=== PATIENT | female | born 1965 | race Caucasian/White ===

== ENCOUNTER 2017-08-18 05:16 | Inpatient (IN) | payer MEDICAID ==
[~2017-08-18] VITALS: Ht 147.3 cm; Wt 38.3 kg
[2017-08-18] VITALS (15 sets, daily range): BP systolic 119–149; BP diastolic 65–78
[~2017-08-18 05:16] MED LIST: BUDE10.2 INH; BUSP30TA2 PO; FLUT16SP2 BOTHNARES; FURO-150 PO; HYDR-3686 PO; HYDR-569 PO; HYDR50TA65 PO; LISI-604 PO; MONT10TA21 PO; NICO-631 TD; NITR0.4T48 SL; POTA8TAB8 PO; THEO400T PO; TIOT4MIS5 PO
[2017-08-18] MEDS ORDERED: ipratropium/albuterol 3ml nebule ONE (05:24)
[2017-08-18] MEDS ORDERED: normal saline 1000ml 1,000 ML IV ONE (05:27)
[2017-08-18] MEDS ORDERED: CefTRIAXone 2gm/D5W 50ml 50 ML IV ONE (05:30)
[2017-08-18] MEDS ORDERED: methylPREDNISolone sod succ 125mg/2ml vial IV ONE (05:30)
[2017-08-18] MEDS ORDERED: azithromycin/NS 500mg/250ml 250 ML IV ONE (05:30)
[2017-08-18] MEDS ORDERED: ipratropium/albuterol 3ml nebule NEB ONE (05:30)
[2017-08-18] MEDS ORDERED: normal saline 1000ML IV soln IVB ONE ×3 (05:35→06:15)
[2017-08-18] MEDS ORDERED: propofol 1000mg/100ml bottle 100 ML IV PRN (05:36)
[2017-08-18] MEDS ORDERED: etomidate 2mg/ml inj. IV ONE (05:40)
[2017-08-18] MEDS ORDERED: succinylcholine 20mg/ml inj IV ONE (05:40)
[2017-08-18] MEDS ORDERED: MIDAZolam 5mg/ml 2ml vial IV ONE (05:40)
[2017-08-18 05:46] LABS: BASOPHILS # (AUTO) 0.1 X10'3 (0-0.2); BASOPHILS % (AUTO) 0.7 % (0-1); EOSINOPHILS # (AUTO) 0.3 X10'3 (0-0.9); EOSINOPHILS % (AUTO) 3.2 % (0-6); HEMATOCRIT 39.2 % (35.0-45.0); HEMOGLOBIN 13.4 g/dl (12.0-16.0); LYMPHOCYTES # (AUTO) 3.4 X10'3 (1.1-4.8); LYMPHOCYTES % (AUTO) 40.5 % (21-51); MEAN CORPUSCULAR HEMOGLOBIN 34.1 PG (27.0-31.0); MEAN CORPUSCULAR HGB CONC 34.1 % (33.0-36.5); MEAN PLATELET VOLUME 8.1 FL (7.4-10.4); MONOCYTES # (AUTO) 0.5 X10'3 (0-0.9); MONOCYTES % (AUTO) 5.4 % (2-12); NEUTROPHILS # (AUTO) 4.2 X10'3 (1.8-7.7); NEUTROPHILS % (AUTO) 50.2 % (42-75); PLATELET COUNT 241 X10'3 (140-440); RED BLOOD COUNT 3.92 X10'6 (4.20-5.60); RED CELL DISTRIBUTION WIDTH 14.9 % (11.5-14.5); WHITE BLOOD COUNT 8.3 X10'3 (4.5-11.0)
[2017-08-18 05:50] LABS: PARTIAL THROMBOPLASTIN TIME 23 SECONDS (22-32)
[2017-08-18 05:54] LABS: ALANINE AMINOTRANSFERASE 93 U/L (12-78); ALBUMIN 3.5 G/DL (3.4-5.0); ALBUMIN/GLOBULIN RATIO 1.2 (1.1-1.5); ALKALINE PHOSPHATASE 160 IU/L (46-116); ANION GAP 11 (8-16); ASPARTATE AMINO TRANSFERASE 125 U/L (10-37); BILIRUBIN,TOTAL 0.4 MG/DL (0.1-1.0); BLOOD UREA NITROGEN 19 MG/DL (7-18); BUN/CREATININE RATIO 17.1 (6.6-38.0); CALCIUM 7.9 MG/DL (8.5-10.1); CHLORIDE 108 MMOL/L (99-107); CREATININE 1.11 MG/DL (0.40-0.90); GLUCOSE 258 MG/DL (70-104); SODIUM 143 MMOL/L (135-145); TOTAL CARBON DIOXIDE 23.7 MMOL/L (24-32); TOTAL PROTEIN 6.4 G/DL (6.4-8.2); eGFR 51 ML/MIN
[2017-08-18 06:01] LABS: ETHANOL < 0.010 GM/DL (0.0-0.010); MAGNESIUM 1.8 MG/DL (1.5-2.4)
[2017-08-18] MEDS ORDERED: albuterol 2.5 MG/3 ML nebule NEB ONE ×2 (06:05→06:10)
[2017-08-18] MEDS ORDERED: normal saline 1000ml 1,000 ML IV SCH (06:09)
[2017-08-18] MEDS ORDERED: potassium Cl 40MEQ/250ML bag 250 ML IV PRN (06:10)
[2017-08-18] MEDS ORDERED: morphine 4 MG/ML inj SYRINge IV PRN (06:10)
[2017-08-18] MEDS ORDERED: magnesium 4gm in 100ml NS 100 ML IV PRN (06:10)
[2017-08-18] MEDS ORDERED: acetaminophen 650mg rectal suppository RC PRN (06:10)
[2017-08-18] MEDS ORDERED: magnesium 2GM in 50ml NS 50 ML IV PRN (06:10)
[2017-08-18 06:40] LABS: CLARITY,URINE CLOUDY (Clear); COLOR,URINE YELLOW (Yellow); GLUCOSE, URINE 250 mg/dl (Neg); KETONES,URINE NEGATIVE (Neg); LEUKOCYTE ESTERASE ,URINE NEGATIVE (Neg); NITRITES, URINE NEGATIVE (Neg); OCCULT BLOOD,URINE SMALL (Neg); PROTEIN,URINE >=300 mg/dl (Neg)
[2017-08-18 06:43] LABS: CHOL/HDL RATIO 2.5 (0.00-4.99); CHOLESTEROL 226 MG/DL (0-200); HDL CHOLESTEROL 90 MG/DL (35-60); LDL CHOLESTEROL 107 MG/DL (50-100); TRIGLYCERIDES 73 MG/DL (20-135)
[2017-08-18 06:44] LABS: UA COLLECTION TYPE FOLEY CATH
[2017-08-18] MEDS ORDERED: dextrose ORAL solution 15 GM/59 ML bottle PO PRN ×2 (06:45)
[2017-08-18] MEDS ORDERED: glucagon, human recombinant 1mg kit SUBCUT PRN (06:45)
[2017-08-18] MEDS ORDERED: insulin Lispro (HumaLOG) vial - multi-dose SQ SCH (06:45)
[2017-08-18] MEDS ORDERED: dextrose 50%-water 50ml dispensing syringe IV PRN ×2 (06:45)
[2017-08-18 06:46] LABS: BACTERIA,URINE FEW /HPF (Neg); MUCUS STRANDS FEW /LPF (Neg); RBC,URINE 20-50 /HPF (0-2)
[2017-08-18 06:47] LABS: AMORPHOUS URATES 2+
[2017-08-18 06:48] LABS: SQUAMOUS EPITHELIAL CELL,UR FEW /LPF (FEW)
[2017-08-18 06:49] LABS: RENAL CELLS, URINE MODERATE /HPF
[2017-08-18 06:50] LABS: URINE AMPHETAMINE SCREEN NEGATIVE (Neg); URINE BARBITUATE SCREEN NEGATIVE (Neg); URINE BENZODIAZEPINES SCREEN POSITIVE (Neg); URINE CANNABINOID SCREEN POSITIVE (Neg); URINE COCAINE SCREEN NEGATIVE (Neg); URINE METHADONE SCREEN NEGATIVE (Neg); URINE OPIATE SCREEN NEGATIVE (Neg); URINE PHENCYCLIDINE SCREEN NEGATIVE (Neg)
[2017-08-18 07:00] LABS: HEMOGLOBIN A1C 5.2 % (4.5-6.2)
[2017-08-18] MEDS: azithromycin/NS 500mg/250ml 250 ML IV SCH (07:10)
[2017-08-18] MEDS ORDERED: FENTANYL-0.9 % NACL/PF 100 ML IV PRN (08:25)
[2017-08-18] MEDS ORDERED: midazolam 100mg in NS 100ml 100 ML IV PRN (08:25)
[2017-08-18] MEDS: famotidine/PF 10 mg/ml inj IV SCH ×2 (09:36→21:02)
[2017-08-18] MEDS: methylPREDNISolone sod succ 125mg/2ml vial IV SCH ×2 (14:17→21:01)
[2017-08-18] MEDS: insulin regular, human vial - multi-dose SQ SCH ×2 (14:19→20:56)
[2017-08-18] MEDS ORDERED: OMEP-50 PO (15:51)
[2017-08-18] MEDS: ipratropium/albuterol 3ml nebule NEB PRN ×2 (18:50→22:40)
[2017-08-18] MEDS: heparin, porcine 5000 units/ml vial SQ SCH (21:06)
[2017-08-18] MEDS: lactobacillus rhamnosus 10,000 MMU CELLS/CAPSULE PO SCH (21:12)
[2017-08-18] MEDS: insulin glargine (Lantus) pen - multi-dose SQ SCH (21:26)
[2017-08-19] VITALS (23 sets, daily range): BP systolic 101–140; BP diastolic 52–82
[2017-08-19] MEDS: methylPREDNISolone sod succ 125mg/2ml vial IV SCH ×4 (02:11→19:50)
[2017-08-19] MEDS: insulin regular, human vial - multi-dose SQ SCH ×2 (02:15→07:35)
[2017-08-19 02:48] LABS: BASOPHILS % (AUTO) 0.1 % (0-1); EOSINOPHILS % (AUTO) 0 % (0-6); HEMOGLOBIN 11.6 g/dl (12.0-16.0); LYMPHOCYTES # (AUTO) 0.2 X10'3 (1.1-4.8); LYMPHOCYTES % (AUTO) 2.4 % (21-51); MEAN CORPUSCULAR HEMOGLOBIN 33.3 PG (27.0-31.0); MEAN CORPUSCULAR HGB CONC 33.3 % (33.0-36.5); MEAN CORPUSCULAR VOLUME 100.1 FL (78-98); MEAN PLATELET VOLUME 8.5 FL (7.4-10.4); MONOCYTES # (AUTO) 0.2 X10'3 (0-0.9); MONOCYTES % (AUTO) 1.9 % (2-12); NEUTROPHILS # (AUTO) 8.4 X10'3 (1.8-7.7); NEUTROPHILS % (AUTO) 95.6 % (42-75); PLATELET COUNT 183 X10'3 (140-440); RED CELL DISTRIBUTION WIDTH 14.5 % (11.5-14.5); WHITE BLOOD COUNT 8.8 X10'3 (4.5-11.0)
[2017-08-19] MEDS: ipratropium/albuterol 3ml nebule NEB PRN ×2 (02:50→10:34)
[2017-08-19 03:03] LABS: ALBUMIN 2.7 G/DL (3.4-5.0); ANION GAP 8 (8-16); BILIRUBIN,TOTAL 0.2 MG/DL (0.1-1.0); BLOOD UREA NITROGEN 17 MG/DL (7-18); BUN/CREATININE RATIO 28.3 (6.6-38.0); CALCIUM 7.7 MG/DL (8.5-10.1); CHLORIDE 111 MMOL/L (99-107); GLUCOSE 174 MG/DL (70-104); MAGNESIUM 1.7 MG/DL (1.5-2.4); PHOSPHORUS 1.3 MG/DL (2.3-4.5); POTASSIUM 3.8 MMOL/L (3.5-5.1); SODIUM 143 MMOL/L (135-145); TOTAL CARBON DIOXIDE 24.1 MMOL/L (24-32); eGFR > 90 ML/MIN
[2017-08-19 03:04] LABS: ALANINE AMINOTRANSFERASE 99 U/L (12-78); ALBUMIN/GLOBULIN RATIO 1.2 (1.1-1.5); ALKALINE PHOSPHATASE 75 IU/L (46-116); ASPARTATE AMINO TRANSFERASE 43 U/L (10-37)
[2017-08-19 03:11] LABS: ABG BASE EXCESS -2.6 mmol/L (-2.0-3.0); ABG HCO3 21.6 mmol/L (22.0-26.0); ABG PCO2 (T) 36.7 mmHg (32.0-45.0); ABG PH (T) 7.391 (7.350-7.450); FCOHb 0.2 % (0.5-1.5); FMetHb 0.1 % (0.3-1.12); FO2Hb 96.7 % (94-100); MINUTE VOLUME 7 L/min; PATIENT TEMPERATURE 37.7; PEEP 5 cm H2O; RESPIRATORY RATE 16 b/min; RESPIRATORY RATE (OBSERVED) 16 b/min; TIDAL VOLUME 400 mL; TOTAL HEMOGLOBIN 12.4 G/dl (12.0-16.0)
[2017-08-19] MEDS: lactobacillus rhamnosus 10,000 MMU CELLS/CAPSULE PO SCH ×2 (07:14→19:49)
[2017-08-19] MEDS: heparin, porcine 5000 units/ml vial SQ SCH ×2 (07:18→19:53)
[2017-08-19] MEDS: famotidine/PF 10 mg/ml inj IV SCH ×2 (07:18→20:00)
[2017-08-19] MEDS: nicotine 21mg patch - 24 hr TD SCH (07:19)
[2017-08-19] MEDS: CefTRIAXone (Rocephin) 2gm/D5W 50ml IVPB IV SCH (07:20)
[2017-08-19] MEDS: azithromycin/NS 500mg/250ml 250 ML IV SCH (07:20)
[2017-08-19] MEDS: mineral oil/petrolatum ophthal oint EACHEYE SCH ×3 (07:21→20:00)
[2017-08-19] MEDS ORDERED: furosemide 40mg/4ml inj IV ONE (08:55)
[2017-08-19 09:16] LABS: HEP A AB, IGM Negative (Negative); HEP B CORE AB, IGM Negative (Negative); HEPATITIS C ANTIBODY >11.0 s/co ratio (0.0-0.9)
[2017-08-19] MEDS: ondansetron/PF 4mg/2ml inj IV PRN ×2 (15:34→19:54)
[2017-08-19] MEDS ORDERED: LORazepam 2 mg/ml vial IV ONE (16:40)
[2017-08-19] MEDS ORDERED: fluticasone nasal spray 16GM bottle NS PRN (19:05)
[2017-08-19] MEDS: busPIRone 15mg tablet PO SCH (19:49)
[2017-08-19] MEDS: morphine 4 MG/ML inj SYRINge IV PRN (19:52)
[2017-08-19] MEDS: lisinopril 5mg tablet PO SCH (19:59)
[2017-08-19] MEDS: insulin glargine (Lantus) pen - multi-dose SQ SCH (21:00)
[2017-08-19] MEDS: ipratropium 0.5 MG/2.5ML nebule IH SCH (21:07)
[2017-08-19] MEDS: budesonide 0.5mg/2ml UD nebule IH SCH (21:07)
[2017-08-20] VITALS (18 sets, daily range): BP systolic 97–123; BP diastolic 54–94
[2017-08-20] MEDS: mineral oil/petrolatum ophthal oint EACHEYE SCH ×2 (01:50→08:00)
[2017-08-20] MEDS: methylPREDNISolone sod succ 125mg/2ml vial IV SCH ×4 (02:22→19:34)
[2017-08-20] MEDS: ondansetron/PF 4mg/2ml inj IV PRN ×2 (02:32→08:30)
[2017-08-20] MEDS: ipratropium 0.5 MG/2.5ML nebule IH SCH ×4 (03:05→19:55)
[2017-08-20] MEDS: morphine 4 MG/ML inj SYRINge IV PRN ×4 (03:24→19:47)
[2017-08-20 05:23] LABS: BASOPHILS % (AUTO) 0 % (0-1); EOSINOPHILS % (AUTO) 0 % (0-6); LYMPHOCYTES # (AUTO) 0.3 X10'3 (1.1-4.8); LYMPHOCYTES % (AUTO) 2.6 % (21-51); MEAN CORPUSCULAR HEMOGLOBIN 33.4 PG (27.0-31.0); MEAN CORPUSCULAR HGB CONC 33.4 % (33.0-36.5); MEAN PLATELET VOLUME 8.4 FL (7.4-10.4); MONOCYTES # (AUTO) 0.3 X10'3 (0-0.9); NEUTROPHILS # (AUTO) 9.6 X10'3 (1.8-7.7); NEUTROPHILS % (AUTO) 94.4 % (42-75); PLATELET COUNT 188 X10'3 (140-440); WHITE BLOOD COUNT 10.1 X10'3 (4.5-11.0)
[2017-08-20 05:56] LABS: ALANINE AMINOTRANSFERASE 74 U/L (12-78); ALBUMIN 3.1 G/DL (3.4-5.0); ALBUMIN/GLOBULIN RATIO 1.1 (1.1-1.5); ALKALINE PHOSPHATASE 73 IU/L (46-116); ANION GAP 8 (8-16); ASPARTATE AMINO TRANSFERASE 18 U/L (10-37); BILIRUBIN,TOTAL 0.3 MG/DL (0.1-1.0); BLOOD UREA NITROGEN 26 MG/DL (7-18); BUN/CREATININE RATIO 38.8 (6.6-38.0); CALCIUM 8.3 MG/DL (8.5-10.1); CHLORIDE 107 MMOL/L (99-107); CREATININE 0.67 MG/DL (0.40-0.90); GLUCOSE 141 MG/DL (70-104); MAGNESIUM 1.9 MG/DL (1.5-2.4); PHOSPHORUS 3.5 MG/DL (2.3-4.5); POTASSIUM 4.2 MMOL/L (3.5-5.1); SODIUM 143 MMOL/L (135-145); TOTAL CARBON DIOXIDE 28.3 MMOL/L (24-32); TOTAL PROTEIN 5.9 G/DL (6.4-8.2); eGFR > 90 ML/MIN
[2017-08-20] MEDS: budesonide 0.5mg/2ml UD nebule IH SCH ×2 (07:47→19:55)
[2017-08-20] MEDS: albuterol 2.5 MG/3 ML nebule NEB SCH ×4 (07:52→19:55)
[2017-08-20] MEDS: azithromycin/NS 500mg/250ml 250 ML IV SCH (08:29)
[2017-08-20] MEDS: CefTRIAXone (Rocephin) 2gm/D5W 50ml IVPB IV SCH (08:29)
[2017-08-20] MEDS: famotidine/PF 10 mg/ml inj IV SCH (08:30)
[2017-08-20] MEDS: lisinopril 5mg tablet PO SCH (08:31)
[2017-08-20] MEDS: heparin, porcine 5000 units/ml vial SQ SCH ×2 (08:31→19:35)
[2017-08-20] MEDS: busPIRone 15mg tablet PO SCH ×2 (08:31→19:35)
[2017-08-20] MEDS: lactobacillus rhamnosus 10,000 MMU CELLS/CAPSULE PO SCH ×2 (08:31→19:35)
[2017-08-20] MEDS: montelukast 10mg tablet PO SCH (08:32)
[2017-08-20] MEDS: theophylline anhydrous 100mg ER capsule 24-hour PO SCH (08:32)
[2017-08-20] MEDS: nicotine 21mg patch - 24 hr TD SCH (08:33)
[2017-08-20] MEDS ORDERED: nitroGLYCERIN 0.4mg SUBLingual tab SL PRN (08:45)
[2017-08-20] MEDS: famotidine 20mg tablet PO SCH (19:35)
[2017-08-20] MEDS: HYDROcodone/acetaminophen 5mg/325mg tablet PO PRN (22:23)
[2017-08-20] MEDS: hydrOXYzine 25 MG tablet PO PRN (22:23)
[2017-08-21] MEDS: morphine 4 MG/ML inj SYRINge IV PRN ×4 (00:35→20:34)
[2017-08-21] MEDS: methylPREDNISolone sod succ 125mg/2ml vial IV SCH ×4 (02:30→20:33)
[2017-08-21 03:00] VITALS: BP 105/59
[2017-08-21] MEDS: ipratropium 0.5 MG/2.5ML nebule IH SCH ×4 (03:11→20:52)
[2017-08-21 06:10] LABS: ABG BASE EXCESS -4.4 mmol/L (-2.0-3.0); ABG HCO3 21.2 mmol/L (22.0-26.0); ABG OXYGEN SATURATION 98.8 % (95-98); ABG PCO2 (T) 41.3 mmHg (32.0-45.0); ABG PH (T) 7.329 (7.350-7.450); ABG PO2 (T) 151.5 mmHg (83-108); ALLEN'S TEST Positive; FCOHb 0.2 % (0.5-1.5); FMetHb 0.1 % (0.3-1.12); FO2Hb 98.5 % (94-100); MINUTE VOLUME 7 L/min; PEEP 5 cm H2O; RESPIRATORY RATE 16 b/min; RESPIRATORY RATE (OBSERVED) 16 b/min; TOTAL HEMOGLOBIN 13.5 G/dl (12.0-16.0)
[2017-08-21 06:10] LABS: ABG BASE EXCESS -11.5 mmol/L (-2.0-3.0); ABG HCO3 17.4 mmol/L (22.0-26.0); ABG OXYGEN SATURATION 91.5 % (95-98); ABG PCO2 (T) 51.6 mmHg (32.0-45.0); ABG PH (T) 7.145 (7.350-7.450); ABG PO2 (T) 74.2 mmHg (83-108); FCOHb 1.3 % (0.5-1.5); FO2Hb 90.3 % (94-100); MINUTE VOLUME 7 L/min; PEEP 5 cm H2O; RESPIRATORY RATE 16 b/min; RESPIRATORY RATE (OBSERVED) 16 b/min; TOTAL HEMOGLOBIN 12.6 G/dl (12.0-16.0)
[2017-08-21 06:45] VITALS: BP 115/76
[2017-08-21] MEDS: nicotine 21mg patch - 24 hr TD SCH (07:01)
[2017-08-21] MEDS: busPIRone 15mg tablet PO SCH ×2 (07:02→20:35)
[2017-08-21] MEDS: lactobacillus rhamnosus 10,000 MMU CELLS/CAPSULE PO SCH ×2 (07:02→20:33)
[2017-08-21] MEDS: famotidine 20mg tablet PO SCH ×2 (07:02→20:33)
[2017-08-21] MEDS: lisinopril 5mg tablet PO SCH (07:02)
[2017-08-21] MEDS: montelukast 10mg tablet PO SCH (07:02)
[2017-08-21] MEDS: heparin, porcine 5000 units/ml vial SQ SCH ×2 (07:02→20:34)
[2017-08-21] MEDS: CefTRIAXone (Rocephin) 2gm/D5W 50ml IVPB IV SCH (07:03)
[2017-08-21] MEDS: azithromycin/NS 500mg/250ml 250 ML IV SCH (07:03)
[2017-08-21] MEDS: furosemide 20MG tablet PO SCH (07:08)
[2017-08-21] MEDS: theophylline anhydrous 100mg ER capsule 24-hour PO SCH (07:08)
[2017-08-21] MEDS: potassium chloride 8mEq ER tablet PO SCH (07:08)
[2017-08-21] MEDS: budesonide 0.5mg/2ml UD nebule IH SCH ×2 (07:17→20:51)
[2017-08-21] MEDS: albuterol 2.5 MG/3 ML nebule NEB SCH ×4 (07:17→20:52)
[2017-08-21] MEDS: HYDROcodone/acetaminophen 5mg/325mg tablet PO PRN ×2 (08:21→14:40)
[2017-08-21 10:25] LABS: BASOPHILS % (AUTO) 0 % (0-1); EOSINOPHILS % (AUTO) 0 % (0-6); HEMATOCRIT 31.9 % (35.0-45.0); HEMOGLOBIN 10.8 g/dl (12.0-16.0); LYMPHOCYTES # (AUTO) 0.2 X10'3 (1.1-4.8); MEAN CORPUSCULAR HEMOGLOBIN 33.9 PG (27.0-31.0); MEAN CORPUSCULAR HGB CONC 33.9 % (33.0-36.5); MEAN CORPUSCULAR VOLUME 99.9 FL (78-98); MONOCYTES # (AUTO) 0.2 X10'3 (0-0.9); MONOCYTES % (AUTO) 4.8 % (2-12); NEUTROPHILS # (AUTO) 4.2 X10'3 (1.8-7.7); NEUTROPHILS % (AUTO) 91.2 % (42-75); PLATELET COUNT 171 X10'3 (140-440); RED BLOOD COUNT 3.19 X10'6 (4.20-5.60); RED CELL DISTRIBUTION WIDTH 15.1 % (11.5-14.5); WHITE BLOOD COUNT 4.6 X10'3 (4.5-11.0)
[2017-08-21 10:40] LABS: ALANINE AMINOTRANSFERASE 49 U/L (12-78); ALBUMIN 3.1 G/DL (3.4-5.0); ALBUMIN/GLOBULIN RATIO 1.2 (1.1-1.5); ALKALINE PHOSPHATASE 61 IU/L (46-116); ANION GAP 5 (8-16); ASPARTATE AMINO TRANSFERASE 10 U/L (10-37); BILIRUBIN,TOTAL 0.2 MG/DL (0.1-1.0); BLOOD UREA NITROGEN 19 MG/DL (7-18); BUN/CREATININE RATIO 29.7 (6.6-38.0); CALCIUM 8.4 MG/DL (8.5-10.1); CHLORIDE 104 MMOL/L (99-107); CREATININE 0.64 MG/DL (0.40-0.90); GLUCOSE 160 MG/DL (70-104); MAGNESIUM 1.9 MG/DL (1.5-2.4); PHOSPHORUS 2.9 MG/DL (2.3-4.5); POTASSIUM 4.3 MMOL/L (3.5-5.1); PREALBUMIN 19.2 MG/DL (19-36); SODIUM 140 MMOL/L (135-145); TOTAL CARBON DIOXIDE 31.3 MMOL/L (24-32); TOTAL PROTEIN 5.6 G/DL (6.4-8.2); eGFR > 90 ML/MIN
[2017-08-21] MEDS ORDERED: ONDA4TAB11 (11:29)
[2017-08-21] MEDS: ondansetron/PF 4mg/2ml inj IV PRN ×2 (12:19→23:18)
[2017-08-21] MEDS: LACTOSE-FREE FOOD 237ML (BOOST) PO SCH ×2 (13:00→16:24)
[2017-08-21 15:00] VITALS: BP 114/73
[2017-08-21 19:00] VITALS: BP 116/72
[2017-08-21] MEDS ORDERED: morphine 2 MG/ML inj. syringe IV PRN (19:06)
[2017-08-21] MEDS ORDERED: MORPHINE 2MG in 2ml NS syringe IV PRN (19:09)
[2017-08-21 23:00] VITALS: BP 110/67
[2017-08-22] MEDS: ipratropium/albuterol 3ml nebule NEB PRN ×3 (00:38→20:20)
[2017-08-22] MEDS: morphine 4 MG/ML inj SYRINge IV PRN ×5 (00:48→20:35)
[2017-08-22] MEDS: methylPREDNISolone sod succ 125mg/2ml vial IV SCH ×4 (02:47→20:34)
[2017-08-22 03:00] VITALS: BP 101/60
[2017-08-22] MEDS: ipratropium 0.5 MG/2.5ML nebule IH SCH ×4 (03:00→20:34)
[2017-08-22] MEDS: hydrOXYzine 25 MG tablet PO PRN ×2 (04:41→12:19)
[2017-08-22 06:00] VITALS: BP 111/65
[2017-08-22] MEDS: CefTRIAXone (Rocephin) 2gm/D5W 50ml IVPB IV SCH (07:30)
[2017-08-22] MEDS: azithromycin/NS 500mg/250ml 250 ML IV SCH (07:30)
[2017-08-22] MEDS: montelukast 10mg tablet PO SCH (07:31)
[2017-08-22] MEDS: lisinopril 5mg tablet PO SCH (07:31)
[2017-08-22] MEDS: busPIRone 15mg tablet PO SCH ×2 (07:31→20:35)
[2017-08-22] MEDS: lactobacillus rhamnosus 10,000 MMU CELLS/CAPSULE PO SCH ×2 (07:31→20:35)
[2017-08-22] MEDS: potassium chloride 8mEq ER tablet PO SCH (07:31)
[2017-08-22] MEDS: famotidine 20mg tablet PO SCH ×2 (07:31→20:34)
[2017-08-22] MEDS: furosemide 20MG tablet PO SCH (07:31)
[2017-08-22] MEDS: theophylline anhydrous 100mg ER capsule 24-hour PO SCH (07:31)
[2017-08-22] MEDS: ondansetron/PF 4mg/2ml inj IV PRN (07:32)
[2017-08-22] MEDS: nicotine 21mg patch - 24 hr TD SCH (07:32)
[2017-08-22] MEDS: heparin, porcine 5000 units/ml vial SQ SCH ×2 (07:32→20:35)
[2017-08-22] MEDS: LACTOSE-FREE FOOD 237ML (BOOST) PO SCH ×3 (07:33→18:01)
[2017-08-22] MEDS: albuterol 2.5 MG/3 ML nebule NEB SCH ×4 (07:40→20:34)
[2017-08-22] MEDS: budesonide 0.5mg/2ml UD nebule IH SCH ×2 (07:43→20:20)
[2017-08-22 11:00] VITALS: BP 132/91
[2017-08-22 12:40] LABS: BASOPHILS % (AUTO) 0.1 % (0-1); EOSINOPHILS % (AUTO) 0 % (0-6); HEMATOCRIT 32.4 % (35.0-45.0); HEMOGLOBIN 10.8 g/dl (12.0-16.0); LYMPHOCYTES # (AUTO) 0.1 X10'3 (1.1-4.8); LYMPHOCYTES % (AUTO) 3.1 % (21-51); MEAN CORPUSCULAR HEMOGLOBIN 33.3 PG (27.0-31.0); MEAN CORPUSCULAR HGB CONC 33.2 % (33.0-36.5); MEAN CORPUSCULAR VOLUME 100.4 FL (78-98); MEAN PLATELET VOLUME 8.2 FL (7.4-10.4); MONOCYTES # (AUTO) 0.2 X10'3 (0-0.9); MONOCYTES % (AUTO) 3.9 % (2-12); NEUTROPHILS # (AUTO) 4.2 X10'3 (1.8-7.7); NEUTROPHILS % (AUTO) 92.9 % (42-75); PLATELET COUNT 186 X10'3 (140-440); RED BLOOD COUNT 3.23 X10'6 (4.20-5.60); RED CELL DISTRIBUTION WIDTH 15.1 % (11.5-14.5); WHITE BLOOD COUNT 4.5 X10'3 (4.5-11.0)
[2017-08-22 12:53] LABS: ANION GAP 8 (8-16); BLOOD UREA NITROGEN 22 MG/DL (7-18); BUN/CREATININE RATIO 24.4 (6.6-38.0); CHLORIDE 101 MMOL/L (99-107); GLUCOSE 136 MG/DL (70-104); POTASSIUM 4.2 MMOL/L (3.5-5.1); SODIUM 141 MMOL/L (135-145); TOTAL CARBON DIOXIDE 32.2 MMOL/L (24-32)
[2017-08-22 12:54] LABS: ALANINE AMINOTRANSFERASE 60 U/L (12-78); ALBUMIN 3.3 G/DL (3.4-5.0); ALBUMIN/GLOBULIN RATIO 1.2 (1.1-1.5); ALKALINE PHOSPHATASE 63 IU/L (46-116); ASPARTATE AMINO TRANSFERASE 17 U/L (10-37); BILIRUBIN,TOTAL 0.2 MG/DL (0.1-1.0); CALCIUM 8.6 MG/DL (8.5-10.1); MAGNESIUM 2.1 MG/DL (1.5-2.4); PHOSPHORUS 3.6 MG/DL (2.3-4.5); TOTAL PROTEIN 6.1 G/DL (6.4-8.2); eGFR 65 ML/MIN
[2017-08-22 15:00] VITALS: BP 106/58
[2017-08-22] MEDS: ALPRAZolam 0.25mg tablet PO PRN (16:36)
[2017-08-22 19:00] VITALS: BP 117/62
[2017-08-22 23:00] VITALS: BP 111/72
[2017-08-23] MEDS: methylPREDNISolone sod succ 125mg/2ml vial IV SCH ×4 (01:31→21:21)
[2017-08-23] MEDS: morphine 4 MG/ML inj SYRINge IV PRN ×5 (01:31→21:25)
[2017-08-23] MEDS: ipratropium 0.5 MG/2.5ML nebule IH SCH ×4 (02:14→20:17)
[2017-08-23 03:00] VITALS: BP 109/64
[2017-08-23 04:36] LABS: BASOPHILS % (AUTO) 0 % (0-1); EOSINOPHILS % (AUTO) 0 % (0-6); HEMATOCRIT 32.4 % (35.0-45.0); HEMOGLOBIN 10.9 g/dl (12.0-16.0); LYMPHOCYTES # (AUTO) 0.1 X10'3 (1.1-4.8); MEAN CORPUSCULAR HEMOGLOBIN 33.8 PG (27.0-31.0); MEAN CORPUSCULAR HGB CONC 33.6 % (33.0-36.5); MEAN CORPUSCULAR VOLUME 100.5 FL (78-98); MEAN PLATELET VOLUME 8.6 FL (7.4-10.4); MONOCYTES # (AUTO) 0.2 X10'3 (0-0.9); MONOCYTES % (AUTO) 4.4 % (2-12); NEUTROPHILS # (AUTO) 4.8 X10'3 (1.8-7.7); NEUTROPHILS % (AUTO) 93.6 % (42-75); PLATELET COUNT 191 X10'3 (140-440); RED BLOOD COUNT 3.22 X10'6 (4.20-5.60); RED CELL DISTRIBUTION WIDTH 14.8 % (11.5-14.5); WHITE BLOOD COUNT 5.1 X10'3 (4.5-11.0)
[2017-08-23 04:50] LABS: ALANINE AMINOTRANSFERASE 56 U/L (12-78); ALBUMIN 3.5 G/DL (3.4-5.0); ALBUMIN/GLOBULIN RATIO 1.5 (1.1-1.5); ALKALINE PHOSPHATASE 64 IU/L (46-116); ANION GAP 4 (8-16); ASPARTATE AMINO TRANSFERASE 9 U/L (10-37); BILIRUBIN,TOTAL 0.2 MG/DL (0.1-1.0); BLOOD UREA NITROGEN 25 MG/DL (7-18); BUN/CREATININE RATIO 24.5 (6.6-38.0); CALCIUM 8.9 MG/DL (8.5-10.1); CHLORIDE 103 MMOL/L (99-107); CREATININE 1.02 MG/DL (0.40-0.90); GLUCOSE 137 MG/DL (70-104); PHOSPHORUS 3.5 MG/DL (2.3-4.5); POTASSIUM 4.3 MMOL/L (3.5-5.1); SODIUM 142 MMOL/L (135-145); TOTAL CARBON DIOXIDE 34.9 MMOL/L (24-32); TOTAL PROTEIN 5.8 G/DL (6.4-8.2); eGFR 57 ML/MIN
[2017-08-23 06:00] VITALS: BP 130/79
[2017-08-23] MEDS: potassium chloride 8mEq ER tablet PO SCH (07:50)
[2017-08-23] MEDS: busPIRone 15mg tablet PO SCH ×2 (07:50→21:19)
[2017-08-23] MEDS: heparin, porcine 5000 units/ml vial SQ SCH ×2 (07:50→21:33)
[2017-08-23] MEDS: famotidine 20mg tablet PO SCH ×2 (07:51→21:18)
[2017-08-23] MEDS: lactobacillus rhamnosus 10,000 MMU CELLS/CAPSULE PO SCH ×2 (07:51→21:18)
[2017-08-23] MEDS: azithromycin 250mg tablet PO SCH (07:51)
[2017-08-23] MEDS: montelukast 10mg tablet PO SCH (07:52)
[2017-08-23] MEDS: furosemide 20MG tablet PO SCH (07:52)
[2017-08-23] MEDS: CefTRIAXone (Rocephin) 2gm/D5W 50ml IVPB IV SCH (07:52)
[2017-08-23] MEDS: nicotine 21mg patch - 24 hr TD SCH (07:52)
[2017-08-23] MEDS: theophylline anhydrous 100mg ER capsule 24-hour PO SCH (07:52)
[2017-08-23] MEDS: lisinopril 5mg tablet PO SCH (07:53)
[2017-08-23] MEDS: LACTOSE-FREE FOOD 237ML (BOOST) PO SCH ×3 (08:07→18:22)
[2017-08-23] MEDS: ipratropium/albuterol 3ml nebule NEB PRN ×3 (08:15→20:16)
[2017-08-23] MEDS: budesonide 0.5mg/2ml UD nebule IH SCH ×2 (08:15→20:16)
[2017-08-23] MEDS: albuterol 2.5 MG/3 ML nebule NEB SCH ×4 (08:15→19:00)
[2017-08-23 11:00] VITALS: BP 127/66
[2017-08-23] MEDS ORDERED: Protein Smoothie (high protein) 240ml (8oz) cup PO SCH (13:00)
[2017-08-23 15:00] VITALS: BP 110/63
[2017-08-23] MEDS ORDERED: morphine 2 MG/ML inj. syringe IV PRN (16:47)
[2017-08-23 19:00] VITALS: BP 136/62
[2017-08-23] MEDS: ALPRAZolam 0.25mg tablet PO PRN (22:00)
[2017-08-23 23:00] VITALS: BP 129/74
[2017-08-24] MEDS: methylPREDNISolone sod succ 125mg/2ml vial IV SCH ×4 (02:36→19:04)
[2017-08-24] MEDS: morphine 4 MG/ML inj SYRINge IV PRN (02:42)
[2017-08-24 03:00] VITALS: BP 110/62
[2017-08-24] MEDS: ipratropium 0.5 MG/2.5ML nebule IH SCH ×4 (03:16→20:21)
[2017-08-24 05:23] LABS: BASOPHILS % (AUTO) 0 % (0-1); EOSINOPHILS % (AUTO) 0.9 % (0-6); HEMATOCRIT 30.2 % (35.0-45.0); HEMOGLOBIN 10.2 g/dl (12.0-16.0); LYMPHOCYTES # (AUTO) 0.1 X10'3 (1.1-4.8); LYMPHOCYTES % (AUTO) 2.1 % (21-51); MEAN CORPUSCULAR HEMOGLOBIN 33.3 PG (27.0-31.0); MEAN CORPUSCULAR HGB CONC 33.8 % (33.0-36.5); MEAN CORPUSCULAR VOLUME 98.8 FL (78-98); MEAN PLATELET VOLUME 8.7 FL (7.4-10.4); MONOCYTES # (AUTO) 0.2 X10'3 (0-0.9); MONOCYTES % (AUTO) 3.9 % (2-12); NEUTROPHILS # (AUTO) 4.7 X10'3 (1.8-7.7); NEUTROPHILS % (AUTO) 93.1 % (42-75); PLATELET COUNT 134 X10'3 (140-440); RED BLOOD COUNT 3.06 X10'6 (4.20-5.60); WHITE BLOOD COUNT 5.1 X10'3 (4.5-11.0)
[2017-08-24 06:14] LABS: ALANINE AMINOTRANSFERASE 42 U/L (12-78); ALBUMIN 2.5 G/DL (3.4-5.0); ALBUMIN/GLOBULIN RATIO 1.4 (1.1-1.5); ALKALINE PHOSPHATASE 55 IU/L (46-116); ANION GAP 8 (8-16); ASPARTATE AMINO TRANSFERASE 8 U/L (10-37); BILIRUBIN,TOTAL 0.2 MG/DL (0.1-1.0); BLOOD UREA NITROGEN 16 MG/DL (7-18); BUN/CREATININE RATIO 29.6 (6.6-38.0); CHLORIDE 109 MMOL/L (99-107); CREATININE 0.54 MG/DL (0.40-0.90); GLUCOSE 129 MG/DL (70-104); MAGNESIUM 1.4 MG/DL (1.5-2.4); PHOSPHORUS 2.9 MG/DL (2.3-4.5); POTASSIUM 3.5 MMOL/L (3.5-5.1); PREALBUMIN 19.3 MG/DL (19-36); SODIUM 144 MMOL/L (135-145); TOTAL CARBON DIOXIDE 27.4 MMOL/L (24-32); TOTAL PROTEIN 4.3 G/DL (6.4-8.2); eGFR > 90 ML/MIN
[2017-08-24 07:00] VITALS: BP 107/67
[2017-08-24] MEDS: albuterol 2.5 MG/3 ML nebule NEB SCH ×4 (07:00→19:00)
[2017-08-24] MEDS: CefTRIAXone (Rocephin) 2gm/D5W 50ml IVPB IV SCH (07:40)
[2017-08-24] MEDS: heparin, porcine 5000 units/ml vial SQ SCH ×2 (07:41→19:04)
[2017-08-24] MEDS: azithromycin 250mg tablet PO SCH (07:42)
[2017-08-24] MEDS: famotidine 20mg tablet PO SCH ×2 (07:42→19:04)
[2017-08-24] MEDS: lactobacillus rhamnosus 10,000 MMU CELLS/CAPSULE PO SCH ×2 (07:42→19:04)
[2017-08-24] MEDS: lisinopril 5mg tablet PO SCH (07:43)
[2017-08-24] MEDS: busPIRone 15mg tablet PO SCH ×2 (07:43→19:04)
[2017-08-24] MEDS: potassium chloride 8mEq ER tablet PO SCH (07:43)
[2017-08-24] MEDS: ALPRAZolam 0.25mg tablet PO PRN ×2 (07:43→17:26)
[2017-08-24] MEDS: montelukast 10mg tablet PO SCH (07:43)
[2017-08-24] MEDS: furosemide 20MG tablet PO SCH (07:43)
[2017-08-24] MEDS: theophylline anhydrous 100mg ER capsule 24-hour PO SCH (07:44)
[2017-08-24] MEDS: MORPHINE 2MG in 2ml NS syringe IV PRN ×4 (07:44→21:34)
[2017-08-24] MEDS: nicotine 21mg patch - 24 hr TD SCH (07:45)
[2017-08-24] MEDS: ipratropium/albuterol 3ml nebule NEB PRN ×3 (08:07→20:20)
[2017-08-24] MEDS: budesonide 0.5mg/2ml UD nebule IH SCH ×2 (08:07→20:20)
[2017-08-24 11:40] VITALS: BP 103/59
[2017-08-24] MEDS ORDERED: potassium Cl 20 mEq SR tablet PO PRN ×2 (12:35)
[2017-08-24] MEDS ORDERED: potassium Cl 40MEQ/NS 500ml 500 ML IV PRN ×2 (12:35)
[2017-08-24 15:00] VITALS: BP 136/70
[2017-08-24] MEDS: magnesium hydroxide 30ml (MOM) UD suspension PO PRN (17:26)
[2017-08-24 18:00] VITALS: BP 122/70
[2017-08-24] MEDS ORDERED: magnesium 4gm in 100ml NS 100 ML IV PRN (18:35)
[2017-08-24] MEDS ORDERED: magnesium/D5W IVPB 100 ML IV PRN (18:35)
[2017-08-24] MEDS ORDERED: magnesium Cl slow-release 64mg tablet PO PRN (18:35)
[2017-08-24 22:00] VITALS: BP 107/57
[2017-08-25] MEDS: hydrOXYzine 25 MG tablet PO PRN (00:04)
[2017-08-25] MEDS: methylPREDNISolone sod succ 125mg/2ml vial IV SCH ×4 (01:31→19:52)
[2017-08-25] MEDS: MORPHINE 2MG in 2ml NS syringe IV PRN ×5 (01:32→19:53)
[2017-08-25 02:00] VITALS: BP 115/67
[2017-08-25] MEDS: ipratropium 0.5 MG/2.5ML nebule IH SCH ×4 (02:35→20:13)
[2017-08-25 03:38] LABS: BASOPHILS % (AUTO) 0.3 % (0-1); EOSINOPHILS % (AUTO) 0.1 % (0-6); HEMATOCRIT 37.8 % (35.0-45.0); HEMOGLOBIN 12.6 g/dl (12.0-16.0); LYMPHOCYTES # (AUTO) 0.2 X10'3 (1.1-4.8); LYMPHOCYTES % (AUTO) 2.1 % (21-51); MEAN CORPUSCULAR HEMOGLOBIN 33.8 PG (27.0-31.0); MEAN CORPUSCULAR HGB CONC 33.5 % (33.0-36.5); MEAN CORPUSCULAR VOLUME 100.9 FL (78-98); MEAN PLATELET VOLUME 8.2 FL (7.4-10.4); MONOCYTES # (AUTO) 0.5 X10'3 (0-0.9); MONOCYTES % (AUTO) 6.2 % (2-12); NEUTROPHILS # (AUTO) 7.1 X10'3 (1.8-7.7); NEUTROPHILS % (AUTO) 91.3 % (42-75); PLATELET COUNT 241 X10'3 (140-440); RED BLOOD COUNT 3.74 X10'6 (4.20-5.60); RED CELL DISTRIBUTION WIDTH 14.2 % (11.5-14.5); WHITE BLOOD COUNT 7.8 X10'3 (4.5-11.0)
[2017-08-25 03:43] LABS: ALANINE AMINOTRANSFERASE 44 U/L (12-78); ALBUMIN 3.5 G/DL (3.4-5.0); ALBUMIN/GLOBULIN RATIO 1.3 (1.1-1.5); ALKALINE PHOSPHATASE 73 IU/L (46-116); ANION GAP 8 (8-16); ASPARTATE AMINO TRANSFERASE 10 U/L (10-37); BILIRUBIN,TOTAL 0.2 MG/DL (0.1-1.0); BLOOD UREA NITROGEN 16 MG/DL (7-18); BUN/CREATININE RATIO 20.5 (6.6-38.0); CALCIUM 8.7 MG/DL (8.5-10.1); CHLORIDE 101 MMOL/L (99-107); CREATININE 0.78 MG/DL (0.40-0.90); GLUCOSE 100 MG/DL (70-104); MAGNESIUM 2.2 MG/DL (1.5-2.4); PHOSPHORUS 2.9 MG/DL (2.3-4.5); SODIUM 140 MMOL/L (135-145); TOTAL CARBON DIOXIDE 31.3 MMOL/L (24-32); TOTAL PROTEIN 6.2 G/DL (6.4-8.2); eGFR 77 ML/MIN
[2017-08-25 03:47] LABS: POTASSIUM 4.1 MMOL/L (3.5-5.1)
[2017-08-25 06:53] VITALS: BP 104/55
[2017-08-25] MEDS: albuterol 2.5 MG/3 ML nebule NEB SCH ×4 (07:36→20:13)
[2017-08-25] MEDS: budesonide 0.5mg/2ml UD nebule IH SCH ×2 (07:36→20:12)
[2017-08-25] MEDS: furosemide 20MG tablet PO SCH (08:00)
[2017-08-25] MEDS: busPIRone 15mg tablet PO SCH ×2 (08:03→19:54)
[2017-08-25] MEDS: CefTRIAXone (Rocephin) 2gm/D5W 50ml IVPB IV SCH (08:03)
[2017-08-25] MEDS: nicotine 21mg patch - 24 hr TD SCH (08:04)
[2017-08-25] MEDS: heparin, porcine 5000 units/ml vial SQ SCH ×2 (08:04→19:55)
[2017-08-25] MEDS: lactobacillus rhamnosus 10,000 MMU CELLS/CAPSULE PO SCH ×2 (08:04→19:53)
[2017-08-25] MEDS: montelukast 10mg tablet PO SCH (08:05)
[2017-08-25] MEDS: azithromycin 250mg tablet PO SCH (08:05)
[2017-08-25] MEDS: potassium chloride 8mEq ER tablet PO SCH (08:05)
[2017-08-25] MEDS: famotidine 20mg tablet PO SCH ×2 (08:05→19:53)
[2017-08-25] MEDS: theophylline anhydrous 100mg ER capsule 24-hour PO SCH (08:06)
[2017-08-25] MEDS: lisinopril 5mg tablet PO SCH (08:06)
[2017-08-25] MEDS: magnesium hydroxide 30ml (MOM) UD suspension PO PRN (10:02)
[2017-08-25] MEDS ORDERED: DOXY100C2 PO (11:37)
[2017-08-25] MEDS ORDERED: NICO-687 TD (11:37)
[2017-08-25] MEDS ORDERED: PRED10TA23 PO (11:37)
[2017-08-25] MEDS ORDERED: CLON-528 PO (11:45)
[2017-08-25 12:39] VITALS: BP 105/54
[2017-08-25 15:42] VITALS: BP 130/68
[2017-08-25] MEDS: Protein Smoothie (high protein) 240ml (8oz) cup PO SCH (18:00)
[2017-08-25 21:00] VITALS: BP 117/72
[2017-08-25 22:00] VITALS: BP 112/70
[2017-08-26] MEDS: MORPHINE 2MG in 2ml NS syringe IV PRN (00:06)
[2017-08-26 02:00] VITALS: BP 119/53
[2017-08-26] MEDS: methylPREDNISolone sod succ 125mg/2ml vial IV SCH (02:17)
[2017-08-26] MEDS: ALPRAZolam 0.25mg tablet PO PRN (02:18)
[2017-08-26] MEDS: ipratropium 0.5 MG/2.5ML nebule IH SCH ×2 (02:53→08:44)
[2017-08-26 06:00] VITALS: BP 98/49
[2017-08-26 06:25] LABS: BASOPHILS % (AUTO) 0 % (0-1); EOSINOPHILS % (AUTO) 0.1 % (0-6); HEMATOCRIT 32.8 % (35.0-45.0); HEMOGLOBIN 10.9 g/dl (12.0-16.0); LYMPHOCYTES # (AUTO) 0.1 X10'3 (1.1-4.8); LYMPHOCYTES % (AUTO) 2.5 % (21-51); MEAN CORPUSCULAR HEMOGLOBIN 33.6 PG (27.0-31.0); MEAN CORPUSCULAR HGB CONC 33.2 % (33.0-36.5); MONOCYTES # (AUTO) 0.2 X10'3 (0-0.9); MONOCYTES % (AUTO) 2.9 % (2-12); NEUTROPHILS # (AUTO) 5.7 X10'3 (1.8-7.7); NEUTROPHILS % (AUTO) 94.5 % (42-75); PLATELET COUNT 191 X10'3 (140-440); RED BLOOD COUNT 3.25 X10'6 (4.20-5.60); RED CELL DISTRIBUTION WIDTH 15.3 % (11.5-14.5)
[2017-08-26] MEDS: albuterol 2.5 MG/3 ML nebule NEB SCH ×2 (07:00→12:15)
[2017-08-26 07:10] LABS: ALANINE AMINOTRANSFERASE 27 U/L (12-78); ALBUMIN 2.9 G/DL (3.4-5.0); ALBUMIN/GLOBULIN RATIO 1.3 (1.1-1.5); ALKALINE PHOSPHATASE 67 IU/L (46-116); ANION GAP 8 (8-16); ASPARTATE AMINO TRANSFERASE 6 U/L (10-37); BILIRUBIN,TOTAL 0.2 MG/DL (0.1-1.0); BLOOD UREA NITROGEN 20 MG/DL (7-18); CALCIUM 8.5 MG/DL (8.5-10.1); CHLORIDE 105 MMOL/L (99-107); CREATININE 0.69 MG/DL (0.40-0.90); GLUCOSE 213 MG/DL (70-104); MAGNESIUM 2.2 MG/DL (1.5-2.4); PHOSPHORUS 3.2 MG/DL (2.3-4.5); POTASSIUM 4.6 MMOL/L (3.5-5.1); SODIUM 139 MMOL/L (135-145); TOTAL CARBON DIOXIDE 26.3 MMOL/L (24-32); TOTAL PROTEIN 5.1 G/DL (6.4-8.2); TROPONIN I < 0.04 NG/ML (0.0-0.05); eGFR 89 ML/MIN
[2017-08-26] MEDS: theophylline anhydrous 100mg ER capsule 24-hour PO SCH (08:00)
[2017-08-26] MEDS: lisinopril 5mg tablet PO SCH (08:00)
[2017-08-26] MEDS: Protein Smoothie (high protein) 240ml (8oz) cup PO SCH (08:00)
[2017-08-26] MEDS: heparin, porcine 5000 units/ml vial SQ SCH (08:00)
[2017-08-26] MEDS: budesonide 0.5mg/2ml UD nebule IH SCH (08:41)
[2017-08-26] MEDS: ipratropium/albuterol 3ml nebule NEB PRN (08:41)
[2017-08-26] MEDS ORDERED: morphine 4 MG/ML inj SYRINge IV ONE (09:15)
[2017-08-26] MEDS ORDERED: predniSONE 20 mg tablet PO SCH (09:21)
[2017-08-26] MEDS: famotidine 20mg tablet PO SCH (09:28)
[2017-08-26] MEDS: CefTRIAXone (Rocephin) 2gm/D5W 50ml IVPB IV SCH (09:29)
[2017-08-26] MEDS: furosemide 20MG tablet PO SCH (09:29)
[2017-08-26] MEDS: lactobacillus rhamnosus 10,000 MMU CELLS/CAPSULE PO SCH (09:29)
[2017-08-26] MEDS: montelukast 10mg tablet PO SCH (09:29)
[2017-08-26] MEDS: azithromycin 250mg tablet PO SCH (09:29)
[2017-08-26] MEDS: busPIRone 15mg tablet PO SCH (09:29)
[2017-08-26] MEDS: potassium chloride 8mEq ER tablet PO SCH (09:29)
[2017-08-26] MEDS: nicotine 21mg patch - 24 hr TD SCH (09:30)
[2017-08-26 11:00] VITALS: BP 124/74
[2017-08-26] MEDS ORDERED: HYDR-565 PO (12:10)
== END 2017-08-26 14:53 | disposition home health service (06) | DRG 720 ==
LOC: ER 05:16 → ED HOLD 06:09 → CICU 2S 07:25 → PCU 3S 08-20 13:59
PROVIDERS: ADMIT Internal Medicine Critical Care Medicine; ATTEND Family Medicine
PROC: 5A1945Z Respiratory Ventilation, 24-96 Consecutive Hours (ICD-10-PCS; 2017-08-18)
PROC: 0BH17EZ Insertion of Endotracheal Airway into Trachea, Via Natural or Artificial Opening (ICD-10-PCS; 2017-08-18)
PROC: 0D9670Z Drainage of Stomach with Drainage Device, Via Natural or Artificial Opening (ICD-10-PCS; 2017-08-18)
PROC: 5A09357 Assistance with Respiratory Ventilation, Less than 24 Consecutive Hours, Continuous Positive Airway Pressure (ICD-10-PCS; 2017-08-19)
PROC: 5A09357 Assistance with Respiratory Ventilation, Less than 24 Consecutive Hours, Continuous Positive Airway Pressure (ICD-10-PCS; 2017-08-20)
PROC: 5A09357 Assistance with Respiratory Ventilation, Less than 24 Consecutive Hours, Continuous Positive Airway Pressure (ICD-10-PCS; 2017-08-23)
PROC: 5A09357 Assistance with Respiratory Ventilation, Less than 24 Consecutive Hours, Continuous Positive Airway Pressure (ICD-10-PCS; 2017-08-24)
PROC: 5A09357 Assistance with Respiratory Ventilation, Less than 24 Consecutive Hours, Continuous Positive Airway Pressure (ICD-10-PCS; 2017-08-25)
PROC: 5A09357 Assistance with Respiratory Ventilation, Less than 24 Consecutive Hours, Continuous Positive Airway Pressure (ICD-10-PCS; principal; 2017-08-26)
DX: A41.9 Sepsis, unspecified organism (principal); J96.21 Acute and chronic respiratory failure with hypoxia; J18.1 Lobar pneumonia, unspecified organism; I11.0 Hypertensive heart disease with heart failure; R64 Cachexia; J44.0 Chronic obstructive pulmonary disease with (acute) lower respiratory infection; I50.9 Heart failure, unspecified; F17.210 Nicotine dependence, cigarettes, uncomplicated; G89.4 Chronic pain syndrome; J20.9 Acute bronchitis, unspecified; J44.1 Chronic obstructive pulmonary disease with (acute) exacerbation; R65.20 Severe sepsis without septic shock; Z90.49 Acquired absence of other specified parts of digestive tract; Z99.81 Dependence on supplemental oxygen; Z68.1 Body mass index [BMI] 19.9 or less, adult; Z88.6 Allergy status to analgesic agent; Z88.0 Allergy status to penicillin; Z88.1 Allergy status to other antibiotic agents; Z88.8 Allergy status to other drugs, medicaments and biological substances; Z79.899 Other long term (current) drug therapy
CPT/HCPCS: 36415; 36600; 71045; 80053; 80061; 80305; 80320; 81001; 82330; 82803; 82948; 83036; 83605; 83735; 83880; 84100; 84134; 84145; 84484; 85018; 85025; 85610; 85730; 86705; 86709; 86803; 87040; 87070; 87088; 93005; 93306; 94002; 94003; 94640; 94660; 94760; 96365; 96366; 96375; 97110; 97116; 97161; 97530; 99291; A6212; A6213; A6257; A7015; J0456; J0696; J1644; J1815; J1940; J2250; J2270; J2274; J2405; J2704; J2930; J3490; J7030; J7512; J7626; Q0177

== ENCOUNTER 2017-09-15 15:06 | Inpatient (IN) | payer MEDICAID ==
[~2017-09-15] VITALS: Ht 147.3 cm; Wt 40.0 kg
[~2017-09-15 15:06] MED LIST changes: +CLON-528 PO; +DOXY100C2 PO; -FLUT16SP2 BOTHNARES; +HYDR-565 PO; -HYDR-569 PO; -HYDR50TA65 PO; -NICO-631 TD; +NICO-687 TD; +OMEP-50 PO; +ONDA4TAB11; -POTA8TAB8 PO; +PRED10TA23 PO
[2017-09-15] MEDS ORDERED: nitroGLYCERIN 0.4mg SUBLingual tab SL PRN (15:25)
[2017-09-15 15:52] LABS: BASOPHILS % (AUTO) 0.8 % (0-1); EOSINOPHILS # (AUTO) 0.2 X10'3 (0-0.9); EOSINOPHILS % (AUTO) 6.9 % (0-6); HEMATOCRIT 34.3 % (35.0-45.0); HEMOGLOBIN 11.7 g/dl (12.0-16.0); LYMPHOCYTES # (AUTO) 0.9 X10'3 (1.1-4.8); LYMPHOCYTES % (AUTO) 26.9 % (21-51); MEAN CORPUSCULAR HEMOGLOBIN 33.9 PG (27.0-31.0); MEAN CORPUSCULAR HGB CONC 34.1 % (33.0-36.5); MEAN CORPUSCULAR VOLUME 99.4 FL (78-98); MEAN PLATELET VOLUME 7.3 FL (7.4-10.4); MONOCYTES # (AUTO) 0.5 X10'3 (0-0.9); MONOCYTES % (AUTO) 15.6 % (2-12); NEUTROPHILS # (AUTO) 1.7 X10'3 (1.8-7.7); NEUTROPHILS % (AUTO) 49.8 % (42-75); PLATELET COUNT 304 X10'3 (140-440); RED BLOOD COUNT 3.45 X10'6 (4.20-5.60); RED CELL DISTRIBUTION WIDTH 14.9 % (11.5-14.5); WHITE BLOOD COUNT 3.4 X10'3 (4.5-11.0)
[2017-09-15 16:02] LABS: INR 0.9 INR; PARTIAL THROMBOPLASTIN TIME 25 SECONDS (22-32); PROTHROMBIN TIME 9.5 SECONDS (9.0-12.0)
[2017-09-15 16:07] LABS: ALANINE AMINOTRANSFERASE 14 U/L (12-78); ALBUMIN/GLOBULIN RATIO 1.1 (1.1-1.5); ALKALINE PHOSPHATASE 126 IU/L (46-116); ANION GAP 5 (8-16); ASPARTATE AMINO TRANSFERASE 4 U/L (10-37); BILIRUBIN,TOTAL 0.1 MG/DL (0.1-1.0); BLOOD UREA NITROGEN 15 MG/DL (7-18); BUN/CREATININE RATIO 23.1 (6.6-38.0); CALCIUM 9.2 MG/DL (8.5-10.1); CHLORIDE 107 MMOL/L (99-107); CREATININE 0.65 MG/DL (0.40-0.90); GLUCOSE 97 MG/DL (70-104); SODIUM 140 MMOL/L (135-145); TOTAL CARBON DIOXIDE 27.7 MMOL/L (24-32); TOTAL PROTEIN 5.7 G/DL (6.4-8.2); eGFR > 90 ML/MIN
[2017-09-15] MEDS ORDERED: normal saline 1000ml 1,000 ML IV SCH (17:21)
[2017-09-15] MEDS ORDERED: mag hydrox/Alum hydrox/simeth 30ml oral suspension PO PRN (17:25)
[2017-09-15] MEDS ORDERED: potassium Cl 20 mEq SR tablet PO PRN ×2 (17:25)
[2017-09-15] MEDS ORDERED: magnesium/D5W IVPB 50 ML IV PRN (17:25)
[2017-09-15] MEDS ORDERED: magnesium 4gm in 100ml NS 100 ML IV PRN (17:25)
[2017-09-15] MEDS ORDERED: potassium Cl 40MEQ/NS 500ml 500 ML IV PRN ×2 (17:25)
[2017-09-15] MEDS ORDERED: HYDROcodone/acetaminophen 10/325mg tab PO PRN (17:25)
[2017-09-15] MEDS ORDERED: acetaminophen 325mg tablet PO PRN ×2 (17:25)
[2017-09-15] MEDS ORDERED: HYDROcodone/acetaminophen 5mg/325mg tablet PO PRN (17:25)
[2017-09-15] MEDS ORDERED: magnesium hydroxide 30ml (MOM) UD suspension PO PRN (17:25)
[2017-09-15] MEDS ORDERED: magnesium Cl slow-release 64mg tablet PO PRN (17:25)
[2017-09-15] MEDS ORDERED: albuterol 2.5 MG/3 ML nebule NEB PRN (17:30)
[2017-09-15] MEDS ORDERED: hydrOXYzine 25 MG tablet PO PRN (17:30)
[2017-09-15 18:15] LABS: URINE AMPHETAMINE SCREEN POSITIVE (Neg); URINE BARBITUATE SCREEN NEGATIVE (Neg); URINE BENZODIAZEPINES SCREEN NEGATIVE (Neg); URINE CANNABINOID SCREEN POSITIVE (Neg); URINE COCAINE SCREEN NEGATIVE (Neg); URINE METHADONE SCREEN NEGATIVE (Neg); URINE OPIATE SCREEN NEGATIVE (Neg); URINE PHENCYCLIDINE SCREEN NEGATIVE (Neg)
[2017-09-15] MEDS: albuterol 2.5 MG/3 ML nebule NEB SCH (18:36)
[2017-09-15] MEDS: ipratropium 0.5 MG/2.5ML nebule NEB SCH (18:36)
[2017-09-15] MEDS: budesonide 0.5mg/2ml UD nebule IH SCH (18:36)
[2017-09-15] MEDS: morphine 4 MG/ML inj SYRINge IV PRN (19:31)
[2017-09-15] MEDS: ondansetron/PF 4mg/2ml inj IV PRN (19:31)
[2017-09-15] MEDS: busPIRone 15mg tablet PO SCH (19:37)
[2017-09-15] MEDS: docusate sod 100mg capsule PO SCH (19:37)
[2017-09-15 20:30] VITALS: BP 121/55
[2017-09-15] MEDS ORDERED: temazepam 15mg capsule PO PRN (21:00)
[2017-09-15 23:00] VITALS: BP 98/46
[2017-09-16] MEDS: morphine 4 MG/ML inj SYRINge IV PRN ×4 (00:32→15:35)
[2017-09-16] MEDS: clonazePAM 0.5mg tablet PO SCH ×3 (00:33→16:00)
[2017-09-16 03:00] VITALS: BP 89/54
[2017-09-16 06:26] LABS: BASOPHILS % (AUTO) 0.9 % (0-1); EOSINOPHILS # (AUTO) 0.2 X10'3 (0-0.9); EOSINOPHILS % (AUTO) 6.1 % (0-6); HEMATOCRIT 34.7 % (35.0-45.0); HEMOGLOBIN 11.9 g/dl (12.0-16.0); LYMPHOCYTES # (AUTO) 1.2 X10'3 (1.1-4.8); LYMPHOCYTES % (AUTO) 34.7 % (21-51); MEAN CORPUSCULAR HGB CONC 34.4 % (33.0-36.5); MEAN CORPUSCULAR VOLUME 98.8 FL (78-98); MEAN PLATELET VOLUME 7.2 FL (7.4-10.4); MONOCYTES # (AUTO) 0.6 X10'3 (0-0.9); MONOCYTES % (AUTO) 16.4 % (2-12); NEUTROPHILS # (AUTO) 1.5 X10'3 (1.8-7.7); NEUTROPHILS % (AUTO) 41.9 % (42-75); PLATELET COUNT 302 X10'3 (140-440); RED BLOOD COUNT 3.51 X10'6 (4.20-5.60); RED CELL DISTRIBUTION WIDTH 14.5 % (11.5-14.5); WHITE BLOOD COUNT 3.6 X10'3 (4.5-11.0)
[2017-09-16 06:59] LABS: ALBUMIN 2.9 G/DL (3.4-5.0); ANION GAP 6 (8-16); BLOOD UREA NITROGEN 16 MG/DL (7-18); BUN/CREATININE RATIO 26.2 (6.6-38.0); CALCIUM 8.7 MG/DL (8.5-10.1); CHLORIDE 106 MMOL/L (99-107); CHOLESTEROL 195 MG/DL (0-200); CREATININE 0.61 MG/DL (0.40-0.90); GLUCOSE 100 MG/DL (70-104); HDL CHOLESTEROL 98 MG/DL (35-60); LDL CHOLESTEROL 90 MG/DL (50-100); MAGNESIUM 1.7 MG/DL (1.5-2.4); POTASSIUM 4.4 MMOL/L (3.5-5.1); SODIUM 141 MMOL/L (135-145); TOTAL CARBON DIOXIDE 29.5 MMOL/L (24-32); TRIGLYCERIDES 60 MG/DL (20-135); eGFR > 90 ML/MIN
[2017-09-16 07:00] VITALS: BP 99/49
[2017-09-16] MEDS: ipratropium 0.5 MG/2.5ML nebule NEB SCH ×4 (07:07→14:22)
[2017-09-16] MEDS: budesonide 0.5mg/2ml UD nebule IH SCH ×2 (07:07→20:40)
[2017-09-16] MEDS: albuterol 2.5 MG/3 ML nebule NEB SCH ×4 (07:07→20:40)
[2017-09-16] MEDS ORDERED: montelukast 10mg tablet PO SCH (08:00)
[2017-09-16] MEDS ORDERED: nicotine 21mg patch - 24 hr TD SCH (08:00)
[2017-09-16] MEDS ORDERED: K and/or MAG REPLACEMENT MC SCH (08:00)
[2017-09-16] MEDS ORDERED: lisinopril 5mg tablet PO SCH (08:00)
[2017-09-16] MEDS ORDERED: furosemide 20MG tablet PO SCH (08:00)
[2017-09-16] MEDS ORDERED: pantoprazole 40mg Tablet.DR PO SCH (08:00)
[2017-09-16] MEDS ORDERED: enoxaparin 40mg/0.4ml syringe SUBCUT SCH (08:00)
[2017-09-16] MEDS: docusate sod 100mg capsule PO SCH ×2 (09:42→19:25)
[2017-09-16] MEDS: busPIRone 15mg tablet PO SCH ×2 (09:43→19:25)
[2017-09-16] MEDS: ondansetron/PF 4mg/2ml inj IV PRN ×3 (09:46→21:10)
[2017-09-16 11:00] VITALS: BP 88/40
[2017-09-16 15:00] VITALS: BP 120/65
[2017-09-16] MEDS ORDERED: CARV3.12 PO (15:09)
[2017-09-16 19:00] VITALS: BP 121/69
[2017-09-16 21:15] VITALS: BP 118/67
[2017-09-18] MEDS ORDERED: furosemide 20MG tablet PO SCH (08:00)
== END 2017-09-16 21:26 | disposition home or self-care (01) | DRG 203 ==
LOC: ER 15:07 → ED HOLD 17:21 → EDBEDREQ 20:37 → PCU 3S 21:28
PROVIDERS: ADMIT Internal Medicine; ATTEND Internal Medicine
DX: R07.9 Chest pain, unspecified (principal); I11.0 Hypertensive heart disease with heart failure; I50.9 Heart failure, unspecified; F12.10 Cannabis abuse, uncomplicated; F32.9 Major depressive disorder, single episode, unspecified; F15.10 Other stimulant abuse, uncomplicated; F17.200 Nicotine dependence, unspecified, uncomplicated; F41.9 Anxiety disorder, unspecified; G89.4 Chronic pain syndrome; J44.9 Chronic obstructive pulmonary disease, unspecified; Z90.49 Acquired absence of other specified parts of digestive tract; Z91.19 Patient's noncompliance with other medical treatment and regimen; Z88.6 Allergy status to analgesic agent; Z91.018 Allergy to other foods; Z88.8 Allergy status to other drugs, medicaments and biological substances; Z88.0 Allergy status to penicillin; Z88.1 Allergy status to other antibiotic agents
CPT/HCPCS: 36415; 71045; 80048; 80053; 80061; 80305; 83735; 83880; 84484; 85025; 85610; 85730; 93308; 94640; 94760; A4353; A6449; J1650; J2270; J2405; J7030; J7626

== ENCOUNTER 2017-10-18 11:10 | Inpatient (IN) | payer MEDICAID ==
[~2017-10-18] VITALS: Ht 147.3 cm; Wt 46.0 kg
[2017-10-18] VITALS (15 sets, daily range): BP systolic 66–139; BP diastolic 38–71
[~2017-10-18 11:10] MED LIST changes: +CARV3.12 PO; -DOXY100C2 PO; -FURO-150 PO; -HYDR-565 PO; -ONDA4TAB11; +ONDA4TAB11 PO; -PRED10TA23 PO; +etomidate 2mg/ml inj. ONE; +rocuronium 10mg/ml inj IV ONE
[2017-10-18] MEDS ORDERED: azithromycin/NS 500mg/250ml 250 ML IV ONE (11:25)
[2017-10-18] MEDS ORDERED: methylPREDNISolone sod succ 125mg/2ml vial IV ONE (11:25)
[2017-10-18] MEDS ORDERED: CefTRIAXone/D5W-Rocephin 1gm 50 ML IV ONE (11:25)
[2017-10-18] MEDS ORDERED: albuterol 2.5 MG/3 ML nebule CONTNEB PRN (11:25)
[2017-10-18 11:36] LABS: BASOPHILS # (AUTO) 0.1 X10'3 (0-0.2); BASOPHILS % (AUTO) 0.6 % (0-1); EOSINOPHILS # (AUTO) 0.2 X10'3 (0-0.9); EOSINOPHILS % (AUTO) 1.7 % (0-6); HEMATOCRIT 41.7 % (35.0-45.0); LYMPHOCYTES # (AUTO) 3.2 X10'3 (1.1-4.8); LYMPHOCYTES % (AUTO) 27.8 % (21-51); MEAN CORPUSCULAR HGB CONC 33.5 % (33.0-36.5); MEAN CORPUSCULAR VOLUME 101.3 FL (78-98); MEAN PLATELET VOLUME 8.1 FL (7.4-10.4); MONOCYTES # (AUTO) 0.5 X10'3 (0-0.9); MONOCYTES % (AUTO) 4.7 % (2-12); NEUTROPHILS # (AUTO) 7.6 X10'3 (1.8-7.7); NEUTROPHILS % (AUTO) 65.2 % (42-75); PLATELET COUNT 258 X10'3 (140-440); RED BLOOD COUNT 4.11 X10'6 (4.20-5.60); RED CELL DISTRIBUTION WIDTH 14.8 % (11.5-14.5); WHITE BLOOD COUNT 11.6 X10'3 (4.5-11.0)
[2017-10-18 11:40] LABS: INR 0.9 INR; PARTIAL THROMBOPLASTIN TIME 25 SECONDS (22-32); PROTHROMBIN TIME 9.4 SECONDS (9.0-12.0)
[2017-10-18] MEDS ORDERED: normal saline 1000ML IV soln IVB ONE (11:40)
[2017-10-18 11:45] LABS: ALANINE AMINOTRANSFERASE 37 U/L (12-78); ALBUMIN 3.9 G/DL (3.4-5.0); ALBUMIN/GLOBULIN RATIO 1.3 (1.1-1.5); ALKALINE PHOSPHATASE 113 IU/L (46-116); ANION GAP 13 (8-16); ASPARTATE AMINO TRANSFERASE 37 U/L (10-37); BILIRUBIN,TOTAL 0.2 MG/DL (0.1-1.0); BLOOD UREA NITROGEN 9 MG/DL (7-18); BUN/CREATININE RATIO 9.8 (6.6-38.0); CALCIUM 8.5 MG/DL (8.5-10.1); CHLORIDE 105 MMOL/L (99-107); CREATININE 0.92 MG/DL (0.40-0.90); GLUCOSE 242 MG/DL (70-104); SODIUM 138 MMOL/L (135-145); TOTAL CARBON DIOXIDE 19.6 MMOL/L (24-32); eGFR 64 ML/MIN
[2017-10-18] MEDS: midazolam 100mg in NS 100ml 100 ML IV PRN ×2 (11:50→14:54)
[2017-10-18] MEDS ORDERED: etomidate 2mg/ml inj. IV ONE (12:05)
[2017-10-18] MEDS ORDERED: rocuronium 10mg/ml inj IV ONE (12:05)
[2017-10-18] MEDS ORDERED: furosemide 10 MG/1 ML 10ml inj IV ONE (12:15)
[2017-10-18 12:21] LABS: ABG BASE EXCESS -13.9 mmol/L (-2.0-3.0); ABG HCO3 17.3 mmol/L (22.0-26.0); ABG OXYGEN SATURATION 98.8 % (95-98); ABG PCO2 (T) 62.7 mmHg (32.0-45.0); ABG PH (T) 7.054 (7.350-7.450); ABG PO2 (T) 193.1 mmHg (83-108); FCOHb 2.7 % (0.5-1.5); FMetHb 0.2 % (0.3-1.12); FO2Hb 95.9 % (94-100); PATIENT TEMPERATURE 36.3
[2017-10-18] MEDS ORDERED: polyvinyl alcohol ophthalmic drops 15ml bottle EACHEYE PRN (12:25)
[2017-10-18] MEDS ORDERED: ipratropium/albuterol 3ml nebule NEB PRN ×2 (12:30→12:55)
[2017-10-18] MEDS ORDERED: midazolam 100mg in NS 100ml 100 ML IV PRN (12:53)
[2017-10-18] MEDS ORDERED: fentaNYL/PF 50MCG/1 ML 2ML syringe IV PRN (12:55)
[2017-10-18] MEDS ORDERED: acetaminophen 325mg tablet PO PRN ×2 (12:55)
[2017-10-18] MEDS ORDERED: midazolam 2 mg/2 ml injection IV ONE (12:55)
[2017-10-18] MEDS ORDERED: potassium Cl 40MEQ/NS 500ml 500 ML IV PRN ×2 (12:55)
[2017-10-18] MEDS ORDERED: potassium Cl 20 mEq SR tablet PO PRN ×2 (12:55)
[2017-10-18] MEDS ORDERED: potassium Cl 40MEQ/250ML bag 250 ML IV PRN (12:55)
[2017-10-18] MEDS ORDERED: FURO-150 PO (13:41)
[2017-10-18] MEDS ORDERED: CLON-528 PO (13:41)
[2017-10-18] MEDS ORDERED: HYDR-565 PO (13:44)
[2017-10-18] MEDS ORDERED: SERT100T10 PO (13:44)
[2017-10-18] MEDS ORDERED: PRED10TA23 PO (13:45)
[2017-10-18] MEDS: normal saline 1000ml 1,000 ML IV SCH (13:50)
[2017-10-18] MEDS: methylPREDNISolone sod succ/PF 40mg inj. IV SCH ×2 (13:56→20:07)
[2017-10-18] MEDS: FENTANYL-0.9 % NACL/PF 100 ML IV PRN (14:17)
[2017-10-18 16:01] LABS: ABG BASE EXCESS -5.7 mmol/L (-2.0-3.0); ABG HCO3 21.2 mmol/L (22.0-26.0); ABG OXYGEN SATURATION 95.2 % (95-98); ABG PCO2 (T) 45.7 mmHg (32.0-45.0); ABG PH (T) 7.282 (7.350-7.450); ABG PO2 (T) 73.6 mmHg (83-108); FCOHb 1.4 % (0.5-1.5); FMetHb 0.1 % (0.3-1.12); FO2Hb 93.8 % (94-100); MINUTE VOLUME 5 L/min; PATIENT TEMPERATURE 36.3; PEEP 5 cm H2O; RESPIRATORY RATE 20 b/min; RESPIRATORY RATE (OBSERVED) 20 b/min; TIDAL VOLUME 250 mL; TOTAL HEMOGLOBIN 13.8 G/dl (12.0-16.0)
[2017-10-18] MEDS: ipratropium/albuterol 3ml nebule NEB SCH ×3 (16:25→23:00)
[2017-10-18] MEDS ORDERED: normal saline 1000ml 1,000 ML IV ONE (17:00)
[2017-10-18] MEDS ORDERED: NORepinephrine 8mg/ 250ml NS 250 ML IV PRN ×2 (17:30→17:37)
[2017-10-18] MEDS ORDERED: NORepinephrine 8mg/ 250ml NS 250 ML IV ONE (17:31)
[2017-10-18] MEDS: docusate sod 100mg capsule PO SCH (20:00)
[2017-10-18] MEDS: famotidine/PF 10 mg/ml inj IV SCH (20:09)
[2017-10-19] VITALS (24 sets, daily range): BP systolic 99–140; BP diastolic 50–74
[2017-10-19] MEDS ORDERED: normal saline 250ml IV soln 250 ML IV ONE (01:50)
[2017-10-19] MEDS: normal saline 1000ml 1,000 ML IV SCH ×3 (02:05→20:36)
[2017-10-19] MEDS: methylPREDNISolone sod succ/PF 40mg inj. IV SCH ×4 (02:07→21:04)
[2017-10-19] MEDS: ipratropium/albuterol 3ml nebule NEB SCH ×4 (03:00→14:33)
[2017-10-19 03:12] LABS: BASOPHILS % (AUTO) 0 % (0-1); EOSINOPHILS % (AUTO) 0 % (0-6); HEMOGLOBIN 11.4 g/dl (12.0-16.0); LYMPHOCYTES # (AUTO) 0.2 X10'3 (1.1-4.8); MEAN CORPUSCULAR HEMOGLOBIN 33.2 PG (27.0-31.0); MEAN CORPUSCULAR HGB CONC 33.5 % (33.0-36.5); MONOCYTES # (AUTO) 0.2 X10'3 (0-0.9); MONOCYTES % (AUTO) 2.4 % (2-12); NEUTROPHILS # (AUTO) 6.7 X10'3 (1.8-7.7); NEUTROPHILS % (AUTO) 94.6 % (42-75); PLATELET COUNT 233 X10'3 (140-440); RED BLOOD COUNT 3.43 X10'6 (4.20-5.60); RED CELL DISTRIBUTION WIDTH 14.8 % (11.5-14.5); WHITE BLOOD COUNT 7.1 X10'3 (4.5-11.0)
[2017-10-19 03:36] LABS: ABG BASE EXCESS -4.1 mmol/L (-2.0-3.0); ABG HCO3 20.3 mmol/L (22.0-26.0); ABG PCO2 (T) 34.9 mmHg (32.0-45.0); ABG PH (T) 7.381 (7.350-7.450); ABG PO2 (T) 145.4 mmHg (83-108); ALLEN'S TEST Positive; FMetHb 0.1 % (0.3-1.12); FO2Hb 98.9 % (94-100); MINUTE VOLUME 7 L/min; PATIENT TEMPERATURE 36.9; PEEP 10 cm H2O; RESPIRATORY RATE 24 b/min; RESPIRATORY RATE (OBSERVED) 24 b/min; TIDAL VOLUME 300 mL; TOTAL HEMOGLOBIN 12.7 G/dl (12.0-16.0)
[2017-10-19 03:41] LABS: ALANINE AMINOTRANSFERASE 44 U/L (12-78); ALBUMIN 2.7 G/DL (3.4-5.0); ALBUMIN/GLOBULIN RATIO 1.2 (1.1-1.5); ALKALINE PHOSPHATASE 77 IU/L (46-116); ANION GAP 10 (8-16); ASPARTATE AMINO TRANSFERASE 19 U/L (10-37); BILIRUBIN,TOTAL 0.2 MG/DL (0.1-1.0); BLOOD UREA NITROGEN 10 MG/DL (7-18); BUN/CREATININE RATIO 15.6 (6.6-38.0); CALCIUM 6.7 MG/DL (8.5-10.1); CHLORIDE 109 MMOL/L (99-107); CREATININE 0.64 MG/DL (0.40-0.90); GLUCOSE 179 MG/DL (70-104); MAGNESIUM 1.3 MG/DL (1.5-2.4); POTASSIUM 3.3 MMOL/L (3.5-5.1); SODIUM 142 MMOL/L (135-145); TOTAL CARBON DIOXIDE 23.1 MMOL/L (24-32); eGFR > 90 ML/MIN
[2017-10-19] MEDS: potassium Cl 40MEQ/250ML bag 250 ML IV SCH (04:19)
[2017-10-19] MEDS: docusate sod 100mg capsule PO SCH ×2 (06:41→21:04)
[2017-10-19] MEDS: CefTRIAXone/D5W-Rocephin 1gm 50 ML IV SCH (07:34)
[2017-10-19] MEDS: famotidine/PF 10 mg/ml inj IV SCH ×2 (07:37→18:52)
[2017-10-19] MEDS: azithromycin/NS 500mg/250ml 250 ML IV SCH (07:40)
[2017-10-19] MEDS: enoxaparin 40mg/0.4ml syringe SUBCUT SCH (07:40)
[2017-10-19] MEDS: FENTANYL-0.9 % NACL/PF 100 ML IV PRN (07:51)
[2017-10-19] MEDS ORDERED: normal saline 1000ml 1,000 ML IV ONE (10:25)
[2017-10-19 10:59] LABS: COLOR,URINE YELLOW (Yellow); GLUCOSE, URINE NEGATIVE (Neg); KETONES,URINE NEGATIVE (Neg); LEUKOCYTE ESTERASE ,URINE NEGATIVE (Neg); NITRITES, URINE NEGATIVE (Neg); OCCULT BLOOD,URINE SMALL (Neg); PROTEIN,URINE 30 mg/dl (Neg); UROBILINOGEN,URINE 0.2 E.U/dL (0.2-1.0)
[2017-10-19 11:01] LABS: UA COLLECTION TYPE NON-SPECIFIED
[2017-10-19 11:02] LABS: CLARITY,URINE Slightly Cloudy (Clear)
[2017-10-19] MEDS: midazolam 100mg in NS 100ml 100 ML IV PRN (11:12)
[2017-10-19 12:03] LABS: MUCUS STRANDS MODERATE /LPF (Neg); SQUAMOUS EPITHELIAL CELL,UR FEW /LPF (FEW)
[2017-10-19 12:08] LABS: BACTERIA,URINE NONE SEEN /HPF (Neg); WBC,URINE 0-4 /HPF (0-4)
[2017-10-19 12:13] LABS: TRANSITIONAL EPI CELLS,URINE MODERATE /HPF
[2017-10-19] MEDS: mineral oil/petrolatum ophthal oint EACHEYE SCH ×2 (13:16→20:00)
[2017-10-19] MEDS ORDERED: racepinephrine 11.25mg/0.5ml nebule NEB PRN (16:20)
[2017-10-19] MEDS: lisinopril 5mg tablet PO SCH (16:40)
[2017-10-19] MEDS ORDERED: hydrOXYzine 25 MG tablet PO PRN (16:40)
[2017-10-19] MEDS ORDERED: non-formulary drug (Ondansetron HCl 1 TAB) PO PRN (16:40)
[2017-10-19] MEDS ORDERED: nitroGLYCERIN 0.4mg SUBLingual tab SL PRN (16:40)
[2017-10-19] MEDS ORDERED: ipratropium 0.5 MG/2.5ML nebule IH PRN (17:00)
[2017-10-19] MEDS: furosemide 20MG tablet PO SCH (17:09)
[2017-10-19] MEDS: HYDROcodone/acetaminophen 10/325mg tab PO PRN (17:09)
[2017-10-19] MEDS: montelukast 10mg tablet PO SCH (17:09)
[2017-10-19] MEDS: ondansetron/PF 4mg/2ml inj IV PRN (18:52)
[2017-10-19] MEDS: albuterol 2.5 MG/3 ML nebule NEB SCH (19:40)
[2017-10-19] MEDS: budesonide 0.5mg/2ml UD nebule IH SCH (19:41)
[2017-10-19] MEDS ORDERED: non-formulary drug (Budesonide/Formoterol Fumarate (Symbicort 160-4.5 Mcg Inhaler) 2 PUFFS INH SCH (20:00)
[2017-10-19] MEDS ORDERED: ipratropium/albuterol 3ml nebule NEB SCH (21:00)
[2017-10-19] MEDS: busPIRone 15mg tablet PO SCH (21:05)
[2017-10-19] MEDS: ipratropium/albuterol 3ml nebule NEB PRN (21:31)
[2017-10-20] VITALS (24 sets, daily range): BP systolic 96–161; BP diastolic 47–83
[2017-10-20] MEDS: mineral oil/petrolatum ophthal oint EACHEYE SCH ×2 (02:00→06:54)
[2017-10-20] MEDS: methylPREDNISolone sod succ/PF 40mg inj. IV SCH ×4 (02:13→19:13)
[2017-10-20] MEDS: normal saline 1000ml 1,000 ML IV SCH ×2 (02:13→09:00)
[2017-10-20 02:54] LABS: BASOPHILS % (AUTO) 0 % (0-1); EOSINOPHILS # (AUTO) 0.1 X10'3 (0-0.9); EOSINOPHILS % (AUTO) 0.9 % (0-6); HEMATOCRIT 31.9 % (35.0-45.0); HEMOGLOBIN 10.7 g/dl (12.0-16.0); LYMPHOCYTES # (AUTO) 0.2 X10'3 (1.1-4.8); LYMPHOCYTES % (AUTO) 2.7 % (21-51); MEAN CORPUSCULAR HEMOGLOBIN 33.3 PG (27.0-31.0); MEAN CORPUSCULAR HGB CONC 33.4 % (33.0-36.5); MEAN CORPUSCULAR VOLUME 99.9 FL (78-98); MONOCYTES # (AUTO) 0.3 X10'3 (0-0.9); MONOCYTES % (AUTO) 3.9 % (2-12); NEUTROPHILS # (AUTO) 6.4 X10'3 (1.8-7.7); NEUTROPHILS % (AUTO) 92.5 % (42-75); PLATELET COUNT 189 X10'3 (140-440); RED CELL DISTRIBUTION WIDTH 15.2 % (11.5-14.5); WHITE BLOOD COUNT 6.9 X10'3 (4.5-11.0)
[2017-10-20 03:09] LABS: ALANINE AMINOTRANSFERASE 31 U/L (12-78); ALBUMIN 2.8 G/DL (3.4-5.0); ALBUMIN/GLOBULIN RATIO 1.2 (1.1-1.5); ALKALINE PHOSPHATASE 61 IU/L (46-116); ANION GAP 8 (8-16); ASPARTATE AMINO TRANSFERASE 8 U/L (10-37); BILIRUBIN,TOTAL 0.2 MG/DL (0.1-1.0); BLOOD UREA NITROGEN 12 MG/DL (7-18); BUN/CREATININE RATIO 22.2 (6.6-38.0); CALCIUM 7.2 MG/DL (8.5-10.1); CHLORIDE 113 MMOL/L (99-107); CREATININE 0.54 MG/DL (0.40-0.90); GLUCOSE 154 MG/DL (70-104); MAGNESIUM 1.5 MG/DL (1.5-2.4); POTASSIUM 3.6 MMOL/L (3.5-5.1); SODIUM 143 MMOL/L (135-145); TOTAL CARBON DIOXIDE 22.3 MMOL/L (24-32); TOTAL PROTEIN 5.1 G/DL (6.4-8.2); eGFR > 90 ML/MIN
[2017-10-20] MEDS: HYDROcodone/acetaminophen 10/325mg tab PO PRN ×4 (04:04→23:14)
[2017-10-20] MEDS: clonazePAM 0.5mg tablet PO PRN ×2 (04:04→19:15)
[2017-10-20 04:15] LABS: ABG BASE EXCESS -7.6 mmol/L (-2.0-3.0); ABG HCO3 19.3 mmol/L (22.0-26.0); ABG OXYGEN SATURATION 90.9 % (95-98); ABG PCO2 (T) 44.9 mmHg (32.0-45.0); ABG PH (T) 7.252 (7.350-7.450); ABG PO2 (T) 63.3 mmHg (83-108); ALLEN'S TEST Positive; FCOHb 0.2 % (0.5-1.5); FMetHb 0.3 % (0.3-1.12); FO2Hb 90.4 % (94-100); MINUTE VOLUME 11 L/min; RESPIRATORY RATE 10 b/min; RESPIRATORY RATE (OBSERVED) 22 b/min; TOTAL HEMOGLOBIN 12.7 G/dl (12.0-16.0)
[2017-10-20] MEDS ORDERED: morphine 4 MG/ML inj SYRINge IV ONE (04:30)
[2017-10-20] MEDS ORDERED: furosemide 40mg/4ml inj IV ONE (04:30)
[2017-10-20] MEDS ORDERED: furosemide 40mg/4ml inj ONE (04:30)
[2017-10-20] MEDS ORDERED: morphine 4 MG/ML inj SYRINge ONE (04:30)
[2017-10-20] MEDS: ondansetron/PF 4mg/2ml inj IV PRN ×2 (04:33→19:15)
[2017-10-20] MEDS ORDERED: LORazepam 2 mg/ml vial IV ONE (05:35)
[2017-10-20] MEDS: famotidine/PF 10 mg/ml inj IV SCH ×2 (06:53→19:14)
[2017-10-20] MEDS: lisinopril 5mg tablet PO SCH (06:53)
[2017-10-20] MEDS: budesonide 0.5mg/2ml UD nebule IH SCH ×2 (07:14→19:36)
[2017-10-20] MEDS: albuterol 2.5 MG/3 ML nebule NEB SCH ×4 (07:15→19:36)
[2017-10-20] MEDS: CefTRIAXone/D5W-Rocephin 1gm 50 ML IV SCH (07:53)
[2017-10-20] MEDS: pantoprazole 40mg Tablet.DR PO SCH (07:54)
[2017-10-20] MEDS: sertraline 50mg tablet PO SCH (07:54)
[2017-10-20] MEDS: furosemide 20MG tablet PO SCH (07:54)
[2017-10-20] MEDS: docusate sod 100mg capsule PO SCH ×2 (07:54→19:14)
[2017-10-20] MEDS: busPIRone 15mg tablet PO SCH ×2 (07:54→19:13)
[2017-10-20] MEDS: enoxaparin 40mg/0.4ml syringe SUBCUT SCH (07:55)
[2017-10-20] MEDS: azithromycin/NS 500mg/250ml 250 ML IV SCH (07:55)
[2017-10-20] MEDS: theophylline anhydrous 100mg SR-12hr tablet PO SCH (07:55)
[2017-10-20] MEDS: montelukast 10mg tablet PO SCH (07:55)
[2017-10-21] VITALS (14 sets, daily range): BP systolic 92–118; BP diastolic 46–68
[2017-10-21] MEDS: methylPREDNISolone sod succ/PF 40mg inj. IV SCH ×4 (02:11→19:56)
[2017-10-21 02:24] LABS: BASOPHILS % (AUTO) 0.1 % (0-1); EOSINOPHILS % (AUTO) 0 % (0-6); HEMATOCRIT 27.8 % (35.0-45.0); HEMOGLOBIN 9.5 g/dl (12.0-16.0); LYMPHOCYTES # (AUTO) 0.2 X10'3 (1.1-4.8); LYMPHOCYTES % (AUTO) 4.1 % (21-51); MEAN CORPUSCULAR HEMOGLOBIN 33.9 PG (27.0-31.0); MEAN CORPUSCULAR VOLUME 99.8 FL (78-98); MEAN PLATELET VOLUME 7.8 FL (7.4-10.4); MONOCYTES # (AUTO) 0.3 X10'3 (0-0.9); MONOCYTES % (AUTO) 5.8 % (2-12); NEUTROPHILS # (AUTO) 3.9 X10'3 (1.8-7.7); PLATELET COUNT 170 X10'3 (140-440); RED BLOOD COUNT 2.79 X10'6 (4.20-5.60); RED CELL DISTRIBUTION WIDTH 14.9 % (11.5-14.5); WHITE BLOOD COUNT 4.3 X10'3 (4.5-11.0)
[2017-10-21 02:46] LABS: ALANINE AMINOTRANSFERASE 22 U/L (12-78); ALBUMIN 2.6 G/DL (3.4-5.0); ALBUMIN/GLOBULIN RATIO 1.2 (1.1-1.5); ALKALINE PHOSPHATASE 50 IU/L (46-116); ANION GAP 4 (8-16); ASPARTATE AMINO TRANSFERASE 6 U/L (10-37); BILIRUBIN,TOTAL 0.2 MG/DL (0.1-1.0); BLOOD UREA NITROGEN 15 MG/DL (7-18); BUN/CREATININE RATIO 25.9 (6.6-38.0); CALCIUM 7.7 MG/DL (8.5-10.1); CHLORIDE 107 MMOL/L (99-107); CREATININE 0.58 MG/DL (0.40-0.90); GLUCOSE 140 MG/DL (70-104); MAGNESIUM 1.7 MG/DL (1.5-2.4); POTASSIUM 3.3 MMOL/L (3.5-5.1); SODIUM 140 MMOL/L (135-145); TOTAL CARBON DIOXIDE 29.3 MMOL/L (24-32); TOTAL PROTEIN 4.8 G/DL (6.4-8.2); eGFR > 90 ML/MIN
[2017-10-21] MEDS: potassium Cl 40MEQ/250ML bag 250 ML IV SCH (03:32)
[2017-10-21] MEDS: HYDROcodone/acetaminophen 10/325mg tab PO PRN ×5 (03:32→23:52)
[2017-10-21] MEDS: clonazePAM 0.5mg tablet PO PRN ×3 (05:57→21:38)
[2017-10-21] MEDS: budesonide 0.5mg/2ml UD nebule IH SCH ×2 (06:08→19:27)
[2017-10-21] MEDS: ipratropium/albuterol 3ml nebule NEB PRN (06:09)
[2017-10-21] MEDS: albuterol 2.5 MG/3 ML nebule NEB SCH ×4 (07:00→19:27)
[2017-10-21] MEDS: azithromycin/NS 500mg/250ml 250 ML IV SCH (07:14)
[2017-10-21] MEDS ORDERED: cefTRIAXone 1g/NS 100ml IVPB 100 ML IV ONE (07:21)
[2017-10-21] MEDS: CefTRIAXone/D5W-Rocephin 1gm 50 ML IV SCH (08:00)
[2017-10-21] MEDS: famotidine/PF 10 mg/ml inj IV SCH (08:30)
[2017-10-21] MEDS: lisinopril 5mg tablet PO SCH (08:30)
[2017-10-21] MEDS: pantoprazole 40mg Tablet.DR PO SCH (08:31)
[2017-10-21] MEDS: montelukast 10mg tablet PO SCH (08:31)
[2017-10-21] MEDS: theophylline anhydrous 100mg SR-12hr tablet PO SCH (08:31)
[2017-10-21] MEDS: sertraline 50mg tablet PO SCH (08:31)
[2017-10-21] MEDS: busPIRone 15mg tablet PO SCH ×2 (08:31→19:55)
[2017-10-21] MEDS: furosemide 20MG tablet PO SCH (08:31)
[2017-10-21] MEDS: docusate sod 100mg capsule PO SCH ×2 (08:31→19:55)
[2017-10-21] MEDS: enoxaparin 40mg/0.4ml syringe SUBCUT SCH (08:32)
[2017-10-21] MEDS: temazepam 15mg capsule PO PRN (23:52)
[2017-10-22] MEDS: methylPREDNISolone sod succ/PF 40mg inj. IV SCH ×4 (01:41→19:00)
[2017-10-22] MEDS: ipratropium/albuterol 3ml nebule NEB PRN ×2 (02:42→07:29)
[2017-10-22 03:25] VITALS: BP 101/62
[2017-10-22] MEDS: HYDROcodone/acetaminophen 10/325mg tab PO PRN ×2 (03:53→09:02)
[2017-10-22 05:19] LABS: BASOPHILS % (AUTO) 0 % (0-1); EOSINOPHILS % (AUTO) 0 % (0-6); HEMATOCRIT 29.4 % (35.0-45.0); HEMOGLOBIN 9.7 g/dl (12.0-16.0); LYMPHOCYTES # (AUTO) 0.5 X10'3 (1.1-4.8); LYMPHOCYTES % (AUTO) 11.3 % (21-51); MEAN CORPUSCULAR VOLUME 99.9 FL (78-98); MEAN PLATELET VOLUME 8.1 FL (7.4-10.4); MONOCYTES # (AUTO) 0.4 X10'3 (0-0.9); MONOCYTES % (AUTO) 9.4 % (2-12); NEUTROPHILS # (AUTO) 3.3 X10'3 (1.8-7.7); NEUTROPHILS % (AUTO) 79.3 % (42-75); PLATELET COUNT 175 X10'3 (140-440); RED BLOOD COUNT 2.94 X10'6 (4.20-5.60); RED CELL DISTRIBUTION WIDTH 15.1 % (11.5-14.5); WHITE BLOOD COUNT 4.2 X10'3 (4.5-11.0)
[2017-10-22 05:41] LABS: ALANINE AMINOTRANSFERASE 27 U/L (12-78); ALBUMIN 2.9 G/DL (3.4-5.0); ALBUMIN/GLOBULIN RATIO 1.3 (1.1-1.5); ALKALINE PHOSPHATASE 45 IU/L (46-116); ANION GAP 4 (8-16); ASPARTATE AMINO TRANSFERASE 8 U/L (10-37); BILIRUBIN,TOTAL 0.2 MG/DL (0.1-1.0); BLOOD UREA NITROGEN 17 MG/DL (7-18); BUN/CREATININE RATIO 24.6 (6.6-38.0); CALCIUM 8.2 MG/DL (8.5-10.1); CHLORIDE 104 MMOL/L (99-107); CREATININE 0.69 MG/DL (0.40-0.90); GLUCOSE 116 MG/DL (70-104); MAGNESIUM 1.8 MG/DL (1.5-2.4); POTASSIUM 3.9 MMOL/L (3.5-5.1); SODIUM 140 MMOL/L (135-145); TOTAL CARBON DIOXIDE 32.4 MMOL/L (24-32); TOTAL PROTEIN 5.2 G/DL (6.4-8.2); eGFR 89 ML/MIN
[2017-10-22 07:00] VITALS: BP 96/55
[2017-10-22] MEDS: albuterol 2.5 MG/3 ML nebule NEB SCH ×4 (07:29→18:56)
[2017-10-22] MEDS: budesonide 0.5mg/2ml UD nebule IH SCH ×2 (07:29→18:55)
[2017-10-22] MEDS: lisinopril 5mg tablet PO SCH (08:51)
[2017-10-22] MEDS: pantoprazole 40mg Tablet.DR PO SCH (08:51)
[2017-10-22] MEDS: sertraline 50mg tablet PO SCH (08:52)
[2017-10-22] MEDS: montelukast 10mg tablet PO SCH (08:52)
[2017-10-22] MEDS: docusate sod 100mg capsule PO SCH ×2 (08:52→18:59)
[2017-10-22] MEDS: busPIRone 15mg tablet PO SCH ×2 (08:52→18:59)
[2017-10-22] MEDS: furosemide 20MG tablet PO SCH (08:52)
[2017-10-22] MEDS: enoxaparin 40mg/0.4ml syringe SUBCUT SCH (08:53)
[2017-10-22] MEDS: theophylline anhydrous 100mg SR-12hr tablet PO SCH (08:54)
[2017-10-22] MEDS: azithromycin 250mg tablet PO SCH (09:03)
[2017-10-22] MEDS: cefTRIAXone 1g/NS 100ml IVPB 100 ML IV SCH (09:22)
[2017-10-22] MEDS ORDERED: morphine 4 MG/ML inj SYRINge IV PRN (12:15)
[2017-10-22 12:40] VITALS: BP 104/67
[2017-10-22] MEDS: morphine 2 MG/ML inj. syringe IV PRN ×3 (14:30→23:02)
[2017-10-22 15:00] VITALS: BP 101/52
[2017-10-22 19:00] VITALS: BP 106/61
[2017-10-22 23:00] VITALS: BP 112/61
[2017-10-22] MEDS: temazepam 15mg capsule PO PRN (23:02)
[2017-10-23] MEDS: methylPREDNISolone sod succ/PF 40mg inj. IV SCH ×2 (01:13→07:37)
[2017-10-23] MEDS: ipratropium/albuterol 3ml nebule NEB PRN (02:48)
[2017-10-23] MEDS: morphine 2 MG/ML inj. syringe IV PRN ×3 (02:51→13:00)
[2017-10-23 03:00] VITALS: BP 98/58
[2017-10-23 04:30] LABS: BASOPHILS % (AUTO) 0 % (0-1); EOSINOPHILS % (AUTO) 0 % (0-6); HEMATOCRIT 29.1 % (35.0-45.0); HEMOGLOBIN 9.7 g/dl (12.0-16.0); LYMPHOCYTES # (AUTO) 0.2 X10'3 (1.1-4.8); LYMPHOCYTES % (AUTO) 5.4 % (21-51); MEAN CORPUSCULAR HEMOGLOBIN 33.4 PG (27.0-31.0); MEAN CORPUSCULAR HGB CONC 33.3 % (33.0-36.5); MEAN CORPUSCULAR VOLUME 100.1 FL (78-98); MEAN PLATELET VOLUME 7.6 FL (7.4-10.4); MONOCYTES # (AUTO) 0.3 X10'3 (0-0.9); MONOCYTES % (AUTO) 7.1 % (2-12); NEUTROPHILS # (AUTO) 3.9 X10'3 (1.8-7.7); NEUTROPHILS % (AUTO) 87.5 % (42-75); PLATELET COUNT 179 X10'3 (140-440); RED BLOOD COUNT 2.91 X10'6 (4.20-5.60); RED CELL DISTRIBUTION WIDTH 15.1 % (11.5-14.5); WHITE BLOOD COUNT 4.5 X10'3 (4.5-11.0)
[2017-10-23 04:45] LABS: ALANINE AMINOTRANSFERASE 27 U/L (12-78); ALBUMIN 2.8 G/DL (3.4-5.0); ALBUMIN/GLOBULIN RATIO 1.3 (1.1-1.5); ALKALINE PHOSPHATASE 50 IU/L (46-116); ANION GAP 0 (8-16); ASPARTATE AMINO TRANSFERASE 5 U/L (10-37); BILIRUBIN,TOTAL 0.2 MG/DL (0.1-1.0); BLOOD UREA NITROGEN 17 MG/DL (7-18); BUN/CREATININE RATIO 28.8 (6.6-38.0); CALCIUM 8.3 MG/DL (8.5-10.1); CHLORIDE 104 MMOL/L (99-107); CREATININE 0.59 MG/DL (0.40-0.90); GLUCOSE 125 MG/DL (70-104); MAGNESIUM 1.8 MG/DL (1.5-2.4); SODIUM 140 MMOL/L (135-145); eGFR > 90 ML/MIN
[2017-10-23 07:00] VITALS: BP 105/66
[2017-10-23] MEDS: budesonide 0.5mg/2ml UD nebule IH SCH (07:02)
[2017-10-23] MEDS: albuterol 2.5 MG/3 ML nebule NEB SCH ×3 (07:02→14:55)
[2017-10-23] MEDS: cefTRIAXone 1g/NS 100ml IVPB 100 ML IV SCH (07:37)
[2017-10-23] MEDS: pantoprazole 40mg Tablet.DR PO SCH (07:37)
[2017-10-23] MEDS: theophylline anhydrous 100mg SR-12hr tablet PO SCH (07:37)
[2017-10-23] MEDS: docusate sod 100mg capsule PO SCH (07:37)
[2017-10-23] MEDS: furosemide 20MG tablet PO SCH (07:37)
[2017-10-23] MEDS: busPIRone 15mg tablet PO SCH (07:37)
[2017-10-23] MEDS: montelukast 10mg tablet PO SCH (07:37)
[2017-10-23] MEDS: sertraline 50mg tablet PO SCH (07:37)
[2017-10-23] MEDS: azithromycin 250mg tablet PO SCH (07:37)
[2017-10-23] MEDS: enoxaparin 40mg/0.4ml syringe SUBCUT SCH (07:38)
[2017-10-23] MEDS: lisinopril 5mg tablet PO SCH (07:50)
[2017-10-23 11:00] VITALS: BP 110/57
[2017-10-23] MEDS ORDERED: LEVO500T2 PO (12:37)
[2017-10-23] MEDS ORDERED: HYDR2TAB28 PO ×2 (12:37→12:56)
[2017-10-23 15:00] VITALS: BP 101/51
[2017-10-23] MEDS: HYDROcodone/acetaminophen 10/325mg tab PO PRN (17:03)
[2017-10-24] MEDS ORDERED: predniSONE 20 mg tablet PO SCH (08:30)
== END 2017-10-23 18:00 | disposition home or self-care (01) | DRG 133 ==
LOC: ER 11:10 → ED HOLD 13:12 → ICU 2S 15:38 → PCU 3S 10-21 11:35
PROVIDERS: ADMIT Internal Medicine Critical Care Medicine; ATTEND Internal Medicine Critical Care Medicine
PROC: 5A1945Z Respiratory Ventilation, 24-96 Consecutive Hours (ICD-10-PCS; principal; 2017-10-18)
PROC: 0BH17EZ Insertion of Endotracheal Airway into Trachea, Via Natural or Artificial Opening (ICD-10-PCS; 2017-10-18)
PROC: 5A09357 Assistance with Respiratory Ventilation, Less than 24 Consecutive Hours, Continuous Positive Airway Pressure (ICD-10-PCS; 2017-10-19)
PROC: 02HV33Z Insertion of Infusion Device into Superior Vena Cava, Percutaneous Approach (ICD-10-PCS; 2017-10-19)
PROC: 5A09357 Assistance with Respiratory Ventilation, Less than 24 Consecutive Hours, Continuous Positive Airway Pressure (ICD-10-PCS; 2017-10-20)
PROC: 5A09357 Assistance with Respiratory Ventilation, Less than 24 Consecutive Hours, Continuous Positive Airway Pressure (ICD-10-PCS; 2017-10-21)
PROC: 5A09357 Assistance with Respiratory Ventilation, Less than 24 Consecutive Hours, Continuous Positive Airway Pressure (ICD-10-PCS; 2017-10-22)
PROC: 5A09357 Assistance with Respiratory Ventilation, Less than 24 Consecutive Hours, Continuous Positive Airway Pressure (ICD-10-PCS; 2017-10-23)
DX: J96.20 Acute and chronic respiratory failure, unspecified whether with hypoxia or hypercapnia (principal); J18.9 Pneumonia, unspecified organism; I11.0 Hypertensive heart disease with heart failure; J44.0 Chronic obstructive pulmonary disease with (acute) lower respiratory infection; I50.30 Unspecified diastolic (congestive) heart failure; E87.2 Acidosis; I08.3 Combined rheumatic disorders of mitral, aortic and tricuspid valves; F41.9 Anxiety disorder, unspecified; G89.4 Chronic pain syndrome; J44.1 Chronic obstructive pulmonary disease with (acute) exacerbation; J98.4 Other disorders of lung; Z79.51 Long term (current) use of inhaled steroids; Z79.899 Other long term (current) drug therapy; Z87.891 Personal history of nicotine dependence; Z88.6 Allergy status to analgesic agent; Z90.49 Acquired absence of other specified parts of digestive tract; Z91.018 Allergy to other foods; Z88.0 Allergy status to penicillin; Z88.8 Allergy status to other drugs, medicaments and biological substances
CPT/HCPCS: 36415; 36556; 36600; 71045; 74018; 80053; 81001; 82803; 82948; 83605; 83735; 83880; 84145; 84484; 85018; 85025; 85610; 85730; 87040; 87070; 87077; 87186; 93005; 94002; 94003; 94060; 94640; 94660; 94760; 96365; 96375; 97110; 97116; 97162; 97530; 99291; 99292; A6213; A7015; A7526; C1751; C1758; J0456; J0696; J1650; J1940; J2060; J2250; J2270; J2405; J2920; J2930; J3480; J3490; J7030; J7626; Q0177

== ENCOUNTER 2018-02-06 19:13 | Inpatient (IN) | payer MEDICAID ==
[~2018-02-06] VITALS: Ht 147.3 cm; Wt 45.5 kg
[~2018-02-06 19:13] MED LIST changes: -CARV3.12 PO; +FURO40TA4 PO; +HYDR-4353 PO; +IPRA3AMP9 NEB; -NICO-687 TD; +PRED10TA PO; +SERT100T10 PO; -etomidate 2mg/ml inj. ONE; -rocuronium 10mg/ml inj IV ONE
[2018-02-06] MEDS ORDERED: methylPREDNISolone sod succ 125mg/2ml vial IV ONE (19:20)
[2018-02-06] MEDS ORDERED: magnesium 1gm/100ml D5W IVPB 100 ML IV ONE ×2 (19:20→19:30)
[2018-02-06] MEDS ORDERED: ipratropium/albuterol 3ml nebule NEB ONE (19:20)
[2018-02-06] MEDS ORDERED: albuterol 2.5 MG/3 ML nebule CONTNEB PRN (19:20)
[2018-02-06] MEDS ORDERED: normal saline 1000ML IV soln IVB ONE (19:20)
[2018-02-06] MEDS ORDERED: methylPREDNISolone sod succ 125mg/2ml vial ONE (19:21)
[2018-02-06] MEDS ORDERED: magnesium 2GM in 50ml NS 50 ML IV ONE (19:30)
[2018-02-06] MEDS ORDERED: CefTRIAXone 2gm/D5W 50ml 50 ML IV ONE (19:40)
[2018-02-06 19:46] LABS: BASOPHILS % (AUTO) 0.5 % (0-1); EOSINOPHILS # (AUTO) 0.2 X10'3 (0-0.9); HEMATOCRIT 34.7 % (35.0-45.0); HEMOGLOBIN 11.4 g/dl (12.0-16.0); LYMPHOCYTES # (AUTO) 1.5 X10'3 (1.1-4.8); LYMPHOCYTES % (AUTO) 26.7 % (21-51); MEAN CORPUSCULAR HEMOGLOBIN 31.2 PG (27.0-31.0); MEAN CORPUSCULAR VOLUME 94.8 FL (78-98); MONOCYTES # (AUTO) 0.6 X10'3 (0-0.9); MONOCYTES % (AUTO) 11.1 % (2-12); NEUTROPHILS # (AUTO) 3.2 X10'3 (1.8-7.7); NEUTROPHILS % (AUTO) 57.7 % (42-75); PLATELET COUNT 205 X10'3 (140-440); RED BLOOD COUNT 3.66 X10'6 (4.20-5.60); RED CELL DISTRIBUTION WIDTH 16.1 % (11.5-14.5); WHITE BLOOD COUNT 5.5 X10'3 (4.5-11.0)
[2018-02-06] MEDS ORDERED: FURO-150 PO (19:52)
[2018-02-06] MEDS ORDERED: POTASSIUM CL PO (19:52)
[2018-02-06] MEDS ORDERED: ALBU18HF2 INH (19:52)
[2018-02-06] MEDS ORDERED: ALB0.5UD IH (19:52)
[2018-02-06 20:05] LABS: ALANINE AMINOTRANSFERASE 16 U/L (12-78); ALBUMIN 3.3 G/DL (3.4-5.0); ALBUMIN/GLOBULIN RATIO 1.3 (1.1-1.5); ALKALINE PHOSPHATASE 80 IU/L (46-116); ANION GAP 4 (8-16); ASPARTATE AMINO TRANSFERASE 6 U/L (10-37); BILIRUBIN,TOTAL 0.2 MG/DL (0.1-1.0); BLOOD UREA NITROGEN 12 MG/DL (7-18); BUN/CREATININE RATIO 18.8 (6.6-38.0); CALCIUM 9.1 MG/DL (8.5-10.1); CHLORIDE 107 MMOL/L (99-107); CREATININE 0.64 MG/DL (0.40-0.90); GLUCOSE 101 MG/DL (70-104); POTASSIUM 4.2 MMOL/L (3.5-5.1); SODIUM 143 MMOL/L (135-145); TOTAL CARBON DIOXIDE 32.3 MMOL/L (24-32); TOTAL PROTEIN 5.9 G/DL (6.4-8.2); eGFR > 90 ML/MIN
[2018-02-06 20:56] LABS: CLARITY,URINE CLEAR (Clear); COLOR,URINE STRAW (Yellow); GLUCOSE, URINE NEGATIVE (Neg); KETONES,URINE NEGATIVE (Neg); LEUKOCYTE ESTERASE ,URINE NEGATIVE (Neg); NITRITES, URINE NEGATIVE (Neg); OCCULT BLOOD,URINE NEGATIVE (Neg); PROTEIN,URINE NEGATIVE (Neg); UROBILINOGEN,URINE 0.2 E.U/dL (0.2-1.0)
[2018-02-06 20:57] LABS: UA COLLECTION TYPE CLN CATCH MIDSTREAM
[2018-02-06] MEDS ORDERED: temazepam 15mg capsule PO PRN (21:00)
[2018-02-06] MEDS: levoFLOXACIN-Levaquin 750MG/D5 150 ML IV STA ×2 (21:32→22:03)
[2018-02-06] MEDS ORDERED: hydrOXYzine 25 MG tablet PO PRN (21:35)
[2018-02-06] MEDS ORDERED: acetaminophen 650mg rectal suppository RC PRN (21:40)
[2018-02-06] MEDS ORDERED: metoclopramide 5 mg/ml inj IV PRN (21:40)
[2018-02-06] MEDS ORDERED: magnesium hydroxide 30ml (MOM) UD suspension PO PRN (21:40)
[2018-02-06] MEDS ORDERED: HYDROcodone/acetaminophen 5mg/325mg tablet PO PRN (21:40)
[2018-02-06] MEDS ORDERED: acetaminophen 325mg tablet PO PRN ×2 (21:40)
[2018-02-06] MEDS ORDERED: bisacodyl 10mg suppository rectal RC PRN (21:40)
[2018-02-06] MEDS ORDERED: mag hydrox/Alum hydrox/simeth 30ml oral suspension PO PRN (21:40)
[2018-02-06 21:50] LABS: ABG BASE EXCESS -0.4 mmol/L (-2.0-3.0); ABG HCO3 24.9 mmol/L (22.0-26.0); ABG OXYGEN SATURATION 96.3 % (95-98); ABG PCO2 (T) 42.8 mmHg (32.0-45.0); ABG PH (T) 7.381 (7.350-7.450); ABG PO2 (T) 82.8 mmHg (83-108); ALLEN'S TEST Positive; FLOW 4 L/min; FMetHb 0.3 % (0.3-1.12); PATIENT TEMPERATURE 36.7; TOTAL HEMOGLOBIN 11.7 G/dl (12.0-16.0)
[2018-02-06] MEDS: normal saline 1000ml 1,000 ML IV SCH (22:05)
[2018-02-06 22:08] LABS: MAGNESIUM 1.9 MG/DL (1.5-2.4); PHOSPHORUS 3.7 MG/DL (2.3-4.5)
[2018-02-06 23:59] VITALS: BP 120/47
[2018-02-07] MEDS: morphine 2 MG/ML inj. syringe IV PRN ×6 (00:20→22:11)
[2018-02-07] MEDS: normal saline 1000ml 1,000 ML IV SCH (03:22)
[2018-02-07 05:54] LABS: BASOPHILS % (AUTO) 0 % (0-1); EOSINOPHILS % (AUTO) 0.2 % (0-6); HEMATOCRIT 29.6 % (35.0-45.0); HEMOGLOBIN 9.8 g/dl (12.0-16.0); LYMPHOCYTES # (AUTO) 0.2 X10'3 (1.1-4.8); MEAN CORPUSCULAR HEMOGLOBIN 31.2 PG (27.0-31.0); MEAN CORPUSCULAR HGB CONC 33.1 % (33.0-36.5); MEAN CORPUSCULAR VOLUME 94.3 FL (78-98); MEAN PLATELET VOLUME 8.2 FL (7.4-10.4); MONOCYTES # (AUTO) 0.1 X10'3 (0-0.9); MONOCYTES % (AUTO) 1.6 % (2-12); NEUTROPHILS # (AUTO) 5.6 X10'3 (1.8-7.7); NEUTROPHILS % (AUTO) 95.2 % (42-75); PLATELET COUNT 179 X10'3 (140-440); RED BLOOD COUNT 3.14 X10'6 (4.20-5.60); RED CELL DISTRIBUTION WIDTH 16.5 % (11.5-14.5); WHITE BLOOD COUNT 5.9 X10'3 (4.5-11.0)
[2018-02-07 07:08] LABS: ALANINE AMINOTRANSFERASE 12 U/L (12-78); ALBUMIN/GLOBULIN RATIO 1.2 (1.1-1.5); ALKALINE PHOSPHATASE 65 IU/L (46-116); ANION GAP 8 (8-16); ASPARTATE AMINO TRANSFERASE 10 U/L (10-37); BILIRUBIN,TOTAL 0.1 MG/DL (0.1-1.0); BLOOD UREA NITROGEN 17 MG/DL (7-18); BUN/CREATININE RATIO 24.6 (6.6-38.0); CALCIUM 8.6 MG/DL (8.5-10.1); CHLORIDE 108 MMOL/L (99-107); CREATININE 0.69 MG/DL (0.40-0.90); GLUCOSE 124 MG/DL (70-104); POTASSIUM 4.6 MMOL/L (3.5-5.1); SODIUM 142 MMOL/L (135-145); TOTAL CARBON DIOXIDE 26.4 MMOL/L (24-32); TOTAL PROTEIN 5.5 G/DL (6.4-8.2); eGFR 89 ML/MIN
[2018-02-07 07:30] VITALS: BP 100/52
[2018-02-07] MEDS: ipratropium/albuterol 3ml nebule NEB PRN ×3 (07:53→17:42)
[2018-02-07] MEDS ORDERED: azithromycin/NS 500mg/250ml 250 ML IV SCH (08:00)
[2018-02-07] MEDS: lisinopril 5mg tablet PO SCH (08:00)
[2018-02-07] MEDS ORDERED: methylPREDNISolone sod succ 125mg/2ml vial IV SCH (08:00)
[2018-02-07] MEDS: docusate sod 100mg capsule PO SCH ×2 (08:47→19:46)
[2018-02-07] MEDS: montelukast 10mg tablet PO SCH (08:47)
[2018-02-07] MEDS: sertraline 50mg tablet PO SCH ×2 (08:47→19:46)
[2018-02-07] MEDS: heparin, porcine 5000 units/ml vial SQ SCH ×2 (08:53→19:46)
[2018-02-07] MEDS: pantoprazole 40mg Tablet.DR PO SCH (09:01)
[2018-02-07] MEDS: CefTRIAXone/D5W-Rocephin 1gm 50 ML IV SCH (09:04)
[2018-02-07] MEDS ORDERED: nitroGLYCERIN 0.4mg SUBLingual tab SL ONE (11:27)
[2018-02-07] MEDS ORDERED: furosemide 40mg/4ml inj ONE (11:27)
[2018-02-07] MEDS ORDERED: nitroGLYCERIN 0.4mg SUBLingual tab SL PRN (11:55)
[2018-02-07 12:34] LABS: ALBUMIN 3.7 G/DL (3.4-5.0); ANION GAP 10 (8-16); BLOOD UREA NITROGEN 16 MG/DL (7-18); BUN/CREATININE RATIO 21.6 (6.6-38.0); CALCIUM 9.4 MG/DL (8.5-10.1); CHLORIDE 105 MMOL/L (99-107); CREATININE 0.74 MG/DL (0.40-0.90); GLUCOSE 139 MG/DL (70-104); POTASSIUM 4.7 MMOL/L (3.5-5.1); SODIUM 140 MMOL/L (135-145); TOTAL CARBON DIOXIDE 24.8 MMOL/L (24-32); TROPONIN I < 0.04 NG/ML (0.0-0.05); eGFR 82 ML/MIN
[2018-02-07] MEDS: ondansetron/PF 4mg/2ml inj IV PRN (13:20)
[2018-02-07 15:00] VITALS: BP 99/45
[2018-02-07 19:00] VITALS: BP 98/46
[2018-02-07] MEDS: lactobacillus rhamnosus 10,000 MMU CELLS/CAPSULE PO SCH (19:46)
[2018-02-07] MEDS: furosemide 20 MG/2 ML vial IV SCH (20:00)
[2018-02-07] MEDS: budesonide 0.5mg/2ml UD nebule IH SCH (21:09)
[2018-02-07 23:00] VITALS: BP 100/54
[2018-02-08] VITALS (9 sets, daily range): BP systolic 92–117; BP diastolic 40–59
[2018-02-08 01:14] LABS: BASOPHILS % (AUTO) 0.6 % (0-1); EOSINOPHILS % (AUTO) 0.4 % (0-6); HEMATOCRIT 33.2 % (35.0-45.0); HEMOGLOBIN 11.1 g/dl (12.0-16.0); LYMPHOCYTES # (AUTO) 0.8 X10'3 (1.1-4.8); LYMPHOCYTES % (AUTO) 12.4 % (21-51); MEAN CORPUSCULAR HEMOGLOBIN 31.6 PG (27.0-31.0); MEAN CORPUSCULAR HGB CONC 33.6 % (33.0-36.5); MEAN CORPUSCULAR VOLUME 93.9 FL (78-98); MONOCYTES # (AUTO) 0.4 X10'3 (0-0.9); MONOCYTES % (AUTO) 6.2 % (2-12); NEUTROPHILS # (AUTO) 4.9 X10'3 (1.8-7.7); NEUTROPHILS % (AUTO) 80.4 % (42-75); PLATELET COUNT 196 X10'3 (140-440); RED BLOOD COUNT 3.53 X10'6 (4.20-5.60); RED CELL DISTRIBUTION WIDTH 15.6 % (11.5-14.5); WHITE BLOOD COUNT 6.1 X10'3 (4.5-11.0)
[2018-02-08 01:28] LABS: ALBUMIN 3.4 G/DL (3.4-5.0); ANION GAP 3 (8-16); BLOOD UREA NITROGEN 25 MG/DL (7-18); BUN/CREATININE RATIO 33.3 (6.6-38.0); CHLORIDE 103 MMOL/L (99-107); CREATININE 0.75 MG/DL (0.40-0.90); GLUCOSE 113 MG/DL (70-104); POTASSIUM 4.8 MMOL/L (3.5-5.1); SODIUM 141 MMOL/L (135-145); TOTAL CARBON DIOXIDE 34.8 MMOL/L (24-32); TROPONIN I < 0.04 NG/ML (0.0-0.05); eGFR 81 ML/MIN
[2018-02-08] MEDS: ipratropium/albuterol 3ml nebule NEB SCH ×6 (02:10→23:38)
[2018-02-08] MEDS: budesonide 0.5mg/2ml UD nebule IH SCH ×2 (07:29→19:45)
[2018-02-08] MEDS: CefTRIAXone/D5W-Rocephin 1gm 50 ML IV SCH (07:44)
[2018-02-08] MEDS: lactobacillus rhamnosus 10,000 MMU CELLS/CAPSULE PO SCH ×2 (07:44→20:41)
[2018-02-08] MEDS: methylPREDNISolone sod succ/PF 40mg inj. IV SCH (07:45)
[2018-02-08] MEDS: sertraline 50mg tablet PO SCH ×2 (07:45→20:41)
[2018-02-08] MEDS: pantoprazole 40mg Tablet.DR PO SCH (07:45)
[2018-02-08] MEDS: docusate sod 100mg capsule PO SCH ×2 (07:45→20:41)
[2018-02-08] MEDS: montelukast 10mg tablet PO SCH (07:46)
[2018-02-08] MEDS: heparin, porcine 5000 units/ml vial SQ SCH ×2 (07:47→20:41)
[2018-02-08] MEDS: lisinopril 5mg tablet PO SCH (08:39)
[2018-02-08] MEDS: HYDROmorphone 1 mg/ml syringe IV PRN ×3 (08:41→22:06)
[2018-02-08] MEDS: furosemide 20 MG/2 ML vial IV SCH ×3 (14:06→21:35)
[2018-02-08] MEDS: morphine 2 MG/ML inj. syringe IV PRN (14:10)
[2018-02-08] MEDS: normal saline 1000ml 1,000 ML IV SCH (21:36)
[2018-02-09] VITALS (7 sets, daily range): BP systolic 92–119; BP diastolic 41–72
[2018-02-09] MEDS: HYDROmorphone 1 mg/ml syringe IV PRN ×5 (02:12→20:03)
[2018-02-09] MEDS: ipratropium/albuterol 3ml nebule NEB SCH ×6 (03:06→23:38)
[2018-02-09 06:57] LABS: BASOPHILS % (AUTO) 0.6 % (0-1); EOSINOPHILS # (AUTO) 0.1 X10'3 (0-0.9); EOSINOPHILS % (AUTO) 3.8 % (0-6); HEMATOCRIT 31.1 % (35.0-45.0); HEMOGLOBIN 10.3 g/dl (12.0-16.0); LYMPHOCYTES # (AUTO) 0.8 X10'3 (1.1-4.8); LYMPHOCYTES % (AUTO) 19.9 % (21-51); MEAN CORPUSCULAR HEMOGLOBIN 31.1 PG (27.0-31.0); MEAN CORPUSCULAR HGB CONC 33.1 % (33.0-36.5); MEAN CORPUSCULAR VOLUME 93.9 FL (78-98); MEAN PLATELET VOLUME 7.7 FL (7.4-10.4); MONOCYTES # (AUTO) 0.5 X10'3 (0-0.9); MONOCYTES % (AUTO) 13.1 % (2-12); NEUTROPHILS # (AUTO) 2.4 X10'3 (1.8-7.7); NEUTROPHILS % (AUTO) 62.6 % (42-75); PLATELET COUNT 196 X10'3 (140-440); RED BLOOD COUNT 3.31 X10'6 (4.20-5.60); RED CELL DISTRIBUTION WIDTH 16.4 % (11.5-14.5); WHITE BLOOD COUNT 3.8 X10'3 (4.5-11.0)
[2018-02-09] MEDS: CefTRIAXone/D5W-Rocephin 1gm 50 ML IV SCH (07:31)
[2018-02-09] MEDS: furosemide 20 MG/2 ML vial IV SCH ×2 (07:31→20:02)
[2018-02-09] MEDS: methylPREDNISolone sod succ/PF 40mg inj. IV SCH (07:33)
[2018-02-09] MEDS: docusate sod 100mg capsule PO SCH ×2 (07:37→20:03)
[2018-02-09] MEDS: lactobacillus rhamnosus 10,000 MMU CELLS/CAPSULE PO SCH ×2 (07:37→20:03)
[2018-02-09] MEDS: sertraline 50mg tablet PO SCH ×2 (07:37→20:03)
[2018-02-09] MEDS: lisinopril 5mg tablet PO SCH (07:37)
[2018-02-09] MEDS: montelukast 10mg tablet PO SCH (07:37)
[2018-02-09] MEDS: pantoprazole 40mg Tablet.DR PO SCH (07:37)
[2018-02-09] MEDS: heparin, porcine 5000 units/ml vial SQ SCH ×2 (07:38→20:02)
[2018-02-09 07:42] LABS: ALBUMIN 3.1 G/DL (3.4-5.0); ANION GAP 6 (8-16); BLOOD UREA NITROGEN 19 MG/DL (7-18); BUN/CREATININE RATIO 27.1 (6.6-38.0); CALCIUM 8.5 MG/DL (8.5-10.1); CHLORIDE 101 MMOL/L (99-107); GLUCOSE 105 MG/DL (70-104); POTASSIUM 3.7 MMOL/L (3.5-5.1); SODIUM 140 MMOL/L (135-145); TOTAL CARBON DIOXIDE 33.4 MMOL/L (24-32); eGFR 87 ML/MIN
[2018-02-09] MEDS: budesonide 0.5mg/2ml UD nebule IH SCH ×2 (07:48→19:29)
[2018-02-09] MEDS: ondansetron/PF 4mg/2ml inj IV PRN ×3 (09:14→23:32)
[2018-02-09] MEDS ORDERED: predniSONE 20 mg tablet PO ONE (14:40)
[2018-02-09] MEDS: normal saline 1000ml 1,000 ML IV SCH (19:00)
[2018-02-10] MEDS: HYDROmorphone 1 mg/ml syringe IV PRN ×3 (01:39→12:11)
[2018-02-10 03:00] VITALS: BP 93/44
[2018-02-10] MEDS: ipratropium/albuterol 3ml nebule NEB SCH ×4 (03:31→16:36)
[2018-02-10 06:00] VITALS: BP 85/44
[2018-02-10 06:39] LABS: BASOPHILS % (AUTO) 0.4 % (0-1); HEMATOCRIT 35.7 % (35.0-45.0); HEMOGLOBIN 11.7 g/dl (12.0-16.0); LYMPHOCYTES # (AUTO) 0.6 X10'3 (1.1-4.8); LYMPHOCYTES % (AUTO) 13.1 % (21-51); MEAN CORPUSCULAR HEMOGLOBIN 31.1 PG (27.0-31.0); MEAN CORPUSCULAR HGB CONC 32.9 % (33.0-36.5); MEAN CORPUSCULAR VOLUME 94.6 FL (78-98); MEAN PLATELET VOLUME 7.8 FL (7.4-10.4); MONOCYTES # (AUTO) 0.5 X10'3 (0-0.9); MONOCYTES % (AUTO) 12.4 % (2-12); NEUTROPHILS # (AUTO) 3.2 X10'3 (1.8-7.7); NEUTROPHILS % (AUTO) 73.1 % (42-75); PLATELET COUNT 207 X10'3 (140-440); RED BLOOD COUNT 3.77 X10'6 (4.20-5.60); RED CELL DISTRIBUTION WIDTH 16.4 % (11.5-14.5); WHITE BLOOD COUNT 4.3 X10'3 (4.5-11.0)
[2018-02-10] MEDS: budesonide 0.5mg/2ml UD nebule IH SCH (07:23)
[2018-02-10 07:24] LABS: ALBUMIN 3.3 G/DL (3.4-5.0); ANION GAP 7 (8-16); BLOOD UREA NITROGEN 15 MG/DL (7-18); BUN/CREATININE RATIO 24.2 (6.6-38.0); CHLORIDE 100 MMOL/L (99-107); CREATININE 0.62 MG/DL (0.40-0.90); GLUCOSE 100 MG/DL (70-104); SODIUM 138 MMOL/L (135-145); TOTAL CARBON DIOXIDE 31.2 MMOL/L (24-32); eGFR > 90 ML/MIN
[2018-02-10] MEDS: ondansetron/PF 4mg/2ml inj IV PRN ×2 (07:49→14:55)
[2018-02-10] MEDS: lactobacillus rhamnosus 10,000 MMU CELLS/CAPSULE PO SCH (07:51)
[2018-02-10] MEDS: pantoprazole 40mg Tablet.DR PO SCH (07:51)
[2018-02-10] MEDS: docusate sod 100mg capsule PO SCH (07:51)
[2018-02-10] MEDS: sertraline 50mg tablet PO SCH (07:52)
[2018-02-10] MEDS: CefTRIAXone/D5W-Rocephin 1gm 50 ML IV SCH (07:53)
[2018-02-10] MEDS: montelukast 10mg tablet PO SCH (07:59)
[2018-02-10] MEDS: lisinopril 5mg tablet PO SCH (07:59)
[2018-02-10] MEDS: furosemide 20 MG/2 ML vial IV SCH (07:59)
[2018-02-10] MEDS: heparin, porcine 5000 units/ml vial SQ SCH (08:06)
[2018-02-10] MEDS ORDERED: predniSONE 20 mg tablet PO SCH (08:30)
[2018-02-10] MEDS ORDERED: PRED20TA PO (09:53)
[2018-02-10] MEDS ORDERED: CEFD300C3 PO (09:53)
[2018-02-10 11:00] VITALS: BP 92/54
[2018-02-10 15:00] VITALS: BP 97/43
== END 2018-02-10 16:41 | disposition home health service (06) | DRG 133 ==
LOC: ER 19:13 → ED HOLD 21:36 → SUR 3N 23:40 → PCU 3S 02-07 12:47
PROVIDERS: ADMIT Family Medicine; ATTEND Family Medicine
PROC: 3E02340 Introduction of Influenza Vaccine into Muscle, Percutaneous Approach (ICD-10-PCS; principal; 2018-02-07)
PROC: 5A09357 Assistance with Respiratory Ventilation, Less than 24 Consecutive Hours, Continuous Positive Airway Pressure (ICD-10-PCS; 2018-02-07)
DX: J96.21 Acute and chronic respiratory failure with hypoxia (principal); I50.33 Acute on chronic diastolic (congestive) heart failure; J44.0 Chronic obstructive pulmonary disease with (acute) lower respiratory infection; Z99.81 Dependence on supplemental oxygen; J44.1 Chronic obstructive pulmonary disease with (acute) exacerbation; I13.0 Hypertensive heart and chronic kidney disease with heart failure and stage 1 through stage 4 chronic kidney disease, or unspecified chronic kidney disease; F17.210 Nicotine dependence, cigarettes, uncomplicated; J20.9 Acute bronchitis, unspecified; F41.9 Anxiety disorder, unspecified; G89.4 Chronic pain syndrome; N18.9 Chronic kidney disease, unspecified; Z88.0 Allergy status to penicillin; Z23 Encounter for immunization; Z88.1 Allergy status to other antibiotic agents; Z88.6 Allergy status to analgesic agent; Z88.8 Allergy status to other drugs, medicaments and biological substances; Z91.018 Allergy to other foods; Z79.891 Long term (current) use of opiate analgesic; Z90.49 Acquired absence of other specified parts of digestive tract; Z79.899 Other long term (current) drug therapy
CPT/HCPCS: 36415; 36600; 71045; 80048; 80053; 81003; 82803; 82948; 83605; 83735; 83880; 84100; 84145; 84484; 85018; 85025; 87040; 87070; 93005; 94640; 94644; 94660; 94667; 94668; 94760; 96365; 96368; 96375; 99291; G0378; J0456; J0696; J1170; J1644; J1940; J1956; J2270; J2405; J2765; J2920; J2930; J3475; J7030; J7512; J7626; Q2037

== ENCOUNTER 2018-03-14 23:02 | Inpatient (IN) | payer MEDICAID | END 2018-03-23 16:26 | LOC: PCU 3S 03-18 13:30 → ER 23:02 → ED HOLD 03-15 02:09 → PCU 3S 03-15 02:50 ==

== ENCOUNTER 2018-05-09 10:38 | Inpatient (IN) | payer MEDICAID ==
[~2018-05-09] VITALS: Ht 142.2 cm; Wt 44.4 kg
[2018-05-09] VITALS (13 sets, daily range): BP systolic 107–158; BP diastolic 55–84
[~2018-05-09 10:38] MED LIST changes: +ALB0.5UD IH; +ALBU18HF2 INH; +BUPR-84 PO; -BUSP30TA2 PO; +CLON-527 PO; -CLON-528 PO; +FURO-150 PO; -FURO40TA4 PO; -HYDR-4353 PO; -IPRA3AMP9 NEB; -ONDA4TAB11 PO; +POTASSIUM CL PO; -PRED10TA PO
[2018-05-09] MEDS ORDERED: levalbuterol 1.25mg/0.5ml nebule IH ONE (10:50)
[2018-05-09] MEDS ORDERED: normal saline 1000ML IV soln IVB ONE (10:50)
[2018-05-09 11:02] LABS: BASOPHILS # (AUTO) 0.1 X10'3 (0-0.2); BASOPHILS % (AUTO) 0.5 % (0-1); EOSINOPHILS # (AUTO) 0.1 X10'3 (0-0.9); EOSINOPHILS % (AUTO) 0.9 % (0-6); HEMATOCRIT 38.3 % (35.0-45.0); HEMOGLOBIN 12.4 g/dl (12.0-16.0); LYMPHOCYTES # (AUTO) 2.1 X10'3 (1.1-4.8); LYMPHOCYTES % (AUTO) 18.2 % (21-51); MEAN CORPUSCULAR HEMOGLOBIN 31.6 PG (27.0-31.0); MEAN CORPUSCULAR HGB CONC 32.3 g/dL (33.0-36.5); MEAN CORPUSCULAR VOLUME 97.9 FL (78-98); MEAN PLATELET VOLUME 8.4 FL (7.4-10.4); MONOCYTES # (AUTO) 0.5 X10'3 (0-0.9); MONOCYTES % (AUTO) 4.4 % (2-12); NEUTROPHILS # (AUTO) 8.9 X10'3 (1.8-7.7); PLATELET COUNT 230 X10'3 (140-440); RED BLOOD COUNT 3.91 X10'6 (4.20-5.60); RED CELL DISTRIBUTION WIDTH 15.4 % (11.5-14.5); WHITE BLOOD COUNT 11.8 X10'3 (4.5-11.0)
[2018-05-09 11:11] LABS: ABG BASE EXCESS -12.7 mmol/L (-2.0-3.0); ABG HCO3 20.4 mmol/L (22.0-26.0); ABG OXYGEN SATURATION 95.8 % (95-98); ABG PCO2 (T) 89.1 mmHg (32.0-45.0); ABG PH (T) 6.977 (7.350-7.450); ABG PO2 (T) 114.2 mmHg (83-108); ALLEN'S TEST Positive; FCOHb 0.6 % (0.5-1.5); FMetHb 0.3 % (0.3-1.12); FO2Hb 94.9 % (94-100); PEEP 10 cm H2O; RESPIRATORY RATE 16 b/min; TIDAL VOLUME 135 mL; TOTAL HEMOGLOBIN 12.9 G/dl (12.0-16.0)
[2018-05-09] MEDS ORDERED: propofol 1000mg/100ml bottle 100 ML IV ONE (11:19)
[2018-05-09 11:38] LABS: ALANINE AMINOTRANSFERASE 26 U/L (12-78); ALBUMIN 3.4 G/DL (3.4-5.0); ALBUMIN/GLOBULIN RATIO 1.2 (1.1-1.5); ALKALINE PHOSPHATASE 98 IU/L (46-116); ANION GAP 14 (8-16); ASPARTATE AMINO TRANSFERASE 30 U/L (10-37); BILIRUBIN,TOTAL 0.2 MG/DL (0.1-1.0); BLOOD UREA NITROGEN 15 MG/DL (7-18); BUN/CREATININE RATIO 15.8 (6.6-38.0); CALCIUM 8.7 MG/DL (8.5-10.1); CHLORIDE 108 MMOL/L (99-107); CREATININE 0.95 MG/DL (0.40-0.90); GLUCOSE 264 MG/DL (70-104); POTASSIUM 4.2 MMOL/L (3.5-5.1); SODIUM 143 MMOL/L (135-145); TOTAL CARBON DIOXIDE 20.8 MMOL/L (24-32); TOTAL PROTEIN 6.2 G/DL (6.4-8.2); eGFR 61 ML/MIN
[2018-05-09 11:39] LABS: PARTIAL THROMBOPLASTIN TIME 22 SECONDS (22-32); PROTHROMBIN TIME 9.7 SECONDS (9.0-12.0)
[2018-05-09] MEDS ORDERED: CefTRIAXone 2gm/D5W 50ml 50 ML IV ONE (11:45)
[2018-05-09] MEDS ORDERED: etomidate 2mg/ml inj. ONE (12:00)
[2018-05-09] MEDS ORDERED: sod chloride 0.9% 10ml flush syringe IV ONE (12:00)
[2018-05-09] MEDS ORDERED: rocuronium 10mg/ml inj IV ONE (12:00)
[2018-05-09] MEDS ORDERED: midazolam 100mg in NS 100ml 100 ML IV PRN (12:04)
[2018-05-09] MEDS: normal saline 1000ml 1,000 ML IV SCH (12:04)
[2018-05-09] MEDS ORDERED: FENTANYL-0.9 % NACL/PF 100 ML IV PRN (12:04)
[2018-05-09] MEDS ORDERED: vancomycin/NS 1 GM ADD-VANTAGE 250 ML IV SCH (12:05)
[2018-05-09] MEDS ORDERED: fentaNYL/PF 50MCG/1 ML 2ML syringe IV PRN (12:05)
[2018-05-09] MEDS ORDERED: potassium Cl 40MEQ/NS 500ml 500 ML IV PRN ×2 (12:05)
[2018-05-09] MEDS ORDERED: midazolam 2 mg/2 ml injection IV ONE (12:05)
[2018-05-09] MEDS ORDERED: acetaminophen 325mg tablet PO PRN ×2 (12:05)
[2018-05-09] MEDS ORDERED: potassium Cl 20 mEq SR tablet PO PRN (12:05)
[2018-05-09] MEDS ORDERED: ipratropium/albuterol 3ml nebule NEB PRN (12:05)
[2018-05-09 12:11] LABS: CLARITY,URINE SLIGHTLY CLOUDY (Clear); COLOR,URINE STRAW (Yellow); GLUCOSE, URINE 100 mg/dl (Neg); KETONES,URINE NEGATIVE (Neg); LEUKOCYTE ESTERASE ,URINE NEGATIVE (Neg); NITRITES, URINE NEGATIVE (Neg); OCCULT BLOOD,URINE NEGATIVE (Neg); PROTEIN,URINE 100 mg/dl (Neg); UROBILINOGEN,URINE 0.2 E.U/dL (0.2-1.0)
--- NOTE | 2018-05-09 12:14 | NUR ---
called spoke to Don, he has no ride to the hospital. I explained Dr. Cardozo would like to speak with him and will be calling him back.
[2018-05-09 12:21] LABS: UA COLLECTION TYPE STRAIGHT CATH
[2018-05-09 12:22] LABS: BACTERIA,URINE 1+ /HPF (Neg); SQUAMOUS EPITHELIAL CELL,UR FEW /LPF (FEW); WBC,URINE 0-4 /HPF (0-4)
[2018-05-09] MEDS ORDERED: BUDE10.22 INH (12:39)
[2018-05-09] MEDS ORDERED: vancomycin/NS 1 GM ADD-VANTAGE 250 ML IV ONE (12:50)
[2018-05-09] MEDS ORDERED: BUSP30TA3 PO (12:54)
[2018-05-09 12:55] LABS: ABG BASE EXCESS -13.9 mmol/L (-2.0-3.0); ABG HCO3 20.4 mmol/L (22.0-26.0); ABG PCO2 (T) 99.8 mmHg (32.0-45.0); ABG PH (T) 6.929 (7.350-7.450); ABG PO2 (T) 281.8 mmHg (83-108); ALLEN'S TEST Positive; FCOHb 0.5 % (0.5-1.5); FMetHb 0.3 % (0.3-1.12); FO2Hb 98.2 % (94-100); MINUTE VOLUME 4 L/min; PEEP 5 cm H2O; RESPIRATORY RATE 18 b/min; RESPIRATORY RATE (OBSERVED) 18 b/min; TIDAL VOLUME 300 mL; TOTAL HEMOGLOBIN 13.7 G/dl (12.0-16.0)
[2018-05-09] MEDS: cefepime 1GM/NS ADD-VANTAGE 100 ML IV SCH ×2 (13:03→16:23)
--- NOTE | 2018-05-09 13:12 | NUR ---
1040 abiola at bedside 1043 atomidate 1044 Andres 1045 20 da placed in right and left hand 1045 intubated 7.0 21 at the lip 1053 OG Tube placed by PADMINI Moreau 1055 Urinary Cath placed by Student Nurse Ya 1118 Dr Bishop at bedside 1135 Propofol started
--- NOTE | 2018-05-09 14:00 | NUR ---
Patient in room CICU 2013. I have received report from Joi WASHINGTON and had the opportunity to ask questions and assume patient care.
--- NOTE | 2018-05-09 15:27 | NUR ---
TF Consult: Pt intubated admit w/ respiratory failure hx smoking and chronic severe heart valve failure, CHF, HTN. GLU 299 on steroids but also last A1C 5.2 2017 and 6.4 2013 currently no hx DM. Would benefit from A1C and hyperglycemic protocol. TF to start today per MD; high protein recs below for pt needs. Current wt pt stated -5kg last admit bed scale wt; will monitor for TF/hydration adjustments needs w/ new wt pending. Rec: 1. OGTF using Vital AF at 40ml/hr goal; to provide 960ml fluid, 778ml free water, 1152 kcals, and 72g protein. Initiate at 20ml/hr and advance 20ml Q8 to goal as tolerated. 2. water flush 100ml Q4 3. prealbumin Q /, daily wts 4. monitor for TF tolerance and adjustment needs based on wt 5. new A1C per MD approval; 2017 Addendum: 05/09/18 at [address] Amended: Links added.
[2018-05-09] MEDS: ipratropium/albuterol 3ml nebule NEB SCH ×3 (15:54→23:25)
--- NOTE | 2018-05-09 16:00 | NUR ---
pt is intubated and sedated, withdraws to pain. started TF via OGT per MD order. pt tolerating well. updated family on plan of care.
--- NOTE | 2018-05-09 18:35 | NUR ---
Problems reprioritized. Patient report given, questions answered & plan of care reviewed with PADMINI Best.
[2018-05-09] MEDS: docusate sod 100mg capsule PO SCH (20:00)
[2018-05-09] MEDS: methylPREDNISolone sod succ 125mg/2ml vial IV SCH (20:37)
[2018-05-09] MEDS: famotidine/PF 10 mg/ml inj IV SCH (20:37)
[2018-05-09] MEDS: heparin, porcine 5000 units/ml vial SQ SCH (20:38)
[2018-05-10] VITALS (24 sets, daily range): BP systolic 91–136; BP diastolic 41–80
[2018-05-10] MEDS: cefepime 1GM/NS ADD-VANTAGE 100 ML IV SCH ×4 (00:06→23:48)
[2018-05-10] MEDS: VANCOMYCIN 750MG IV in NS 250 ML IV SCH ×2 (01:24→13:42)
[2018-05-10] MEDS: methylPREDNISolone sod succ 125mg/2ml vial IV SCH ×4 (02:20→19:36)
[2018-05-10] MEDS: ipratropium/albuterol 3ml nebule NEB SCH ×7 (03:20→23:08)
[2018-05-10 03:35] LABS: ABG BASE EXCESS -6.6 mmol/L (-2.0-3.0); ABG HCO3 19.2 mmol/L (22.0-26.0); ABG OXYGEN SATURATION 97.2 % (95-98); ABG PCO2 (T) 40.4 mmHg (32.0-45.0); ABG PH (T) 7.298 (7.350-7.450); ABG PO2 (T) 104.5 mmHg (83-108); ALLEN'S TEST Positive; FCOHb 0.2 % (0.5-1.5); FMetHb 0.2 % (0.3-1.12); FO2Hb 96.8 % (94-100); MINUTE VOLUME 6 L/min; PATIENT TEMPERATURE 37.8; PEEP 5 cm H2O; RESPIRATORY RATE 20 b/min; RESPIRATORY RATE (OBSERVED) 22 b/min; TIDAL VOLUME 225 mL; TOTAL HEMOGLOBIN 11.7 G/dl (12.0-16.0)
[2018-05-10 04:40] LABS: BASOPHILS % (AUTO) 0.1 % (0-1); EOSINOPHILS % (AUTO) 0 % (0-6); HEMOGLOBIN 10.9 g/dl (12.0-16.0); LYMPHOCYTES # (AUTO) 0.1 X10'3 (1.1-4.8); LYMPHOCYTES % (AUTO) 1.4 % (21-51); MEAN CORPUSCULAR HEMOGLOBIN 32.2 PG (27.0-31.0); MEAN CORPUSCULAR HGB CONC 32.9 g/dL (33.0-36.5); MEAN CORPUSCULAR VOLUME 97.8 FL (78-98); MEAN PLATELET VOLUME 8.4 FL (7.4-10.4); MONOCYTES # (AUTO) 0.2 X10'3 (0-0.9); MONOCYTES % (AUTO) 1.7 % (2-12); NEUTROPHILS % (AUTO) 96.8 % (42-75); PLATELET COUNT 163 X10'3 (140-440); RED BLOOD COUNT 3.38 X10'6 (4.20-5.60); RED CELL DISTRIBUTION WIDTH 15.2 % (11.5-14.5); WHITE BLOOD COUNT 9.3 X10'3 (4.5-11.0)
[2018-05-10 04:48] LABS: ALANINE AMINOTRANSFERASE 64 U/L (12-78); ALBUMIN 2.7 G/DL (3.4-5.0); ALKALINE PHOSPHATASE 94 IU/L (46-116); ANION GAP 10 (8-16); ASPARTATE AMINO TRANSFERASE 34 U/L (10-37); BILIRUBIN,TOTAL 0.2 MG/DL (0.1-1.0); BLOOD UREA NITROGEN 19 MG/DL (7-18); BUN/CREATININE RATIO 23.5 (6.6-38.0); CHLORIDE 109 MMOL/L (99-107); CREATININE 0.81 MG/DL (0.40-0.90); GLUCOSE 171 MG/DL (70-104); MAGNESIUM 1.7 MG/DL (1.5-2.4); PHOSPHORUS 2.5 MG/DL (2.3-4.5); POTASSIUM 4.3 MMOL/L (3.5-5.1); PREALBUMIN 16.5 MG/DL (19-36); SODIUM 141 MMOL/L (135-145); TOTAL CARBON DIOXIDE 21.7 MMOL/L (24-32); TOTAL PROTEIN 5.3 G/DL (6.4-8.2); eGFR 74 ML/MIN
--- NOTE | 2018-05-10 06:30 | NUR ---
Patient in room CICU 2013. I have received report from PADMINI Best and had the opportunity to ask questions and assume patient care.
--- NOTE | 2018-05-10 06:39 | NUR ---
Problems reprioritized. Patient report given, questions answered & plan of care reviewed with Laurita WASHINGTON.
[2018-05-10] MEDS: docusate sod 100mg capsule PO SCH ×2 (08:00→19:36)
[2018-05-10] MEDS: normal saline 1000ml 1,000 ML IV SCH ×3 (08:00→23:47)
[2018-05-10] MEDS: famotidine/PF 10 mg/ml inj IV SCH ×2 (08:01→19:36)
[2018-05-10] MEDS: heparin, porcine 5000 units/ml vial SQ SCH ×2 (08:02→19:36)
[2018-05-10] MEDS: ondansetron/PF 4mg/2ml inj IV PRN ×2 (09:49→18:02)
[2018-05-10] MEDS ORDERED: ipratropium/albuterol 3ml nebule NEB PRN (13:25)
[2018-05-10] MEDS ORDERED: racepinephrine 11.25mg/0.5ml nebule NEB PRN (13:25)
--- NOTE | 2018-05-10 13:45 | NUR ---
extubation order received. pt is awake and alert, following verbal commands, RT at bedside, pt tolerated procedure well, 3L NC applied and in use. no signs of resp distress.
[2018-05-10] MEDS: mineral oil/petrolatum ophthal oint EACHEYE SCH ×2 (14:00→20:00)
[2018-05-10] MEDS ORDERED: ipratropium/albuterol 3ml nebule IH PRN (16:55)
--- NOTE | 2018-05-10 18:30 | NUR ---
Patient in room CICU 2009. I have received report from Laurita WASHINGTON and had the opportunity to ask questions and assume patient care.
--- NOTE | 2018-05-10 18:41 | NUR ---
Problems reprioritized. Patient report given, questions answered & plan of care reviewed with PADMINI Best.
[2018-05-10] MEDS: lactobacillus rhamnosus 10,000 MMU CELLS/CAPSULE PO SCH (19:35)
[2018-05-10] MEDS: busPIRone 15mg tablet PO SCH (19:35)
[2018-05-10] MEDS: lisinopril 5mg tablet PO SCH (19:35)
[2018-05-10] MEDS: buPROPion SR 150mg tablet PO SCH (19:35)
[2018-05-10] MEDS: BUDESONIDE 0.25 MG/2 ML AMPUL.NEB IH SCH (19:51)
[2018-05-10] MEDS ORDERED: non-formulary drug (Budesonide/Formoterol Fumarate (Symbicort 80-4.5 Mcg Inhaler) 2 PUFFS) INH SCH (20:00)
[2018-05-10] MEDS: montelukast 10mg tablet PO SCH (21:39)
[2018-05-11] VITALS (23 sets, daily range): BP systolic 112–182; BP diastolic 60–85
[2018-05-11] MEDS: methylPREDNISolone sod succ 125mg/2ml vial IV SCH ×4 (01:58→19:54)
[2018-05-11] MEDS: VANCOMYCIN 750MG IV in NS 250 ML IV SCH ×2 (01:59→13:17)
[2018-05-11] MEDS: mineral oil/petrolatum ophthal oint EACHEYE SCH ×4 (02:00→20:00)
[2018-05-11] MEDS: ipratropium/albuterol 3ml nebule NEB SCH ×7 (03:00→23:34)
[2018-05-11] MEDS: hydrOXYzine 25 MG tablet PO PRN ×2 (03:38→10:06)
[2018-05-11 04:17] LABS: BASOPHILS % (AUTO) 0.1 % (0-1); EOSINOPHILS % (AUTO) 0.1 % (0-6); HEMATOCRIT 34.6 % (35.0-45.0); HEMOGLOBIN 11.4 g/dl (12.0-16.0); LYMPHOCYTES # (AUTO) 0.3 X10'3 (1.1-4.8); LYMPHOCYTES % (AUTO) 2.6 % (21-51); MEAN CORPUSCULAR HEMOGLOBIN 31.9 PG (27.0-31.0); MEAN CORPUSCULAR HGB CONC 32.9 g/dL (33.0-36.5); MEAN CORPUSCULAR VOLUME 96.8 FL (78-98); MEAN PLATELET VOLUME 8.7 FL (7.4-10.4); MONOCYTES # (AUTO) 0.6 X10'3 (0-0.9); MONOCYTES % (AUTO) 5.5 % (2-12); NEUTROPHILS # (AUTO) 9.8 X10'3 (1.8-7.7); NEUTROPHILS % (AUTO) 91.7 % (42-75); PLATELET COUNT 183 X10'3 (140-440); RED BLOOD COUNT 3.57 X10'6 (4.20-5.60); RED CELL DISTRIBUTION WIDTH 15.4 % (11.5-14.5); WHITE BLOOD COUNT 10.7 X10'3 (4.5-11.0)
[2018-05-11 04:22] LABS: ALANINE AMINOTRANSFERASE 53 U/L (12-78); ALBUMIN 3.1 G/DL (3.4-5.0); ALBUMIN/GLOBULIN RATIO 1.1 (1.1-1.5); ALKALINE PHOSPHATASE 85 IU/L (46-116); ANION GAP 12 (8-16); ASPARTATE AMINO TRANSFERASE 20 U/L (10-37); BILIRUBIN,TOTAL 0.4 MG/DL (0.1-1.0); BLOOD UREA NITROGEN 19 MG/DL (7-18); BUN/CREATININE RATIO 22.9 (6.6-38.0); CALCIUM 8.4 MG/DL (8.5-10.1); CHLORIDE 110 MMOL/L (99-107); CREATININE 0.83 MG/DL (0.40-0.90); GLUCOSE 153 MG/DL (70-104); PHOSPHORUS 3.2 MG/DL (2.3-4.5); POTASSIUM 4.2 MMOL/L (3.5-5.1); SODIUM 142 MMOL/L (135-145); TOTAL CARBON DIOXIDE 20.1 MMOL/L (24-32); TOTAL PROTEIN 5.9 G/DL (6.4-8.2); eGFR 72 ML/MIN
[2018-05-11] MEDS: ondansetron/PF 4mg/2ml inj IV PRN ×2 (06:06→11:56)
--- NOTE | 2018-05-11 06:50 | NUR ---
Problems reprioritized. Patient report given, questions answered & plan of care reviewed with Zahida WASHINGTON.
[2018-05-11] MEDS: BUDESONIDE 0.25 MG/2 ML AMPUL.NEB IH SCH ×2 (07:26→19:28)
--- NOTE | 2018-05-11 07:34 | NUR ---
ORDER FOR BIPAP RECEIVED FROM DR URIBE , SETTINGS BASED ON PATIENTS BIPAP SETTINGS AT HOME. PATIENT WORKING HARD TO BREATH REQUESTING A BI PAP
[2018-05-11] MEDS: lisinopril 5mg tablet PO SCH (07:46)
[2018-05-11] MEDS: pantoprazole 40mg Tablet.DR PO SCH (07:46)
[2018-05-11] MEDS: buPROPion SR 150mg tablet PO SCH ×5 (07:46→20:10)
[2018-05-11] MEDS: busPIRone 15mg tablet PO SCH ×2 (07:46→20:00)
[2018-05-11] MEDS: lactobacillus rhamnosus 10,000 MMU CELLS/CAPSULE PO SCH ×2 (07:46→19:54)
[2018-05-11] MEDS: cefepime 1GM/NS ADD-VANTAGE 100 ML IV SCH ×2 (07:47→16:22)
[2018-05-11] MEDS: famotidine/PF 10 mg/ml inj IV SCH ×2 (07:47→19:54)
[2018-05-11] MEDS: heparin, porcine 5000 units/ml vial SQ SCH ×2 (07:47→19:54)
[2018-05-11] MEDS: docusate sod 100mg capsule PO SCH ×2 (08:00→19:53)
[2018-05-11] MEDS ORDERED: non-formulary drug (Tiotropium Bromide (Spiriva Respimat) 2 PUFF) PO SCH (08:00)
[2018-05-11 10:20] LABS: ABG BASE EXCESS -12.7 mmol/L (-2.0-3.0); ABG OXYGEN SATURATION 91.1 % (95-98); ABG PCO2 (T) 40.7 mmHg (32.0-45.0); ABG PH (T) 7.183 (7.350-7.450); ALLEN'S TEST Positive; FCOHb 0.2 % (0.5-1.5); FLOW 3 L/min; FMetHb 0.1 % (0.3-1.12); FO2Hb 90.8 % (94-100); TOTAL HEMOGLOBIN 12.4 G/dl (12.0-16.0)
[2018-05-11] MEDS ORDERED: VANCOMYCIN LEVEL IV NR (12:30)
[2018-05-11] MEDS: morphine 2 MG/ML inj. syringe IV PRN ×5 (13:07→23:06)
[2018-05-11] MEDS: clonazePAM 0.5mg tablet PO SCH ×2 (13:20→19:53)
--- NOTE | 2018-05-11 17:23 | NUR ---
Reassessment: Patient was extubated yesterday, diet was advanced to regular. Requiring bipap today. Refusing meals today d/t poor appetite likely r/t difficulty breathing. Will add carissa davidson to myriam d/w PADMINI. Rec: 1. Continue regular diet 2. Ensure enlive TID 3. Weight per rx Addendum: 05/11/18 at [address] Amended: Links added.
[2018-05-11] MEDS: normal saline 1000ml 1,000 ML IV SCH ×2 (17:24→20:06)
[2018-05-11] MEDS: montelukast 10mg tablet PO SCH (19:59)
[2018-05-12] VITALS (23 sets, daily range): BP systolic 104–131; BP diastolic 54–80
[2018-05-12] MEDS: VANCOMYCIN 750MG IV in NS 250 ML IV SCH ×2 (00:09→13:24)
[2018-05-12] MEDS: cefepime 1GM/NS ADD-VANTAGE 100 ML IV SCH ×3 (00:09→16:28)
[2018-05-12] MEDS: morphine 2 MG/ML inj. syringe IV PRN ×7 (01:02→21:58)
[2018-05-12] MEDS: methylPREDNISolone sod succ 125mg/2ml vial IV SCH ×4 (01:02→19:22)
[2018-05-12] MEDS: ipratropium/albuterol 3ml nebule NEB SCH ×6 (03:33→23:08)
[2018-05-12] MEDS: lactobacillus rhamnosus 10,000 MMU CELLS/CAPSULE PO SCH ×2 (06:34→19:21)
[2018-05-12] MEDS: buPROPion SR 150mg tablet PO SCH (06:34)
[2018-05-12] MEDS: famotidine/PF 10 mg/ml inj IV SCH (06:34)
[2018-05-12] MEDS: ondansetron/PF 4mg/2ml inj IV PRN (06:34)
[2018-05-12] MEDS: hydrOXYzine 25 MG tablet PO PRN (06:34)
[2018-05-12] MEDS: heparin, porcine 5000 units/ml vial SQ SCH ×2 (06:34→19:22)
[2018-05-12] MEDS: montelukast 10mg tablet PO SCH (06:35)
[2018-05-12] MEDS: clonazePAM 0.5mg tablet PO SCH ×2 (06:35→19:21)
[2018-05-12] MEDS: lisinopril 5mg tablet PO SCH (06:35)
[2018-05-12] MEDS: pantoprazole 40mg Tablet.DR PO SCH (06:35)
[2018-05-12 07:09] LABS: BASOPHILS % (AUTO) 0.1 % (0-1); EOSINOPHILS % (AUTO) 0 % (0-6); HEMATOCRIT 31.5 % (35.0-45.0); HEMOGLOBIN 10.5 g/dl (12.0-16.0); LYMPHOCYTES # (AUTO) 0.2 X10'3 (1.1-4.8); LYMPHOCYTES % (AUTO) 2.8 % (21-51); MEAN CORPUSCULAR HEMOGLOBIN 32.5 PG (27.0-31.0); MEAN CORPUSCULAR HGB CONC 33.5 g/dL (33.0-36.5); MEAN PLATELET VOLUME 8.4 FL (7.4-10.4); MONOCYTES # (AUTO) 0.3 X10'3 (0-0.9); MONOCYTES % (AUTO) 5.3 % (2-12); NEUTROPHILS % (AUTO) 91.8 % (42-75); PLATELET COUNT 167 X10'3 (140-440); RED BLOOD COUNT 3.25 X10'6 (4.20-5.60); RED CELL DISTRIBUTION WIDTH 15.3 % (11.5-14.5); WHITE BLOOD COUNT 6.5 X10'3 (4.5-11.0)
[2018-05-12 07:11] LABS: ALANINE AMINOTRANSFERASE 43 U/L (12-78); ALBUMIN/GLOBULIN RATIO 1.1 (1.1-1.5); ALKALINE PHOSPHATASE 74 IU/L (46-116); ANION GAP 11 (8-16); ASPARTATE AMINO TRANSFERASE 12 U/L (10-37); BILIRUBIN,TOTAL 0.3 MG/DL (0.1-1.0); BLOOD UREA NITROGEN 25 MG/DL (7-18); BUN/CREATININE RATIO 32.5 (6.6-38.0); CALCIUM 8.4 MG/DL (8.5-10.1); CHLORIDE 108 MMOL/L (99-107); CREATININE 0.77 MG/DL (0.40-0.90); GLUCOSE 113 MG/DL (70-104); MAGNESIUM 2.1 MG/DL (1.5-2.4); PHOSPHORUS 3.3 MG/DL (2.3-4.5); POTASSIUM 4.5 MMOL/L (3.5-5.1); SODIUM 140 MMOL/L (135-145); TOTAL CARBON DIOXIDE 21.3 MMOL/L (24-32); TOTAL PROTEIN 5.7 G/DL (6.4-8.2); eGFR 78 ML/MIN
[2018-05-12] MEDS: BUDESONIDE 0.25 MG/2 ML AMPUL.NEB IH SCH ×2 (07:16→19:18)
[2018-05-12] MEDS: docusate sod 100mg capsule PO SCH ×2 (08:00→19:21)
[2018-05-12] MEDS: busPIRone 15mg tablet PO SCH (08:00)
--- NOTE | 2018-05-12 10:19 | NUR ---
Patients family member claiming to be her mother approached the room and was immediately aggressive with me, she was asking questions so fast I hardly could answer them quick enough. She was saying " You aren't really a nurse I want someone else, you are lying and wearing someone else's badge" "Im calling the governor, he will have her transferred because you dont know what you are doing" " You are judging her because she was on drugs and you are going to kill her" "I am suing you and having you arrested because you are a fake nurse". I stayed very calm and tried to calm her down but, she continued to be very aggressive and walked up to the patients bedside and tried waking her up, "she knows I'm here!!" she said, at this time the patient was getting very agitated and her HR went up to 130s and her breathing was up to 58 times a minute. I asked the family member to please not agitate her because it was unsafe for her to be breathing that fast, she told me " I can touch her and wake her up if I want to, you can't tell me what to do." she began yelling and telling me that the ventilator needs to come out now!!! I told her that it is not time and that would be very unsafe to do that, she said " she needs to go to [facility] now! " I am calling the governor to have her transferred now, you people are killing her!." she continued to argue and yell and she appeared to be under the influence of something because she was talking so fast and she was very aggressive, she was in my face and I told her I was going to call security, she said " you cant make me leave! I have POA" "Go ahead and call they cant do shit about it", "I am going to sit here all day and watch you so you don't kill her." Security contacted at this point and patient sat down and started making phone calls to what she claimed was the police, she was seated in the chair when security arrived. Addendum: 05/12/18 at 1551 by Zahida Yoder RN WRONG PATIENT!!!!!!
--- NOTE | 2018-05-12 15:51 | NUR ---
LOST IV ACCESS, TWO NURSES TRIED MULTIPLE TIMES, UNABLE. ORDER RECEIVED FROM DR LAMB TO PLACE EJ, ER NURSE AT THE BEDSIDE ATTEMPTING
--- NOTE | 2018-05-12 16:32 | NUR ---
Reassessment: Pt seen at bedside endorses a low appetite following extubation d/t difficulty swallowing and with emesis per pt. Pt requests chop all food, d/w dietary. Documented PO intake 50-75%, pt eating a snack at RD visit, pt likely meeting nutrient needs at this time. Pt with Ensure Enlive TID however pt request ONS change to high protein strawberry banana smoothie with breakfast and high protein chocolate shake with dinner, d/w dietary. Pt given alternative menu in order to provide additional food options to optimize PO intake. No doc LBM, pt states LBM was 05/07, pt denies any nutritional intervention for constipation at this time however pt with routine Colace. Pt reports unknown wt loss stating UBW 101#, current documented wt is 97# which is 121% IBW and non-significant wt loss of 4%. No visible fat/muscle wasting noted at the time of RD visit. Pt with 2+ edema to right arm however no significant decrease in muscle strength. Pt currently does not meet criteria for malnutrition. Will continue to follow. Rec: 1. Continue regular diet 2. Protein strawberry/banana smoothie at breakfast; Protein chocolate shake with dinner 3. Weight per rx Addendum: 05/12/18 at [address] Amended: Links added.
[2018-05-12] MEDS ORDERED: High Protein Shake w/Arg/Glut/Ca2+Bmb (Juven 19.3gm) pkt 240ml PO SCH (17:00)
--- NOTE | 2018-05-12 18:15 | NUR ---
Patient in room CICU 2013. I have received report and had the opportunity to ask questions and assume patient care.
[2018-05-12] MEDS: busPIRone 5mg tablet PO SCH (19:20)
[2018-05-12] MEDS: normal saline 1000ml 1,000 ML IV SCH (20:35)
[2018-05-13] VITALS (15 sets, daily range): BP systolic 96–138; BP diastolic 50–82
[2018-05-13] MEDS: cefepime 1GM/NS ADD-VANTAGE 100 ML IV SCH ×4 (00:33→23:17)
[2018-05-13] MEDS: methylPREDNISolone sod succ 125mg/2ml vial IV SCH ×4 (01:26→20:33)
[2018-05-13] MEDS: VANCOMYCIN 750MG IV in NS 250 ML IV SCH (01:26)
[2018-05-13] MEDS: morphine 2 MG/ML inj. syringe IV PRN ×7 (03:03→23:17)
[2018-05-13] MEDS: ipratropium/albuterol 3ml nebule NEB SCH ×6 (03:16→23:00)
[2018-05-13 06:17] LABS: BASOPHILS % (AUTO) 0.1 % (0-1); EOSINOPHILS % (AUTO) 0 % (0-6); HEMATOCRIT 30.2 % (35.0-45.0); LYMPHOCYTES # (AUTO) 0.1 X10'3 (1.1-4.8); LYMPHOCYTES % (AUTO) 2.8 % (21-51); MEAN CORPUSCULAR HGB CONC 33.1 g/dL (33.0-36.5); MEAN CORPUSCULAR VOLUME 96.7 FL (78-98); MEAN PLATELET VOLUME 8.3 FL (7.4-10.4); MONOCYTES # (AUTO) 0.2 X10'3 (0-0.9); MONOCYTES % (AUTO) 5.2 % (2-12); NEUTROPHILS # (AUTO) 3.9 X10'3 (1.8-7.7); NEUTROPHILS % (AUTO) 91.9 % (42-75); PLATELET COUNT 155 X10'3 (140-440); RED BLOOD COUNT 3.12 X10'6 (4.20-5.60); RED CELL DISTRIBUTION WIDTH 15.2 % (11.5-14.5); WHITE BLOOD COUNT 4.2 X10'3 (4.5-11.0)
--- NOTE | 2018-05-13 06:30 | NUR ---
Patient in room CICU 2013. I have received report from PADMINI Carroll and had the opportunity to ask questions and assume patient care.
[2018-05-13 06:33] LABS: ALANINE AMINOTRANSFERASE 44 U/L (12-78); ALBUMIN 2.9 G/DL (3.4-5.0); ALBUMIN/GLOBULIN RATIO 1.2 (1.1-1.5); ALKALINE PHOSPHATASE 69 IU/L (46-116); ANION GAP 8 (8-16); ASPARTATE AMINO TRANSFERASE 14 U/L (10-37); BILIRUBIN,TOTAL 0.3 MG/DL (0.1-1.0); BLOOD UREA NITROGEN 29 MG/DL (7-18); BUN/CREATININE RATIO 39.2 (6.6-38.0); CALCIUM 8.2 MG/DL (8.5-10.1); CHLORIDE 106 MMOL/L (99-107); CREATININE 0.74 MG/DL (0.40-0.90); GLUCOSE 145 MG/DL (70-104); PHOSPHORUS 2.9 MG/DL (2.3-4.5); POTASSIUM 4.6 MMOL/L (3.5-5.1); SODIUM 137 MMOL/L (135-145); TOTAL CARBON DIOXIDE 22.6 MMOL/L (24-32); TOTAL PROTEIN 5.4 G/DL (6.4-8.2); eGFR 82 ML/MIN
[2018-05-13] MEDS: BUDESONIDE 0.25 MG/2 ML AMPUL.NEB IH SCH ×2 (06:56→19:19)
[2018-05-13] MEDS ORDERED: High Protein Smoothie Arginine/Glut./Ca2+Bmb (Juven 19.3pkt) 240ml cup PO SCH (07:30)
[2018-05-13] MEDS: lactobacillus rhamnosus 10,000 MMU CELLS/CAPSULE PO SCH ×2 (07:43→20:36)
[2018-05-13] MEDS: buPROPion SR 150mg tablet PO SCH ×2 (07:44→20:34)
[2018-05-13] MEDS: lisinopril 5mg tablet PO SCH (07:44)
[2018-05-13] MEDS: busPIRone 5mg tablet PO SCH ×2 (07:44→20:34)
[2018-05-13] MEDS: pantoprazole 40mg Tablet.DR PO SCH (07:44)
[2018-05-13] MEDS: docusate sod 100mg capsule PO SCH ×2 (07:44→20:00)
[2018-05-13] MEDS: clonazePAM 0.5mg tablet PO SCH ×2 (07:44→20:36)
[2018-05-13] MEDS: heparin, porcine 5000 units/ml vial SQ SCH ×2 (07:44→20:33)
--- NOTE | 2018-05-13 10:00 | NUR ---
Dr. Fletcher arrived on unit and assessed pt, updated pt condition, one time dose laxis order receive, vyas will be removed after laxis dose. lactolose order received for constipation. pt ambulated to bedside chair with contact assist. SOB on exertion. pain meds given for pain relief. per MD order.
[2018-05-13] MEDS ORDERED: furosemide 40mg/4ml inj IV ONE (10:35)
[2018-05-13] MEDS: lactulose 20gm/30ml cup PO SCH ×3 (11:02→15:12)
--- NOTE | 2018-05-13 11:51 | NUR ---
Report called to receiving nurse Dinorah WASHINGTON from [facility]. Transferred via wheelchair, Belongings. Special Issues communicated to receiving nurse. Addendum: 05/13/18 at 1215 by Laurita Chowdhury RN Report given to PADMINI Weaver.
--- NOTE | 2018-05-13 15:15 | NUR ---
PER PRIMARY RN SOLUMEDROL AND LACTULOSE ADMINISTERED
--- NOTE | 2018-05-13 15:24 | NUR ---
PALMER CATH DC'D. 10ML ASPIRATED OUT OF BALLOON. NO COMPLICATIONS.
--- NOTE | 2018-05-13 17:19 | NUR ---
Nallely Medication Administration: For this medication-pass time frame, medication were reviewed, dispensed, administered and documented by PADMINI Coffman. Addendum: 05/13/18 at 1826 by Meg Hauser RN Orientee documentation: I have reviewed and agree with interventions, assessments performed and documented by .
--- NOTE | 2018-05-13 18:20 | NUR ---
Problems reprioritized. Patient report given, questions answered & plan of care reviewed with PADMINI Russell.
--- NOTE | 2018-05-13 18:21 | NUR ---
Patient has urinated post vyas dc.
[2018-05-13] MEDS: montelukast 10mg tablet PO SCH (20:34)
[2018-05-14] MEDS: methylPREDNISolone sod succ 125mg/2ml vial IV SCH ×4 (02:12→21:39)
[2018-05-14] MEDS: morphine 2 MG/ML inj. syringe IV PRN ×4 (02:13→21:53)
[2018-05-14] MEDS: ipratropium/albuterol 3ml nebule NEB SCH ×6 (03:12→23:11)
[2018-05-14 04:24] VITALS: BP 115/64
[2018-05-14 05:53] LABS: BASOPHILS % (AUTO) 0.1 % (0-1); EOSINOPHILS % (AUTO) 0 % (0-6); HEMATOCRIT 30.5 % (35.0-45.0); HEMOGLOBIN 10.1 g/dl (12.0-16.0); LYMPHOCYTES # (AUTO) 0.1 X10'3 (1.1-4.8); LYMPHOCYTES % (AUTO) 1.9 % (21-51); MEAN CORPUSCULAR HEMOGLOBIN 32.1 PG (27.0-31.0); MEAN CORPUSCULAR HGB CONC 33.3 g/dL (33.0-36.5); MEAN CORPUSCULAR VOLUME 96.5 FL (78-98); MEAN PLATELET VOLUME 8.2 FL (7.4-10.4); MONOCYTES # (AUTO) 0.3 X10'3 (0-0.9); NEUTROPHILS # (AUTO) 5.3 X10'3 (1.8-7.7); PLATELET COUNT 184 X10'3 (140-440); RED BLOOD COUNT 3.16 X10'6 (4.20-5.60); RED CELL DISTRIBUTION WIDTH 15.3 % (11.5-14.5); WHITE BLOOD COUNT 5.8 X10'3 (4.5-11.0)
[2018-05-14 06:00] VITALS: BP 122/68
--- NOTE | 2018-05-14 06:10 | NUR ---
Patient in room PCU 3023. I have received report from Drew WASHINGTON and had the opportunity to ask questions and assume patient care.
[2018-05-14 06:19] LABS: ALANINE AMINOTRANSFERASE 53 U/L (12-78); ALBUMIN 3.1 G/DL (3.4-5.0); ALBUMIN/GLOBULIN RATIO 1.2 (1.1-1.5); ALKALINE PHOSPHATASE 68 IU/L (46-116); ANION GAP 11 (8-16); ASPARTATE AMINO TRANSFERASE 10 U/L (10-37); BILIRUBIN,TOTAL 0.3 MG/DL (0.1-1.0); BLOOD UREA NITROGEN 23 MG/DL (7-18); BUN/CREATININE RATIO 29.1 (6.6-38.0); CALCIUM 8.5 MG/DL (8.5-10.1); CHLORIDE 107 MMOL/L (99-107); CREATININE 0.79 MG/DL (0.40-0.90); GLUCOSE 160 MG/DL (70-104); MAGNESIUM 1.9 MG/DL (1.5-2.4); PHOSPHORUS 2.6 MG/DL (2.3-4.5); POTASSIUM 3.8 MMOL/L (3.5-5.1); SODIUM 142 MMOL/L (135-145); TOTAL CARBON DIOXIDE 23.8 MMOL/L (24-32); TOTAL PROTEIN 5.7 G/DL (6.4-8.2); eGFR 76 ML/MIN
--- NOTE | 2018-05-14 06:44 | NUR ---
Problems reprioritized. Patient report given, questions answered & plan of care reviewed with Chuy WASHINGTON.
[2018-05-14] MEDS: BUDESONIDE 0.25 MG/2 ML AMPUL.NEB IH SCH ×2 (08:01→19:19)
[2018-05-14] MEDS: lisinopril 5mg tablet PO SCH (08:43)
[2018-05-14] MEDS: furosemide 20MG tablet PO SCH ×3 (08:43→21:41)
[2018-05-14] MEDS: buPROPion SR 150mg tablet PO SCH ×2 (08:43→21:41)
[2018-05-14] MEDS: lactobacillus rhamnosus 10,000 MMU CELLS/CAPSULE PO SCH ×2 (08:43→21:41)
[2018-05-14] MEDS: docusate sod 100mg capsule PO SCH ×2 (08:44→21:41)
[2018-05-14] MEDS: clonazePAM 0.5mg tablet PO SCH ×2 (08:44→23:47)
[2018-05-14] MEDS: pantoprazole 40mg Tablet.DR PO SCH (08:44)
[2018-05-14] MEDS: busPIRone 5mg tablet PO SCH ×2 (08:46→21:41)
[2018-05-14] MEDS: cefepime 1GM/NS ADD-VANTAGE 100 ML IV SCH ×3 (08:47→23:47)
[2018-05-14] MEDS: heparin, porcine 5000 units/ml vial SQ SCH ×2 (08:47→21:39)
[2018-05-14 11:00] VITALS: BP 120/68
--- NOTE | 2018-05-14 12:41 | NUR ---
Reassessment: Pt PO 25-50% avg meals; RD d/w RN to very Nael supplements so can be documented properly in EMR; no documentation of ONS yet. LBM 05/13 on colace. No edema noted on lasix. Will continue to monitor. Rec: 1. Continue regular diet 2. Protein strawberry/banana smoothie at breakfast; Protein chocolate shake with dinner 3. Weight per rx Addendum: 05/14/18 at [address] Amended: Links added.
--- NOTE | 2018-05-14 13:32 | NUR ---
Extended PIV inserted to the right upper arm using ultrasound x 1 attempt. Storm well Addendum: 05/14/18 at 1333 by Cherie Gonzalez RN Amended: Links added.
[2018-05-14 15:00] VITALS: BP 114/69
--- NOTE | 2018-05-14 18:15 | NUR ---
Problems reprioritized. Patient report given, questions answered & plan of care reviewed with Tory WASHINGTON.
--- NOTE | 2018-05-14 18:39 | NUR ---
Patient in room PCU 3023. I have received report from Chuy WASHINGTON and had the opportunity to ask questions and assume patient care. Pt is emotional. Remembers me from previous admit. Telling me how she finally had contact with her oldest daughter. Is satting well on RA.
[2018-05-14 19:00] VITALS: BP 122/63
[2018-05-14] MEDS: montelukast 10mg tablet PO SCH (21:40)
[2018-05-14 23:00] VITALS: BP 122/63
[2018-05-15] MEDS: morphine 2 MG/ML inj. syringe IV PRN ×7 (00:59→23:24)
[2018-05-15 01:38] LABS: BASOPHILS % (AUTO) 0.1 % (0-1); EOSINOPHILS % (AUTO) 0 % (0-6); HEMATOCRIT 31.9 % (35.0-45.0); HEMOGLOBIN 10.6 g/dl (12.0-16.0); LYMPHOCYTES # (AUTO) 0.1 X10'3 (1.1-4.8); LYMPHOCYTES % (AUTO) 2.1 % (21-51); MEAN CORPUSCULAR HEMOGLOBIN 31.6 PG (27.0-31.0); MEAN CORPUSCULAR HGB CONC 33.2 g/dL (33.0-36.5); MEAN CORPUSCULAR VOLUME 95.3 FL (78-98); MEAN PLATELET VOLUME 8.3 FL (7.4-10.4); MONOCYTES # (AUTO) 0.4 X10'3 (0-0.9); NEUTROPHILS # (AUTO) 5.8 X10'3 (1.8-7.7); NEUTROPHILS % (AUTO) 91.8 % (42-75); PLATELET COUNT 209 X10'3 (140-440); RED BLOOD COUNT 3.34 X10'6 (4.20-5.60); WHITE BLOOD COUNT 6.3 X10'3 (4.5-11.0)
[2018-05-15 01:49] LABS: ALANINE AMINOTRANSFERASE 51 U/L (12-78); ALBUMIN 3.1 G/DL (3.4-5.0); ALBUMIN/GLOBULIN RATIO 1.1 (1.1-1.5); ALKALINE PHOSPHATASE 81 IU/L (46-116); ANION GAP 6 (8-16); ASPARTATE AMINO TRANSFERASE 8 U/L (10-37); BILIRUBIN,TOTAL 0.3 MG/DL (0.1-1.0); BLOOD UREA NITROGEN 22 MG/DL (7-18); BUN/CREATININE RATIO 26.5 (6.6-38.0); CALCIUM 8.2 MG/DL (8.5-10.1); CHLORIDE 103 MMOL/L (99-107); CREATININE 0.83 MG/DL (0.40-0.90); GLUCOSE 153 MG/DL (70-104); MAGNESIUM 1.6 MG/DL (1.5-2.4); PHOSPHORUS 2.3 MG/DL (2.3-4.5); POTASSIUM 3.2 MMOL/L (3.5-5.1); SODIUM 142 MMOL/L (135-145); TOTAL CARBON DIOXIDE 33.2 MMOL/L (24-32); TOTAL PROTEIN 5.9 G/DL (6.4-8.2); eGFR 72 ML/MIN
[2018-05-15 03:00] VITALS: BP 116/65
[2018-05-15] MEDS: ipratropium/albuterol 3ml nebule NEB SCH ×6 (03:02→23:23)
[2018-05-15] MEDS: methylPREDNISolone sod succ 125mg/2ml vial IV SCH (04:05)
[2018-05-15 06:00] VITALS: BP 134/77
--- NOTE | 2018-05-15 06:29 | NUR ---
Problems reprioritized. Patient report given, questions answered & plan of care reviewed with DIVYA RN.
--- NOTE | 2018-05-15 06:56 | NUR ---
Patient in room PCU 3023. I have received report from cristobal nascimento and had the opportunity to ask questions and assume patient care.
[2018-05-15] MEDS: High Protein Smoothie Arginine/Glut./Ca2+Bmb (Juven 19.3pkt) 240ml cup PO SCH (07:30)
[2018-05-15] MEDS: BUDESONIDE 0.25 MG/2 ML AMPUL.NEB IH SCH ×2 (07:54→19:58)
[2018-05-15] MEDS: furosemide 20MG tablet PO SCH ×4 (08:00→19:57)
[2018-05-15] MEDS: cefepime 1GM/NS ADD-VANTAGE 100 ML IV SCH ×3 (08:02→23:24)
[2018-05-15] MEDS: pantoprazole 40mg Tablet.DR PO SCH (08:02)
[2018-05-15] MEDS: busPIRone 5mg tablet PO SCH ×2 (08:11→19:57)
[2018-05-15] MEDS: docusate sod 100mg capsule PO SCH ×2 (08:12→19:58)
[2018-05-15] MEDS: clonazePAM 0.5mg tablet PO SCH ×2 (08:13→21:30)
[2018-05-15] MEDS: lactobacillus rhamnosus 10,000 MMU CELLS/CAPSULE PO SCH ×2 (08:13→19:58)
[2018-05-15] MEDS: buPROPion SR 150mg tablet PO SCH ×2 (08:14→19:58)
[2018-05-15] MEDS: lisinopril 5mg tablet PO SCH (08:14)
[2018-05-15] MEDS: heparin, porcine 5000 units/ml vial SQ SCH ×2 (08:19→19:58)
[2018-05-15] MEDS: potassium Cl 20 mEq SR tablet PO PRN ×3 (08:24→16:08)
[2018-05-15 11:00] VITALS: BP 118/62
[2018-05-15] MEDS: lactose-reduced food (Ensure Enlive) - 237ml bottle PO SCH ×7 (11:21→21:47)
[2018-05-15] MEDS: High Protein Shake w/Arg/Glut/Ca2+Bmb (Juven 19.3gm) pkt 240ml PO SCH ×2 (11:22→17:35)
--- NOTE | 2018-05-15 13:43 | NUR ---
DR. URIBE IN, NOTIFIED OF LASIX ORDERED BID AND DAILY, MORPHINE FOR AIR HUNGER HAS BEEN GIVEN MANY TIMES FOR PAIN. MD DISCUSSING USING NORCO INSTEAD,.
[2018-05-15] MEDS ORDERED: methylPREDNISolone sod succ 125mg/2ml vial IV SCH (14:00)
[2018-05-15 15:00] VITALS: BP 147/81
[2018-05-15 19:00] VITALS: BP 117/62
[2018-05-15] MEDS: montelukast 10mg tablet PO SCH (21:30)
--- NOTE | 2018-05-15 22:44 | NUR ---
Darrion from transfer center at [facility] called. She was told by her road equipment operator that the pt is supposed to be transferred to their center for mitral clip workup and Tx. There are no beds available tonight. No packet is available yet with pt's info. Will need MD's signature. needs to send a copy of the pt's chart, have a disk with all of the pt's images on it, and a discharge summary all included. The center's fax # is . They will send a "takeback letter" to have filled out and faxed back. A face sheet also needs to be faxed over. Will discuss with day nurse.
[2018-05-15 23:00] VITALS: BP 110/58
[2018-05-16] MEDS: ondansetron/PF 4mg/2ml inj IV PRN (00:57)
[2018-05-16 01:08] LABS: ALANINE AMINOTRANSFERASE 42 U/L (12-78); ALBUMIN 3.1 G/DL (3.4-5.0); ALBUMIN/GLOBULIN RATIO 1.2 (1.1-1.5); ALKALINE PHOSPHATASE 81 IU/L (46-116); ANION GAP 6 (8-16); ASPARTATE AMINO TRANSFERASE 6 U/L (10-37); BASOPHILS % (AUTO) 0.1 % (0-1); BILIRUBIN,TOTAL 0.3 MG/DL (0.1-1.0); BLOOD UREA NITROGEN 25 MG/DL (7-18); BUN/CREATININE RATIO 35.2 (6.6-38.0); CALCIUM 8.8 MG/DL (8.5-10.1); CHLORIDE 105 MMOL/L (99-107); CREATININE 0.71 MG/DL (0.40-0.90); EOSINOPHILS % (AUTO) 0.1 % (0-6); GLUCOSE 120 MG/DL (70-104); HEMATOCRIT 30.8 % (35.0-45.0); HEMOGLOBIN 10.3 g/dl (12.0-16.0); LYMPHOCYTES # (AUTO) 0.4 X10'3 (1.1-4.8); LYMPHOCYTES % (AUTO) 6.3 % (21-51); MAGNESIUM 1.4 MG/DL (1.5-2.4); MEAN CORPUSCULAR HEMOGLOBIN 32.4 PG (27.0-31.0); MEAN CORPUSCULAR HGB CONC 33.6 g/dL (33.0-36.5); MEAN CORPUSCULAR VOLUME 96.5 FL (78-98); MEAN PLATELET VOLUME 8.3 FL (7.4-10.4); MONOCYTES # (AUTO) 0.8 X10'3 (0-0.9); MONOCYTES % (AUTO) 10.9 % (2-12); NEUTROPHILS # (AUTO) 5.8 X10'3 (1.8-7.7); NEUTROPHILS % (AUTO) 82.6 % (42-75); PHOSPHORUS 1.7 MG/DL (2.3-4.5); PLATELET COUNT 222 X10'3 (140-440); POTASSIUM 3.6 MMOL/L (3.5-5.1); RED BLOOD COUNT 3.19 X10'6 (4.20-5.60); RED CELL DISTRIBUTION WIDTH 15.2 % (11.5-14.5); SODIUM 145 MMOL/L (135-145); TOTAL CARBON DIOXIDE 33.6 MMOL/L (24-32); TOTAL PROTEIN 5.7 G/DL (6.4-8.2); eGFR 86 ML/MIN
[2018-05-16] MEDS: morphine 2 MG/ML inj. syringe IV PRN ×7 (02:34→17:39)
[2018-05-16 03:00] VITALS: BP 104/58
[2018-05-16] MEDS: ipratropium/albuterol 3ml nebule NEB SCH ×4 (03:28→15:35)
--- NOTE | 2018-05-16 06:29 | NUR ---
Patient in room PCU 3023. I have received report from Mila RN and had the opportunity to ask questions and assume patient care.
[2018-05-16 07:00] VITALS: BP 99/45
[2018-05-16] MEDS: BUDESONIDE 0.25 MG/2 ML AMPUL.NEB IH SCH (07:40)
[2018-05-16] MEDS: lactobacillus rhamnosus 10,000 MMU CELLS/CAPSULE PO SCH (07:46)
[2018-05-16] MEDS: clonazePAM 0.5mg tablet PO SCH (07:46)
[2018-05-16] MEDS: pantoprazole 40mg Tablet.DR PO SCH (07:46)
[2018-05-16] MEDS: furosemide 20MG tablet PO SCH (07:46)
[2018-05-16] MEDS: docusate sod 100mg capsule PO SCH (07:46)
[2018-05-16] MEDS: buPROPion SR 150mg tablet PO SCH (07:46)
[2018-05-16] MEDS: lisinopril 5mg tablet PO SCH (07:46)
[2018-05-16] MEDS: busPIRone 5mg tablet PO SCH (07:47)
[2018-05-16] MEDS: cefepime 1GM/NS ADD-VANTAGE 100 ML IV SCH (07:48)
[2018-05-16] MEDS: heparin, porcine 5000 units/ml vial SQ SCH (07:48)
[2018-05-16] MEDS: lactose-reduced food (Ensure Enlive) - 237ml bottle PO SCH ×2 (08:06→13:06)
[2018-05-16] MEDS: High Protein Smoothie Arginine/Glut./Ca2+Bmb (Juven 19.3pkt) 240ml cup PO SCH (08:06)
[2018-05-16] MEDS ORDERED: predniSONE 20 mg tablet PO SCH (08:30)
[2018-05-16 11:00] VITALS: BP 125/74
[2018-05-16 15:00] VITALS: BP 115/55
[2018-05-16] MEDS: High Protein Shake w/Arg/Glut/Ca2+Bmb (Juven 19.3gm) pkt 240ml PO SCH (17:45)
--- NOTE | 2018-05-16 18:16 | NUR ---
Pt was transferred at 1805, transfer packets and report was given to flight crew. All belongings sent with patient. Telemetry was removed before transfer. Pt stable at transfer of care.
== END 2018-05-16 19:08 | disposition short-term general hospital (02) | DRG 133 ==
LOC: ER 10:38 → ED HOLD 12:18 → CICU 2S 13:27 → PCU 3S 05-13 12:13
PROVIDERS: ADMIT Internal Medicine Critical Care Medicine; ATTEND Internal Medicine Critical Care Medicine
PROC: 5A1945Z Respiratory Ventilation, 24-96 Consecutive Hours (ICD-10-PCS; principal; 2018-05-09)
PROC: 0BH17EZ Insertion of Endotracheal Airway into Trachea, Via Natural or Artificial Opening (ICD-10-PCS; 2018-05-09)
PROC: 5A09357 Assistance with Respiratory Ventilation, Less than 24 Consecutive Hours, Continuous Positive Airway Pressure (ICD-10-PCS; 2018-05-11)
PROC: 5A09357 Assistance with Respiratory Ventilation, Less than 24 Consecutive Hours, Continuous Positive Airway Pressure (ICD-10-PCS; 2018-05-12)
PROC: 5A09357 Assistance with Respiratory Ventilation, Less than 24 Consecutive Hours, Continuous Positive Airway Pressure (ICD-10-PCS; 2018-05-13)
PROC: 5A09357 Assistance with Respiratory Ventilation, Less than 24 Consecutive Hours, Continuous Positive Airway Pressure (ICD-10-PCS; 2018-05-14)
PROC: 5A09357 Assistance with Respiratory Ventilation, Less than 24 Consecutive Hours, Continuous Positive Airway Pressure (ICD-10-PCS; 2018-05-16)
DX: J96.21 Acute and chronic respiratory failure with hypoxia (principal); I11.0 Hypertensive heart disease with heart failure; J44.1 Chronic obstructive pulmonary disease with (acute) exacerbation; I50.9 Heart failure, unspecified; I08.1 Rheumatic disorders of both mitral and tricuspid valves; F41.9 Anxiety disorder, unspecified; F45.8 Other somatoform disorders; G89.4 Chronic pain syndrome; F17.210 Nicotine dependence, cigarettes, uncomplicated; Z79.51 Long term (current) use of inhaled steroids; Z85.118 Personal history of other malignant neoplasm of bronchus and lung; Z90.49 Acquired absence of other specified parts of digestive tract; Z88.6 Allergy status to analgesic agent; Z88.1 Allergy status to other antibiotic agents; Z88.0 Allergy status to penicillin; Z88.8 Allergy status to other drugs, medicaments and biological substances; Z91.018 Allergy to other foods; Z79.899 Other long term (current) drug therapy
CPT/HCPCS: 36415; 36600; 71045; 80053; 80202; 81001; 82803; 82948; 83605; 83735; 83880; 84100; 84134; 84145; 84484; 85018; 85025; 85610; 85730; 87040; 87070; 93005; 94002; 94003; 94640; 94660; 94668; 94760; 97110; 97116; 97161; 97530; 99291; G0378; J0692; J0696; J1644; J1940; J2250; J2270; J2405; J2704; J2930; J3370; J3490; J7030; J7512; J7614; Q0177

== ENCOUNTER 2018-06-12 22:22 | Inpatient (IN) | payer MEDICAID | END 2018-06-15 14:00 | disposition home health service (06) | LOC: ER 22:22 → ED HOLD 06-13 02:51 → MED 3N 06-13 03:22 ==

== ENCOUNTER 2018-06-21 00:07 | Inpatient (IN) | payer MEDICAID | END 2018-06-25 16:30 | disposition home or self-care (01) | LOC: ER 00:07 → ED HOLD 01:48 → PCU 3S 05:00 ==

== ENCOUNTER 2018-10-26 09:10 | Inpatient (IN) | payer MEDICAID ==
[~2018-10-26] VITALS: Ht 147.3 cm; Wt 38.2 kg
[~2018-10-26 09:10] MED LIST changes: +ACET-812 PO; -ALB0.5UD IH; -ALBU18HF2 INH; +AMIO200T61 PO; +ASPI-1265 PO; -BUDE10.2 INH; -BUPR-84 PO; +BUSP10TA11 PO; -CLON-527 PO; +COU1T PO; +DILT30TA5 PO; -FURO-150 PO; -HYDR-3686 PO; +LACT1CAP26 PO; -LISI-604 PO; +LISI10TA4 PO; +METO25TA6 PO; -MONT10TA21 PO; -NITR0.4T48 SL; -OMEP-50 PO; +OMEP20CA11 PO; +POTA10TA19 PO; -POTASSIUM CL PO; +PRED10TA PO; -SERT100T10 PO; -THEO400T PO; -TIOT4MIS5 PO
[2018-10-26] MEDS ORDERED: methylPREDNISolone sod succ 125mg/2ml vial IV ONE (09:15)
[2018-10-26] MEDS: albuterol 2.5 MG/3 ML nebule CONTNEB PRN ×2 (09:37→09:41)
[2018-10-26] MEDS ORDERED: LORazepam 2 mg/ml vial IV ONE (09:50)
[2018-10-26] MEDS ORDERED: CefTRIAXone 2gm/D5W 50ml 50 ML IV ONE (10:05)
--- NOTE | 2018-10-26 10:05 | NUR ---
RT at bedside to initiate bipap as ordered by JOSE F. Addendum: 10/26/18 at [address] Marques at bedside to assess pt. Addendum: 10/26/18 at 1147 by GIANNI Preparing for central line placement by Dr. Marques.
[2018-10-26 10:06] LABS: ABG BASE EXCESS -16.5 mmol/L (-2.0-3.0); ABG HCO3 12.8 mmol/L (22.0-26.0); ABG OXYGEN SATURATION 96.3 % (95-98); ABG PCO2 (T) 43.3 mmHg (35.0-45.0); ABG PO2 (T) 104.1 mmHg (83-108); FCOHb 0.4 % (0.5-1.5); FLOW 3 L/min; FO2Hb 95.9 % (94-100); TOTAL HEMOGLOBIN 13.9 G/dl (12.0-16.0)
[2018-10-26 10:16] LABS: PARTIAL THROMBOPLASTIN TIME 24 SECONDS (22-32)
[2018-10-26 10:18] LABS: BASOPHILS % (AUTO) 0.3 % (0-1); EOSINOPHILS % (AUTO) 0.1 % (0-6); HEMATOCRIT 41.1 % (35.0-45.0); HEMOGLOBIN 13.4 g/dl (12.0-16.0); LYMPHOCYTES # (AUTO) 0.9 X10'3 (1.1-4.8); LYMPHOCYTES % (AUTO) 11.5 % (21-51); MEAN CORPUSCULAR HEMOGLOBIN 31.4 PG (27.0-31.0); MEAN CORPUSCULAR HGB CONC 32.6 g/dL (33.0-36.5); MEAN CORPUSCULAR VOLUME 96.4 FL (78-98); MEAN PLATELET VOLUME 7.9 FL (7.4-10.4); MONOCYTES # (AUTO) 0.6 X10'3 (0-0.9); MONOCYTES % (AUTO) 7.2 % (2-12); NEUTROPHILS # (AUTO) 6.3 X10'3 (1.8-7.7); NEUTROPHILS % (AUTO) 80.9 % (42-75); PLATELET COUNT 234 X10'3 (140-440); RED BLOOD COUNT 4.26 X10'6 (4.20-5.60); RED CELL DISTRIBUTION WIDTH 15.4 % (11.5-14.5); WHITE BLOOD COUNT 7.8 X10'3 (4.5-11.0)
[2018-10-26 10:19] LABS: ALANINE AMINOTRANSFERASE 67 U/L (12-78); ALBUMIN/GLOBULIN RATIO 1.3 (1.1-1.5); ALKALINE PHOSPHATASE 126 IU/L (46-116); ANION GAP 14 (8-16); ASPARTATE AMINO TRANSFERASE 50 U/L (10-37); BLOOD UREA NITROGEN 14 MG/DL (7-18); BUN/CREATININE RATIO 11.9 (6.6-38.0); CALCIUM 9.1 MG/DL (8.5-10.1); CHLORIDE 107 MMOL/L (99-107); CREATININE 1.18 MG/DL (0.40-0.90); GLUCOSE 173 MG/DL (70-104); POTASSIUM 4.6 MMOL/L (3.5-5.1); SODIUM 142 MMOL/L (135-145); TOTAL CARBON DIOXIDE 20.8 MMOL/L (24-32); TOTAL PROTEIN 7.2 G/DL (6.4-8.2); eGFR 48 ML/MIN
[2018-10-26] MEDS ORDERED: normal saline 1000ML IV soln IVB ONE (10:40)
--- NOTE | 2018-10-26 10:42 | NUR ---
Attempted several times to establish PIV access by multiple nurses. PICC nurse at bedside to establish 2nd PIV with US guide.
--- NOTE | 2018-10-26 10:45 | NUR ---
ATTEMPTED TO PLACE AN EXTENDED PIV IN THE PATIENT'S LEFT BRACHIAL VEIN IN UPPER ARM, ATTEMPT UNSUCCESSFUL. UPON REMOVAL OF THE CATHETER, IT APPEARED THAT THE END OF THE CATHETER WAS BROKEN DUE TO THE IRREGULAR EDGE AT THE DISTAL END. AT THIS TIME ER DOCTOR NOTIFIED OF POSSIBLE FOREIGN BODY AND XRAY ORDERED. FREYA WASHINGTON DIRECTOR NOTIFIED OF SITUATION. PATIENT'S STATUS UNCHANGED UPON COMPLETION OF PROCEDURE. VENOUS ULTRASOUND SHOWS A THROMBUS ABOVE FOREIGN BODY EXTENDING TO THE DISTAL AXILLARY VEIN. NO NEW ORDERS FROM MD NOTED.
[2018-10-26] MEDS ORDERED: aspirin 300mg supp.rect RC ONE (11:20)
[2018-10-26 11:26] LABS: ABG BASE EXCESS -17.1 mmol/L (-2.0-3.0); ABG HCO3 13.7 mmol/L (22.0-26.0); ABG OXYGEN SATURATION 96.4 % (95-98); ABG PCO2 (T) 52.9 mmHg (35.0-45.0); ABG PH (T) 7.031 (7.350-7.450); FCOHb 0.1 % (0.5-1.5); FMetHb 0.1 % (0.3-1.12); FO2Hb 96.2 % (94-100); MINUTE VOLUME 10 L/min; RESPIRATORY RATE 18 b/min; RESPIRATORY RATE (OBSERVED) 32 b/min; TIDAL VOLUME 315 mL; TOTAL HEMOGLOBIN 13.4 G/dl (12.0-16.0)
--- NOTE | 2018-10-26 11:28 | NUR ---
Repeat ABG drawn and results worsening. Dr. Marques and RT at bedside and preparing for intubation. VSS.
--- NOTE | 2018-10-26 11:31 | NUR ---
Full dentures removed from upper and lower prior to bipap placement. Intubation procedure explained to pt by ERMCamilo and pt nodded in agreement. Dr. Marques; Michaelle RT; kavon Bob; PADMINI Gallego; PADMINI Banks at bedside. Etomidate 10mg IVP given @ 1134 Rocuranium 30mg IVP given @ 1134 Intubated @ 1136; ETT 7.0; 21cm @ lips. Placement confirmed with bilat breath sounds and color change on capnography.
[2018-10-26] MEDS ORDERED: midazolam 100mg in NS 100ml 100 ML IV PRN (11:45)
[2018-10-26] MEDS ORDERED: FENTANYL-0.9 % NACL/PF 100 ML IV PRN (11:45)
--- NOTE | 2018-10-26 12:20 | NUR ---
photonics technician at bedside for study as ordered. Dr. Elias at bedside and discussing study results with tech.
[2018-10-26] MEDS ORDERED: normal saline 1000ml 1,000 ML IV ONE (12:30)
--- NOTE | 2018-10-26 12:49 | NUR ---
Gonsalo, , notified of patient status by this nurse via telephone. states he is unable to come to hospital as he is taking care of his father. Dr. Elias given phone number of pt to discuss poc.
[2018-10-26] MEDS ORDERED: ondansetron/PF 4mg/2ml inj IV PRN (12:50)
[2018-10-26] MEDS ORDERED: K, MAG and/or Phos replacement - Verify level? MC SCH (12:50)
[2018-10-26] MEDS ORDERED: morphine 2 MG/ML inj. syringe IV PRN (12:50)
[2018-10-26] MEDS ORDERED: potassium Cl 20 mEq SR tablet PO PRN ×2 (12:50)
[2018-10-26] MEDS ORDERED: acetaminophen 325mg tablet PO PRN ×2 (12:50)
[2018-10-26] MEDS ORDERED: pantoprazole 40 MG vial IV SCH (12:50)
[2018-10-26] MEDS ORDERED: albuterol 2.5 MG/3 ML nebule NEB PRN (12:50)
[2018-10-26] MEDS ORDERED: morphine 4 MG/ML inj SYRINge IV PRN (12:50)
[2018-10-26] MEDS ORDERED: magnesium hydroxide 30ml (MOM) UD suspension PO PRN (12:50)
[2018-10-26 13:01] LABS: CLARITY,URINE CLOUDY (Clear); COLOR,URINE YELLOW (Yellow); GLUCOSE, URINE 100 mg/dl (Neg); KETONES,URINE NEGATIVE (Neg); LEUKOCYTE ESTERASE ,URINE NEGATIVE (Neg); NITRITES, URINE NEGATIVE (Neg); OCCULT BLOOD,URINE LARGE (Neg); PROTEIN,URINE >=300 mg/dl (Neg)
[2018-10-26 13:05] LABS: UA COLLECTION TYPE FOLEY CATH
[2018-10-26 13:12] LABS: RBC,URINE 20-50 /HPF (0-2)
[2018-10-26 13:13] LABS: BACTERIA,URINE FEW /HPF (Neg); COARSE GRANULAR CAST 0-3 /LPF (NEGATIVE); MUCUS STRANDS FEW /LPF (Neg); RENAL CELLS, URINE FEW /HPF; SQUAMOUS EPITHELIAL CELL,UR MODERATE /LPF (FEW)
[2018-10-26] MEDS ORDERED: POTA8TAB8 PO (13:16)
[2018-10-26] MEDS ORDERED: MONT10TA24 PO (13:16)
[2018-10-26] MEDS ORDERED: BUPR150T14 PO (13:16)
[2018-10-26] MEDS ORDERED: TIOT4MIS5 IH (13:16)
[2018-10-26] MEDS ORDERED: BUDE10.22 INH (13:16)
[2018-10-26] MEDS ORDERED: ALBU2.5V13 NEB (13:16)
[2018-10-26] MEDS ORDERED: FURO20TA4 PO (13:16)
--- NOTE | 2018-10-26 13:18 | NUR ---
Arterial line placed by Dr. Elias.
[2018-10-26 14:00] VITALS: BP 119/62
[2018-10-26] MEDS ORDERED: rocuronium 10mg/ml inj IV ONE (14:00)
[2018-10-26] MEDS ORDERED: etomidate 2mg/ml inj. ONE (14:00)
[2018-10-26] MEDS ORDERED: sod chloride 0.9% 10ml flush syringe IV ONE (14:00)
[2018-10-26 14:15] LABS: OXYGEN SATURATION (MIXED VEN) 67.3 % (60-80); PO2 MIXED VENOUS (TEMP COR) 40.6 mmHg (35-46)
[2018-10-26 14:16] LABS: ABG BASE EXCESS -16.6 mmol/L (-2.0-3.0); ABG HCO3 13.6 mmol/L (22.0-26.0); ABG OXYGEN SATURATION 91.8 % (95-98); ABG PCO2 (T) 49.9 mmHg (35.0-45.0); ABG PH (T) 7.054 (7.350-7.450); ABG PO2 (T) 78.1 mmHg (83-108); FCOHb 0.2 % (0.5-1.5); FMetHb 0.1 % (0.3-1.12); FO2Hb 91.5 % (94-100); TOTAL HEMOGLOBIN 12.9 G/dl (12.0-16.0)
[2018-10-26] MEDS ORDERED: vancomycin/NS 1 GM ADD-VANTAGE 250 ML IV ONE (14:55)
[2018-10-26] MEDS ORDERED: DOBUTamine-DoBUTrex 500mg/D5W 250 ML IV SCH (14:55)
[2018-10-26] MEDS ORDERED: cefepime 1GM in D5W 50mL 50 ML IV ONE (14:55)
[2018-10-26 15:00] VITALS: BP 99/49
--- NOTE | 2018-10-26 15:00 | NUR ---
Received patient from ER, report received from Jocelyn WASHINGTON.
[2018-10-26] MEDS ORDERED: DOBUTamine-DoBUTrex 500mg/D5W 250 ML IV ONE (15:01)
[2018-10-26] MEDS ORDERED: sodium bicarbonate (8.4%) 1 mEq/ml syringe ONE (15:15)
[2018-10-26] MEDS ORDERED: sodium bicarbonate (8.4%) 1 mEq/ml syringe IV ONE (15:15)
[2018-10-26 15:42] LABS: TOTAL CELLS COUNTED 100
[2018-10-26 15:43] LABS: ANISOCYTOSIS 1+; BURR CELLS 1+; PLATELET ESTIMATE NORMAL
[2018-10-26] MEDS ORDERED: sodium bicarbonate (8.4%) inj. 75 MEQ in dextrose 5% water 500ml 500 ML IV SCH (15:45)
[2018-10-26 15:55] LABS: ALANINE AMINOTRANSFERASE 761 U/L (12-78); ALBUMIN 2.9 G/DL (3.4-5.0); ALBUMIN/GLOBULIN RATIO 1.2 (1.1-1.5); ALKALINE PHOSPHATASE 98 IU/L (46-116); ANION GAP 15 (8-16); BILIRUBIN,TOTAL 1.1 MG/DL (0.1-1.0); BLOOD UREA NITROGEN 13 MG/DL (7-18); BUN/CREATININE RATIO 12.5 (6.6-38.0); CALCIUM 7.3 MG/DL (8.5-10.1); CHLORIDE 112 MMOL/L (99-107); CREATININE 1.04 MG/DL (0.40-0.90); GLUCOSE 119 MG/DL (70-104); POTASSIUM 3.8 MMOL/L (3.5-5.1); SODIUM 145 MMOL/L (135-145); TOTAL CARBON DIOXIDE 17.8 MMOL/L (24-32); TOTAL PROTEIN 5.3 G/DL (6.4-8.2); eGFR 55 ML/MIN
[2018-10-26 15:58] LABS: ASPARTATE AMINO TRANSFERASE 1098 U/L (10-37)
[2018-10-26 16:00] VITALS: BP 92/31
[2018-10-26 16:35] LABS: BASOPHILS % (AUTO) 0.1 % (0-1); EOSINOPHILS % (AUTO) 0 % (0-6); HEMATOCRIT 35.2 % (35.0-45.0); HEMOGLOBIN 11.7 g/dl (12.0-16.0); LYMPHOCYTES # (AUTO) 0.2 X10'3 (1.1-4.8); LYMPHOCYTES % (AUTO) 2.3 % (21-51); MEAN CORPUSCULAR HEMOGLOBIN 31.5 PG (27.0-31.0); MEAN CORPUSCULAR HGB CONC 33.3 g/dL (33.0-36.5); MEAN CORPUSCULAR VOLUME 94.6 FL (78-98); MONOCYTES # (AUTO) 0.5 X10'3 (0-0.9); MONOCYTES % (AUTO) 4.4 % (2-12); NEUTROPHILS # (AUTO) 9.9 X10'3 (1.8-7.7); NEUTROPHILS % (AUTO) 93.2 % (42-75); PLATELET COUNT 140 X10'3 (140-440); RED BLOOD COUNT 3.72 X10'6 (4.20-5.60); RED CELL DISTRIBUTION WIDTH 15.1 % (11.5-14.5); WHITE BLOOD COUNT 10.7 X10'3 (4.5-11.0)
[2018-10-26 16:55] LABS: ALANINE AMINOTRANSFERASE 896 U/L (12-78); ALBUMIN 2.6 G/DL (3.4-5.0); ALBUMIN/GLOBULIN RATIO 1.2 (1.1-1.5); ALKALINE PHOSPHATASE 87 IU/L (46-116); ANION GAP 12 (8-16); BILIRUBIN,TOTAL 1.2 MG/DL (0.1-1.0); BLOOD UREA NITROGEN 14 MG/DL (7-18); CALCIUM 7.3 MG/DL (8.5-10.1); CHLORIDE 113 MMOL/L (99-107); CREATININE 1.08 MG/DL (0.40-0.90); GLUCOSE 195 MG/DL (70-104); POTASSIUM 3.6 MMOL/L (3.5-5.1); SODIUM 151 MMOL/L (135-145); TOTAL CARBON DIOXIDE 25.8 MMOL/L (24-32); TOTAL PROTEIN 4.7 G/DL (6.4-8.2); eGFR 53 ML/MIN
--- NOTE | 2018-10-26 17:00 | NUR ---
Zee GUY and Gloria received report and are persons transferring patient via helicopter to [facility]. All questions addressed.
[2018-10-26 17:03] LABS: ASPARTATE AMINO TRANSFERASE 1317 U/L (10-37)
--- NOTE | 2018-10-26 17:05 | NUR ---
, Don took clothing and patient's dentures. He states that all belongings are present.
--- NOTE | 2018-10-26 17:13 | NUR ---
Report called to Gonsalo Hammond RN, nurse that will be receiving the patient. SBAR format used, report placed in paper chart. All questions and concerns addressed, gave phone number for follow up questions.
[2018-10-27] MEDS ORDERED: vancomycin/NS 1 GM ADD-VANTAGE 250 ML IV SCH ×2 (08:00→16:00)
[2018-10-27] MEDS ORDERED: cefepime 1GM in D5W 50mL 50 ML IV SCH (08:00)
[2018-10-29] MEDS ORDERED: VANCOMYCIN LEVEL IV ONE (15:30)
[2018-10-31] MEDS ORDERED: methylnaltrexone br 12mg/0.6ml inj***SubQ only SQ SCH (08:00)
== END 2018-10-26 17:00 | disposition short-term general hospital (02) | DRG 133 ==
LOC: ER 09:10 → ICU 2S 14:27
PROVIDERS: ADMIT Internal Medicine Critical Care Medicine; ATTEND Internal Medicine Critical Care Medicine
PROC: 5A1935Z Respiratory Ventilation, Less than 24 Consecutive Hours (ICD-10-PCS; principal; 2018-10-26)
PROC: 0BH17EZ Insertion of Endotracheal Airway into Trachea, Via Natural or Artificial Opening (ICD-10-PCS; 2018-10-26)
PROC: 02HV33Z Insertion of Infusion Device into Superior Vena Cava, Percutaneous Approach (ICD-10-PCS; 2018-10-26)
PROC: B548ZZA Ultrasonography of Superior Vena Cava, Guidance (ICD-10-PCS; 2018-10-26)
DX: J96.20 Acute and chronic respiratory failure, unspecified whether with hypoxia or hypercapnia (principal); I21.4 Non-ST elevation (NSTEMI) myocardial infarction; R57.0 Cardiogenic shock; I08.0 Rheumatic disorders of both mitral and aortic valves; J44.1 Chronic obstructive pulmonary disease with (acute) exacerbation; G89.29 Other chronic pain; E87.2 Acidosis; I50.9 Heart failure, unspecified; I08.1 Rheumatic disorders of both mitral and tricuspid valves; I11.0 Hypertensive heart disease with heart failure; Z88.1 Allergy status to other antibiotic agents; Z88.0 Allergy status to penicillin; Z88.6 Allergy status to analgesic agent; Z88.8 Allergy status to other drugs, medicaments and biological substances; Z85.118 Personal history of other malignant neoplasm of bronchus and lung; Z90.49 Acquired absence of other specified parts of digestive tract; Z90.2 Acquired absence of lung [part of]
CPT/HCPCS: 31500; 36415; 36556; 36600; 71045; 73060; 80053; 81001; 82803; 82810; 82948; 83605; 83880; 84145; 84484; 85007; 85018; 85025; 85610; 85730; 87040; 87070; 87081; 87088; 93005; 93306; 93971; 94002; 94660; 96365; 96367; 96368; 96375; 99291; G0378; J0692; J0696; J1250; J2060; J2250; J2930; J3010; J3370

== ENCOUNTER 2018-10-31 12:31 | Inpatient (IN) | payer MEDICAID ==
[~2018-10-31] VITALS: Ht 147.3 cm; Wt 42.3 kg
[~2018-10-31 12:31] MED LIST changes: -ACET-812 PO; +ALBU2.5V13 NEB; -AMIO200T61 PO; -ASPI-1265 PO; +BUDE10.22 INH; +BUPR150T14 PO; -BUSP10TA11 PO; -COU1T PO; -DILT30TA5 PO; +FURO20TA4 PO; -LACT1CAP26 PO; -LISI10TA4 PO; -METO25TA6 PO; +MONT10TA24 PO; -POTA10TA19 PO; +POTA8TAB8 PO; -PRED10TA PO; +TIOT4MIS5 IH
--- NOTE | 2018-10-31 17:00 | NUR ---
Pt arrived on unit to room 3014A. Pt organized to room and call light. Vitals stable.
--- NOTE | 2018-10-31 17:05 | NUR ---
Dr. Elias called and notified of Pt's arrival onto unit in room 3019S.
[2018-10-31 17:06] VITALS: BP 92/55
--- NOTE | 2018-10-31 18:25 | NUR ---
Problems reprioritized. Patient report given, questions answered & plan of care reviewed with Marshall RN.
--- NOTE | 2018-10-31 18:26 | NUR ---
Patient in room . I have received report from Edinson WASHINGTON and had the opportunity to ask questions and assume patient care. The doctor has been notified but has not seen the pt yet. due to this there are no orders at this time, I have spoken with charge nurse and I have ensured that the pt is on tele and has an ID wrist band. will be awaiting orders from doctor.
[2018-10-31 19:00] VITALS: BP 106/53
[2018-10-31] MEDS ORDERED: acetaminophen 325mg tablet PO PRN (19:35)
[2018-10-31] MEDS ORDERED: acetaminophen 650mg rectal suppository RC PRN (19:35)
[2018-10-31] MEDS ORDERED: AMIO100T4 PO (19:55)
[2018-10-31] MEDS ORDERED: ACET-812 PO (19:55)
[2018-10-31] MEDS ORDERED: ondansetron 4mg rapidly disintigrating tab PO PRN (20:10)
[2018-10-31] MEDS ORDERED: hydrOXYzine 10 MG tablet PO PRN (20:10)
[2018-10-31] MEDS ORDERED: nitroGLYCERIN 0.4mg SUBLingual tab SL PRN (20:10)
[2018-10-31] MEDS: ipratropium/albuterol 3ml nebule NEB PRN (20:53)
[2018-10-31] MEDS: budesonide 0.5mg/2ml UD nebule IH SCH (20:54)
[2018-10-31] MEDS ORDERED: potassium chloride 8mEq ER tablet PO PRN (21:20)
[2018-10-31] MEDS ORDERED: furosemide 20MG tablet PO PRN (21:20)
[2018-10-31 21:29] LABS: BASOPHILS % (AUTO) 0 % (0-1); PLATELET COUNT 131 X10'3 (140-440)
[2018-10-31 21:32] LABS: EOSINOPHILS % (AUTO) 0 % (0-6); HEMATOCRIT 28.8 % (35.0-45.0); HEMOGLOBIN 9.8 g/dl (12.0-16.0); LYMPHOCYTES # (AUTO) 0.4 X10'3 (1.1-4.8); MEAN CORPUSCULAR HEMOGLOBIN 32.7 PG (27.0-31.0); MEAN PLATELET VOLUME 9.3 FL (7.4-10.4); MONOCYTES # (AUTO) 0.5 X10'3 (0-0.9); NEUTROPHILS # (AUTO) 5.2 X10'3 (1.8-7.7); WHITE BLOOD COUNT 6.1 X10'3 (4.5-11.0)
[2018-10-31 21:34] LABS: ALANINE AMINOTRANSFERASE 780 U/L (12-78); ALBUMIN 3.2 G/DL (3.4-5.0); ALBUMIN/GLOBULIN RATIO 1.2 (1.1-1.5); ALKALINE PHOSPHATASE 86 IU/L (46-116); ANION GAP 2 (8-16); ASPARTATE AMINO TRANSFERASE 68 U/L (10-37); BILIRUBIN,TOTAL 0.6 MG/DL (0.1-1.0); BLOOD UREA NITROGEN 30 MG/DL (7-18); BUN/CREATININE RATIO 28.6 (6.6-38.0); CALCIUM 8.1 MG/DL (8.5-10.1); CHLORIDE 98 MMOL/L (99-107); CREATININE 1.05 MG/DL (0.40-0.90); GLUCOSE 152 MG/DL (70-104); MAGNESIUM 1.8 MG/DL (1.5-2.4); PHOSPHORUS 2.4 MG/DL (2.3-4.5); POTASSIUM 3.7 MMOL/L (3.5-5.1); SODIUM 138 MMOL/L (135-145); TOTAL CARBON DIOXIDE 38.5 MMOL/L (24-32); TOTAL PROTEIN 5.9 G/DL (6.4-8.2); eGFR 55 ML/MIN
[2018-10-31 21:45] LABS: PARTIAL THROMBOPLASTIN TIME 42 SECONDS (22-32)
[2018-10-31 22:04] LABS: NUCLEATED RED BLOOD CELLS 8 /100WBC (0-0); TOTAL CELLS COUNTED 100
[2018-10-31 22:05] LABS: PLATELET ESTIMATE DECREASED; POLYCHROMASIA 1+
[2018-10-31] MEDS ORDERED: warfarin 5mg tablet PO ONE (22:10)
[2018-10-31] MEDS: clonazePAM 0.5mg tablet PO SCH (22:18)
[2018-10-31] MEDS: docusate sod 100mg capsule PO SCH (22:19)
[2018-10-31 23:00] VITALS: BP 113/56
[2018-10-31] MEDS ORDERED: SUMAtriptan 25 MG tablet PO ONE (23:05)
[2018-10-31] MEDS: ipratropium 0.5 MG/2.5ML nebule IH SCH (23:12)
[2018-10-31] MEDS: theophylline anhydrous 100mg SR-12hr tablet PO SCH (23:29)
[2018-10-31] MEDS ORDERED: BUDE0.5A11 NEB (23:57)
[2018-10-31] MEDS ORDERED: ASPI-611 PO (23:57)
[2018-10-31] MEDS ORDERED: POTA10TA15 PO (23:57)
[2018-10-31] MEDS ORDERED: ALBU18HF2 INH (23:57)
[2018-10-31] MEDS ORDERED: PRED20TA PO (23:57)
[2018-10-31] MEDS ORDERED: LISI-604 PO (23:57)
[2018-10-31] MEDS ORDERED: SUMA50TA PO (23:57)
[2018-10-31] MEDS ORDERED: HYDR-3717 PO (23:57)
[2018-10-31] MEDS ORDERED: CLON0.5T23 PO (23:57)
[2018-10-31] MEDS ORDERED: BISO5TAB PO (23:57)
[2018-10-31] MEDS ORDERED: IPRA3AMP31 IH (23:57)
[2018-10-31] MEDS ORDERED: THEO200T22 PO (23:57)
[2018-10-31] MEDS ORDERED: WARF-65 PO (23:57)
[2018-10-31] MEDS ORDERED: LORA10TA7 PO (23:57)
[2018-10-31] MEDS ORDERED: SERT100T10 PO (23:57)
[2018-10-31] MEDS ORDERED: BUSP30TA2 PO (23:57)
[2018-10-31] MEDS ORDERED: TORS20TA3 PO (23:57)
[2018-10-31] MEDS ORDERED: ONDA4TAB12 PO (23:57)
[2018-10-31] MEDS ORDERED: NITR0.4T48 SL (23:57)
[2018-11-01] MEDS ORDERED: non-formulary drug (Acetaminophen (Tylenol Extra Strength) 1 TABLET) PO SCH
[2018-11-01] MEDS ORDERED: hydrOXYzine 10 MG tablet PO PRN (01:50)
[2018-11-01] MEDS ORDERED: ondansetron 4mg rapidly disintigrating tab PO PRN (01:50)
[2018-11-01 03:00] VITALS: BP 99/50
[2018-11-01 05:54] LABS: BASOPHILS % (AUTO) 0.1 % (0-1); EOSINOPHILS % (AUTO) 0 % (0-6); HEMATOCRIT 29.5 % (35.0-45.0); HEMOGLOBIN 9.9 g/dl (12.0-16.0); LYMPHOCYTES # (AUTO) 0.7 X10'3 (1.1-4.8); LYMPHOCYTES % (AUTO) 9.7 % (21-51); MEAN CORPUSCULAR HEMOGLOBIN 32.4 PG (27.0-31.0); MEAN CORPUSCULAR HGB CONC 33.7 g/dL (33.0-36.5); MEAN PLATELET VOLUME 9.2 FL (7.4-10.4); MONOCYTES # (AUTO) 0.8 X10'3 (0-0.9); MONOCYTES % (AUTO) 12.6 % (2-12); NEUTROPHILS # (AUTO) 5.2 X10'3 (1.8-7.7); NEUTROPHILS % (AUTO) 77.6 % (42-75); PLATELET COUNT 133 X10'3 (140-440); RED BLOOD COUNT 3.07 X10'6 (4.20-5.60); WHITE BLOOD COUNT 6.7 X10'3 (4.5-11.0)
[2018-11-01 05:55] LABS: ALANINE AMINOTRANSFERASE 703 U/L (12-78); ALBUMIN 3.2 G/DL (3.4-5.0); ALBUMIN/GLOBULIN RATIO 1.2 (1.1-1.5); ALKALINE PHOSPHATASE 80 IU/L (46-116); ANION GAP 4 (8-16); ASPARTATE AMINO TRANSFERASE 56 U/L (10-37); BILIRUBIN,TOTAL 0.5 MG/DL (0.1-1.0); BLOOD UREA NITROGEN 28 MG/DL (7-18); BUN/CREATININE RATIO 29.5 (6.6-38.0); CALCIUM 8.4 MG/DL (8.5-10.1); CHLORIDE 98 MMOL/L (99-107); CREATININE 0.95 MG/DL (0.40-0.90); GLUCOSE 171 MG/DL (70-104); MAGNESIUM 1.8 MG/DL (1.5-2.4); PARTIAL THROMBOPLASTIN TIME 28 SECONDS (22-32); PHOSPHORUS 2.1 MG/DL (2.3-4.5); POTASSIUM 3.5 MMOL/L (3.5-5.1); SODIUM 139 MMOL/L (135-145); TOTAL CARBON DIOXIDE 36.8 MMOL/L (24-32); TOTAL PROTEIN 5.8 G/DL (6.4-8.2); eGFR 61 ML/MIN
[2018-11-01] MEDS: ipratropium/albuterol 3ml nebule NEB PRN (05:59)
[2018-11-01 06:00] VITALS: BP 98/52
--- NOTE | 2018-11-01 06:15 | NUR ---
Patient in room PCU 3014. I have received report from Marshall RN and had the opportunity to ask questions and assume patient care.
--- NOTE | 2018-11-01 06:15 | NUR ---
Problems reprioritized. Patient report given, questions answered & plan of care reviewed with Edinson WASHINGTON.
[2018-11-01] MEDS ORDERED: non-formulary drug (Omeprazole 1 CAP) PO SCH (08:00)
[2018-11-01] MEDS ORDERED: budesonide 0.5mg/2ml UD nebule IH SCH (08:00)
[2018-11-01] MEDS ORDERED: non-formulary drug (Torsemide 1 TAB) PO SCH (08:00)
[2018-11-01] MEDS ORDERED: non-formulary drug (Clonazepam 1 TAB) PO SCH (08:00)
[2018-11-01] MEDS ORDERED: amiodarone 100mg tablet PO SCH (08:00)
[2018-11-01] MEDS ORDERED: non-formulary drug (Aspirin (Aspir 81) 1 TAB) PO SCH (08:00)
[2018-11-01] MEDS ORDERED: THEOPHYLLINE ANHYDROUS PO SCH (08:00)
[2018-11-01] MEDS: budesonide 0.5mg/2ml UD nebule IH SCH ×2 (08:03→19:36)
[2018-11-01] MEDS: albuterol 2.5 MG/3 ML nebule NEB SCH ×2 (08:04→12:05)
[2018-11-01] MEDS: ipratropium 0.5 MG/2.5ML nebule IH SCH ×2 (08:04→12:05)
--- NOTE | 2018-11-01 08:45 | NUR ---
Pt's morning BP 97/50, retook BP 104/58. Talked with Dr. Elias about holding Lasix 20mg, Atenolol 50mg and Lisinopril 5mg. Dr. Elias said to give all morning BP meds.
[2018-11-01] MEDS: busPIRone 15mg tablet PO SCH ×2 (08:55→19:26)
[2018-11-01] MEDS: predniSONE 20 mg tablet PO SCH (08:55)
[2018-11-01] MEDS: clonazePAM 0.5mg tablet PO SCH ×3 (08:55→20:42)
[2018-11-01] MEDS: sertraline 50mg tablet PO SCH ×2 (08:56→19:27)
[2018-11-01] MEDS: furosemide 20MG tablet PO SCH (08:56)
[2018-11-01] MEDS: pantoprazole 40mg Tablet.DR PO SCH (08:56)
[2018-11-01] MEDS: docusate sod 100mg capsule PO SCH ×2 (08:57→19:27)
[2018-11-01] MEDS: loratadine 10mg tablet PO SCH (08:57)
[2018-11-01] MEDS: buPROPion SR 150mg tablet PO SCH ×2 (08:57→19:27)
[2018-11-01] MEDS: potassium chloride 10mEq ER tablet PO SCH (08:57)
[2018-11-01] MEDS: lisinopril 5mg tablet PO SCH (08:58)
[2018-11-01] MEDS: theophylline anhydrous 100mg SR-12hr tablet PO SCH ×2 (09:02→19:28)
[2018-11-01] MEDS: amiodarone 100mg tablet PO SCH (09:02)
[2018-11-01] MEDS: atenolol 50mg tablet PO SCH (09:02)
[2018-11-01 11:00] VITALS: BP 97/48
--- NOTE | 2018-11-01 13:03 | NUR ---
Cherie Richard informed me that on previous admission Pt had peripheral IV removed and a 1.5cm sections broke off and was left in L brachial vein. X-rays were taken and the tip had not moved. Upon readmission Cherie richard informed me of 1.5cm tip in the Pt's arm and to ask Dr. Elias, who is aware of the situation, if he wanted to take another X-ray to see if the 1.5cm tip had moved ot if a clot had formed. Dr. Elias voiced his opinion that the X-ray is not needed. I informed Cherie Richard of Dr. Elias's decision.
[2018-11-01] MEDS ORDERED: lactulose 20gm/30ml cup PO PRN (13:35)
[2018-11-01 15:00] VITALS: BP 114/46
[2018-11-01] MEDS: ipratropium/albuterol 3ml nebule NEB SCH ×3 (15:07→23:18)
--- NOTE | 2018-11-01 15:16 | NUR ---
Malnutrition consult: Pt admit back from [facility] s/p AVR and MVR w/ EF 40%. Pt has no weakness, PO 75-100% meals meeting needs s/p echocardiogram, and scaled wt no significant change from June admit. At this time pt does not meet minimum 2 malnutrition criteria. Will continue to monitor. Addendum: 11/01/18 at [address] Amended: Links added.
[2018-11-01 18:00] VITALS: BP 96/46
--- NOTE | 2018-11-01 18:20 | NUR ---
Patient in room PCU 3014A. I have received report from PADMINI Neves and had the opportunity to ask questions and assume patient care. Pt up in chair, alert and oriented X4, having her dinner. Will continue to monitor
--- NOTE | 2018-11-01 18:37 | NUR ---
Problems reprioritized. Patient report given, questions answered & plan of care reviewed with Jacqueline WASHINGTON and Zahida WASHINGTON.
[2018-11-01] MEDS: SUMAtriptan 25 MG tablet PO PRN ×2 (19:28→20:41)
--- NOTE | 2018-11-01 20:32 | NUR ---
Patient in room PCU 3014. I have received report from PADMINI Phillips and had the opportunity to ask questions and assume patient care.
[2018-11-01] MEDS: montelukast 10mg tablet PO SCH (20:42)
[2018-11-01] MEDS ORDERED: warfarin 3mg tablet PO ONE (21:00)
--- NOTE | 2018-11-01 21:00 | NUR ---
I agree with PADMINI Goel's physical assessment.
[2018-11-01 22:00] VITALS: BP 116/45
[2018-11-01] MEDS ORDERED: ketorolac tromethamine 15mg/ml inj. IV ONE (22:45)
[2018-11-02] MEDS: SUMAtriptan 25 MG tablet PO PRN ×2 (00:26→20:11)
[2018-11-02 02:00] VITALS: BP 107/55
[2018-11-02] MEDS: ipratropium/albuterol 3ml nebule NEB SCH ×6 (03:10→23:02)
[2018-11-02 05:20] LABS: BASOPHILS % (AUTO) 0 % (0-1); EOSINOPHILS % (AUTO) 0 % (0-6); HEMATOCRIT 31.6 % (35.0-45.0); HEMOGLOBIN 10.5 g/dl (12.0-16.0); LYMPHOCYTES # (AUTO) 0.7 X10'3 (1.1-4.8); LYMPHOCYTES % (AUTO) 8.5 % (21-51); MEAN CORPUSCULAR HEMOGLOBIN 32.1 PG (27.0-31.0); MEAN CORPUSCULAR HGB CONC 33.3 g/dL (33.0-36.5); MEAN CORPUSCULAR VOLUME 96.5 FL (78-98); MONOCYTES # (AUTO) 0.8 X10'3 (0-0.9); NEUTROPHILS # (AUTO) 6.5 X10'3 (1.8-7.7); NEUTROPHILS % (AUTO) 81.5 % (42-75); PLATELET COUNT 154 X10'3 (140-440); RED BLOOD COUNT 3.27 X10'6 (4.20-5.60); RED CELL DISTRIBUTION WIDTH 16.2 % (11.5-14.5)
[2018-11-02 05:38] LABS: PARTIAL THROMBOPLASTIN TIME 25 SECONDS (22-32)
[2018-11-02 05:48] LABS: ALANINE AMINOTRANSFERASE 569 U/L (12-78); ALBUMIN 3.3 G/DL (3.4-5.0); ALBUMIN/GLOBULIN RATIO 1.2 (1.1-1.5); ALKALINE PHOSPHATASE 104 IU/L (46-116); ANION GAP 9 (8-16); ASPARTATE AMINO TRANSFERASE 74 U/L (10-37); BILIRUBIN,TOTAL 0.4 MG/DL (0.1-1.0); BLOOD UREA NITROGEN 24 MG/DL (7-18); BUN/CREATININE RATIO 23.8 (6.6-38.0); CALCIUM 8.6 MG/DL (8.5-10.1); CHLORIDE 98 MMOL/L (99-107); CREATININE 1.01 MG/DL (0.40-0.90); GLUCOSE 141 MG/DL (70-104); MAGNESIUM 1.9 MG/DL (1.5-2.4); PHOSPHORUS 1.8 MG/DL (2.3-4.5); POTASSIUM 3.4 MMOL/L (3.5-5.1); SODIUM 139 MMOL/L (135-145); TOTAL CARBON DIOXIDE 32.4 MMOL/L (24-32); eGFR 57 ML/MIN
[2018-11-02 06:00] VITALS: BP 107/41
--- NOTE | 2018-11-02 06:10 | NUR ---
Patient in room PCU 3014. I have received report from Surinder WASHINGTON and had the opportunity to ask questions and assume patient care.
--- NOTE | 2018-11-02 06:13 | NUR ---
Problems reprioritized. Patient report given, questions answered & plan of care reviewed with PADMINI Neves.
[2018-11-02] MEDS: budesonide 0.5mg/2ml UD nebule IH SCH ×2 (07:28→19:39)
[2018-11-02] MEDS: busPIRone 15mg tablet PO SCH ×2 (07:55→20:12)
[2018-11-02] MEDS: theophylline anhydrous 100mg SR-12hr tablet PO SCH ×2 (07:55→20:20)
[2018-11-02] MEDS: furosemide 20MG tablet PO SCH (07:56)
[2018-11-02] MEDS: sertraline 50mg tablet PO SCH ×2 (07:56→20:20)
[2018-11-02] MEDS: lisinopril 5mg tablet PO SCH (07:56)
[2018-11-02] MEDS: predniSONE 20 mg tablet PO SCH (07:56)
[2018-11-02] MEDS: potassium chloride 10mEq ER tablet PO SCH (07:56)
[2018-11-02] MEDS: buPROPion SR 150mg tablet PO SCH ×2 (07:56→20:12)
[2018-11-02] MEDS: clonazePAM 0.5mg tablet PO SCH ×3 (07:56→20:11)
[2018-11-02] MEDS: pantoprazole 40mg Tablet.DR PO SCH (07:56)
[2018-11-02] MEDS: amiodarone 100mg tablet PO SCH (07:56)
[2018-11-02] MEDS: docusate sod 100mg capsule PO SCH ×2 (07:56→20:11)
[2018-11-02] MEDS: atenolol 50mg tablet PO SCH (07:59)
[2018-11-02] MEDS: loratadine 10mg tablet PO SCH (07:59)
[2018-11-02 08:52] LABS: ANISOCYTOSIS 1+; NUCLEATED RED BLOOD CELLS 1 /100WBC (0-0); PLATELET ESTIMATE NORMAL; TOTAL CELLS COUNTED 100
[2018-11-02 08:53] LABS: POLYCHROMASIA 2+
[2018-11-02] MEDS ORDERED: potassium CL 10mEq/100ml bag 100 ML IV PRN (09:30)
[2018-11-02] MEDS ORDERED: magnesium 4gm in 100ml NS 100 ML IV PRN (09:30)
[2018-11-02] MEDS ORDERED: magnesium Cl slow-release 64mg tablet PO PRN (09:30)
[2018-11-02] MEDS ORDERED: potassium Cl 20 mEq SR tablet PO PRN (09:30)
[2018-11-02] MEDS: potassium Cl 20 mEq SR tablet PO PRN ×3 (10:26→20:12)
[2018-11-02 11:00] VITALS: BP 105/47
[2018-11-02 15:00] VITALS: BP 89/56
[2018-11-02] MEDS: morphine 2 MG/ML inj. syringe IV PRN ×2 (15:55→22:08)
--- NOTE | 2018-11-02 16:27 | NUR ---
PAGER ID: [phone] MESSAGE: RE: Anusha Simabe, Room: [facility]. Just an FYI. Pt's last two BP's have been in high 80's systolic. Pt asymptomatic. -Edinson [facility] #[id number] Dr. Rudd paged concerning Pt's low BP's
[2018-11-02 18:00] VITALS: BP 92/40
--- NOTE | 2018-11-02 18:20 | NUR ---
Problems reprioritized. Patient report given, questions answered & plan of care reviewed with Edilson WASHINGTON and Zahida WASHINGTON.
[2018-11-02] MEDS ORDERED: lactulose 20gm/30ml cup PO PRN (19:35)
[2018-11-02] MEDS ORDERED: Neutra Phos packet PO PRN (19:50)
[2018-11-02] MEDS: montelukast 10mg tablet PO SCH (20:11)
[2018-11-02 22:00] VITALS: BP 114/43
[2018-11-03 02:00] VITALS: BP 106/47
[2018-11-03] MEDS: ipratropium/albuterol 3ml nebule NEB SCH ×6 (05:21→23:49)
[2018-11-03 05:27] LABS: BASOPHILS % (AUTO) 0.2 % (0-1); EOSINOPHILS % (AUTO) 0.3 % (0-6); HEMATOCRIT 29.5 % (35.0-45.0); HEMOGLOBIN 9.8 g/dl (12.0-16.0); LYMPHOCYTES # (AUTO) 0.8 X10'3 (1.1-4.8); LYMPHOCYTES % (AUTO) 10.5 % (21-51); MEAN CORPUSCULAR HEMOGLOBIN 32.6 PG (27.0-31.0); MEAN CORPUSCULAR HGB CONC 33.3 g/dL (33.0-36.5); MEAN CORPUSCULAR VOLUME 97.7 FL (78-98); MEAN PLATELET VOLUME 9.2 FL (7.4-10.4); MONOCYTES # (AUTO) 0.8 X10'3 (0-0.9); MONOCYTES % (AUTO) 10.6 % (2-12); NEUTROPHILS % (AUTO) 78.4 % (42-75); PLATELET COUNT 181 X10'3 (140-440); RED BLOOD COUNT 3.02 X10'6 (4.20-5.60); WHITE BLOOD COUNT 7.6 X10'3 (4.5-11.0)
[2018-11-03 05:47] LABS: ALANINE AMINOTRANSFERASE 413 U/L (12-78); ALBUMIN/GLOBULIN RATIO 1.2 (1.1-1.5); ALKALINE PHOSPHATASE 108 IU/L (46-116); ANION GAP 5 (8-16); ASPARTATE AMINO TRANSFERASE 46 U/L (10-37); BILIRUBIN,TOTAL 0.3 MG/DL (0.1-1.0); BLOOD UREA NITROGEN 18 MG/DL (7-18); BUN/CREATININE RATIO 18.2 (6.6-38.0); CALCIUM 8.3 MG/DL (8.5-10.1); CHLORIDE 105 MMOL/L (99-107); CREATININE 0.99 MG/DL (0.40-0.90); GLUCOSE 150 MG/DL (70-104); MAGNESIUM 1.8 MG/DL (1.5-2.4); PHOSPHORUS 1.8 MG/DL (2.3-4.5); POTASSIUM 4.1 MMOL/L (3.5-5.1); SODIUM 141 MMOL/L (135-145); TOTAL CARBON DIOXIDE 31.4 MMOL/L (24-32); TOTAL PROTEIN 5.6 G/DL (6.4-8.2); eGFR 58 ML/MIN
[2018-11-03 05:58] LABS: PARTIAL THROMBOPLASTIN TIME 29 SECONDS (22-32)
--- NOTE | 2018-11-03 05:59 | NUR ---
Orientee documentation: I have reviewed and agree with all interventions, assessments performed and documented by Zahida WASHINGTON. Orientee Medication Administration: For this medication-pass time frame, all medication were reviewed, dispensed, administered and documented per hospital policy by Zahida WASHINGTON.
[2018-11-03 06:06] LABS: ANISOCYTOSIS 1+; PLATELET ESTIMATE NORMAL; POLYCHROMASIA 1+; TOTAL CELLS COUNTED 100
--- NOTE | 2018-11-03 06:15 | NUR ---
Problems reprioritized. Patient report given, questions answered & plan of care reviewed with Alice WASHINGTON.
[2018-11-03 07:15] VITALS: BP 96/42
[2018-11-03] MEDS: budesonide 0.5mg/2ml UD nebule IH SCH ×2 (07:28→19:56)
[2018-11-03] MEDS: lisinopril 5mg tablet PO SCH (08:00)
[2018-11-03] MEDS: furosemide 20MG tablet PO SCH (08:00)
[2018-11-03] MEDS: atenolol 50mg tablet PO SCH (08:00)
[2018-11-03] MEDS: potassium chloride 10mEq ER tablet PO SCH (08:17)
[2018-11-03] MEDS: busPIRone 15mg tablet PO SCH ×2 (08:17→20:14)
[2018-11-03] MEDS: amiodarone 100mg tablet PO SCH (08:18)
[2018-11-03] MEDS: sertraline 50mg tablet PO SCH ×2 (08:18→20:14)
[2018-11-03] MEDS: buPROPion SR 150mg tablet PO SCH ×2 (08:18→20:14)
[2018-11-03] MEDS: clonazePAM 0.5mg tablet PO SCH ×3 (08:18→20:15)
[2018-11-03] MEDS: predniSONE 20 mg tablet PO SCH (08:18)
[2018-11-03] MEDS: loratadine 10mg tablet PO SCH (08:18)
[2018-11-03] MEDS: pantoprazole 40mg Tablet.DR PO SCH (08:18)
[2018-11-03] MEDS: docusate sod 100mg capsule PO SCH ×2 (08:18→20:15)
[2018-11-03] MEDS: morphine 2 MG/ML inj. syringe IV PRN ×2 (08:19→13:00)
[2018-11-03] MEDS: theophylline anhydrous 100mg SR-12hr tablet PO SCH (08:19)
[2018-11-03 11:00] VITALS: BP 94/39
[2018-11-03] MEDS: Neutra Phos packet PO SCH ×3 (11:13→20:14)
[2018-11-03 15:00] VITALS: BP 108/50
[2018-11-03 18:00] VITALS: BP 106/43
--- NOTE | 2018-11-03 18:44 | NUR ---
Problems reprioritized. Patient report given, questions answered & plan of care reviewed with PADMINI Cadena.
--- NOTE | 2018-11-03 18:44 | NUR ---
Patient in room PCU 3014. I have received report from PADMINI Jenkins and had the opportunity to ask questions and assume patient care.
[2018-11-03] MEDS: montelukast 10mg tablet PO SCH (20:13)
[2018-11-03] MEDS: theophylline anhydrous 100mg ER capsule 24-hour PO SCH (20:15)
[2018-11-03] MEDS: SUMAtriptan 25 MG tablet PO PRN (20:19)
[2018-11-03] MEDS ORDERED: warfarin 1mg tablet PO ONE (21:00)
[2018-11-03 22:00] VITALS: BP 117/44
--- NOTE | 2018-11-04 02:00 | NUR ---
Pt refused 0200 vitals.
[2018-11-04] MEDS: ipratropium/albuterol 3ml nebule NEB SCH ×6 (03:42→23:35)
[2018-11-04 06:00] VITALS: BP 99/40
[2018-11-04 06:28] LABS: BASOPHILS % (AUTO) 0 % (0-1); EOSINOPHILS % (AUTO) 0.5 % (0-6); HEMOGLOBIN 10.5 g/dl (12.0-16.0); LYMPHOCYTES # (AUTO) 0.8 X10'3 (1.1-4.8); LYMPHOCYTES % (AUTO) 10.1 % (21-51); MEAN CORPUSCULAR HGB CONC 32.9 g/dL (33.0-36.5); MEAN CORPUSCULAR VOLUME 97.4 FL (78-98); MEAN PLATELET VOLUME 8.6 FL (7.4-10.4); MONOCYTES # (AUTO) 0.6 X10'3 (0-0.9); MONOCYTES % (AUTO) 8.6 % (2-12); NEUTROPHILS % (AUTO) 80.8 % (42-75); PLATELET COUNT 232 X10'3 (140-440); RED BLOOD COUNT 3.29 X10'6 (4.20-5.60); RED CELL DISTRIBUTION WIDTH 16.3 % (11.5-14.5); WHITE BLOOD COUNT 7.5 X10'3 (4.5-11.0)
[2018-11-04 06:35] LABS: PARTIAL THROMBOPLASTIN TIME 26 SECONDS (22-32)
[2018-11-04 06:41] LABS: ALANINE AMINOTRANSFERASE 355 U/L (12-78); ALBUMIN 3.3 G/DL (3.4-5.0); ALBUMIN/GLOBULIN RATIO 1.2 (1.1-1.5); ALKALINE PHOSPHATASE 126 IU/L (46-116); ANION GAP 5 (8-16); ASPARTATE AMINO TRANSFERASE 34 U/L (10-37); BILIRUBIN,TOTAL 0.4 MG/DL (0.1-1.0); BLOOD UREA NITROGEN 12 MG/DL (7-18); BUN/CREATININE RATIO 15.8 (6.6-38.0); CALCIUM 8.4 MG/DL (8.5-10.1); CHLORIDE 104 MMOL/L (99-107); CREATININE 0.76 MG/DL (0.40-0.90); GLUCOSE 92 MG/DL (70-104); MAGNESIUM 1.8 MG/DL (1.5-2.4); POTASSIUM 4.4 MMOL/L (3.5-5.1); SODIUM 141 MMOL/L (135-145); TOTAL CARBON DIOXIDE 31.7 MMOL/L (24-32); TOTAL PROTEIN 6.1 G/DL (6.4-8.2); eGFR 79 ML/MIN
--- NOTE | 2018-11-04 06:48 | NUR ---
Problems reprioritized. Patient report given, questions answered & plan of care reviewed with PADMINI Gomez.
[2018-11-04 07:17] LABS: ANISOCYTOSIS 1+; NUCLEATED RED BLOOD CELLS 2 /100WBC (0-0); PLATELET ESTIMATE NORMAL; POLYCHROMASIA 1+; TOTAL CELLS COUNTED 100
[2018-11-04] MEDS: budesonide 0.5mg/2ml UD nebule IH SCH ×2 (07:38→19:57)
[2018-11-04] MEDS: lisinopril 5mg tablet PO SCH (08:00)
[2018-11-04] MEDS: furosemide 20MG tablet PO SCH (08:00)
[2018-11-04] MEDS: atenolol 50mg tablet PO SCH (08:00)
[2018-11-04] MEDS: theophylline anhydrous 100mg ER capsule 24-hour PO SCH ×2 (08:13→19:51)
[2018-11-04] MEDS: busPIRone 15mg tablet PO SCH ×2 (08:13→19:51)
[2018-11-04] MEDS: predniSONE 20 mg tablet PO SCH (08:13)
[2018-11-04] MEDS: buPROPion SR 150mg tablet PO SCH ×2 (08:14→19:53)
[2018-11-04] MEDS: sertraline 50mg tablet PO SCH ×2 (08:14→19:53)
[2018-11-04] MEDS: potassium chloride 10mEq ER tablet PO SCH (08:14)
[2018-11-04] MEDS: docusate sod 100mg capsule PO SCH ×2 (08:14→19:50)
[2018-11-04] MEDS: clonazePAM 0.5mg tablet PO SCH ×3 (08:15→21:00)
[2018-11-04] MEDS: loratadine 10mg tablet PO SCH (08:15)
[2018-11-04] MEDS: pantoprazole 40mg Tablet.DR PO SCH (08:15)
[2018-11-04] MEDS: amiodarone 100mg tablet PO SCH (08:15)
[2018-11-04] MEDS: Neutra Phos packet PO SCH ×2 (08:16→13:29)
[2018-11-04 11:00] VITALS: BP 105/50
[2018-11-04] MEDS: morphine 2 MG/ML inj. syringe IV PRN ×2 (11:28→19:55)
[2018-11-04 15:00] VITALS: BP 101/46
--- NOTE | 2018-11-04 18:33 | NUR ---
Patient in room PCU 3014a. I have received report from PADMINI Gomez and had the opportunity to ask questions and assume patient care. Patient awake for bedside report and stable at this time. Will continue to monitor closely.
[2018-11-04 19:00] VITALS: BP 95/47
[2018-11-04] MEDS: montelukast 10mg tablet PO SCH (21:00)
[2018-11-04] MEDS ORDERED: warfarin 5mg tablet PO ONE (21:00)
[2018-11-04 23:00] VITALS: BP 112/54
[2018-11-05 03:00] VITALS: BP 125/58
[2018-11-05] MEDS: ipratropium/albuterol 3ml nebule NEB SCH ×3 (03:28→11:00)
[2018-11-05 06:02] LABS: BASOPHILS % (AUTO) 0.1 % (0-1); EOSINOPHILS % (AUTO) 0.3 % (0-6); HEMATOCRIT 27.2 % (35.0-45.0); HEMOGLOBIN 8.8 g/dl (12.0-16.0); LYMPHOCYTES # (AUTO) 0.6 X10'3 (1.1-4.8); LYMPHOCYTES % (AUTO) 9.3 % (21-51); MEAN CORPUSCULAR HEMOGLOBIN 31.7 PG (27.0-31.0); MEAN CORPUSCULAR HGB CONC 32.5 g/dL (33.0-36.5); MEAN CORPUSCULAR VOLUME 97.5 FL (78-98); MEAN PLATELET VOLUME 7.9 FL (7.4-10.4); MONOCYTES # (AUTO) 0.5 X10'3 (0-0.9); MONOCYTES % (AUTO) 8.6 % (2-12); NEUTROPHILS % (AUTO) 81.7 % (42-75); PLATELET COUNT 206 X10'3 (140-440); RED BLOOD COUNT 2.79 X10'6 (4.20-5.60); RED CELL DISTRIBUTION WIDTH 17.9 % (11.5-14.5); WHITE BLOOD COUNT 6.1 X10'3 (4.5-11.0)
[2018-11-05 06:05] LABS: ALANINE AMINOTRANSFERASE 231 U/L (12-78); ALBUMIN 2.7 G/DL (3.4-5.0); ALBUMIN/GLOBULIN RATIO 1.2 (1.1-1.5); ALKALINE PHOSPHATASE 80 IU/L (46-116); ANION GAP 6 (8-16); ASPARTATE AMINO TRANSFERASE 14 U/L (10-37); BILIRUBIN,TOTAL 0.3 MG/DL (0.1-1.0); BLOOD UREA NITROGEN 9 MG/DL (7-18); BUN/CREATININE RATIO 14.1 (6.6-38.0); CALCIUM 8.1 MG/DL (8.5-10.1); CHLORIDE 106 MMOL/L (99-107); CREATININE 0.64 MG/DL (0.40-0.90); GLUCOSE 83 MG/DL (70-104); MAGNESIUM 1.7 MG/DL (1.5-2.4); PARTIAL THROMBOPLASTIN TIME 29 SECONDS (22-32); PHOSPHORUS 3.1 MG/DL (2.3-4.5); SODIUM 142 MMOL/L (135-145); TOTAL CARBON DIOXIDE 30.4 MMOL/L (24-32); eGFR > 90 ML/MIN
--- NOTE | 2018-11-05 06:56 | NUR ---
Patient in room PCU 3014. I have received report from Olegario WASHINGTON and had the opportunity to ask questions and assume patient care.
[2018-11-05 07:00] VITALS: BP 103/55
[2018-11-05] MEDS: budesonide 0.5mg/2ml UD nebule IH SCH (07:30)
[2018-11-05] MEDS: amiodarone 100mg tablet PO SCH (07:58)
[2018-11-05] MEDS: predniSONE 20 mg tablet PO SCH (07:58)
[2018-11-05] MEDS: sertraline 50mg tablet PO SCH (07:59)
[2018-11-05] MEDS: loratadine 10mg tablet PO SCH (07:59)
[2018-11-05] MEDS: lisinopril 5mg tablet PO SCH (07:59)
[2018-11-05] MEDS: clonazePAM 0.5mg tablet PO SCH ×2 (07:59→12:27)
[2018-11-05] MEDS: potassium chloride 10mEq ER tablet PO SCH (07:59)
[2018-11-05] MEDS: furosemide 20MG tablet PO SCH (07:59)
[2018-11-05] MEDS: theophylline anhydrous 100mg ER capsule 24-hour PO SCH (07:59)
[2018-11-05] MEDS: docusate sod 100mg capsule PO SCH (07:59)
[2018-11-05] MEDS: atenolol 50mg tablet PO SCH (08:00)
[2018-11-05] MEDS: busPIRone 15mg tablet PO SCH (08:01)
[2018-11-05] MEDS: buPROPion SR 150mg tablet PO SCH (08:01)
[2018-11-05] MEDS: pantoprazole 40mg Tablet.DR PO SCH (08:01)
[2018-11-05] MEDS: morphine 2 MG/ML inj. syringe IV PRN ×2 (08:11→12:27)
--- NOTE | 2018-11-05 10:12 | NUR ---
Initial: Pt admit back from [facility] s/p AVR and MVR w/ EF 40%. Pt has no weakness, PO 50-75% avg meals meeting needs given wt. LBM 11/03. Will continue to monitor. Rec: 1. continue heart healthy diet 2. routine bowel care 3. wt per rx Addendum: 11/05/18 at [address] Amended: Links added.
[2018-11-05] MEDS ORDERED: LYR25C PO (10:51)
[2018-11-05 11:00] VITALS: BP 106/50
[2018-11-05] MEDS ORDERED: GABA-530 PO (12:08)
--- NOTE | 2018-11-05 14:25 | NUR ---
Patient discharged. All discharge instructions given to patient. New prescription was delivered bedside. IV removed cannula intact. Tele removed and returned. All belongings were gathered and taken with patient. Patient was escorted in a wheelchair to private vehicle.
[2018-11-05] MEDS ORDERED: warfarin 4mg tablet PO ONE (21:00)
== END 2018-11-05 14:22 | disposition home health service (06) | DRG 194 ==
LOC: PCU 3S 19:19
PROVIDERS: ADMIT Internal Medicine Critical Care Medicine; ATTEND Internal Medicine Critical Care Medicine
PROC: 5A09357 Assistance with Respiratory Ventilation, Less than 24 Consecutive Hours, Continuous Positive Airway Pressure (ICD-10-PCS; principal; 2018-11-01)
PROC: 5A09357 Assistance with Respiratory Ventilation, Less than 24 Consecutive Hours, Continuous Positive Airway Pressure (ICD-10-PCS; 2018-11-02)
DX: I13.0 Hypertensive heart and chronic kidney disease with heart failure and stage 1 through stage 4 chronic kidney disease, or unspecified chronic kidney disease (principal); R57.0 Cardiogenic shock; J96.20 Acute and chronic respiratory failure, unspecified whether with hypoxia or hypercapnia; I50.23 Acute on chronic systolic (congestive) heart failure; J44.1 Chronic obstructive pulmonary disease with (acute) exacerbation; F12.90 Cannabis use, unspecified, uncomplicated; G43.909 Migraine, unspecified, not intractable, without status migrainosus; G89.4 Chronic pain syndrome; N18.9 Chronic kidney disease, unspecified; E87.6 Hypokalemia; D64.9 Anemia, unspecified; F15.90 Other stimulant use, unspecified, uncomplicated; G62.9 Polyneuropathy, unspecified; I25.10 Atherosclerotic heart disease of native coronary artery without angina pectoris; Z85.118 Personal history of other malignant neoplasm of bronchus and lung; Z88.1 Allergy status to other antibiotic agents; Z88.6 Allergy status to analgesic agent; Z88.0 Allergy status to penicillin; Z88.8 Allergy status to other drugs, medicaments and biological substances; Z87.891 Personal history of nicotine dependence; Z90.49 Acquired absence of other specified parts of digestive tract; Z90.2 Acquired absence of lung [part of]; Z99.81 Dependence on supplemental oxygen
CPT/HCPCS: 36415; 80053; 82948; 83735; 83880; 84100; 84439; 84443; 85025; 85610; 85730; 87081; 93306; 94640; 94660; 94760; 97110; 97116; 97161; 97530; G0378; J1885; J2270; J7512; J7626

== ENCOUNTER 2019-02-22 20:52 | Emergency (ER) | payer MEDICAID ==
[~2019-02-22] VITALS: Ht 147.3 cm; Wt 40.9 kg
[~2019-02-22 20:52] MED LIST changes: +ACET-812 PO; +ALBU18HF2 INH; +AMIO100T4 PO; +BISO5TAB PO; +BUDE0.5A11 NEB; -BUPR150T14 PO; +BUSP30TA2 PO; +CLON0.5T23 PO; -FURO20TA4 PO; +GABA-530 PO; +HYDR-3717 PO; +IPRA3AMP31 IH; +LISI-604 PO; +LORA10TA7 PO; +NITR0.4T48 SL; +OMEP-297 PO; -OMEP20CA11 PO; +ONDA4TAB12 PO; +POTA10TA15 PO; -POTA8TAB8 PO; +PRED20TA PO; +SERT100T10 PO; +SUMA50TA PO; +THEO200T22 PO; +TORS20TA3 PO; +WARF-65 PO
[2019-02-22 21:32] LABS: BASOPHILS # (AUTO) 0.1 X10'3 (0-0.2); BASOPHILS % (AUTO) 0.9 % (0-1); EOSINOPHILS # (AUTO) 0.4 X10'3 (0-0.9); EOSINOPHILS % (AUTO) 5.5 % (0-6); HEMATOCRIT 38.1 % (35.0-45.0); HEMOGLOBIN 12.9 g/dl (12.0-16.0); LYMPHOCYTES % (AUTO) 12.7 % (21-51); MEAN CORPUSCULAR HEMOGLOBIN 32.6 PG (27.0-31.0); MEAN CORPUSCULAR HGB CONC 33.8 g/dL (33.0-36.5); MEAN CORPUSCULAR VOLUME 96.5 FL (78-98); MEAN PLATELET VOLUME 7.8 FL (7.4-10.4); MONOCYTES # (AUTO) 0.8 X10'3 (0-0.9); MONOCYTES % (AUTO) 9.7 % (2-12); NEUTROPHILS # (AUTO) 5.7 X10'3 (1.8-7.7); NEUTROPHILS % (AUTO) 71.2 % (42-75); PLATELET COUNT 215 X10'3 (140-440); RED BLOOD COUNT 3.95 X10'6 (4.20-5.60)
[2019-02-22 21:52] LABS: ALANINE AMINOTRANSFERASE 15 U/L (12-78); ALBUMIN 3.9 G/DL (3.4-5.0); ALBUMIN/GLOBULIN RATIO 1.3 (1.1-1.5); ALKALINE PHOSPHATASE 133 IU/L (46-116); ANION GAP 7 (8-16); ASPARTATE AMINO TRANSFERASE 10 U/L (10-37); BILIRUBIN,TOTAL 0.2 MG/DL (0.1-1.0); BLOOD UREA NITROGEN 21 MG/DL (7-18); BUN/CREATININE RATIO 22.3 (6.6-38.0); CALCIUM 9.1 MG/DL (8.5-10.1); CHLORIDE 106 MMOL/L (99-107); CREATININE 0.94 MG/DL (0.40-0.90); GLUCOSE 85 MG/DL (70-104); POTASSIUM 4.1 MMOL/L (3.5-5.1); SODIUM 145 MMOL/L (135-145); TOTAL CARBON DIOXIDE 31.8 MMOL/L (24-32); TOTAL PROTEIN 6.8 G/DL (6.4-8.2); eGFR 62 ML/MIN
[2019-02-22] MEDS ORDERED: furosemide 10 MG/1 ML 10ml inj IV ONE (22:35)
[2019-02-22 23:34] LABS: CLARITY,URINE CLEAR (Clear); COLOR,URINE YELLOW (Yellow); GLUCOSE, URINE NEGATIVE (Neg); KETONES,URINE NEGATIVE (Neg); LEUKOCYTE ESTERASE ,URINE SMALL (Neg); NITRITES, URINE NEGATIVE (Neg); OCCULT BLOOD,URINE NEGATIVE (Neg); PH,URINE 7.5 (4.8-8.0); PROTEIN,URINE NEGATIVE (Neg); UROBILINOGEN,URINE 0.2 E.U/dL (0.2-1.0)
[2019-02-22 23:36] LABS: UA COLLECTION TYPE CLN CATCH MIDSTREAM
[2019-02-22 23:44] LABS: BACTERIA,URINE NONE SEEN /HPF (Neg); RBC,URINE NONE SEEN /HPF (0-2); SQUAMOUS EPITHELIAL CELL,UR FEW /LPF (FEW); URINE AMPHETAMINE SCREEN NEGATIVE (Neg); URINE BARBITUATE SCREEN NEGATIVE (Neg); URINE BENZODIAZEPINES SCREEN NEGATIVE (Neg); URINE CANNABINOID SCREEN NEGATIVE (Neg); URINE COCAINE SCREEN NEGATIVE (Neg); URINE METHADONE SCREEN NEGATIVE (Neg); URINE OPIATE SCREEN NEGATIVE (Neg); URINE PHENCYCLIDINE SCREEN NEGATIVE (Neg); WBC,URINE 0-4 /HPF (0-4)
[2019-02-22] MEDS ORDERED: LORazepam 2 mg/ml vial IV ONE (23:45)
[2019-02-23] MEDS ORDERED: HYDROcodone/acetaminophen 5mg/325mg tablet PO ONE (00:45)
[2019-02-23 01:00] VITALS: BP 128/73
== END 2019-02-23 01:31 | disposition home or self-care (01) ==
LOC: ER 20:52
DX: R06.02 Shortness of breath (principal); R07.89 Other chest pain; I11.0 Hypertensive heart disease with heart failure; I50.9 Heart failure, unspecified; J44.9 Chronic obstructive pulmonary disease, unspecified; G89.29 Other chronic pain; Z90.49 Acquired absence of other specified parts of digestive tract; Z85.118 Personal history of other malignant neoplasm of bronchus and lung; Z98.890 Other specified postprocedural states; Z86.69 Personal history of other diseases of the nervous system and sense organs; Z88.6 Allergy status to analgesic agent; Z91.018 Allergy to other foods; Z88.8 Allergy status to other drugs, medicaments and biological substances; Z88.0 Allergy status to penicillin; Z79.899 Other long term (current) drug therapy
CPT/HCPCS: 36415; 71045; 80053; 80305; 81001; 83605; 83880; 84484; 85025; 85610; 87040; 87088; 93005; 96374; 96375; 99284; J1940; J2060

== ENCOUNTER 2019-04-27 20:18 | Emergency (ER) | payer MEDICAID ==
[~2019-04-27] VITALS: Ht 147.3 cm; Wt 40.9 kg
[~2019-04-27 20:18] MED LIST changes: -MONT10TA24 PO; +MONT10TA26 PO; -OMEP-297 PO; +OMEP20CA15 PO
[2019-04-27] MEDS ORDERED: methylPREDNISolone sod succ 125mg/2ml vial IV ONE (20:25)
[2019-04-27] MEDS ORDERED: ipratropium/albuterol 3ml nebule NEB ONE (20:25)
[2019-04-27] MEDS ORDERED: albuterol 2.5 MG/3 ML nebule NEB ONE ×2 (20:25→21:25)
[2019-04-27 21:01] LABS: BASOPHILS # (AUTO) 0.1 X10'3 (0-0.2); EOSINOPHILS # (AUTO) 0.2 X10'3 (0-0.9); EOSINOPHILS % (AUTO) 2.8 % (0-6); HEMATOCRIT 35.5 % (35.0-45.0); HEMOGLOBIN 12.1 g/dl (12.0-16.0); LYMPHOCYTES # (AUTO) 0.7 X10'3 (1.1-4.8); MEAN CORPUSCULAR HEMOGLOBIN 33.8 PG (27.0-31.0); MEAN CORPUSCULAR HGB CONC 34.1 g/dL (33.0-36.5); MEAN CORPUSCULAR VOLUME 99.3 FL (78-98); MEAN PLATELET VOLUME 7.9 FL (7.4-10.4); MONOCYTES # (AUTO) 0.5 X10'3 (0-0.9); MONOCYTES % (AUTO) 8.6 % (2-12); NEUTROPHILS # (AUTO) 4.6 X10'3 (1.8-7.7); NEUTROPHILS % (AUTO) 75.6 % (42-75); PLATELET COUNT 246 X10'3 (140-440); RED BLOOD COUNT 3.57 X10'6 (4.20-5.60); RED CELL DISTRIBUTION WIDTH 14.1 % (11.5-14.5); WHITE BLOOD COUNT 6.1 X10'3 (4.5-11.0)
[2019-04-27 21:15] VITALS: BP 120/72
[2019-04-27 21:16] LABS: ALANINE AMINOTRANSFERASE 44 U/L (12-78); ALBUMIN 4.2 G/DL (3.4-5.0); ALBUMIN/GLOBULIN RATIO 1.6 (1.1-1.5); ALKALINE PHOSPHATASE 126 IU/L (46-116); ANION GAP 4 (8-16); ASPARTATE AMINO TRANSFERASE 27 U/L (10-37); BILIRUBIN,TOTAL 0.3 MG/DL (0.1-1.0); BLOOD UREA NITROGEN 11 MG/DL (7-18); BUN/CREATININE RATIO 12.4 (6.6-38.0); CALCIUM 9.5 MG/DL (8.5-10.1); CHLORIDE 103 MMOL/L (99-107); CREATININE 0.89 MG/DL (0.40-0.90); GLUCOSE 121 MG/DL (70-104); POTASSIUM 3.9 MMOL/L (3.5-5.1); SODIUM 142 MMOL/L (135-145); TOTAL CARBON DIOXIDE 35.2 MMOL/L (24-32); TOTAL PROTEIN 6.8 G/DL (6.4-8.2); eGFR 66 ML/MIN
[2019-04-27] MEDS ORDERED: LORazepam 1 MG tablet PO ONE (21:55)
[2019-04-27] MEDS ORDERED: ALBU2.5V11 INH (22:10)
[2019-04-27] MEDS ORDERED: PRED20TA PO (22:10)
--- NOTE | 2019-04-27 22:32 | NUR ---
YELLOW [facility] ETA 30-40 MINS. AT 2232
== END 2019-04-28 02:21 | disposition home or self-care (01) ==
LOC: ER 20:18
DX: J44.1 Chronic obstructive pulmonary disease with (acute) exacerbation (principal); I11.0 Hypertensive heart disease with heart failure; I50.9 Heart failure, unspecified; G89.29 Other chronic pain; Z90.49 Acquired absence of other specified parts of digestive tract; Z98.890 Other specified postprocedural states; Z88.6 Allergy status to analgesic agent; Z91.018 Allergy to other foods; Z88.0 Allergy status to penicillin; Z88.8 Allergy status to other drugs, medicaments and biological substances; Z79.01 Long term (current) use of anticoagulants; Z79.899 Other long term (current) drug therapy
CPT/HCPCS: 36415; 71045; 80053; 83880; 85025; 93005; 94640; 96374; 99284; J2930; 94760

== ENCOUNTER 2019-05-15 18:02 | Emergency (ER) | payer MEDICAID ==
[~2019-05-15] VITALS: Ht 147.3 cm; Wt 46.0 kg
[~2019-05-15 18:02] MED LIST changes: +ALBU2.5V11 INH
[2019-05-15] MEDS ORDERED: pantoprazole 40 MG vial IV ONE (18:15)
[2019-05-15] MEDS ORDERED: morphine 4 MG/ML inj SYRINge IV ONE (18:15)
[2019-05-15] MEDS ORDERED: normal saline 1000ML IV soln IV ONE (18:15)
[2019-05-15] MEDS ORDERED: ondansetron/PF 4mg/2ml inj IV ONE (18:15)
[2019-05-15 19:06] LABS: BASOPHILS # (AUTO) 0.1 X10'3 (0-0.2); BASOPHILS % (AUTO) 0.5 % (0-1); EOSINOPHILS % (AUTO) 0.3 % (0-6); HEMATOCRIT 44.1 % (35.0-45.0); HEMOGLOBIN 14.9 g/dl (12.0-16.0); LYMPHOCYTES # (AUTO) 0.2 X10'3 (1.1-4.8); LYMPHOCYTES % (AUTO) 2.1 % (21-51); MEAN CORPUSCULAR HGB CONC 33.8 g/dL (33.0-36.5); MEAN CORPUSCULAR VOLUME 100.8 FL (78-98); MEAN PLATELET VOLUME 7.9 FL (7.4-10.4); MONOCYTES # (AUTO) 0.7 X10'3 (0-0.9); MONOCYTES % (AUTO) 6.6 % (2-12); NEUTROPHILS # (AUTO) 9.7 X10'3 (1.8-7.7); NEUTROPHILS % (AUTO) 90.5 % (42-75); PLATELET COUNT 244 X10'3 (140-440); RED BLOOD COUNT 4.38 X10'6 (4.20-5.60); WHITE BLOOD COUNT 10.7 X10'3 (4.5-11.0)
[2019-05-15 19:19] LABS: ANION GAP 6 (8-16); BLOOD UREA NITROGEN 13 MG/DL (7-18); BUN/CREATININE RATIO 13.4 (6.6-38.0); CHLORIDE 103 MMOL/L (99-107); CREATININE 0.97 MG/DL (0.40-0.90); GLUCOSE 112 MG/DL (70-104); SODIUM 144 MMOL/L (135-145); TOTAL CARBON DIOXIDE 34.6 MMOL/L (24-32)
[2019-05-15 19:20] LABS: ALANINE AMINOTRANSFERASE 24 U/L (12-78); ALBUMIN 4.1 G/DL (3.4-5.0); ALBUMIN/GLOBULIN RATIO 1.3 (1.1-1.5); ALKALINE PHOSPHATASE 115 IU/L (46-116); ASPARTATE AMINO TRANSFERASE 10 U/L (10-37); BILIRUBIN,TOTAL 0.7 MG/DL (0.1-1.0); CALCIUM 9.3 MG/DL (8.5-10.1); TOTAL PROTEIN 7.2 G/DL (6.4-8.2); eGFR 60 ML/MIN
--- NOTE | 2019-05-15 19:26 | NUR ---
PT UP TO BSC TO VOID AND HAD SOME LIQUID RED STOOL. STATES LOWER ABD PAIN TO MID ABD PAIN IS 10 OUT OF 10. VSS, WEARING O2 2 LITERS AND USES IT AAT.
[2019-05-15] MEDS ORDERED: TRAM50TA2 PO (21:20)
[2019-05-15] MEDS ORDERED: METR250T PO (21:20)
[2019-05-15] MEDS ORDERED: VANC250C5 PO (21:20)
[2019-05-15] MEDS ORDERED: ONDA4TAB6 PO (21:20)
--- NOTE | 2019-05-15 21:53 | NUR ---
Call to [facility] at this time for portable O2 tank for patient transportation to home.
[2019-05-15 21:54] VITALS: BP 107/59
== END 2019-05-15 22:20 | disposition home or self-care (01) ==
LOC: ER 18:03
DX: K52.9 Noninfective gastroenteritis and colitis, unspecified (principal); R11.2 Nausea with vomiting, unspecified; R10.32 Left lower quadrant pain; I11.0 Hypertensive heart disease with heart failure; I50.9 Heart failure, unspecified; J44.9 Chronic obstructive pulmonary disease, unspecified; G89.29 Other chronic pain; Z90.49 Acquired absence of other specified parts of digestive tract; Z98.890 Other specified postprocedural states; Z85.118 Personal history of other malignant neoplasm of bronchus and lung; Z79.01 Long term (current) use of anticoagulants; Z88.6 Allergy status to analgesic agent; Z91.018 Allergy to other foods; Z88.0 Allergy status to penicillin; Z88.1 Allergy status to other antibiotic agents
CPT/HCPCS: 36415; 71045; 74176; 80053; 82948; 83605; 84145; 85025; 85610; 87040; 87077; 87186; 93005; 96374; 96375; 99285; C9113; J2270; J2405; J7030

== ENCOUNTER 2019-07-17 22:50 | Emergency (ER) | payer MEDICAID ==
[~2019-07-17] VITALS: Ht 147.3 cm; Wt 43.0 kg
[~2019-07-17 22:50] MED LIST changes: +ONDA4TAB6 PO
[2019-07-17 22:58] VITALS: BP 133/88
[2019-07-17] MEDS ORDERED: LORazepam 2 mg/ml vial IV ONE (23:10)
[2019-07-17] MEDS ORDERED: ipratropium/albuterol 3ml nebule NEB ONE (23:10)
[2019-07-17] MEDS ORDERED: normal saline 1000ML IV soln IVB ONE (23:10)
[2019-07-17] MEDS ORDERED: methylPREDNISolone sod succ 125mg/2ml vial IV ONE (23:10)
[2019-07-17 23:41] LABS: BASOPHILS # (AUTO) 0.1 X10'3 (0-0.2); BASOPHILS % (AUTO) 0.9 % (0-1); EOSINOPHILS # (AUTO) 0.2 X10'3 (0-0.9); EOSINOPHILS % (AUTO) 3.2 % (0-6); HEMATOCRIT 36.5 % (35.0-45.0); HEMOGLOBIN 12.1 g/dl (12.0-16.0); LYMPHOCYTES # (AUTO) 0.9 X10'3 (1.1-4.8); LYMPHOCYTES % (AUTO) 12.5 % (21-51); MEAN CORPUSCULAR HEMOGLOBIN 32.9 PG (27.0-31.0); MEAN CORPUSCULAR HGB CONC 33.2 g/dL (33.0-36.5); MEAN CORPUSCULAR VOLUME 99.1 FL (78-98); MEAN PLATELET VOLUME 7.7 FL (7.4-10.4); MONOCYTES # (AUTO) 0.6 X10'3 (0-0.9); MONOCYTES % (AUTO) 8.5 % (2-12); NEUTROPHILS # (AUTO) 5.6 X10'3 (1.8-7.7); NEUTROPHILS % (AUTO) 74.9 % (42-75); PLATELET COUNT 229 X10'3 (140-440); RED BLOOD COUNT 3.68 X10'6 (4.20-5.60); RED CELL DISTRIBUTION WIDTH 13.3 % (11.5-14.5); WHITE BLOOD COUNT 7.4 X10'3 (4.5-11.0)
[2019-07-17 23:54] LABS: ALANINE AMINOTRANSFERASE 19 U/L (12-78); ALBUMIN 3.8 G/DL (3.4-5.0); ALBUMIN/GLOBULIN RATIO 1.4 (1.1-1.5); ALKALINE PHOSPHATASE 135 IU/L (46-116); ANION GAP 4 (8-16); ASPARTATE AMINO TRANSFERASE 12 U/L (10-37); BILIRUBIN,TOTAL 0.2 MG/DL (0.1-1.0); BLOOD UREA NITROGEN 24 MG/DL (7-18); BUN/CREATININE RATIO 27.6 (6.6-38.0); CALCIUM 9.6 MG/DL (8.5-10.1); CHLORIDE 105 MMOL/L (99-107); CREATININE 0.87 MG/DL (0.40-0.90); GLUCOSE 110 MG/DL (70-104); POTASSIUM 3.9 MMOL/L (3.5-5.1); SODIUM 143 MMOL/L (135-145); TOTAL CARBON DIOXIDE 34.2 MMOL/L (24-32); TOTAL PROTEIN 6.6 G/DL (6.4-8.2); eGFR 68 ML/MIN
[2019-07-17] MEDS ORDERED: albuterol 2.5 MG/3 ML nebule NEB ONE (23:55)
[2019-07-18] MEDS ORDERED: albuterol 2.5 MG/3 ML nebule NEB ONE (02:25)
== END 2019-07-18 03:30 | disposition home or self-care (01) ==
LOC: ER 22:50
DX: J44.1 Chronic obstructive pulmonary disease with (acute) exacerbation (principal); I11.0 Hypertensive heart disease with heart failure; I50.9 Heart failure, unspecified; G89.29 Other chronic pain; Z86.69 Personal history of other diseases of the nervous system and sense organs; Z90.49 Acquired absence of other specified parts of digestive tract; Z87.891 Personal history of nicotine dependence; Z88.0 Allergy status to penicillin; Z88.1 Allergy status to other antibiotic agents; Z91.018 Allergy to other foods; Z88.8 Allergy status to other drugs, medicaments and biological substances; Z79.899 Other long term (current) drug therapy
CPT/HCPCS: 36415; 71045; 80053; 85025; 93005; 94640; 96374; 96375; 99285; J2060; J2930; J7030; 94760

== ENCOUNTER 2019-12-02 10:28 | Emergency (ER) | payer MEDICAID ==
[~2019-12-02] VITALS: Ht 162.6 cm; Wt 60.0 kg
[2019-12-02] MEDS ORDERED: normal saline 1000ML IV soln IVB ONE (10:35)
[2019-12-02] MEDS ORDERED: LORazepam 2 mg/ml vial IV ONE (10:35)
[2019-12-02] MEDS ORDERED: haloperidol lactate 5mg/ml inj IM ONE (10:35)
[2019-12-02 11:20] LABS: BASOPHILS % (AUTO) 0.4 % (0-1); EOSINOPHILS # (AUTO) 0.1 X10'3 (0-0.9); HEMATOCRIT 46.7 % (35.0-45.0); HEMOGLOBIN 15.7 g/dl (12.0-16.0); LYMPHOCYTES # (AUTO) 0.5 X10'3 (1.1-4.8); LYMPHOCYTES % (AUTO) 7.1 % (21-51); MEAN CORPUSCULAR HEMOGLOBIN 32.7 PG (27.0-31.0); MEAN CORPUSCULAR HGB CONC 33.6 g/dL (33.0-36.5); MEAN CORPUSCULAR VOLUME 97.2 FL (78-98); MEAN PLATELET VOLUME 7.8 FL (7.4-10.4); MONOCYTES # (AUTO) 0.8 X10'3 (0-0.9); MONOCYTES % (AUTO) 11.1 % (2-12); NEUTROPHILS % (AUTO) 80.4 % (42-75); PLATELET COUNT 375 X10'3 (140-440); RED CELL DISTRIBUTION WIDTH 13.9 % (11.5-14.5); WHITE BLOOD COUNT 7.5 X10'3 (4.5-11.0)
[2019-12-02 11:36] LABS: ALANINE AMINOTRANSFERASE 16 U/L (12-78); ALBUMIN 4.2 G/DL (3.4-5.0); ALBUMIN/GLOBULIN RATIO 1.1 (1.1-1.5); ALKALINE PHOSPHATASE 110 IU/L (46-116); ANION GAP 6 (8-16); ASPARTATE AMINO TRANSFERASE 8 U/L (10-37); BILIRUBIN,TOTAL 0.9 MG/DL (0.1-1.0); BLOOD UREA NITROGEN 10 MG/DL (7-18); BUN/CREATININE RATIO 6.1 (6.6-38.0); CHLORIDE 90 MMOL/L (99-107); CREATININE 1.63 MG/DL (0.40-0.90); GLUCOSE 151 MG/DL (70-104); SODIUM 134 MMOL/L (135-145); TOTAL CARBON DIOXIDE 38.2 MMOL/L (24-32); TOTAL PROTEIN 7.9 G/DL (6.4-8.2); eGFR 33 ML/MIN
[2019-12-02] MEDS ORDERED: potassium Cl 20 mEq SR tablet PO STA (11:43)
[2019-12-02] MEDS ORDERED: potassium Cl 10 mEq/100mL bag IV ONE (11:45)
--- NOTE | 2019-12-02 12:31 | NUR ---
1ST LITER NS INFUSING W/O, PT IS SLEEPING, RESP EVEN AND UNLABORED
--- NOTE | 2019-12-02 13:53 | NUR ---
pt is sleeping, resp even and unlabored, 2nd liter NS infusing w/o
[2019-12-02] MEDS ORDERED: POTA10CA44 PO (16:07)
[2019-12-02 18:22] VITALS: BP 139/78
== END 2019-12-02 17:00 | disposition home or self-care (01) ==
LOC: ER 10:29
DX: R11.15 Cyclical vomiting syndrome unrelated to migraine (principal); E87.6 Hypokalemia; F12.188 Cannabis abuse with other cannabis-induced disorder; R11.2 Nausea with vomiting, unspecified; I11.0 Hypertensive heart disease with heart failure; I50.9 Heart failure, unspecified; J44.9 Chronic obstructive pulmonary disease, unspecified; G89.29 Other chronic pain; Z90.49 Acquired absence of other specified parts of digestive tract; Z86.69 Personal history of other diseases of the nervous system and sense organs; Z85.118 Personal history of other malignant neoplasm of bronchus and lung; Z88.8 Allergy status to other drugs, medicaments and biological substances; Z91.018 Allergy to other foods; Z88.0 Allergy status to penicillin; Z88.1 Allergy status to other antibiotic agents; Z79.899 Other long term (current) drug therapy; Z79.01 Long term (current) use of anticoagulants
CPT/HCPCS: 36415; 80053; 85025; 96365; 96372; 96375; 99285; J1630; J2060; J3480; J7030; 96374

== ENCOUNTER 2019-12-09 17:12 | Emergency (ER) | payer MEDICAID ==
[~2019-12-09] VITALS: Ht 147.3 cm; Wt 40.0 kg
[~2019-12-09 17:12] MED LIST changes: +POTA10CA44 PO
[2019-12-09] MEDS ORDERED: methylPREDNISolone sod succ 125mg/2ml vial IV ONE (18:20)
[2019-12-09] MEDS ORDERED: albuterol 2.5 MG/3 ML nebule CONTNEB PRN (18:20)
[2019-12-09] MEDS ORDERED: normal saline 1000ML IV soln IVB ONE ×2 (18:20→19:55)
[2019-12-09 18:54] LABS: BASOPHILS % (AUTO) 0.6 % (0-1); EOSINOPHILS # (AUTO) 0.1 X10'3 (0-0.9); EOSINOPHILS % (AUTO) 1.6 % (0-6); HEMATOCRIT 34.7 % (35.0-45.0); HEMOGLOBIN 11.6 g/dl (12.0-16.0); LYMPHOCYTES # (AUTO) 0.9 X10'3 (1.1-4.8); LYMPHOCYTES % (AUTO) 14.1 % (21-51); MEAN CORPUSCULAR HEMOGLOBIN 32.7 PG (27.0-31.0); MEAN CORPUSCULAR HGB CONC 33.4 g/dL (33.0-36.5); MEAN CORPUSCULAR VOLUME 97.9 FL (78-98); MEAN PLATELET VOLUME 8.2 FL (7.4-10.4); MONOCYTES # (AUTO) 0.6 X10'3 (0-0.9); MONOCYTES % (AUTO) 9.3 % (2-12); NEUTROPHILS # (AUTO) 4.6 X10'3 (1.8-7.7); NEUTROPHILS % (AUTO) 74.4 % (42-75); PLATELET COUNT 217 X10'3 (140-440); RED BLOOD COUNT 3.54 X10'6 (4.20-5.60); RED CELL DISTRIBUTION WIDTH 14.5 % (11.5-14.5); WHITE BLOOD COUNT 6.2 X10'3 (4.5-11.0)
[2019-12-09] MEDS ORDERED: HYDROcodone/acetaminophen 10/325mg tab PO ONE (19:05)
[2019-12-09 19:07] LABS: PARTIAL THROMBOPLASTIN TIME 26 SECONDS (22-32)
[2019-12-09 19:08] LABS: ALANINE AMINOTRANSFERASE 16 U/L (12-78); ALBUMIN 3.5 G/DL (3.4-5.0); ALBUMIN/GLOBULIN RATIO 1.2 (1.1-1.5); ALKALINE PHOSPHATASE 94 IU/L (46-116); ANION GAP 3 (8-16); ASPARTATE AMINO TRANSFERASE 9 U/L (10-37); BILIRUBIN,TOTAL 0.2 MG/DL (0.1-1.0); BLOOD UREA NITROGEN 10 MG/DL (7-18); BUN/CREATININE RATIO 6.8 (6.6-38.0); CALCIUM 9.1 MG/DL (8.5-10.1); CHLORIDE 104 MMOL/L (99-107); CREATININE 1.46 MG/DL (0.40-0.90); GLUCOSE 120 MG/DL (70-104); SODIUM 145 MMOL/L (135-145); TOTAL CARBON DIOXIDE 38.1 MMOL/L (24-32); TOTAL PROTEIN 6.4 G/DL (6.4-8.2); eGFR 37 ML/MIN
[2019-12-09 19:16] LABS: MAGNESIUM 1.8 MG/DL (1.5-2.4)
[2019-12-09] MEDS ORDERED: magnesium 2GM in 50ml NS 50 ML IV ONE (19:40)
[2019-12-09] MEDS ORDERED: potassium Cl 10 mEq/100mL bag IV ONE (19:40)
--- NOTE | 2019-12-09 20:00 | NUR ---
SPOKE TO PROVIDER, RE: PT HUNGRY, HE STATES OK TO GIVE TRAY
--- NOTE | 2019-12-09 20:01 | NUR ---
GAVE PT TRAY FOR DINNER
[2019-12-09] MEDS ORDERED: PRED20TA PO (20:49)
[2019-12-09] MEDS ORDERED: albuterol 2.5 MG/3 ML nebule NEB ONE (21:25)
[2019-12-09 22:45] VITALS: BP 137/53
== END 2019-12-09 22:47 | disposition home or self-care (01) ==
LOC: ER 17:12
DX: J44.9 Chronic obstructive pulmonary disease, unspecified (principal); I11.0 Hypertensive heart disease with heart failure; I50.9 Heart failure, unspecified; G89.29 Other chronic pain; Z86.69 Personal history of other diseases of the nervous system and sense organs; Z90.49 Acquired absence of other specified parts of digestive tract; Z85.9 Personal history of malignant neoplasm, unspecified; Z88.8 Allergy status to other drugs, medicaments and biological substances; Z91.018 Allergy to other foods; Z88.0 Allergy status to penicillin; Z88.1 Allergy status to other antibiotic agents; Z79.899 Other long term (current) drug therapy
CPT/HCPCS: 36415; 71045; 80053; 83735; 83880; 85025; 85610; 85730; 93005; 94640; 94644; 96361; 96365; 96375; 99285; J2930; J3475; J3480; J7030; 94760

== ENCOUNTER 2019-12-11 11:51 | Inpatient (IN) | payer MEDICAID ==
[~2019-12-11] VITALS: Ht 149.9 cm; Wt 48.4 kg
[2019-12-11] MEDS ORDERED: albuterol 2.5 MG/3 ML nebule CONTNEB PRN (12:15)
[2019-12-11] MEDS ORDERED: methylPREDNISolone sod succ 125mg/2ml vial IV ONE (12:15)
[2019-12-11 12:51] LABS: BASOPHILS % (AUTO) 0.2 % (0-1); EOSINOPHILS # (AUTO) 0.1 X10'3 (0-0.9); EOSINOPHILS % (AUTO) 0.5 % (0-6); HEMATOCRIT 35.4 % (35.0-45.0); HEMOGLOBIN 11.6 g/dl (12.0-16.0); LYMPHOCYTES # (AUTO) 0.2 X10'3 (1.1-4.8); LYMPHOCYTES % (AUTO) 1.7 % (21-51); MEAN CORPUSCULAR HEMOGLOBIN 32.1 PG (27.0-31.0); MEAN CORPUSCULAR HGB CONC 32.7 g/dL (33.0-36.5); MEAN CORPUSCULAR VOLUME 98.3 FL (78-98); MEAN PLATELET VOLUME 8.1 FL (7.4-10.4); MONOCYTES # (AUTO) 0.5 X10'3 (0-0.9); MONOCYTES % (AUTO) 4.1 % (2-12); NEUTROPHILS # (AUTO) 12.3 X10'3 (1.8-7.7); NEUTROPHILS % (AUTO) 93.5 % (42-75); PLATELET COUNT 270 X10'3 (140-440); RED CELL DISTRIBUTION WIDTH 14.5 % (11.5-14.5); WHITE BLOOD COUNT 13.1 X10'3 (4.5-11.0)
[2019-12-11 13:19] LABS: ALANINE AMINOTRANSFERASE 18 U/L (12-78); ALBUMIN 3.6 G/DL (3.4-5.0); ALBUMIN/GLOBULIN RATIO 1.1 (1.1-1.5); ALKALINE PHOSPHATASE 81 IU/L (46-116); ANION GAP 7 (8-16); ASPARTATE AMINO TRANSFERASE 5 U/L (10-37); BILIRUBIN,TOTAL 0.5 MG/DL (0.1-1.0); BLOOD UREA NITROGEN 11 MG/DL (7-18); BUN/CREATININE RATIO 11.3 (6.6-38.0); CALCIUM 9.4 MG/DL (8.5-10.1); CHLORIDE 102 MMOL/L (99-107); CREATININE 0.97 MG/DL (0.40-0.90); GLUCOSE 99 MG/DL (70-104); POTASSIUM 3.2 MMOL/L (3.5-5.1); SODIUM 141 MMOL/L (135-145); TOTAL CARBON DIOXIDE 31.8 MMOL/L (24-32); TOTAL PROTEIN 6.9 G/DL (6.4-8.2); eGFR 59 ML/MIN
[2019-12-11 13:20] LABS: ABG BASE EXCESS 6.5 mmol/L (-2.0-2.0); ABG HCO3 31.3 mmol/L (22.0-26.0); ABG OXYGEN SATURATION 96.5 % (94-97); ABG PCO2 (T) 46.1 mmHg (32.0-45.0); ABG PO2 (T) 75.3 mmHg (75.0-100.0); ALLEN'S TEST POSITIVE; FLOW 2 L/min; FMetHb 0.1 % (0.0-1.5); FO2Hb 95.4 % (94-97); TOTAL HEMOGLOBIN 11.4 G/dl (12.0-16.0)
[2019-12-11] MEDS ORDERED: ondansetron/PF 4mg/2ml inj IV ONE (13:20)
[2019-12-11] MEDS ORDERED: CefTRIAXone 2gm/D5W 50ml 50 ML IV ONE (13:40)
[2019-12-11] MEDS ORDERED: azithromycin/NS 500mg/250ml 250 ML IV ONE (13:40)
[2019-12-11] MEDS ORDERED: morphine 4 MG/ML inj SYRINge IV ONE (14:20)
[2019-12-11] MEDS ORDERED: CARV3.122 PO (14:45)
[2019-12-11] MEDS ORDERED: THEO400T PO (14:45)
[2019-12-11] MEDS ORDERED: GABA300C PO (14:45)
[2019-12-11] MEDS ORDERED: MONT10TA26 PO (14:45)
[2019-12-11] MEDS ORDERED: BUDE10.26 PO (14:45)
[2019-12-11] MEDS ORDERED: BUPR-72 PO (14:45)
[2019-12-11] MEDS ORDERED: LISI2.5T2 PO (14:45)
[2019-12-11] MEDS ORDERED: OMEP-50 PO (14:45)
[2019-12-11] MEDS ORDERED: ALBU18HF2 IH (14:45)
[2019-12-11] MEDS ORDERED: acetaminophen 650mg rectal suppository RC PRN (17:15)
[2019-12-11] MEDS ORDERED: bisacodyl 10mg suppository rectal RC PRN (17:15)
[2019-12-11] MEDS ORDERED: magnesium Cl slow-release 64mg tablet PO PRN (17:15)
[2019-12-11] MEDS ORDERED: mag hydrox/Alum hydrox/simeth 30ml oral suspension PO PRN (17:15)
[2019-12-11] MEDS ORDERED: HYDROcodone/acetaminophen 5mg/325mg tablet PO PRN (17:15)
[2019-12-11] MEDS ORDERED: magnesium hydroxide 30ml (MOM) UD suspension PO PRN (17:15)
[2019-12-11] MEDS ORDERED: normal saline 1000ml 1,000 ML IV SCH (17:15)
[2019-12-11] MEDS ORDERED: potassium Cl 20 mEq SR tablet PO PRN (17:15)
[2019-12-11] MEDS ORDERED: magnesium 4gm in 100ml NS 100 ML IV PRN (17:15)
[2019-12-11] MEDS ORDERED: potassium CL 10mEq/100ml bag 100 ML IV PRN ×2 (17:15)
[2019-12-11] MEDS ORDERED: acetaminophen 325mg tablet PO PRN ×2 (17:15)
[2019-12-11] MEDS ORDERED: magnesium 2GM in 50ml NS 50 ML IV PRN (17:15)
[2019-12-11] MEDS: morphine 2 MG/ML inj. syringe IV PRN ×2 (17:46→22:58)
[2019-12-11] MEDS: ipratropium/albuterol 3ml nebule NEB SCH ×2 (18:49→22:51)
--- NOTE | 2019-12-11 19:15 | NUR ---
I have received report from PADMINI Rubio (ED) and had the opportunity to ask questions.
[2019-12-11 19:28] VITALS: BP 143/83
--- NOTE | 2019-12-11 19:28 | NUR ---
Pt arrived to floor from ED via gurney and transferred to hospital bed. Pt oriented to room, tele monitor placed on pt. MRSA swab collected.
[2019-12-11] MEDS: potassium Cl 20 mEq SR tablet PO PRN ×2 (20:00→23:42)
[2019-12-11] MEDS: methylPREDNISolone sod succ 125mg/2ml vial IV SCH (20:01)
[2019-12-11] MEDS: K and/or MAG REPLACEMENT MC SCH (20:02)
[2019-12-11] MEDS: heparin, porcine 5000 units/ml vial SQ SCH (20:02)
[2019-12-11] MEDS ORDERED: furosemide 10 MG/1 ML 10ml inj IV ONE (20:25)
[2019-12-11 22:00] VITALS: BP 139/67
[2019-12-11] MEDS: ondansetron/PF 4mg/2ml inj IV PRN (23:37)
[2019-12-12 01:13] LABS: BASOPHILS % (AUTO) 0.1 % (0-1); EOSINOPHILS % (AUTO) 0 % (0-6); HEMATOCRIT 31.5 % (35.0-45.0); HEMOGLOBIN 10.7 g/dl (12.0-16.0); LYMPHOCYTES # (AUTO) 0.1 X10'3 (1.1-4.8); LYMPHOCYTES % (AUTO) 0.7 % (21-51); MEAN CORPUSCULAR HEMOGLOBIN 33.3 PG (27.0-31.0); MEAN CORPUSCULAR VOLUME 97.9 FL (78-98); MEAN PLATELET VOLUME 8.1 FL (7.4-10.4); MONOCYTES # (AUTO) 0.1 X10'3 (0-0.9); MONOCYTES % (AUTO) 0.6 % (2-12); NEUTROPHILS # (AUTO) 8.8 X10'3 (1.8-7.7); NEUTROPHILS % (AUTO) 98.6 % (42-75); PLATELET COUNT 247 X10'3 (140-440); RED BLOOD COUNT 3.21 X10'6 (4.20-5.60); RED CELL DISTRIBUTION WIDTH 14.2 % (11.5-14.5); WHITE BLOOD COUNT 8.9 X10'3 (4.5-11.0)
[2019-12-12 01:27] LABS: ALANINE AMINOTRANSFERASE 15 U/L (12-78); ALBUMIN 3.4 G/DL (3.4-5.0); ALBUMIN/GLOBULIN RATIO 1.1 (1.1-1.5); ALKALINE PHOSPHATASE 72 IU/L (46-116); ANION GAP 5 (8-16); ASPARTATE AMINO TRANSFERASE 8 U/L (10-37); BILIRUBIN,TOTAL 0.4 MG/DL (0.1-1.0); BLOOD UREA NITROGEN 10 MG/DL (7-18); BUN/CREATININE RATIO 9.3 (6.6-38.0); CALCIUM 8.7 MG/DL (8.5-10.1); CHLORIDE 100 MMOL/L (99-107); CREATININE 1.07 MG/DL (0.40-0.90); GLUCOSE 174 MG/DL (70-104); POTASSIUM 3.1 MMOL/L (3.5-5.1); SODIUM 137 MMOL/L (135-145); TOTAL CARBON DIOXIDE 32.4 MMOL/L (24-32); TOTAL PROTEIN 6.5 G/DL (6.4-8.2); eGFR 53 ML/MIN
[2019-12-12 01:29] LABS: CHOL/HDL RATIO 2.1 (0.00-4.99); CHOLESTEROL 164 MG/DL (0-200); HDL CHOLESTEROL 78 MG/DL (35-60); LDL CHOLESTEROL 79 MG/DL (50-100); MAGNESIUM 1.6 MG/DL (1.5-2.4); PHOSPHORUS 2.3 MG/DL (2.3-4.5); TRIGLYCERIDES 47 MG/DL (20-135)
[2019-12-12] MEDS: methylPREDNISolone sod succ 125mg/2ml vial IV SCH ×4 (01:52→19:08)
[2019-12-12 02:00] VITALS: BP 112/60
[2019-12-12] MEDS: ipratropium/albuterol 3ml nebule NEB SCH ×6 (02:56→23:39)
[2019-12-12] MEDS: potassium Cl 20 mEq SR tablet PO PRN ×3 (04:28→12:33)
[2019-12-12] MEDS: HYDROcodone/acetaminophen 10/325mg tab PO PRN ×3 (04:36→14:52)
--- NOTE | 2019-12-12 06:10 | NUR ---
Problems reprioritized. Patient report given, questions answered & plan of care reviewed with Ginny Poon RN.
--- NOTE | 2019-12-12 06:35 | NUR ---
Patient in room PCU 3028. I have received report from Elizabeth WASHINGTON and had the opportunity to ask questions and assume patient care.
[2019-12-12 07:00] VITALS: BP 105/59
[2019-12-12] MEDS: heparin, porcine 5000 units/ml vial SQ SCH ×2 (08:01→19:07)
[2019-12-12] MEDS: furosemide 40mg/4ml inj IV SCH ×2 (08:01→19:07)
[2019-12-12] MEDS: morphine 2 MG/ML inj. syringe IV PRN ×3 (08:01→19:07)
[2019-12-12] MEDS: CefTRIAXone/D5W-Rocephin 1gm 50 ML IV SCH (08:03)
[2019-12-12] MEDS: K and/or MAG REPLACEMENT MC SCH ×2 (08:14→20:00)
[2019-12-12] MEDS: azithromycin 250mg tablet PO SCH (08:14)
[2019-12-12] MEDS ORDERED: pneumococcal 23-VAL P-sac vacc 25 mcg/0.5ml vial IMVAC ONE (10:00)
[2019-12-12] MEDS ORDERED: gabapentin 300mg capsule PO PRN (10:25)
[2019-12-12 11:00] VITALS: BP 99/48
[2019-12-12] MEDS: busPIRone 15mg tablet PO SCH ×2 (11:27→19:08)
[2019-12-12] MEDS: ondansetron/PF 4mg/2ml inj IV PRN ×2 (12:31→21:10)
[2019-12-12 15:00] VITALS: BP 113/60
--- NOTE | 2019-12-12 16:31 | NUR ---
Nutrition consult re: allergy to tomatoes, dietary already aware. Addendum: 12/12/19 at [address] Amended: Links added.
--- NOTE | 2019-12-12 16:42 | NUR ---
I have reviewed and agree with all medications administered and interventions performed by [facility] Student Princess Lux Addendum: 12/12/19 at 1642 by Michaelle Lynch RT Amended: Links added.
[2019-12-12 16:45] LABS: CLARITY,URINE CLEAR (Clear); COLOR,URINE YELLOW (Yellow); GLUCOSE, URINE NEGATIVE (Neg); KETONES,URINE NEGATIVE (Neg); LEUKOCYTE ESTERASE ,URINE NEGATIVE (Neg); NITRITES, URINE NEGATIVE (Neg); OCCULT BLOOD,URINE NEGATIVE (Neg); PH,URINE 6.5 (4.8-8.0); PROTEIN,URINE NEGATIVE (Neg); UROBILINOGEN,URINE 0.2 E.U/dL (0.2-1.0)
[2019-12-12 16:47] LABS: UA COLLECTION TYPE NON-SPECIFIED
[2019-12-12 16:57] LABS: URINE AMPHETAMINE SCREEN NEGATIVE (Neg); URINE BARBITUATE SCREEN NEGATIVE (Neg); URINE BENZODIAZEPINES SCREEN NEGATIVE (Neg); URINE CANNABINOID SCREEN POSITIVE (Neg); URINE COCAINE SCREEN NEGATIVE (Neg); URINE METHADONE SCREEN NEGATIVE (Neg); URINE OPIATE SCREEN POSITIVE (Neg); URINE PHENCYCLIDINE SCREEN NEGATIVE (Neg)
--- NOTE | 2019-12-12 18:15 | NUR ---
Problems reprioritized. Patient report given, questions answered & plan of care reviewed with Michaelle WASHINGTON.
[2019-12-12] MEDS: buPROPion SR 150mg tablet PO SCH (19:07)
[2019-12-12] MEDS: carVEDilol 3.125mg tablet PO SCH (19:08)
[2019-12-13] MEDS: morphine 2 MG/ML inj. syringe IV PRN ×6 (00:27→21:44)
[2019-12-13] MEDS: methylPREDNISolone sod succ 125mg/2ml vial IV SCH ×4 (02:20→19:55)
[2019-12-13] MEDS: HYDROcodone/acetaminophen 10/325mg tab PO PRN (03:59)
--- NOTE | 2019-12-13 04:06 | NUR ---
Sent page- [phone] Wilman Sánchez. Patient experiencing chest pain 08/27 after minor exertion. BP 178/96. HR-71. 1mg morphine provided little relief. Michaelle WASHINGTON ext. [phone]
[2019-12-13] MEDS: ipratropium/albuterol 3ml nebule NEB SCH ×6 (04:21→23:33)
[2019-12-13 06:00] VITALS: BP 122/52
[2019-12-13 06:11] LABS: BASOPHILS % (AUTO) 0 % (0-1); EOSINOPHILS % (AUTO) 0 % (0-6); HEMATOCRIT 32.4 % (35.0-45.0); HEMOGLOBIN 10.8 g/dl (12.0-16.0); LYMPHOCYTES # (AUTO) 0.1 X10'3 (1.1-4.8); LYMPHOCYTES % (AUTO) 1.6 % (21-51); MEAN CORPUSCULAR HGB CONC 33.4 g/dL (33.0-36.5); MEAN CORPUSCULAR VOLUME 98.6 FL (78-98); MEAN PLATELET VOLUME 8.3 FL (7.4-10.4); MONOCYTES # (AUTO) 0.1 X10'3 (0-0.9); MONOCYTES % (AUTO) 1.8 % (2-12); NEUTROPHILS # (AUTO) 6.6 X10'3 (1.8-7.7); NEUTROPHILS % (AUTO) 96.6 % (42-75); PLATELET COUNT 285 X10'3 (140-440); RED BLOOD COUNT 3.29 X10'6 (4.20-5.60); RED CELL DISTRIBUTION WIDTH 14.7 % (11.5-14.5); WHITE BLOOD COUNT 6.8 X10'3 (4.5-11.0)
--- NOTE | 2019-12-13 06:31 | NUR ---
Patient in room PCU 3028. I have received report from Michaelle WASHINGTON and had the opportunity to ask questions and assume patient care.
--- NOTE | 2019-12-13 06:31 | NUR ---
Problems reprioritized. Patient report given, questions answered & plan of care reviewed with Edinson WASHINGTON.
[2019-12-13 06:43] LABS: ALANINE AMINOTRANSFERASE 19 U/L (12-78); ALBUMIN 3.4 G/DL (3.4-5.0); ALKALINE PHOSPHATASE 65 IU/L (46-116); ANION GAP 6 (8-16); ASPARTATE AMINO TRANSFERASE 9 U/L (10-37); BILIRUBIN,TOTAL 0.3 MG/DL (0.1-1.0); BLOOD UREA NITROGEN 19 MG/DL (7-18); BUN/CREATININE RATIO 16.8 (6.6-38.0); CALCIUM 9.4 MG/DL (8.5-10.1); CHLORIDE 99 MMOL/L (99-107); CREATININE 1.13 MG/DL (0.40-0.90); GLUCOSE 138 MG/DL (70-104); MAGNESIUM 1.8 MG/DL (1.5-2.4); PHOSPHORUS 2.8 MG/DL (2.3-4.5); POTASSIUM 5.5 MMOL/L (3.5-5.1); SODIUM 134 MMOL/L (135-145); TOTAL CARBON DIOXIDE 29.1 MMOL/L (24-32); TOTAL PROTEIN 6.7 G/DL (6.4-8.2); eGFR 50 ML/MIN
--- NOTE | 2019-12-13 06:44 | NUR ---
Patient in room PCU 3028. I have received report from Kaycee WASHINGTON and had the opportunity to ask questions and assume patient care.
[2019-12-13] MEDS: K and/or MAG REPLACEMENT MC SCH ×2 (08:00→19:19)
[2019-12-13] MEDS ORDERED: non-formulary drug (Torsemide 1 TAB) PO SCH (08:00)
[2019-12-13] MEDS: CefTRIAXone/D5W-Rocephin 1gm 50 ML IV SCH (08:52)
[2019-12-13] MEDS: furosemide 40mg/4ml inj IV SCH ×2 (08:53→20:01)
[2019-12-13] MEDS: heparin, porcine 5000 units/ml vial SQ SCH ×2 (08:54→20:05)
[2019-12-13] MEDS: azithromycin 250mg tablet PO SCH (08:55)
[2019-12-13] MEDS: theophylline anhydrous 100mg ER capsule 24-hour PO SCH (08:56)
[2019-12-13] MEDS: buPROPion SR 150mg tablet PO SCH ×2 (08:56→19:52)
[2019-12-13] MEDS: lisinopril 2.5mg tablet PO SCH (08:57)
[2019-12-13] MEDS: montelukast 10mg tablet PO SCH (08:57)
[2019-12-13] MEDS: carVEDilol 3.125mg tablet PO SCH ×2 (08:58→19:53)
[2019-12-13] MEDS: busPIRone 15mg tablet PO SCH ×2 (08:58→19:53)
[2019-12-13] MEDS: pantoprazole 40mg Tablet.DR PO SCH (08:58)
[2019-12-13] MEDS ORDERED: sodium polystyrene sulfonate 15gm/60ml oral suspension PO ONE (09:10)
[2019-12-13] MEDS: ondansetron/PF 4mg/2ml inj IV PRN (10:55)
[2019-12-13 11:00] VITALS: BP 128/50
[2019-12-13 18:00] VITALS: BP 106/58
--- NOTE | 2019-12-13 18:06 | NUR ---
1500 SVN treatment triaged.
--- NOTE | 2019-12-13 18:41 | NUR ---
Problems reprioritized. Patient report given, questions answered & plan of care reviewed with Polly WASHINGTON.
--- NOTE | 2019-12-13 18:43 | NUR ---
Patient in room PCU 3028. I have received report from PADMINI Neves and had the opportunity to ask questions and assume patient care.
[2019-12-13] MEDS: lactobacillus rhamnosus 10,000 MMU CELLS/CAPSULE PO SCH (19:53)
[2019-12-14] VITALS (7 sets, daily range): BP systolic 96–133; BP diastolic 46–68
[2019-12-14] MEDS: morphine 2 MG/ML inj. syringe IV PRN ×3 (01:33→12:02)
[2019-12-14] MEDS: methylPREDNISolone sod succ 125mg/2ml vial IV SCH ×2 (01:37→08:18)
[2019-12-14] MEDS: ondansetron/PF 4mg/2ml inj IV PRN (02:52)
[2019-12-14] MEDS: ipratropium/albuterol 3ml nebule NEB SCH ×2 (03:33→06:47)
[2019-12-14 06:06] LABS: BASOPHILS % (AUTO) 0.6 % (0-1); EOSINOPHILS % (AUTO) 0 % (0-6); HEMATOCRIT 34.2 % (35.0-45.0); HEMOGLOBIN 11.6 g/dl (12.0-16.0); LYMPHOCYTES # (AUTO) 0.1 X10'3 (1.1-4.8); LYMPHOCYTES % (AUTO) 1.4 % (21-51); MEAN CORPUSCULAR HEMOGLOBIN 33.2 PG (27.0-31.0); MEAN CORPUSCULAR HGB CONC 33.8 g/dL (33.0-36.5); MEAN CORPUSCULAR VOLUME 98.2 FL (78-98); MEAN PLATELET VOLUME 8.2 FL (7.4-10.4); MONOCYTES # (AUTO) 0.1 X10'3 (0-0.9); MONOCYTES % (AUTO) 2.6 % (2-12); NEUTROPHILS # (AUTO) 5.4 X10'3 (1.8-7.7); NEUTROPHILS % (AUTO) 95.4 % (42-75); PLATELET COUNT 350 X10'3 (140-440); RED BLOOD COUNT 3.48 X10'6 (4.20-5.60); RED CELL DISTRIBUTION WIDTH 14.7 % (11.5-14.5); WHITE BLOOD COUNT 5.6 X10'3 (4.5-11.0)
[2019-12-14 06:27] LABS: ALANINE AMINOTRANSFERASE 18 U/L (12-78); ALBUMIN 3.7 G/DL (3.4-5.0); ALBUMIN/GLOBULIN RATIO 1.2 (1.1-1.5); ALKALINE PHOSPHATASE 63 IU/L (46-116); ANION GAP 13 (8-16); ASPARTATE AMINO TRANSFERASE 7 U/L (10-37); BILIRUBIN,TOTAL 0.4 MG/DL (0.1-1.0); BLOOD UREA NITROGEN 16 MG/DL (7-18); BUN/CREATININE RATIO 14.7 (6.6-38.0); CALCIUM 9.4 MG/DL (8.5-10.1); CHLORIDE 98 MMOL/L (99-107); CREATININE 1.09 MG/DL (0.40-0.90); GLUCOSE 121 MG/DL (70-104); MAGNESIUM 1.8 MG/DL (1.5-2.4); PHOSPHORUS 3.8 MG/DL (2.3-4.5); POTASSIUM 3.1 MMOL/L (3.5-5.1); SODIUM 140 MMOL/L (135-145); TOTAL CARBON DIOXIDE 29.2 MMOL/L (24-32); TOTAL PROTEIN 6.8 G/DL (6.4-8.2); eGFR 52 ML/MIN
--- NOTE | 2019-12-14 06:45 | NUR ---
Problems reprioritized. Patient report given, questions answered & plan of care reviewed with Ginny Poon RN.
--- NOTE | 2019-12-14 06:53 | NUR ---
Patient in room PCU 3028. I have received report from Polly WASHINGTON and had the opportunity to ask questions and assume patient care.
--- NOTE | 2019-12-14 07:16 | NUR ---
Paged Dr. Hassan PAGER ID: [phone] MESSAGE: Re: Anusha Serraon [id number]. Pt is feeling anxious HR 160's. Please advise Ginny WASHINGTON [phone]
[2019-12-14] MEDS: K and/or MAG REPLACEMENT MC SCH ×2 (08:00→20:00)
[2019-12-14] MEDS: CefTRIAXone/D5W-Rocephin 1gm 50 ML IV SCH (08:08)
[2019-12-14] MEDS: furosemide 40mg/4ml inj IV SCH ×2 (08:18→20:00)
[2019-12-14] MEDS: heparin, porcine 5000 units/ml vial SQ SCH ×2 (08:18→20:00)
[2019-12-14] MEDS: lactobacillus rhamnosus 10,000 MMU CELLS/CAPSULE PO SCH ×2 (08:19→20:00)
[2019-12-14] MEDS: theophylline anhydrous 100mg ER capsule 24-hour PO SCH (08:20)
[2019-12-14] MEDS: lisinopril 2.5mg tablet PO SCH (08:20)
[2019-12-14] MEDS: busPIRone 15mg tablet PO SCH ×2 (08:20→20:00)
[2019-12-14] MEDS: azithromycin 250mg tablet PO SCH (08:21)
[2019-12-14] MEDS: buPROPion SR 150mg tablet PO SCH ×2 (08:21→20:00)
[2019-12-14] MEDS: pantoprazole 40mg Tablet.DR PO SCH (08:21)
[2019-12-14] MEDS: montelukast 10mg tablet PO SCH (08:21)
[2019-12-14] MEDS: carVEDilol 3.125mg tablet PO SCH ×2 (08:22→20:00)
[2019-12-14] MEDS: LORazepam 1 MG tablet PO PRN (11:45)
--- NOTE | 2019-12-14 13:01 | NUR ---
Dr. Hassan at bedside with patient and Nurse. MD explained plan of care. MD is aware of patients anxious and agitated behavior. A new order for a one tome IV push Ativan 1mg now to help reduce stress. Patient is to stay another night for observations and Dr. Jenkins as an out patient follow ups. Will continue to monitor.
[2019-12-14] MEDS ORDERED: LORazepam 2 mg/ml vial IV ONE (13:05)
--- NOTE | 2019-12-14 13:24 | NUR ---
Ativan 1mg given. Continue to monitor. If medication is not working let MD know and ask Haldol IV push. Called and left message with Don for update on patient and status in being discharge tomorrow.
--- NOTE | 2019-12-14 14:16 | NUR ---
Paged Dr. Hassan PAGER ID: [phone] MESSAGE: Re: Bertha Smith [id number]. RT is asking if they can cancel PFT? Please Advise Ginny WASHINGTON [phone] Dr. Hassan called and advised Dr. Jenkins was the one who could like this done. Will proceed to tell RT
--- NOTE | 2019-12-14 14:33 | NUR ---
Paged RT to do PFT
[2019-12-14] MEDS: potassium Cl 20 mEq SR tablet PO PRN (15:05)
--- NOTE | 2019-12-14 15:14 | NUR ---
Paged Dr. Hassan promotional table spacer PAGER ID: [phone] MESSAGE: Re: Anusha Smith [id number]. May We have an order for hadol. Pt very agitated and anxious even after Ativan. Thank you Ginny WASHINGTON2602
[2019-12-14] MEDS ORDERED: haloperidol lactate 5mg/ml inj IM ONE (15:20)
--- NOTE | 2019-12-14 15:43 | NUR ---
Haldol given IM left deltoid. Patient still appears anxious and uncontrollable with emotions and paranoia. Will continue to monitor.
--- NOTE | 2019-12-14 17:00 | NUR ---
Deodon given to patient a one time order. Sitter in room. Will continue to monitor.
--- NOTE | 2019-12-14 17:05 | NUR ---
Paged Dr. Hassan PAGER ID: [phone] MESSAGE: Re: Anusha Smith [id number]. Patient mental status different. Patient is hallucinating and agitated. Meds did not help. Please Advise Thank you Ginny WASHINGTON2602
--- NOTE | 2019-12-14 17:18 | NUR ---
Patient pulled IV line out of the left arm that ER Nurse put in today. Will notify MD as well.
[2019-12-14] MEDS ORDERED: ziprasidone IM 20mg inj **IM only IM ONE (17:25)
--- NOTE | 2019-12-14 17:25 | NUR ---
Dr. Hassan called and responded to pages. New order 10 ml Geodon IM one time only. Patient is needing a sitter due to unable to follow commands and pulls lines out. Will continue to monitor.
--- NOTE | 2019-12-14 18:27 | NUR ---
Problems reprioritized. Patient report given, questions answered & plan of care reviewed with Floridalma Hernandez.
--- NOTE | 2019-12-14 18:34 | NUR ---
Patient in room PCU 3028. I have received report from Ginny WASHINGTON and had the opportunity to ask questions and assume patient care.
[2019-12-14] MEDS: HYDROcodone/acetaminophen 10/325mg tab PO PRN (19:33)
[2019-12-14] MEDS: methylPREDNISolone sod succ/PF 40mg inj. IV SCH (20:00)
--- NOTE | 2019-12-14 20:28 | NUR ---
Received in report today that pt's Q4 duoneb svn tx's had been d/c'd due to pt's high heart rate and increased anxiety and agitation today. Per notes, Dr. Hassan advised that RT still attempt to do PFT that has been ordered by Dr. Barragan. I went to assess pt and she is borderline obtunded. She barely responds to verbal stimuli, is unable to follow commands to take deep breaths an cough. Apparently earlier today, per notes, pt was pulling out her Iv's and it took mult meds to get her calmed back down and ehr heart rate under control. Pt does have a sitter at the bedside. With pt's mentation and inability to follow commands, RT is unable to attempt a bedisde screen on her again. Last night, 12/13/19, RT attempted bedside PFT. Pt was doing fairly decent, but the computer malfunctioned. Unfortunately today, 12/13, the pt has a huge change in status. RT advises to at least have a Xopenex or Atrovent prn tx orderd as pt has sever copd/emphysema. RT will cont to monitor. Addendum: 12/14/19 at 2138 by Leslie Lerma RT Amended: Links added.
--- NOTE | 2019-12-14 23:24 | NUR ---
Pt. awakened after 4 hours of sleeping. POC discussed, pt opened eyes and said "no more". Staff explained the need f/pt to have IV access placed, all medication admin, and HS care given and she continued to refuse this. VSs were obtained though pt very reluctant. Pt. also generally very angry and extremely suspicious of all staff and their attempts to render treatment. Sitter is at bedside. Dr. Jordan, the current personnel research scientist Hospitalist, notified of pt's persistent refusal of all care. No new orders given at this time.
[2019-12-15 02:00] VITALS: BP 136/70
--- NOTE | 2019-12-15 03:30 | NUR ---
Pt. awake now, assisted to BSC. Continues to be angry and suspicious. Staff able to attempt an IV insertion X 1, unsuccessful. Pt refused additional attempts.
[2019-12-15] MEDS ORDERED: potassium Cl 20 mEq SR tablet PO PRN (03:55)
[2019-12-15] MEDS ORDERED: magnesium Cl slow-release 64mg tablet PO PRN (03:55)
[2019-12-15] MEDS ORDERED: magnesium 4gm in 100ml NS 100 ML IV PRN (03:55)
[2019-12-15] MEDS ORDERED: potassium CL 10mEq/100ml bag 100 ML IV PRN (03:55)
[2019-12-15 05:55] LABS: BASOPHILS % (AUTO) 0 % (0-1); EOSINOPHILS % (AUTO) 0 % (0-6); HEMATOCRIT 31.2 % (35.0-45.0); HEMOGLOBIN 10.4 g/dl (12.0-16.0); LYMPHOCYTES # (AUTO) 0.2 X10'3 (1.1-4.8); LYMPHOCYTES % (AUTO) 3.6 % (21-51); MEAN CORPUSCULAR HEMOGLOBIN 32.4 PG (27.0-31.0); MEAN CORPUSCULAR HGB CONC 33.3 g/dL (33.0-36.5); MEAN CORPUSCULAR VOLUME 97.4 FL (78-98); MEAN PLATELET VOLUME 7.6 FL (7.4-10.4); MONOCYTES # (AUTO) 0.6 X10'3 (0-0.9); MONOCYTES % (AUTO) 9.2 % (2-12); NEUTROPHILS # (AUTO) 5.5 X10'3 (1.8-7.7); NEUTROPHILS % (AUTO) 87.2 % (42-75); PLATELET COUNT 311 X10'3 (140-440); RED CELL DISTRIBUTION WIDTH 14.4 % (11.5-14.5); WHITE BLOOD COUNT 6.3 X10'3 (4.5-11.0)
[2019-12-15 06:12] LABS: ALANINE AMINOTRANSFERASE 17 U/L (12-78); ALBUMIN/GLOBULIN RATIO 1.2 (1.1-1.5); ALKALINE PHOSPHATASE 53 IU/L (46-116); ANION GAP 6 (8-16); ASPARTATE AMINO TRANSFERASE 11 U/L (10-37); BILIRUBIN,TOTAL 0.4 MG/DL (0.1-1.0); BLOOD UREA NITROGEN 12 MG/DL (7-18); BUN/CREATININE RATIO 12.5 (6.6-38.0); CALCIUM 8.6 MG/DL (8.5-10.1); CHLORIDE 101 MMOL/L (99-107); CREATININE 0.96 MG/DL (0.40-0.90); GLUCOSE 92 MG/DL (70-104); MAGNESIUM 1.8 MG/DL (1.5-2.4); PHOSPHORUS 2.6 MG/DL (2.3-4.5); SODIUM 141 MMOL/L (135-145); TOTAL CARBON DIOXIDE 34.1 MMOL/L (24-32); TOTAL PROTEIN 5.5 G/DL (6.4-8.2); eGFR 60 ML/MIN
[2019-12-15 06:14] LABS: POTASSIUM 2.7 MMOL/L (3.5-5.1)
--- NOTE | 2019-12-15 06:46 | NUR ---
Patient in room PCU 3028. I have received report from Floridalma WASHINGTON and had the opportunity to ask questions and assume patient care.
--- NOTE | 2019-12-15 06:47 | NUR ---
Patient in room PCU 3028. I have received report from Floridalma WASHINGTON and had the opportunity to ask questions and assume patient care.
[2019-12-15 06:52] VITALS: BP 145/71
--- NOTE | 2019-12-15 06:59 | NUR ---
Problems reprioritized. Patient report given, questions answered & plan of care reviewed with Vonnie WASHINGTON.
[2019-12-15] MEDS: K and/or MAG REPLACEMENT MC SCH ×4 (07:28→20:00)
[2019-12-15] MEDS: CefTRIAXone/D5W-Rocephin 1gm 50 ML IV SCH (07:42)
[2019-12-15] MEDS: ondansetron/PF 4mg/2ml inj IV PRN (07:42)
[2019-12-15] MEDS: furosemide 40mg/4ml inj IV SCH ×2 (07:47→19:23)
[2019-12-15] MEDS: azithromycin 250mg tablet PO SCH (07:49)
[2019-12-15] MEDS: methylPREDNISolone sod succ/PF 40mg inj. IV SCH ×2 (07:49→19:25)
[2019-12-15] MEDS: buPROPion SR 150mg tablet PO SCH ×2 (07:56→19:29)
[2019-12-15] MEDS: montelukast 10mg tablet PO SCH (07:56)
[2019-12-15] MEDS: carVEDilol 3.125mg tablet PO SCH ×2 (07:56→19:31)
[2019-12-15] MEDS: lactobacillus rhamnosus 10,000 MMU CELLS/CAPSULE PO SCH ×2 (07:56→19:30)
[2019-12-15] MEDS: busPIRone 15mg tablet PO SCH ×2 (07:57→19:26)
[2019-12-15] MEDS: pantoprazole 40mg Tablet.DR PO SCH (07:57)
[2019-12-15] MEDS: lisinopril 2.5mg tablet PO SCH (07:58)
[2019-12-15] MEDS: potassium Cl 20 mEq SR tablet PO PRN ×3 (07:58→19:32)
[2019-12-15] MEDS: heparin, porcine 5000 units/ml vial SQ SCH ×2 (08:00→19:24)
[2019-12-15 12:00] VITALS: BP 146/75
[2019-12-15] MEDS: theophylline anhydrous 100mg ER capsule 24-hour PO SCH (12:24)
[2019-12-15] MEDS: LORazepam 1 MG tablet PO PRN ×2 (12:42→20:35)
[2019-12-15] MEDS: lactose-reduced food (Ensure Enlive) - 237ml bottle PO SCH ×2 (13:00→18:09)
[2019-12-15 15:59] VITALS: BP 132/63
[2019-12-15 18:00] VITALS: BP 141/76
--- NOTE | 2019-12-15 18:00 | NUR ---
Patient in room PCU 3028. I have received report from SANTI RN AND STUDENT and had the opportunity to ask questions and assume patient care.
--- NOTE | 2019-12-15 18:03 | NUR ---
Student documentation: I have reviewed all interventions, assessments performed and documented by Christi CAMPOS from [facility] . Student Medication Administration: For all medication-pass' in the time frame of 0600 to 1830, all medication were reviewed, dispensed, administered and documented per hospital policy by Christi CAMPOS from [facility].
--- NOTE | 2019-12-15 18:20 | NUR ---
Patient in room PCU 3028. I have received report from Freedom WASHINGTON and had the opportunity to ask questions and assume patient care.
--- NOTE | 2019-12-15 18:20 | NUR ---
Problems reprioritized. Patient report given, questions answered & plan of care reviewed with Goran WASHINGTON.
[2019-12-16] VITALS (7 sets, daily range): BP systolic 95–180; BP diastolic 57–88
[2019-12-16] MEDS: LORazepam 1 MG tablet PO PRN ×3 (02:31→17:05)
--- NOTE | 2019-12-16 03:01 | NUR ---
Pt got up out of bed, sat self down and laid on the floor. got the patient to stand and get back in bed. encouraged deep breathing and relaxation. pt is experiencing severe anxiety. sitter in room with patient. will continue to monitor.
--- NOTE | 2019-12-16 03:13 | NUR ---
PAGER ID: [phone] MESSAGE: [phone] Bertha Smith. Pt is having an anxiety attack. possible to do ativan IV? pt has scheduled PO. HR 158 BP180/75 RR 26. Goran WASHINGTON [phone]
[2019-12-16 06:21] LABS: BASOPHILS % (AUTO) 0 % (0-1); EOSINOPHILS % (AUTO) 0 % (0-6); HEMATOCRIT 37.1 % (35.0-45.0); HEMOGLOBIN 12.2 g/dl (12.0-16.0); LYMPHOCYTES # (AUTO) 0.2 X10'3 (1.1-4.8); MEAN CORPUSCULAR HEMOGLOBIN 32.5 PG (27.0-31.0); MEAN CORPUSCULAR VOLUME 98.4 FL (78-98); MEAN PLATELET VOLUME 7.8 FL (7.4-10.4); MONOCYTES # (AUTO) 0.8 X10'3 (0-0.9); MONOCYTES % (AUTO) 8.1 % (2-12); NEUTROPHILS # (AUTO) 9.4 X10'3 (1.8-7.7); NEUTROPHILS % (AUTO) 89.9 % (42-75); PLATELET COUNT 402 X10'3 (140-440); RED BLOOD COUNT 3.77 X10'6 (4.20-5.60); RED CELL DISTRIBUTION WIDTH 14.6 % (11.5-14.5); WHITE BLOOD COUNT 10.4 X10'3 (4.5-11.0)
--- NOTE | 2019-12-16 06:25 | NUR ---
Problems reprioritized. Patient report given, questions answered & plan of care reviewed with Ashley WASHINGTON.
--- NOTE | 2019-12-16 06:40 | NUR ---
Patient in room PCU 3028. I have received report from Goran WASHINGTON and had the opportunity to ask questions and assume patient care.
[2019-12-16 06:54] LABS: ALANINE AMINOTRANSFERASE 38 U/L (12-78); ALBUMIN 3.8 G/DL (3.4-5.0); ALBUMIN/GLOBULIN RATIO 1.3 (1.1-1.5); ALKALINE PHOSPHATASE 75 IU/L (46-116); ANION GAP 8 (8-16); ASPARTATE AMINO TRANSFERASE 52 U/L (10-37); BILIRUBIN,TOTAL 0.4 MG/DL (0.1-1.0); BLOOD UREA NITROGEN 22 MG/DL (7-18); BUN/CREATININE RATIO 19.8 (6.6-38.0); CALCIUM 9.6 MG/DL (8.5-10.1); CHLORIDE 101 MMOL/L (99-107); CREATININE 1.11 MG/DL (0.40-0.90); GLUCOSE 192 MG/DL (70-104); MAGNESIUM 2.1 MG/DL (1.5-2.4); PHOSPHORUS 3.2 MG/DL (2.3-4.5); POTASSIUM 4.7 MMOL/L (3.5-5.1); SODIUM 140 MMOL/L (135-145); TOTAL CARBON DIOXIDE 31.3 MMOL/L (24-32); TOTAL PROTEIN 6.7 G/DL (6.4-8.2); eGFR 51 ML/MIN
[2019-12-16] MEDS: methylPREDNISolone sod succ/PF 40mg inj. IV SCH ×2 (07:29→20:35)
[2019-12-16] MEDS: furosemide 40mg/4ml inj IV SCH ×2 (07:29→20:35)
[2019-12-16] MEDS: theophylline anhydrous 100mg ER capsule 24-hour PO SCH (07:30)
[2019-12-16] MEDS: CefTRIAXone/D5W-Rocephin 1gm 50 ML IV SCH (07:30)
[2019-12-16] MEDS: lisinopril 2.5mg tablet PO SCH (07:31)
[2019-12-16] MEDS: azithromycin 250mg tablet PO SCH (07:31)
[2019-12-16] MEDS: busPIRone 15mg tablet PO SCH ×2 (07:32→20:38)
[2019-12-16] MEDS: lactobacillus rhamnosus 10,000 MMU CELLS/CAPSULE PO SCH ×2 (07:32→20:36)
[2019-12-16] MEDS: montelukast 10mg tablet PO SCH (07:32)
[2019-12-16] MEDS: buPROPion SR 150mg tablet PO SCH ×2 (07:33→20:37)
[2019-12-16] MEDS: pantoprazole 40mg Tablet.DR PO SCH (07:33)
[2019-12-16] MEDS: K and/or MAG REPLACEMENT MC SCH ×4 (08:00→20:00)
[2019-12-16] MEDS: heparin, porcine 5000 units/ml vial SQ SCH ×2 (08:00→20:36)
[2019-12-16] MEDS: lactose-reduced food (Ensure Enlive) - 237ml bottle PO SCH ×3 (08:00→18:00)
[2019-12-16] MEDS ORDERED: carvedilol 6.25mg tablet PO SCH (08:00)
[2019-12-16] MEDS ORDERED: carVEDilol 12.5mg tablet PO ONE (10:35)
[2019-12-16 12:51] LABS: ABG BASE EXCESS 2.2 mmol/L (-2.0-2.0); ABG HCO3 28.5 mmol/L (22.0-26.0); ABG OXYGEN SATURATION 98.9 % (94-97); ABG PCO2 (T) 51.4 mmHg (32.0-45.0); ALLEN'S TEST POSITIVE; FCOHb 0.3 % (0.0-3.9); FLOW 1 L/min; FO2Hb 98.6 % (94-97); TOTAL HEMOGLOBIN 12.7 G/dl (12.0-16.0)
--- NOTE | 2019-12-16 14:25 | NUR ---
TRIED ON 12-13-2019Monday AND Monday12-16-2019 PFT, UNABLE TO DO PATIENT IS LETHARGIC, UNABLE TO EVEN HOLD THE MOUTHPIECE TO DO THE PFT. DISCUSSED WITH TONY WASHINGTON AND TOLD TO PLEASE RELAY TO DR. BUSCH. Addendum: 12/16/19 at 1429 by Donte Gee RT Amended: Links added.
--- NOTE | 2019-12-16 16:18 | NUR ---
Initial: patient admitted with c/o Shortness of breath. Per H&P has home oxygen for advanced end stage COPD. Admitted with respiratory failure, COPD exacerbation, left lower lobe pneumonia, CHF exacerbation. Was having nausea and vomiting 12/12 and 12/13, receiving prn zofran. Not eating well, about 0-25% PO intake. Consumed 75% ensure enlive with dinner. Met pt at bedside, has sitter, pt appears very short of breath. Very PO intake likely r/t this. Patient agreeable to strawberry and banana smoothies. Asked patient if she would prefer ground foods in view of being extremely short of breath. Will trial ground foods that require no chewing. D/w dietary. Recommend: 1. continue regular diet, grind all, smoothies with meals 2. continue ensure enlive with meals 3. weight per rx Addendum: 12/16/19 at [address] Amended: Links added.
--- NOTE | 2019-12-16 16:20 | NUR ---
5F DUAL LUMEN PLACED TO LEFT BRACHIAL VEIN X'S 1 ATTEMPT USING ULTRASOUND GUIDANCE WITH TIP ENDING MIDAXILLARY. LINE DRAWS BLOOD AND FLUSHES EASILY. PAXTON PICC PADMINI
--- NOTE | 2019-12-16 18:24 | NUR ---
Problems reprioritized. Patient report given, questions answered & plan of care reviewed with PADMINI Zimmer.
--- NOTE | 2019-12-16 18:34 | NUR ---
Patient in room PCU 3028. I have received report from Ashley WASHINGTON and had the opportunity to ask questions and assume patient care.
[2019-12-16] MEDS: carVEDilol 12.5mg tablet PO SCH (20:37)
[2019-12-17 02:00] VITALS: BP 122/75
[2019-12-17 03:01] LABS: BASOPHILS # (AUTO) 0.1 X10'3 (0-0.2); BASOPHILS % (AUTO) 0.9 % (0-1); EOSINOPHILS % (AUTO) 0 % (0-6); HEMATOCRIT 31.9 % (35.0-45.0); HEMOGLOBIN 10.8 g/dl (12.0-16.0); LYMPHOCYTES # (AUTO) 0.1 X10'3 (1.1-4.8); LYMPHOCYTES % (AUTO) 0.9 % (21-51); MEAN CORPUSCULAR HEMOGLOBIN 33.3 PG (27.0-31.0); MEAN CORPUSCULAR VOLUME 98.1 FL (78-98); MEAN PLATELET VOLUME 7.6 FL (7.4-10.4); MONOCYTES # (AUTO) 0.2 X10'3 (0-0.9); MONOCYTES % (AUTO) 2.4 % (2-12); NEUTROPHILS % (AUTO) 95.8 % (42-75); PLATELET COUNT 275 X10'3 (140-440); RED BLOOD COUNT 3.26 X10'6 (4.20-5.60); RED CELL DISTRIBUTION WIDTH 14.4 % (11.5-14.5); WHITE BLOOD COUNT 9.4 X10'3 (4.5-11.0)
[2019-12-17 03:37] LABS: ALBUMIN 3.3 G/DL (3.4-5.0); ALBUMIN/GLOBULIN RATIO 1.4 (1.1-1.5); ALKALINE PHOSPHATASE 107 IU/L (46-116); ANION GAP 5 (8-16); BILIRUBIN,TOTAL 0.5 MG/DL (0.1-1.0); BLOOD UREA NITROGEN 33 MG/DL (7-18); BUN/CREATININE RATIO 24.6 (6.6-38.0); CALCIUM 8.8 MG/DL (8.5-10.1); CHLORIDE 98 MMOL/L (99-107); CREATININE 1.34 MG/DL (0.40-0.90); GLUCOSE 112 MG/DL (70-104); MAGNESIUM 1.9 MG/DL (1.5-2.4); PHOSPHORUS 4.1 MG/DL (2.3-4.5); POTASSIUM 3.8 MMOL/L (3.5-5.1); SODIUM 140 MMOL/L (135-145); TOTAL CARBON DIOXIDE 36.8 MMOL/L (24-32); TOTAL PROTEIN 5.6 G/DL (6.4-8.2); eGFR 41 ML/MIN
[2019-12-17 03:40] LABS: ALANINE AMINOTRANSFERASE 1191 U/L (12-78); ASPARTATE AMINO TRANSFERASE 1071 U/L (10-37)
[2019-12-17 07:00] VITALS: BP 140/84
[2019-12-17] MEDS: K and/or MAG REPLACEMENT MC SCH ×2 (08:00)
[2019-12-17] MEDS: HYDROcodone/acetaminophen 10/325mg tab PO PRN (08:24)
[2019-12-17] MEDS: furosemide 40mg/4ml inj IV SCH (08:26)
[2019-12-17] MEDS: CefTRIAXone/D5W-Rocephin 1gm 50 ML IV SCH (08:27)
[2019-12-17] MEDS: ondansetron/PF 4mg/2ml inj IV PRN (08:31)
[2019-12-17] MEDS: methylPREDNISolone sod succ/PF 40mg inj. IV SCH (08:34)
[2019-12-17] MEDS: lactose-reduced food (Ensure Enlive) - 237ml bottle PO SCH ×2 (08:39→13:00)
[2019-12-17] MEDS: carVEDilol 12.5mg tablet PO SCH (08:40)
[2019-12-17] MEDS: montelukast 10mg tablet PO SCH (08:40)
[2019-12-17] MEDS: lactobacillus rhamnosus 10,000 MMU CELLS/CAPSULE PO SCH (08:40)
[2019-12-17] MEDS: busPIRone 15mg tablet PO SCH (08:40)
[2019-12-17] MEDS: pantoprazole 40mg Tablet.DR PO SCH (08:40)
[2019-12-17] MEDS: lisinopril 2.5mg tablet PO SCH (08:41)
[2019-12-17] MEDS: theophylline anhydrous 100mg ER capsule 24-hour PO SCH (08:41)
[2019-12-17] MEDS: buPROPion SR 150mg tablet PO SCH (08:41)
[2019-12-17] MEDS: heparin, porcine 5000 units/ml vial SQ SCH (08:42)
--- NOTE | 2019-12-17 08:57 | NUR ---
Rm 1925 Luis Langford, pt is feeling SOB and sounds wheezy, can we please get a breathing treatment. Thank you
[2019-12-17 11:00] VITALS: BP 110/72
[2019-12-17] MEDS ORDERED: PRED10TA23 PO (14:29)
[2019-12-17] MEDS ORDERED: CEFD300C3 PO (14:29)
[2019-12-17] MEDS ORDERED: CARV-50 PO (14:29)
[2019-12-17] MEDS ORDERED: LACT1CAP26 PO (14:29)
[2019-12-17 15:00] VITALS: BP 99/59
--- NOTE | 2019-12-17 16:40 | NUR ---
Patient was discharged home, at 1630. Patient packet was reviewed before signing and being sent home. New Rx were called in to [facility] [place]. Patient midline was removed, all belongings were packed and patient was wheeled down and had a ride home by [facility].
== END 2019-12-17 16:25 | disposition home health service (06) | DRG 720 ==
LOC: ER 11:51 → ED HOLD 17:15 → PCU 3S 19:15
PROVIDERS: ADMIT Family Medicine; ATTEND Family Medicine
DX: A41.9 Sepsis, unspecified organism (principal); E87.6 Hypokalemia; F12.90 Cannabis use, unspecified, uncomplicated; G40.909 Epilepsy, unspecified, not intractable, without status epilepticus; G62.9 Polyneuropathy, unspecified; I08.0 Rheumatic disorders of both mitral and aortic valves; I11.0 Hypertensive heart disease with heart failure; I48.91 Unspecified atrial fibrillation; I50.23 Acute on chronic systolic (congestive) heart failure; J18.9 Pneumonia, unspecified organism; Z96.652 Presence of left artificial knee joint; E87.4 Mixed disorder of acid-base balance; J43.9 Emphysema, unspecified; I27.81 Cor pulmonale (chronic); F41.9 Anxiety disorder, unspecified; J96.20 Acute and chronic respiratory failure, unspecified whether with hypoxia or hypercapnia; I27.20 Pulmonary hypertension, unspecified; G89.29 Other chronic pain; K21.9 Gastro-esophageal reflux disease without esophagitis; Z20.828 Contact with and (suspected) exposure to other viral communicable diseases; Z85.118 Personal history of other malignant neoplasm of bronchus and lung; Z87.891 Personal history of nicotine dependence; Z90.49 Acquired absence of other specified parts of digestive tract; Z91.14 Patient's other noncompliance with medication regimen; Z99.81 Dependence on supplemental oxygen; Z88.0 Allergy status to penicillin; Z88.8 Allergy status to other drugs, medicaments and biological substances; Z81.1 Family history of alcohol abuse and dependence; Z79.899 Other long term (current) drug therapy
CPT/HCPCS: 36415; 36600; 71045; 71250; 76937; 80053; 80061; 80305; 81003; 82803; 83036; 83605; 83735; 83880; 84100; 84132; 84484; 85018; 85025; 87040; 87081; 87635; 90732; 93005; 93306; 93308; 94640; 94760; 97116; 97161; 97530; 99285; G0378; J0456; J0696; J1630; J1644; J1940; J2060; J2270; J2405; J2920; J2930; J3486; J7030

== ENCOUNTER 2019-12-23 14:34 | Inpatient (IN) | payer MEDICAID ==
[~2019-12-23] VITALS: Ht 147.3 cm; Wt 39.5 kg
[~2019-12-23 14:34] MED LIST changes: -ACET-812 PO; +ALBU18HF2 IH; -ALBU18HF2 INH; -ALBU2.5V11 INH; -ALBU2.5V13 NEB; -AMIO100T4 PO; -BISO5TAB PO; -BUDE0.5A11 NEB; -BUDE10.22 INH; +BUDE10.26 PO; +BUPR-72 PO; +CARV-50 PO; +CEFD300C3 PO; -CLON0.5T23 PO; -GABA-530 PO; +GABA300C PO; -HYDR-3717 PO; -IPRA3AMP31 IH; +LACT1CAP26 PO; -LISI-604 PO; +LISI2.5T2 PO; -LORA10TA7 PO; -NITR0.4T48 SL; +OMEP-50 PO; -OMEP20CA15 PO; -ONDA4TAB6 PO; -POTA10CA44 PO; -POTA10TA15 PO; +PRED10TA23 PO; -PRED20TA PO; -SERT100T10 PO; -SUMA50TA PO; -THEO200T22 PO; +THEO400T PO; -TIOT4MIS5 IH; -WARF-65 PO
[2019-12-23] MEDS ORDERED: ipratropium/albuterol 3ml nebule ONE (14:43)
[2019-12-23] MEDS ORDERED: CefTRIAXone 2gm/D5W 50ml 50 ML IV ONE (14:45)
[2019-12-23] MEDS ORDERED: methylPREDNISolone sod succ 125mg/2ml vial IV ONE (14:45)
[2019-12-23] MEDS ORDERED: albuterol 2.5 MG/3 ML nebule CONTNEB PRN (14:45)
[2019-12-23 15:14] LABS: BASOPHILS % (AUTO) 0.5 % (0-1); EOSINOPHILS # (AUTO) 0.1 X10'3 (0-0.9); EOSINOPHILS % (AUTO) 1.1 % (0-6); HEMATOCRIT 32.1 % (35.0-45.0); HEMOGLOBIN 11.1 g/dl (12.0-16.0); LYMPHOCYTES # (AUTO) 0.4 X10'3 (1.1-4.8); MEAN CORPUSCULAR HEMOGLOBIN 33.9 PG (27.0-31.0); MEAN CORPUSCULAR HGB CONC 34.4 g/dL (33.0-36.5); MEAN CORPUSCULAR VOLUME 98.5 FL (78-98); MEAN PLATELET VOLUME 8.8 FL (7.4-10.4); MONOCYTES # (AUTO) 0.8 X10'3 (0-0.9); NEUTROPHILS % (AUTO) 83.4 % (42-75); PLATELET COUNT 214 X10'3 (140-440); RED BLOOD COUNT 3.26 X10'6 (4.20-5.60); RED CELL DISTRIBUTION WIDTH 14.7 % (11.5-14.5); WHITE BLOOD COUNT 8.4 X10'3 (4.5-11.0)
--- NOTE | 2019-12-23 15:15 | NUR ---
pt rgt ej started ,bld culture collected .pt off from o2 and neb tx saturating 98% on ra.no distress noted ,pt tolerated the procedure .
[2019-12-23 15:26] LABS: ABG BASE EXCESS 7.6 mmol/L (-2.0-2.0); ABG HCO3 32.1 mmol/L (22.0-26.0); ABG OXYGEN SATURATION 90.6 % (94-97); ABG PCO2 (T) 44.9 mmHg (32.0-45.0); ABG PO2 (T) 55.8 mmHg (75.0-100.0); ALLEN'S TEST POSITIVE; FCOHb 0.8 % (0.0-3.9); FMetHb 0.1 % (0.0-1.5); FO2Hb 89.8 % (94-97); TOTAL HEMOGLOBIN 11.4 G/dl (12.0-16.0)
--- NOTE | 2019-12-23 15:30 | NUR ---
sbar pt condition to primary nurse peri jain.
[2019-12-23 15:50] LABS: ALANINE AMINOTRANSFERASE 105 U/L (12-78); ALBUMIN 3.5 G/DL (3.4-5.0); ALBUMIN/GLOBULIN RATIO 1.4 (1.1-1.5); ALKALINE PHOSPHATASE 99 IU/L (46-116); ANION GAP 3 (8-16); ASPARTATE AMINO TRANSFERASE 7 U/L (10-37); BILIRUBIN,TOTAL 0.7 MG/DL (0.1-1.0); BLOOD UREA NITROGEN 9 MG/DL (7-18); CALCIUM 8.2 MG/DL (8.5-10.1); CHLORIDE 103 MMOL/L (99-107); CREATININE 1.12 MG/DL (0.40-0.90); GLUCOSE 120 MG/DL (70-104); SODIUM 142 MMOL/L (135-145); TOTAL CARBON DIOXIDE 36.4 MMOL/L (24-32); eGFR 50 ML/MIN
[2019-12-23 15:53] LABS: POTASSIUM 2.9 MMOL/L (3.5-5.1)
[2019-12-23 15:59] LABS: PARTIAL THROMBOPLASTIN TIME 23 SECONDS (22-32)
[2019-12-23] MEDS ORDERED: BUSP30TA2 PO (16:26)
[2019-12-23] MEDS ORDERED: MONT10TA21 PO (16:26)
[2019-12-23] MEDS ORDERED: BUPR150T14 PO (16:26)
[2019-12-23] MEDS ORDERED: HYDR-3686 PO (16:26)
[2019-12-23] MEDS ORDERED: POTA8CAP20 PO (16:26)
[2019-12-23] MEDS ORDERED: BUSP30TA3 PO (16:26)
[2019-12-23] MEDS ORDERED: CARV3.122 PO (16:26)
[2019-12-23] MEDS ORDERED: LISI2.5T2 PO (16:26)
[2019-12-23] MEDS ORDERED: ALBU17AE26 PO (16:26)
[2019-12-23] MEDS ORDERED: GABA300T25 PO (16:26)
[2019-12-23] MEDS ORDERED: THEO400C PO (16:26)
[2019-12-23] MEDS ORDERED: TORS20TA3 PO (16:26)
[2019-12-23] MEDS ORDERED: OMEP-50 PO (16:26)
[2019-12-23] MEDS ORDERED: ONDA-103 PO (16:26)
[2019-12-23] MEDS ORDERED: BUDE10.2 INH (16:26)
[2019-12-23] MEDS ORDERED: acetaminophen 325mg tablet PO PRN (17:00)
[2019-12-23] MEDS ORDERED: magnesium 2GM in 50ml NS 50 ML IV PRN (17:00)
[2019-12-23] MEDS ORDERED: potassium CL 10mEq/100ml bag 100 ML IV PRN ×2 (17:00)
[2019-12-23] MEDS ORDERED: magnesium Cl slow-release 64mg tablet PO PRN (17:00)
[2019-12-23] MEDS ORDERED: magnesium 4gm in 100ml NS 100 ML IV PRN (17:00)
[2019-12-23] MEDS ORDERED: potassium Cl 20 mEq SR tablet PO PRN (17:00)
[2019-12-23] MEDS ORDERED: non-formulary drug (Ondansetron HCl 1 TAB) PO PRN (17:10)
[2019-12-23] MEDS ORDERED: hydrOXYzine 25 MG tablet PO PRN (17:10)
[2019-12-23] MEDS: morphine 2 MG/ML inj. syringe IV PRN ×2 (17:19→23:08)
[2019-12-23] MEDS: potassium Cl 20 mEq SR tablet PO PRN ×2 (18:40→23:20)
[2019-12-23] MEDS ORDERED: non-formulary drug (Buspirone HCl 1 TAB) PO SCH (20:00)
[2019-12-23] MEDS: K and/or MAG REPLACEMENT MC SCH (20:00)
[2019-12-23] MEDS: heparin, porcine 5000 units/ml vial SQ SCH (20:00)
--- NOTE | 2019-12-23 20:43 | NUR ---
Patient in room ED 3. I have received report from Israel WASHINGTON from ED and had the opportunity to ask questions and assume patient care.
[2019-12-23 22:00] VITALS: BP 103/46
[2019-12-23] MEDS: furosemide 40mg/4ml inj IV SCH (22:43)
[2019-12-23] MEDS: methylPREDNISolone sod succ/PF 40mg inj. IV SCH (22:44)
[2019-12-23] MEDS: busPIRone 15mg tablet PO SCH (22:44)
[2019-12-23] MEDS: buPROPion SR 150mg tablet PO SCH (22:44)
[2019-12-23] MEDS: carVEDilol 3.125mg tablet PO SCH (22:45)
[2019-12-23] MEDS: docusate sod 100mg capsule PO SCH (22:45)
[2019-12-23] MEDS: gabapentin 300mg capsule PO SCH (22:45)
[2019-12-24] MEDS: ondansetron/PF 4mg/2ml inj IV PRN ×2 (01:54→14:48)
[2019-12-24 02:00] VITALS: BP 114/50
[2019-12-24] MEDS: potassium Cl 20 mEq SR tablet PO PRN (03:47)
[2019-12-24] MEDS: morphine 2 MG/ML inj. syringe IV PRN ×5 (03:47→20:19)
--- NOTE | 2019-12-24 06:28 | NUR ---
Patient in room PCU 3012. I have received report from PADMINI Zimmer and had the opportunity to ask questions and assume patient care.
[2019-12-24 06:29] LABS: BASOPHILS % (AUTO) 0.1 % (0-1); EOSINOPHILS % (AUTO) 0 % (0-6); HEMATOCRIT 31.6 % (35.0-45.0); HEMOGLOBIN 10.3 g/dl (12.0-16.0); LYMPHOCYTES # (AUTO) 0.2 X10'3 (1.1-4.8); LYMPHOCYTES % (AUTO) 1.8 % (21-51); MEAN CORPUSCULAR HEMOGLOBIN 32.6 PG (27.0-31.0); MEAN CORPUSCULAR HGB CONC 32.7 g/dL (33.0-36.5); MEAN CORPUSCULAR VOLUME 99.7 FL (78-98); MEAN PLATELET VOLUME 9.1 FL (7.4-10.4); MONOCYTES # (AUTO) 0.1 X10'3 (0-0.9); MONOCYTES % (AUTO) 1.4 % (2-12); NEUTROPHILS # (AUTO) 8.6 X10'3 (1.8-7.7); NEUTROPHILS % (AUTO) 96.7 % (42-75); PLATELET COUNT 211 X10'3 (140-440); RED BLOOD COUNT 3.17 X10'6 (4.20-5.60); RED CELL DISTRIBUTION WIDTH 15.4 % (11.5-14.5); WHITE BLOOD COUNT 8.9 X10'3 (4.5-11.0)
--- NOTE | 2019-12-24 06:32 | NUR ---
Problems reprioritized. Patient report given, questions answered & plan of care reviewed with Ashley WASHINGTON.
[2019-12-24 06:39] LABS: ALBUMIN 3.4 G/DL (3.4-5.0); ANION GAP 6 (8-16); BLOOD UREA NITROGEN 11 MG/DL (7-18); BUN/CREATININE RATIO 10.1 (6.6-38.0); CALCIUM 8.6 MG/DL (8.5-10.1); CHLORIDE 104 MMOL/L (99-107); CREATININE 1.09 MG/DL (0.40-0.90); GLUCOSE 201 MG/DL (70-104); MAGNESIUM 1.8 MG/DL (1.5-2.4); POTASSIUM 4.3 MMOL/L (3.5-5.1); SODIUM 139 MMOL/L (135-145); TOTAL CARBON DIOXIDE 29.2 MMOL/L (24-32); eGFR 52 ML/MIN
[2019-12-24 07:06] VITALS: BP 108/53
[2019-12-24] MEDS: methylPREDNISolone sod succ/PF 40mg inj. IV SCH ×2 (07:35→20:18)
[2019-12-24] MEDS: furosemide 40mg/4ml inj IV SCH ×2 (07:35→20:18)
[2019-12-24] MEDS: pantoprazole 40mg Tablet.DR PO SCH (07:36)
[2019-12-24] MEDS: busPIRone 15mg tablet PO SCH ×2 (07:36→20:16)
[2019-12-24] MEDS: heparin, porcine 5000 units/ml vial SQ SCH ×2 (07:36→20:18)
[2019-12-24] MEDS: docusate sod 100mg capsule PO SCH ×2 (07:36→20:17)
[2019-12-24] MEDS: carVEDilol 3.125mg tablet PO SCH ×2 (07:37→20:00)
[2019-12-24] MEDS: buPROPion SR 150mg tablet PO SCH ×2 (07:37→20:15)
[2019-12-24] MEDS: gabapentin 300mg capsule PO SCH ×2 (07:37→20:14)
[2019-12-24] MEDS: lisinopril 2.5mg tablet PO SCH (07:37)
[2019-12-24] MEDS: montelukast 10mg tablet PO SCH (07:37)
[2019-12-24] MEDS: theophylline anhydrous 100mg ER capsule 24-hour PO SCH (07:38)
[2019-12-24] MEDS: K and/or MAG REPLACEMENT MC SCH ×2 (07:38→20:00)
[2019-12-24] MEDS: albuterol 2.5 MG/3 ML nebule NEB PRN (09:55)
[2019-12-24 11:00] VITALS: BP 112/73
[2019-12-24] MEDS ORDERED: FLU VACC QS2020-21(6MOS UP)/PF 60 MCG/0.5 ML SYRINGE IMVAC ONE (12:25)
[2019-12-24] MEDS: furosemide 20MG tablet PO SCH (14:49)
[2019-12-24] MEDS: azithromycin 250mg tablet PO SCH (14:50)
[2019-12-24 15:00] VITALS: BP 117/72
[2019-12-24 18:00] VITALS: BP 117/63
--- NOTE | 2019-12-24 18:32 | NUR ---
Problems reprioritized. Patient report given, questions answered & plan of care reviewed with Montse WASHINGTON.
[2019-12-24 22:00] VITALS: BP 102/45
[2019-12-25] MEDS: morphine 2 MG/ML inj. syringe IV PRN ×3 (00:34→10:12)
[2019-12-25 02:00] VITALS: BP 106/53
--- NOTE | 2019-12-25 06:00 | NUR ---
Patient in room PCU 3012. I have received report from Peg WASHINGTON and had the opportunity to ask questions and assume patient care.
--- NOTE | 2019-12-25 06:38 | NUR ---
Problems reprioritized. Patient report given, questions answered & plan of care reviewed with Nneka WASHINGTON.
[2019-12-25 06:42] LABS: ALBUMIN 3.6 G/DL (3.4-5.0); ANION GAP 6 (8-16); BASOPHILS % (AUTO) 0.1 % (0-1); BLOOD UREA NITROGEN 10 MG/DL (7-18); BUN/CREATININE RATIO 11.6 (6.6-38.0); CALCIUM 9.1 MG/DL (8.5-10.1); CHLORIDE 98 MMOL/L (99-107); CREATININE 0.86 MG/DL (0.40-0.90); EOSINOPHILS % (AUTO) 0 % (0-6); GLUCOSE 122 MG/DL (70-104); HEMATOCRIT 32.5 % (35.0-45.0); HEMOGLOBIN 10.8 g/dl (12.0-16.0); LYMPHOCYTES # (AUTO) 0.3 X10'3 (1.1-4.8); LYMPHOCYTES % (AUTO) 2.9 % (21-51); MAGNESIUM 1.8 MG/DL (1.5-2.4); MEAN CORPUSCULAR HGB CONC 33.2 g/dL (33.0-36.5); MEAN CORPUSCULAR VOLUME 99.4 FL (78-98); MEAN PLATELET VOLUME 8.9 FL (7.4-10.4); MONOCYTES # (AUTO) 0.6 X10'3 (0-0.9); MONOCYTES % (AUTO) 5.3 % (2-12); NEUTROPHILS # (AUTO) 9.7 X10'3 (1.8-7.7); NEUTROPHILS % (AUTO) 91.7 % (42-75); PLATELET COUNT 256 X10'3 (140-440); RED BLOOD COUNT 3.27 X10'6 (4.20-5.60); RED CELL DISTRIBUTION WIDTH 15.5 % (11.5-14.5); SODIUM 136 MMOL/L (135-145); TOTAL CARBON DIOXIDE 31.9 MMOL/L (24-32); WHITE BLOOD COUNT 10.5 X10'3 (4.5-11.0); eGFR 68 ML/MIN
[2019-12-25 07:00] VITALS: BP 105/46
[2019-12-25 08:00] VITALS: BP_SYST 99
[2019-12-25] MEDS: furosemide 40mg/4ml inj IV SCH (08:00)
[2019-12-25] MEDS: lisinopril 2.5mg tablet PO SCH (08:00)
[2019-12-25] MEDS: furosemide 20MG tablet PO SCH (08:00)
[2019-12-25] MEDS: K and/or MAG REPLACEMENT MC SCH (08:00)
[2019-12-25] MEDS: methylPREDNISolone sod succ/PF 40mg inj. IV SCH (09:06)
[2019-12-25] MEDS: heparin, porcine 5000 units/ml vial SQ SCH (09:08)
[2019-12-25] MEDS: docusate sod 100mg capsule PO SCH (09:10)
[2019-12-25] MEDS: pantoprazole 40mg Tablet.DR PO SCH (09:10)
[2019-12-25] MEDS: montelukast 10mg tablet PO SCH (09:10)
[2019-12-25] MEDS: busPIRone 15mg tablet PO SCH (09:10)
[2019-12-25] MEDS: carVEDilol 3.125mg tablet PO SCH (09:10)
[2019-12-25] MEDS: gabapentin 300mg capsule PO SCH (09:10)
[2019-12-25] MEDS: theophylline anhydrous 100mg ER capsule 24-hour PO SCH (09:11)
[2019-12-25] MEDS: buPROPion SR 150mg tablet PO SCH (09:11)
[2019-12-25] MEDS: azithromycin 250mg tablet PO SCH (09:16)
[2019-12-25] MEDS ORDERED: AZI25OT PO (10:10)
[2019-12-25] MEDS: albuterol 2.5 MG/3 ML nebule NEB PRN (10:26)
[2019-12-25] MEDS: ondansetron/PF 4mg/2ml inj IV PRN (12:14)
--- NOTE | 2019-12-25 13:16 | NUR ---
Patient was d/c to home at 1230. EJ was removed with cannula intact. RX was sent to [facility] in [place]. Discharge instructions were reviewed with patient and she verbalized understanding. Patient was taken home by cab. Pt alert, oriented and appropriated at time of d/c.
== END 2019-12-25 12:26 | disposition home health service (06) | DRG 140 ==
LOC: ER 14:35 → ED HOLD 16:57 → PCU 3S 21:01
PROVIDERS: ADMIT Internal Medicine; ATTEND Internal Medicine
PROC: 3E0234Z Introduction of Serum, Toxoid and Vaccine into Muscle, Percutaneous Approach (ICD-10-PCS; principal; 2019-12-24)
DX: J43.9 Emphysema, unspecified (principal); J96.20 Acute and chronic respiratory failure, unspecified whether with hypoxia or hypercapnia; I11.0 Hypertensive heart disease with heart failure; E87.6 Hypokalemia; I50.9 Heart failure, unspecified; I48.91 Unspecified atrial fibrillation; K21.9 Gastro-esophageal reflux disease without esophagitis; Z88.0 Allergy status to penicillin; Z88.8 Allergy status to other drugs, medicaments and biological substances; Z85.118 Personal history of other malignant neoplasm of bronchus and lung; Z90.49 Acquired absence of other specified parts of digestive tract; G40.802 Other epilepsy, not intractable, without status epilepticus; Z20.828 Contact with and (suspected) exposure to other viral communicable diseases; Z23 Encounter for immunization
CPT/HCPCS: 36415; 36600; 71045; 80048; 80053; 82803; 83735; 83880; 84145; 85018; 85025; 85610; 85730; 87081; 87635; 93005; 94640; 94760; 99285; G0378; J0696; J1644; J1940; J2270; J2405; J2920; J2930; Q0177; Q2039

== ENCOUNTER 2020-01-04 08:51 | Inpatient (IN) | payer MEDICAID ==
[~2020-01-04] VITALS: Ht 147.3 cm; Wt 50.0 kg
[~2020-01-04 08:51] MED LIST changes: +ALBU17AE26 PO; -ALBU18HF2 IH; +AZI25OT PO; +BUDE10.2 INH; -BUDE10.26 PO; -BUPR-72 PO; +BUPR150T14 PO; -BUSP30TA2 PO; +BUSP30TA3 PO; -CARV-50 PO; +CARV3.122 PO; -CEFD300C3 PO; -GABA300C PO; +GABA300T25 PO; +HYDR-3686 PO; -LACT1CAP26 PO; +MONT10TA21 PO; -MONT10TA26 PO; +ONDA-103 PO; -ONDA4TAB12 PO; +POTA8CAP20 PO; -PRED10TA23 PO; +THEO400C PO; -THEO400T PO
[2020-01-04] MEDS ORDERED: albuterol 2.5 MG/3 ML nebule CONTNEB PRN (09:05)
[2020-01-04] MEDS ORDERED: methylPREDNISolone sod succ 125mg/2ml vial IV ONE (09:05)
[2020-01-04 09:45] LABS: BASOPHILS # (AUTO) 0.1 X10'3 (0-0.2); BASOPHILS % (AUTO) 0.6 % (0-1); EOSINOPHILS # (AUTO) 0.1 X10'3 (0-0.9); EOSINOPHILS % (AUTO) 0.9 % (0-6); HEMATOCRIT 33.3 % (35.0-45.0); HEMOGLOBIN 11.2 g/dl (12.0-16.0); LYMPHOCYTES # (AUTO) 0.6 X10'3 (1.1-4.8); LYMPHOCYTES % (AUTO) 6.4 % (21-51); MEAN CORPUSCULAR HEMOGLOBIN 34.1 PG (27.0-31.0); MEAN CORPUSCULAR HGB CONC 33.6 g/dL (33.0-36.5); MEAN CORPUSCULAR VOLUME 101.6 FL (78-98); MEAN PLATELET VOLUME 8.1 FL (7.4-10.4); MONOCYTES # (AUTO) 0.7 X10'3 (0-0.9); MONOCYTES % (AUTO) 7.7 % (2-12); NEUTROPHILS # (AUTO) 7.2 X10'3 (1.8-7.7); NEUTROPHILS % (AUTO) 84.4 % (42-75); PLATELET COUNT 220 X10'3 (140-440); RED BLOOD COUNT 3.28 X10'6 (4.20-5.60); RED CELL DISTRIBUTION WIDTH 14.9 % (11.5-14.5); WHITE BLOOD COUNT 8.6 X10'3 (4.5-11.0)
[2020-01-04] MEDS ORDERED: LORazepam 2 mg/ml vial IV ONE ×2 (09:45→16:00)
[2020-01-04 09:49] LABS: ALANINE AMINOTRANSFERASE 29 U/L (12-78); ALBUMIN 3.6 G/DL (3.4-5.0); ALBUMIN/GLOBULIN RATIO 1.2 (1.1-1.5); ALKALINE PHOSPHATASE 109 IU/L (46-116); ANION GAP 8 (8-16); ASPARTATE AMINO TRANSFERASE 12 U/L (10-37); BILIRUBIN,TOTAL 0.4 MG/DL (0.1-1.0); BLOOD UREA NITROGEN 19 MG/DL (7-18); BUN/CREATININE RATIO 24.4 (6.6-38.0); CALCIUM 9.3 MG/DL (8.5-10.1); CHLORIDE 103 MMOL/L (99-107); CREATININE 0.78 MG/DL (0.40-0.90); GLUCOSE 139 MG/DL (70-104); POTASSIUM 3.5 MMOL/L (3.5-5.1); SODIUM 141 MMOL/L (135-145); TOTAL CARBON DIOXIDE 30.2 MMOL/L (24-32); TOTAL PROTEIN 6.6 G/DL (6.4-8.2); eGFR 76 ML/MIN
[2020-01-04 09:53] LABS: PARTIAL THROMBOPLASTIN TIME 24 SECONDS (22-32)
[2020-01-04 10:56] LABS: ABG BASE EXCESS 0.4 mmol/L (-2.0-2.0); ABG HCO3 29.2 mmol/L (22.0-26.0); ABG OXYGEN SATURATION 88.3 % (94-97); ABG PO2 (T) 57.6 mmHg (75.0-100.0); ALLEN'S TEST POSITIVE; FCOHb 0.6 % (0.0-3.9); FLOW 2 L/min; FMetHb 0.2 % (0.0-1.5); FO2Hb 87.6 % (94-97); TOTAL HEMOGLOBIN 12.5 G/dl (12.0-16.0)
[2020-01-04 12:31] LABS: ABG BASE EXCESS -1.2 mmol/L (-2.0-2.0); ABG HCO3 26.4 mmol/L (22.0-26.0); ABG OXYGEN SATURATION 93.1 % (94-97); ABG PCO2 (T) 57.8 mmHg (32.0-45.0); ABG PO2 (T) 68.2 mmHg (75.0-100.0); ALLEN'S TEST POSITIVE; FCOHb 0.6 % (0.0-3.9); FMetHb 0.1 % (0.0-1.5); FO2Hb 92.4 % (94-97)
--- NOTE | 2020-01-04 13:30 | NUR ---
assumed care of pt from Reshma WASHINGTON and Cathy WASHINGTON, first contact with pt
--- NOTE | 2020-01-04 13:33 | NUR ---
pt is resting quietly on gurney, tolerating bipap well, sleeping easily arouseable, resp even and unlabored, waiting for bed assignment, skin p/w/d
--- NOTE | 2020-01-04 13:47 | NUR ---
covid swab is done and taken to lab, pt is on airborne isolation, hepa filter running,
[2020-01-04] MEDS ORDERED: acetaminophen 325mg tablet PO PRN (14:45)
[2020-01-04] MEDS ORDERED: mag hydrox/Alum hydrox/simeth 30ml oral suspension PO PRN (14:45)
[2020-01-04] MEDS ORDERED: ondansetron/PF 4mg/2ml inj IV PRN (14:45)
[2020-01-04] MEDS ORDERED: magnesium hydroxide 30ml (MOM) UD suspension PO PRN (14:45)
[2020-01-04] MEDS: ipratropium/albuterol 3ml nebule NEB SCH ×3 (16:00→23:48)
[2020-01-04] MEDS ORDERED: non-formulary drug (Ondansetron HCl 1 TAB) PO PRN (17:00)
[2020-01-04] MEDS ORDERED: albuterol 2.5 MG/3 ML nebule NEB PRN (17:00)
[2020-01-04] MEDS ORDERED: hydrOXYzine 25 MG tablet PO PRN (17:00)
[2020-01-04] MEDS ORDERED: GABA300C PO (17:17)
--- NOTE | 2020-01-04 17:43 | NUR ---
PT IS SLEEPING, RESP EVEN AND UNLABORED,
[2020-01-04] MEDS ORDERED: gabapentin 300mg capsule PO PRN (20:00)
[2020-01-04] MEDS ORDERED: non-formulary drug (Budesonide/Formoterol Fumarate (Symbicort 160-4.5 Mcg Inhaler) 2 PUFFS INH SCH (20:00)
[2020-01-04] MEDS: budesonide 0.5mg/2ml UD nebule IH SCH (20:16)
--- NOTE | 2020-01-04 20:54 | NUR ---
pt is on 2 liter 02 nasal cannula to eat dinner
[2020-01-04] MEDS ORDERED: albuterol 2.5 MG/3 ML nebule NEB SCH (21:00)
[2020-01-04] MEDS: methylPREDNISolone sod succ 125mg/2ml vial IV SCH (21:11)
[2020-01-04] MEDS: buPROPion SR 150mg tablet PO SCH (21:12)
[2020-01-04] MEDS: pantoprazole 40mg Tablet.DR PO SCH (21:12)
[2020-01-04] MEDS: carVEDilol 3.125mg tablet PO SCH (21:12)
[2020-01-04] MEDS: busPIRone 15mg tablet PO SCH (21:17)
[2020-01-04] MEDS: heparin, porcine 5000 units/ml vial SQ SCH (21:26)
--- NOTE | 2020-01-04 21:27 | NUR ---
PT RESTING QUIETLY, NO RESP DISTRESS, TOLERATED EATING DINNER, NO N/V, WANTS TO KEEP BIPAP FOR NOW
--- NOTE | 2020-01-04 21:40 | NUR ---
RT AWARE PT WANTS TO STAY OFF OF BIPAP FOR NOW, 02 DECREASED TO 1 LITER NASAL CANNULA
--- NOTE | 2020-01-04 21:57 | NUR ---
pt c/o chronic pain to back, 11/27, said she cannot take gabapentin "makes me dance" or tylenol, Dr Jordan gave verbal order for norco 5mg 1 tab PO x1 now
--- NOTE | 2020-01-04 21:57 | NUR ---
accidently charted under Boy RN at 7432
[2020-01-04] MEDS ORDERED: HYDROcodone/acetaminophen 5mg/325mg tablet PO ONE (22:00)
--- NOTE | 2020-01-04 23:46 | NUR ---
PT IS BACK ON BIPAP, INCREASED SOB WHILE GETTING UP TO BEDSIDE COMMODE
--- NOTE | 2020-01-04 23:56 | NUR ---
RT AT BEDSIDE FOR BREATHING TX, DECREASED FIO2 TO 25%
[2020-01-05] MEDS: ipratropium/albuterol 3ml nebule NEB SCH ×6 (03:48→23:27)
[2020-01-05] MEDS: methylPREDNISolone sod succ 125mg/2ml vial IV SCH ×3 (04:08→14:16)
--- NOTE | 2020-01-05 04:40 | NUR ---
Patient in room ED 6. I have received report from Jenifer WASHINGTON and had the opportunity to ask questions.
--- NOTE | 2020-01-05 05:45 | NUR ---
Patient in room PCU 3028. Patient has arrived via gurney from the ER. Alert and orientated. Vitals Temp 97.9, BP 131/64, 94% on 1 liter NC, HR 110, Resp 22. Patient has been placed on tele monitoring per md orders. MRSA Swab was collected. Physical assessment has been performed, two RN skin check has been done. Patient resting in room with no signs of distress. Call light is in reach bed is locked and lowered. Will continue to monitor.
[2020-01-05 06:00] VITALS: BP 131/64
[2020-01-05 06:24] LABS: ALBUMIN 3.1 G/DL (3.4-5.0); ANION GAP 6 (8-16); BLOOD UREA NITROGEN 19 MG/DL (7-18); BUN/CREATININE RATIO 22.1 (6.6-38.0); CALCIUM 9.2 MG/DL (8.5-10.1); CHLORIDE 102 MMOL/L (99-107); CREATININE 0.86 MG/DL (0.40-0.90); GLUCOSE 185 MG/DL (70-104); POTASSIUM 4.4 MMOL/L (3.5-5.1); SODIUM 137 MMOL/L (135-145); TOTAL CARBON DIOXIDE 29.3 MMOL/L (24-32); eGFR 68 ML/MIN
--- NOTE | 2020-01-05 06:25 | NUR ---
Patient in room PCU 3028. I have received report from Chiquis WASHINGTON and had the opportunity to ask questions and assume patient care.
--- NOTE | 2020-01-05 06:35 | NUR ---
Student documentation: I have reviewed and agree with all interventions, assessments performed and documented by Kylah FRANCE.
[2020-01-05 06:36] LABS: BASOPHILS % (AUTO) 0.2 % (0-1); EOSINOPHILS % (AUTO) 0 % (0-6); HEMATOCRIT 31.7 % (35.0-45.0); HEMOGLOBIN 10.5 g/dl (12.0-16.0); LYMPHOCYTES # (AUTO) 0.1 X10'3 (1.1-4.8); LYMPHOCYTES % (AUTO) 2.4 % (21-51); MEAN CORPUSCULAR HEMOGLOBIN 33.5 PG (27.0-31.0); MEAN CORPUSCULAR VOLUME 101.4 FL (78-98); MEAN PLATELET VOLUME 8.3 FL (7.4-10.4); MONOCYTES # (AUTO) 0.1 X10'3 (0-0.9); MONOCYTES % (AUTO) 1.7 % (2-12); NEUTROPHILS # (AUTO) 4.9 X10'3 (1.8-7.7); NEUTROPHILS % (AUTO) 95.7 % (42-75); PLATELET COUNT 205 X10'3 (140-440); RED BLOOD COUNT 3.12 X10'6 (4.20-5.60); RED CELL DISTRIBUTION WIDTH 14.9 % (11.5-14.5); WHITE BLOOD COUNT 5.1 X10'3 (4.5-11.0)
--- NOTE | 2020-01-05 06:36 | NUR ---
Problems reprioritized. Patient report given, questions answered & plan of care reviewed with Missy WASHINGTON.
[2020-01-05] MEDS: buPROPion SR 150mg tablet PO SCH ×2 (08:16→19:53)
[2020-01-05] MEDS: theophylline anhydrous 100mg ER capsule 24-hour PO SCH (08:16)
[2020-01-05] MEDS: lisinopril 2.5mg tablet PO SCH (08:17)
[2020-01-05] MEDS: pantoprazole 40mg Tablet.DR PO SCH (08:17)
[2020-01-05] MEDS: busPIRone 15mg tablet PO SCH ×2 (08:17→19:53)
[2020-01-05] MEDS: carVEDilol 3.125mg tablet PO SCH ×2 (08:17→19:53)
[2020-01-05] MEDS: heparin, porcine 5000 units/ml vial SQ SCH ×2 (08:18→19:53)
[2020-01-05] MEDS: montelukast 10mg tablet PO SCH (08:18)
[2020-01-05] MEDS: potassium chloride 8mEq ER tablet PO SCH (08:19)
[2020-01-05] MEDS: budesonide 0.5mg/2ml UD nebule IH SCH ×2 (08:44→19:48)
[2020-01-05] MEDS: HYDROcodone/acetaminophen 5mg/325mg tablet PO PRN ×2 (10:57→17:18)
[2020-01-05 11:00] VITALS: BP 155/62
[2020-01-05 15:00] VITALS: BP 133/39
[2020-01-05 18:00] VITALS: BP 115/53
--- NOTE | 2020-01-05 18:19 | NUR ---
Problems reprioritized. Patient report given, questions answered & plan of care reviewed with Carlos WASHINGTON.
--- NOTE | 2020-01-05 18:36 | NUR ---
Patient in room PCU 3028. I have received report from PADMINI Louis and had the opportunity to ask questions and assume patient care.
[2020-01-05] MEDS: methylPREDNISolone sod succ/PF 40mg inj. IV SCH (19:52)
[2020-01-05 23:00] VITALS: BP_SYST 100; BP_SYST 118; BP_DIAS 39; BP_DIAS 64
[2020-01-06] MEDS: HYDROcodone/acetaminophen 5mg/325mg tablet PO PRN ×3 (01:07→22:12)
[2020-01-06] MEDS: methylPREDNISolone sod succ/PF 40mg inj. IV SCH ×2 (01:34→20:11)
[2020-01-06 03:00] VITALS: BP 101/41
[2020-01-06] MEDS: ipratropium/albuterol 3ml nebule NEB SCH ×6 (03:31→22:57)
[2020-01-06 06:00] VITALS: BP 109/45
[2020-01-06 06:16] LABS: ALBUMIN 2.9 G/DL (3.4-5.0); ANION GAP 2 (8-16); BLOOD UREA NITROGEN 22 MG/DL (7-18); BUN/CREATININE RATIO 30.1 (6.6-38.0); CALCIUM 9.2 MG/DL (8.5-10.1); CHLORIDE 103 MMOL/L (99-107); CREATININE 0.73 MG/DL (0.40-0.90); GLUCOSE 145 MG/DL (70-104); POTASSIUM 4.9 MMOL/L (3.5-5.1); SODIUM 137 MMOL/L (135-145); eGFR 82 ML/MIN
[2020-01-06 06:34] LABS: BASOPHILS % (AUTO) 0.1 % (0-1); EOSINOPHILS % (AUTO) 0 % (0-6); HEMATOCRIT 28.7 % (35.0-45.0); HEMOGLOBIN 9.6 g/dl (12.0-16.0); LYMPHOCYTES # (AUTO) 0.1 X10'3 (1.1-4.8); LYMPHOCYTES % (AUTO) 2.5 % (21-51); MEAN CORPUSCULAR HEMOGLOBIN 33.8 PG (27.0-31.0); MEAN CORPUSCULAR HGB CONC 33.4 g/dL (33.0-36.5); MEAN CORPUSCULAR VOLUME 101.1 FL (78-98); MEAN PLATELET VOLUME 8.4 FL (7.4-10.4); MONOCYTES # (AUTO) 0.2 X10'3 (0-0.9); NEUTROPHILS # (AUTO) 5.2 X10'3 (1.8-7.7); NEUTROPHILS % (AUTO) 94.4 % (42-75); PLATELET COUNT 230 X10'3 (140-440); RED BLOOD COUNT 2.83 X10'6 (4.20-5.60); RED CELL DISTRIBUTION WIDTH 15.3 % (11.5-14.5); WHITE BLOOD COUNT 5.5 X10'3 (4.5-11.0)
--- NOTE | 2020-01-06 06:35 | NUR ---
Problems reprioritized. Patient report given, questions answered & plan of care reviewed with PADMINI Kingsley.
--- NOTE | 2020-01-06 07:02 | NUR ---
Patient in room PCU 3028. I have received report from PADMINI RENAE and had the opportunity to ask questions and assume patient care.
--- NOTE | 2020-01-06 08:00 | NUR ---
PIV FIELD START LEFT HAND INFILTRATED. WILL DC. 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 STATES' WE ARE PAGING THE PICC RN FOR ANOTHER PT"
[2020-01-06] MEDS: budesonide 0.5mg/2ml UD nebule IH SCH ×2 (08:25→19:15)
[2020-01-06] MEDS: busPIRone 15mg tablet PO SCH ×2 (08:31→20:11)
[2020-01-06] MEDS: potassium chloride 8mEq ER tablet PO SCH (08:32)
[2020-01-06] MEDS: carVEDilol 3.125mg tablet PO SCH ×2 (08:32→20:11)
[2020-01-06] MEDS: pantoprazole 40mg Tablet.DR PO SCH (08:33)
[2020-01-06] MEDS: montelukast 10mg tablet PO SCH (08:33)
[2020-01-06] MEDS: buPROPion SR 150mg tablet PO SCH ×2 (08:34→20:11)
[2020-01-06] MEDS: theophylline anhydrous 100mg ER capsule 24-hour PO SCH (08:34)
[2020-01-06] MEDS: lisinopril 2.5mg tablet PO SCH (08:35)
[2020-01-06] MEDS: heparin, porcine 5000 units/ml vial SQ SCH ×2 (08:36→20:12)
--- NOTE | 2020-01-06 09:50 | NUR ---
DR. SILVA NOTIFIED OF NO PIV, HARD STICK. AWAITING PICC RN FOR HELP. STATES"HAVE THE PICC RN START A PIV, NOT A PICC LINE". Addendum: 01/06/20 at 1125 by Obdulio Goyal RN NOTIFIED HAD TO HOLD SOLUMEDROL.
[2020-01-06 11:00] VITALS: BP 100/52
--- NOTE | 2020-01-06 11:15 | NUR ---
TAM PICC RN.
--- NOTE | 2020-01-06 13:46 | NUR ---
PAGER ID: [phone] MESSAGE: DR. SILVA, [id number]/JASKARAN, PLEASE CALL DIVYA [phone]
--- NOTE | 2020-01-06 14:09 | NUR ---
1100 SVN MISSED--TX TRIAGED
[2020-01-06 15:00] VITALS: BP 92/44
[2020-01-06 18:00] VITALS: BP 103/44
--- NOTE | 2020-01-06 18:22 | NUR ---
RECEIVED REPORT FROM DIVYA WASHINGTON AND ASSUMED PATIENT CARE
--- NOTE | 2020-01-06 18:33 | NUR ---
Problems reprioritized. Patient report given, questions answered & plan of care reviewed with PADMINI FRANCISCO.
[2020-01-06 22:00] VITALS: BP 111/55
[2020-01-07 02:00] VITALS: BP 101/49
[2020-01-07] MEDS: ipratropium/albuterol 3ml nebule NEB SCH ×2 (03:08→12:29)
[2020-01-07 05:22] LABS: BASOPHILS % (AUTO) 0 % (0-1); EOSINOPHILS % (AUTO) 0 % (0-6); HEMATOCRIT 29.3 % (35.0-45.0); HEMOGLOBIN 9.8 g/dl (12.0-16.0); LYMPHOCYTES # (AUTO) 0.2 X10'3 (1.1-4.8); LYMPHOCYTES % (AUTO) 3.4 % (21-51); MEAN CORPUSCULAR HEMOGLOBIN 34.2 PG (27.0-31.0); MEAN CORPUSCULAR HGB CONC 33.6 g/dL (33.0-36.5); MEAN CORPUSCULAR VOLUME 101.8 FL (78-98); MEAN PLATELET VOLUME 8.3 FL (7.4-10.4); MONOCYTES # (AUTO) 0.3 X10'3 (0-0.9); MONOCYTES % (AUTO) 5.9 % (2-12); NEUTROPHILS # (AUTO) 4.3 X10'3 (1.8-7.7); NEUTROPHILS % (AUTO) 90.7 % (42-75); PLATELET COUNT 238 X10'3 (140-440); RED BLOOD COUNT 2.88 X10'6 (4.20-5.60); RED CELL DISTRIBUTION WIDTH 15.6 % (11.5-14.5); WHITE BLOOD COUNT 4.8 X10'3 (4.5-11.0)
[2020-01-07 05:32] LABS: ALBUMIN 2.9 G/DL (3.4-5.0); ANION GAP 4 (8-16); BLOOD UREA NITROGEN 21 MG/DL (7-18); BUN/CREATININE RATIO 27.6 (6.6-38.0); CALCIUM 8.8 MG/DL (8.5-10.1); CHLORIDE 103 MMOL/L (99-107); CREATININE 0.76 MG/DL (0.40-0.90); GLUCOSE 130 MG/DL (70-104); POTASSIUM 4.9 MMOL/L (3.5-5.1); SODIUM 138 MMOL/L (135-145); TOTAL CARBON DIOXIDE 30.6 MMOL/L (24-32); eGFR 79 ML/MIN
[2020-01-07 06:00] VITALS: BP 99/46
--- NOTE | 2020-01-07 06:24 | NUR ---
REPORT GIVEN TO DIVYA WASHINGTON
--- NOTE | 2020-01-07 06:30 | NUR ---
Patient in room PCU 3028. I have received report from PADMINI FRANCISCO and had the opportunity to ask questions and assume patient care.
[2020-01-07] MEDS: HYDROcodone/acetaminophen 5mg/325mg tablet PO PRN (07:23)
[2020-01-07 07:27] VITALS: BP 127/54
[2020-01-07] MEDS: methylPREDNISolone sod succ/PF 40mg inj. IV SCH (07:50)
[2020-01-07] MEDS: potassium chloride 8mEq ER tablet PO SCH (07:51)
[2020-01-07] MEDS: busPIRone 15mg tablet PO SCH (07:51)
[2020-01-07] MEDS: carVEDilol 3.125mg tablet PO SCH (07:51)
[2020-01-07] MEDS: pantoprazole 40mg Tablet.DR PO SCH (07:52)
[2020-01-07] MEDS: montelukast 10mg tablet PO SCH (07:52)
[2020-01-07] MEDS: theophylline anhydrous 100mg ER capsule 24-hour PO SCH (07:52)
[2020-01-07] MEDS: buPROPion SR 150mg tablet PO SCH (07:53)
[2020-01-07] MEDS: lisinopril 2.5mg tablet PO SCH (07:54)
[2020-01-07] MEDS: heparin, porcine 5000 units/ml vial SQ SCH (07:55)
[2020-01-07] MEDS: budesonide 0.5mg/2ml UD nebule IH SCH (08:11)
[2020-01-07] MEDS ORDERED: PRED10TA23 PO (09:50)
[2020-01-07 11:00] VITALS: BP 116/47
[2020-01-07 15:00] VITALS: BP 119/53
== END 2020-01-07 15:15 | disposition home health service (06) | DRG 133 ==
LOC: ER 08:51 → ED HOLD 14:41 → PCU 3S 01-05 05:35
PROVIDERS: ADMIT Family Medicine; ATTEND Family Medicine
PROC: 5A09357 Assistance with Respiratory Ventilation, Less than 24 Consecutive Hours, Continuous Positive Airway Pressure (ICD-10-PCS; principal; 2020-01-06)
PROC: 5A09357 Assistance with Respiratory Ventilation, Less than 24 Consecutive Hours, Continuous Positive Airway Pressure (ICD-10-PCS; 2020-01-07)
DX: J96.20 Acute and chronic respiratory failure, unspecified whether with hypoxia or hypercapnia (principal); J96.00 Acute respiratory failure, unspecified whether with hypoxia or hypercapnia; J44.1 Chronic obstructive pulmonary disease with (acute) exacerbation; F41.9 Anxiety disorder, unspecified; G40.909 Epilepsy, unspecified, not intractable, without status epilepticus; G89.4 Chronic pain syndrome; I25.10 Atherosclerotic heart disease of native coronary artery without angina pectoris; I48.91 Unspecified atrial fibrillation; I50.9 Heart failure, unspecified; Z96.652 Presence of left artificial knee joint; Z20.828 Contact with and (suspected) exposure to other viral communicable diseases; I11.0 Hypertensive heart disease with heart failure; Z82.5 Family history of asthma and other chronic lower respiratory diseases; Z95.2 Presence of prosthetic heart valve; Z85.118 Personal history of other malignant neoplasm of bronchus and lung; Z90.49 Acquired absence of other specified parts of digestive tract
CPT/HCPCS: 36415; 36600; 71045; 80048; 80053; 82803; 83880; 85018; 85025; 85610; 85730; 87081; 87635; 93005; 94640; 94660; 94760; 96374; 99285; A7015; G0378; J1644; J2060; J2920; J2930; J7626

== ENCOUNTER 2021-02-19 13:39 | Emergency (ER) | payer MEDICAID ==
[~2021-02-19] VITALS: Ht 149.9 cm; Wt 50.0 kg
[~2021-02-19 13:39] MED LIST changes: -AZI25OT PO; +GABA300C PO; -GABA300T25 PO; +LISI2.5T14 PO; -LISI2.5T2 PO
--- NOTE | 2021-02-19 15:41 | NUR ---
FIRST CONTACT WITH PT. PRESENTS TO ED WITH HALLUCINATIONS, STATING SHE "WOKE UP WITH BLOOD COVERING HER SHEETS" AND "HER OXYGEN HAD ANTS ON IT EARLIER, THE HALLUCINATIONS COME AND GO" DENIES VH/AH AT THIS TIME. A/OX4, FOLLOWS COMMANDS. ON 2L NC AT BASELINE.
[2021-02-19 15:47] LABS: BASOPHILS % (AUTO) 0.6 % (0-1); EOSINOPHILS # (AUTO) 0.2 X10'3 (0-0.9); EOSINOPHILS % (AUTO) 3.3 % (0-6); HEMATOCRIT 43.7 % (35.0-45.0); HEMOGLOBIN 14.7 g/dl (12.0-16.0); LYMPHOCYTES # (AUTO) 0.5 X10'3 (1.1-4.8); LYMPHOCYTES % (AUTO) 10.9 % (21-51); MEAN CORPUSCULAR HEMOGLOBIN 31.7 PG (27.0-31.0); MEAN CORPUSCULAR HGB CONC 33.5 g/dL (33.0-36.5); MEAN CORPUSCULAR VOLUME 94.6 FL (78-98); MEAN PLATELET VOLUME 7.3 FL (7.4-10.4); MONOCYTES # (AUTO) 0.5 X10'3 (0-0.9); MONOCYTES % (AUTO) 10.1 % (2-12); NEUTROPHILS # (AUTO) 3.8 X10'3 (1.8-7.7); NEUTROPHILS % (AUTO) 75.1 % (42-75); PLATELET COUNT 262 X10'3 (140-440); RED BLOOD COUNT 4.62 X10'6 (4.20-5.60); RED CELL DISTRIBUTION WIDTH 14.2 % (11.5-14.5)
[2021-02-19 16:00] VITALS: BP 120/74
[2021-02-19 16:08] LABS: ALANINE AMINOTRANSFERASE 13 U/L (12-78); ALBUMIN 4.4 G/DL (3.4-5.0); ALBUMIN/GLOBULIN RATIO 1.3 (1.1-1.5); ALKALINE PHOSPHATASE 80 IU/L (46-116); ANION GAP 8 (8-16); ASPARTATE AMINO TRANSFERASE 10 U/L (10-37); BILIRUBIN,TOTAL 0.5 MG/DL (0.1-1.0); BLOOD UREA NITROGEN 11 MG/DL (7-18); BUN/CREATININE RATIO 15.3 (6.6-38.0); CALCIUM 9.5 MG/DL (8.5-10.1); CHLORIDE 99 MMOL/L (99-107); CREATININE 0.72 MG/DL (0.40-0.90); GLUCOSE 109 MG/DL (70-104); SODIUM 144 MMOL/L (135-145); TOTAL CARBON DIOXIDE 36.8 MMOL/L (24-32); TOTAL PROTEIN 7.7 G/DL (6.4-8.2); eGFR 83 ML/MIN
[2021-02-19 16:11] LABS: LACTIC SEPSIS 0.7 MMOL/L (0.4-2.0)
[2021-02-19 16:12] LABS: ETHANOL < 0.010 GM/DL (0.0-0.010)
[2021-02-19 16:15] LABS: AMMONIA < 10 UMOL/L (11-32)
[2021-02-19] MEDS ORDERED: potassium Cl 20 mEq SR tablet PO STA (16:29)
[2021-02-19] MEDS ORDERED: POTA-192 PO (16:34)
--- NOTE | 2021-02-19 17:00 | NUR ---
PROVIDED PT WITH SANDWICH AND WATER.
--- NOTE | 2021-02-19 17:50 | NUR ---
PT STATES SHE CANNOT EAT HER SANDWHICH D/T BUGS BEING IN HER FOOD. PT SHOWED RN A BUG, WHICH RN EXPLAINED WAS A CRUMB FROM HER SANDWHICH.
[2021-02-19] MEDS ORDERED: LORazepam 0.5 MG tablet PO ONE (18:25)
--- NOTE | 2021-02-19 19:38 | NUR ---
Patient called and notified patient was being discharged and needed a ride home. stated he didn't have a car at the moment, but would "see what he could do"
--- NOTE | 2021-02-19 19:41 | NUR ---
Patient is on O2, and has a compressor, but it is not charged. Patient to wait in room to remain on O2
== END 2021-02-19 21:41 | disposition home or self-care (01) ==
LOC: ER 13:39
DX: R44.1 Visual hallucinations (principal); E87.6 Hypokalemia; J44.9 Chronic obstructive pulmonary disease, unspecified; Z86.69 Personal history of other diseases of the nervous system and sense organs; I50.9 Heart failure, unspecified; I11.0 Hypertensive heart disease with heart failure; G89.29 Other chronic pain; Z85.118 Personal history of other malignant neoplasm of bronchus and lung; Z90.89 Acquired absence of other organs; Z98.890 Other specified postprocedural states; Z88.8 Allergy status to other drugs, medicaments and biological substances; Z88.0 Allergy status to penicillin; Z88.1 Allergy status to other antibiotic agents; Z79.899 Other long term (current) drug therapy
CPT/HCPCS: 36415; 70450; 71045; 80053; 80320; 82140; 83605; 84484; 85025; 87040; 93005; 99285

== ENCOUNTER 2021-09-28 09:38 | Inpatient (IN) | payer MEDICAID ==
[~2021-09-28] VITALS: Ht 157.5 cm; Wt 52.3 kg
[~2021-09-28 09:38] MED LIST changes: +BUPR-230 PO; -BUPR150T14 PO; -OMEP-50 PO; +OMEP20CA16 PO
[2021-09-28] MEDS ORDERED: LORazepam 2 mg/ml vial IV ONE ×2 (09:50→11:20)
[2021-09-28 09:57] LABS: ABG BASE EXCESS -1.4 mmol/L (-2.0-2.0); ABG HCO3 27.1 mmol/L (22.0-26.0); ABG OXYGEN SATURATION 99.2 % (94-97); ABG PCO2 (T) 69.9 mmHg (32.0-45.0); ABG PO2 (T) 177.1 mmHg (75.0-100.0); ALLEN'S TEST POSITIVE; FCOHb 1.2 % (0.0-3.9); FMetHb 0.2 % (0.0-1.5); FO2Hb 97.8 % (94-97); PATIENT TEMPERATURE 36.4; RESPIRATORY RATE 12 b/min; TIDAL VOLUME 430 mL; TOTAL HEMOGLOBIN 8.1 G/dl (12.0-16.0)
[2021-09-28] MEDS ORDERED: magnesium 2GM in 50ml NS 50 ML IV ONE (10:00)
[2021-09-28] MEDS ORDERED: methylPREDNISolone sod succ 125mg/2ml vial IV ONE (10:00)
[2021-09-28 10:41] LABS: BASOPHILS # (AUTO) 0.1 X10'3 (0-0.2); BASOPHILS % (AUTO) 0.9 % (0-1); EOSINOPHILS % (AUTO) 0.1 % (0-6); HEMATOCRIT 22.7 % (35.0-45.0); HEMOGLOBIN 7.1 g/dl (12.0-16.0); LYMPHOCYTES # (AUTO) 0.5 X10'3 (1.1-4.8); LYMPHOCYTES % (AUTO) 6.3 % (21-51); MEAN CORPUSCULAR HEMOGLOBIN 25.4 PG (27.0-31.0); MEAN CORPUSCULAR HGB CONC 31.1 g/dL (33.0-36.5); MEAN CORPUSCULAR VOLUME 81.5 FL (78-98); MEAN PLATELET VOLUME 6.9 FL (7.4-10.4); MONOCYTES # (AUTO) 0.6 X10'3 (0-0.9); NEUTROPHILS # (AUTO) 7.4 X10'3 (1.8-7.7); NEUTROPHILS % (AUTO) 85.7 % (42-75); PLATELET COUNT 431 X10'3 (140-440); RED BLOOD COUNT 2.79 X10'6 (4.20-5.60); RED CELL DISTRIBUTION WIDTH 18.2 % (11.5-14.5); WHITE BLOOD COUNT 8.7 X10'3 (4.5-11.0)
[2021-09-28 10:54] LABS: ALANINE AMINOTRANSFERASE 17 U/L (12-78); ALBUMIN 4.2 G/DL (3.4-5.0); ALBUMIN/GLOBULIN RATIO 1.3 (1.1-1.5); ALKALINE PHOSPHATASE 95 IU/L (46-116); ANION GAP 10 (8-16); ASPARTATE AMINO TRANSFERASE 10 U/L (10-37); BILIRUBIN,TOTAL 0.8 MG/DL (0.1-1.0); BLOOD UREA NITROGEN 18 MG/DL (7-18); BUN/CREATININE RATIO 17.8 (6.6-38.0); CALCIUM 9.1 MG/DL (8.5-10.1); CHLORIDE 102 MMOL/L (99-107); CREATININE 1.01 MG/DL (0.40-0.90); GLUCOSE 131 MG/DL (70-104); POTASSIUM 4.4 MMOL/L (3.5-5.1); SODIUM 139 MMOL/L (135-145); TOTAL CARBON DIOXIDE 27.5 MMOL/L (24-32); TOTAL PROTEIN 7.4 G/DL (6.4-8.2); eGFR 56 ML/MIN
[2021-09-28] MEDS ORDERED: HYDROmorphone inj. 0.5 MG/0.5 ML DISP.SYRIN IV PRN (12:25)
[2021-09-28] MEDS ORDERED: mag hydrox/Alum hydrox/simeth 30ml oral suspension PO PRN (12:25)
[2021-09-28] MEDS ORDERED: ondansetron 4mg rapidly disintigrating tab PO PRN (12:25)
[2021-09-28] MEDS ORDERED: magnesium Cl slow-release 64mg tablet PO PRN (12:25)
[2021-09-28] MEDS ORDERED: POTASSIUM BICARB 20meq eff tab 20 MEQ TABLET.EFF PO PRN ×2 (12:25)
[2021-09-28] MEDS ORDERED: magnesium 4gm in 100ml NS 100 ML IV PRN (12:25)
[2021-09-28] MEDS ORDERED: acetaminophen 325mg tablet PO PRN ×2 (12:25)
[2021-09-28] MEDS ORDERED: acetaminophen 650mg rectal suppository RC PRN (12:25)
[2021-09-28] MEDS ORDERED: ipratropium/albuterol 3ml nebule NEB PRN (12:25)
[2021-09-28] MEDS ORDERED: HYDROcodone/acetaminophen 5mg/325mg tablet PO PRN (12:25)
[2021-09-28] MEDS ORDERED: ondansetron/PF 4mg/2ml inj IV PRN (12:25)
[2021-09-28] MEDS ORDERED: bisacodyl 10mg suppository rectal RC PRN (12:25)
[2021-09-28] MEDS ORDERED: HYDROmorphone/PF 0.2 MG/ML SYRINGE IV PRN (12:25)
[2021-09-28] MEDS ORDERED: LORazepam 0.5 MG tablet PO PRN (12:25)
[2021-09-28] MEDS ORDERED: potassium CL 10mEq/100ml bag 100 ML IV PRN (12:25)
[2021-09-28] MEDS ORDERED: LORazepam 2 mg/ml vial IV PRN (12:25)
[2021-09-28] MEDS ORDERED: magnesium hydroxide 30ml (MOM) UD suspension PO PRN (12:25)
[2021-09-28] MEDS ORDERED: magnesium 2GM in 50ml NS 50 ML IV PRN (12:25)
[2021-09-28] MEDS ORDERED: FURO20TA4 PO (12:47)
[2021-09-28] MEDS ORDERED: CETI10TA14 PO (12:47)
[2021-09-28] MEDS ORDERED: SERT-433 PO (12:47)
[2021-09-28] MEDS ORDERED: OMEP40CA21 PO (12:47)
[2021-09-28 13:11] LABS: MAGNESIUM 3.5 MG/DL (1.5-2.4); POTASSIUM 4.4 MMOL/L (3.5-5.1)
--- NOTE | 2021-09-28 13:50 | NUR ---
Pt. to room 2006 from ED via [employer]. Pt. writhing around in bed, eyes rolling around, bending her body up and down constantly. Pt. with incomprehensible words. Pt. hooked up to bedside monitor, 1400 Solumedrol administered and IVF started to left FA PIV 20g. RN called Dr. Adam and received the following orders: ABG 5mg Alb. neb X 1 Vaughan Urine tox screen Do not transfuse blood as was ordered by ER . 16f Temp Vaughan placed. ABG obtained from RT. Charge aware that pt. may need bedside sitter.
[2021-09-28] MEDS: methylPREDNISolone sod succ 125mg/2ml vial IV SCH ×2 (13:56→20:50)
[2021-09-28] MEDS: normal saline 1000ml 1,000 ML IV SCH (13:57)
[2021-09-28 14:00] VITALS: BP 125/49
[2021-09-28] MEDS ORDERED: albuterol 2.5 MG/3 ML nebule CONTNEB PRN (14:00)
[2021-09-28 14:13] LABS: ABG BASE EXCESS -2.1 mmol/L (-2.0-2.0); ABG HCO3 25.5 mmol/L (22.0-26.0); ABG OXYGEN SATURATION 97.3 % (94-97); ABG PCO2 (T) 61.6 mmHg (32.0-45.0); ABG PO2 (T) 105.6 mmHg (75.0-100.0); ALLEN'S TEST POSITIVE; FCOHb 1.7 % (0.0-3.9); FO2Hb 95.6 % (94-97); RESPIRATORY RATE 12 b/min; TOTAL HEMOGLOBIN 7.6 G/dl (12.0-16.0)
[2021-09-28] MEDS: ipratropium/albuterol 3ml nebule NEB SCH ×3 (14:21→23:02)
[2021-09-28 14:54] LABS: URINE AMPHETAMINE SCREEN POSITIVE (Neg); URINE BARBITUATE SCREEN NEGATIVE (Neg); URINE BENZODIAZEPINES SCREEN NEGATIVE (Neg); URINE CANNABINOID SCREEN NEGATIVE (Neg); URINE COCAINE SCREEN NEGATIVE (Neg); URINE METHADONE SCREEN NEGATIVE (Neg); URINE OPIATE SCREEN NEGATIVE (Neg); URINE PHENCYCLIDINE SCREEN NEGATIVE (Neg)
[2021-09-28] MEDS ORDERED: furosemide 20 MG/2 ML vial IV ONE (15:30)
[2021-09-28] MEDS ORDERED: PERFLUTREN PROTEIN-A MICROSPHR (Optison) 0.22 MG/ML 3ML VIAL IV ONE (17:20)
[2021-09-28] MEDS: LORazepam 2 mg/ml vial IV PRN ×2 (17:27→21:00)
[2021-09-28] MEDS ORDERED: CARV6.253 PO (17:27)
[2021-09-28 17:30] VITALS: BP 115/60
[2021-09-28] MEDS ORDERED: TIOT4MIS2 INH (17:30)
[2021-09-28] MEDS ORDERED: CHOL20002 PO (17:31)
[2021-09-28] MEDS ORDERED: GABA-530 PO (17:32)
[2021-09-28] MEDS ORDERED: ACET-1025 PO (17:33)
[2021-09-28] MEDS ORDERED: ASPI-611 PO (17:33)
--- NOTE | 2021-09-28 18:07 | NUR ---
Problems reprioritized. Patient report given, questions answered & plan of care reviewed with NOC RN.
[2021-09-28] MEDS: docusate sod 100mg capsule PO SCH (20:00)
[2021-09-28] MEDS: K and/or MAG REPLACEMENT MC SCH (20:00)
[2021-09-28] MEDS: furosemide 20 MG/2 ML vial IV SCH (20:49)
[2021-09-28] MEDS: HYDROcodone/acetaminophen 10/325mg tab PO PRN (20:50)
[2021-09-28] MEDS ORDERED: temazepam 15mg capsule PO PRN (21:00)
[2021-09-28 21:34] VITALS: BP 128/57
[2021-09-29] VITALS (13 sets, daily range): BP systolic 90–143; BP diastolic 41–71
[2021-09-29] MEDS: methylPREDNISolone sod succ 125mg/2ml vial IV SCH ×4 (02:00→19:59)
[2021-09-29] MEDS: ipratropium/albuterol 3ml nebule NEB SCH ×6 (03:11→23:43)
[2021-09-29] MEDS: HYDROcodone/acetaminophen 10/325mg tab PO PRN ×3 (03:44→20:35)
[2021-09-29] MEDS: LORazepam 2 mg/ml vial IV PRN (03:45)
[2021-09-29 06:04] LABS: BASOPHILS % (AUTO) 0.1 % (0-1); EOSINOPHILS % (AUTO) 0 % (0-6); LYMPHOCYTES # (AUTO) 0.1 X10'3 (1.1-4.8); LYMPHOCYTES % (AUTO) 0.6 % (21-51); MEAN CORPUSCULAR HGB CONC 31.8 g/dL (33.0-36.5); MEAN CORPUSCULAR VOLUME 78.8 FL (78-98); MONOCYTES # (AUTO) 0.1 X10'3 (0-0.9); MONOCYTES % (AUTO) 1.1 % (2-12); NEUTROPHILS # (AUTO) 10.2 X10'3 (1.8-7.7); NEUTROPHILS % (AUTO) 98.2 % (42-75); PLATELET COUNT 363 X10'3 (140-440); RED BLOOD COUNT 2.42 X10'6 (4.20-5.60); RED CELL DISTRIBUTION WIDTH 18.1 % (11.5-14.5); WHITE BLOOD COUNT 10.4 X10'3 (4.5-11.0)
[2021-09-29 06:12] LABS: HEMATOCRIT 19.1 % (35.0-45.0); HEMOGLOBIN 6.1 g/dl (12.0-16.0)
[2021-09-29 06:16] LABS: ALANINE AMINOTRANSFERASE 13 U/L (12-78); ALBUMIN 3.5 G/DL (3.4-5.0); ALBUMIN/GLOBULIN RATIO 1.1 (1.1-1.5); ALKALINE PHOSPHATASE 72 IU/L (46-116); ANION GAP 6 (8-16); ASPARTATE AMINO TRANSFERASE 10 U/L (10-37); BILIRUBIN,TOTAL 0.5 MG/DL (0.1-1.0); BLOOD UREA NITROGEN 24 MG/DL (7-18); BUN/CREATININE RATIO 23.1 (6.6-38.0); CALCIUM 8.6 MG/DL (8.5-10.1); CHLORIDE 104 MMOL/L (99-107); CREATININE 1.04 MG/DL (0.40-0.90); GLUCOSE 162 MG/DL (70-104); MAGNESIUM 2.1 MG/DL (1.5-2.4); POTASSIUM 3.6 MMOL/L (3.5-5.1); SODIUM 141 MMOL/L (135-145); TOTAL CARBON DIOXIDE 30.6 MMOL/L (24-32); TOTAL PROTEIN 6.6 G/DL (6.4-8.2); eGFR 55 ML/MIN
[2021-09-29] MEDS: K and/or MAG REPLACEMENT MC SCH ×2 (08:00→20:00)
[2021-09-29] MEDS: pantoprazole 40MG/NS 100ML BAG 100 ML IV SCH (08:19)
[2021-09-29] MEDS: furosemide 20 MG/2 ML vial IV SCH (08:19)
[2021-09-29] MEDS: docusate sod 100mg capsule PO SCH ×2 (08:19→20:37)
[2021-09-29] MEDS: gabapentin 100mg capsule PO SCH ×2 (14:01→20:35)
[2021-09-29] MEDS ORDERED: ipratropium 0.5 MG/2.5ML nebule IH SCH (15:00)
[2021-09-29 16:01] LABS: BASOPHILS % (AUTO) 0.1 % (0-1); EOSINOPHILS % (AUTO) 0 % (0-6); HEMATOCRIT 23.6 % (35.0-45.0); HEMOGLOBIN 7.7 g/dl (12.0-16.0); LYMPHOCYTES # (AUTO) 0.1 X10'3 (1.1-4.8); MEAN CORPUSCULAR HEMOGLOBIN 25.6 PG (27.0-31.0); MEAN CORPUSCULAR HGB CONC 32.5 g/dL (33.0-36.5); MEAN PLATELET VOLUME 7.1 FL (7.4-10.4); MONOCYTES # (AUTO) 0.4 X10'3 (0-0.9); MONOCYTES % (AUTO) 3.4 % (2-12); NEUTROPHILS # (AUTO) 10.1 X10'3 (1.8-7.7); NEUTROPHILS % (AUTO) 95.5 % (42-75); PLATELET COUNT 333 X10'3 (140-440); RED BLOOD COUNT 2.98 X10'6 (4.20-5.60); RED CELL DISTRIBUTION WIDTH 17.9 % (11.5-14.5); WHITE BLOOD COUNT 10.6 X10'3 (4.5-11.0)
[2021-09-29] MEDS ORDERED: azithromycin/NS 500mg/250ml 250 ML IV ONE (16:45)
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
--- NOTE | 2021-09-29 18:11 | NUR ---
Pt transfered to 3013 B. Met Miranda RN at bedside. All questions answered.
--- NOTE | 2021-09-29 18:54 | NUR ---
Written report left for incoming RN per NOC viscose cellar charge hand
[2021-09-29] MEDS: budesonide 0.5mg/2ml UD nebule IH SCH (19:27)
[2021-09-29] MEDS: sertraline 50mg tablet PO SCH (20:36)
[2021-09-29] MEDS: carvedilol 6.25mg tablet PO SCH (20:36)
[2021-09-29] MEDS: montelukast 10mg tablet PO SCH (20:37)
[2021-09-29] MEDS: potassium chloride 8mEq ER tablet PO SCH (20:38)
[2021-09-29] MEDS: busPIRone 15mg tablet PO SCH (20:38)
[2021-09-29] MEDS: CefTRIAXone/D5W-Rocephin 1gm 50 ML IV SCH (21:18)
[2021-09-30] MEDS: ipratropium/albuterol 3ml nebule NEB SCH ×6 (03:10→23:20)
[2021-09-30] MEDS: methylPREDNISolone sod succ 125mg/2ml vial IV SCH ×4 (03:42→19:57)
--- NOTE | 2021-09-30 06:28 | NUR ---
Problems reprioritized. Patient report given, questions answered & plan of care reviewed with andie.
[2021-09-30 07:15] VITALS: BP 117/49
[2021-09-30 07:20] LABS: BASOPHILS % (AUTO) 0.1 % (0-1); EOSINOPHILS % (AUTO) 0 % (0-6); HEMATOCRIT 25.3 % (35.0-45.0); LYMPHOCYTES # (AUTO) 0.1 X10'3 (1.1-4.8); LYMPHOCYTES % (AUTO) 1.1 % (21-51); MEAN CORPUSCULAR HEMOGLOBIN 24.6 PG (27.0-31.0); MEAN CORPUSCULAR HGB CONC 31.7 g/dL (33.0-36.5); MEAN CORPUSCULAR VOLUME 77.8 FL (78-98); MEAN PLATELET VOLUME 7.2 FL (7.4-10.4); MONOCYTES # (AUTO) 0.3 X10'3 (0-0.9); MONOCYTES % (AUTO) 2.6 % (2-12); NEUTROPHILS # (AUTO) 9.8 X10'3 (1.8-7.7); NEUTROPHILS % (AUTO) 96.2 % (42-75); PLATELET COUNT 331 X10'3 (140-440); RED BLOOD COUNT 3.26 X10'6 (4.20-5.60); RED CELL DISTRIBUTION WIDTH 17.9 % (11.5-14.5); WHITE BLOOD COUNT 10.1 X10'3 (4.5-11.0)
[2021-09-30] MEDS: budesonide 0.5mg/2ml UD nebule IH SCH ×2 (07:32→19:17)
[2021-09-30] MEDS ORDERED: furosemide 20MG tablet PO SCH (08:00)
[2021-09-30] MEDS: K and/or MAG REPLACEMENT MC SCH ×2 (08:00→20:00)
[2021-09-30 08:21] LABS: ALANINE AMINOTRANSFERASE 13 U/L (12-78); ALBUMIN 3.6 G/DL (3.4-5.0); ALBUMIN/GLOBULIN RATIO 1.2 (1.1-1.5); ALKALINE PHOSPHATASE 67 IU/L (46-116); ANION GAP 6 (8-16); ASPARTATE AMINO TRANSFERASE 9 U/L (10-37); BILIRUBIN,TOTAL 0.5 MG/DL (0.1-1.0); BLOOD UREA NITROGEN 25 MG/DL (7-18); BUN/CREATININE RATIO 26.3 (6.6-38.0); CALCIUM 8.9 MG/DL (8.5-10.1); CHLORIDE 100 MMOL/L (99-107); CREATININE 0.95 MG/DL (0.40-0.90); GLUCOSE 171 MG/DL (70-104); MAGNESIUM 2.3 MG/DL (1.5-2.4); POTASSIUM 4.4 MMOL/L (3.5-5.1); SODIUM 135 MMOL/L (135-145); TOTAL CARBON DIOXIDE 28.9 MMOL/L (24-32); TOTAL PROTEIN 6.6 G/DL (6.4-8.2); eGFR 61 ML/MIN
[2021-09-30] MEDS: aspirin 81mg tab.chew PO SCH (08:32)
[2021-09-30] MEDS: gabapentin 100mg capsule PO SCH ×3 (08:32→20:57)
[2021-09-30] MEDS: docusate sod 100mg capsule PO SCH ×2 (08:32→19:10)
[2021-09-30] MEDS: carvedilol 6.25mg tablet PO SCH ×2 (08:32→19:10)
[2021-09-30] MEDS: sertraline 50mg tablet PO SCH ×2 (08:32→19:10)
[2021-09-30] MEDS: potassium chloride 8mEq ER tablet PO SCH ×2 (08:32→19:10)
[2021-09-30] MEDS: theophylline anhydrous 100mg ER capsule 24-hour PO SCH (08:33)
[2021-09-30] MEDS: furosemide 20 MG/2 ML vial IV SCH ×2 (08:33→20:00)
[2021-09-30] MEDS: busPIRone 15mg tablet PO SCH ×2 (08:33→19:10)
[2021-09-30] MEDS: pantoprazole 40MG/NS 100ML BAG 100 ML IV SCH (08:36)
[2021-09-30] MEDS ORDERED: ketorolac tromethamine 15mg/ml inj. IV PRN (08:50)
[2021-09-30] MEDS: normal saline 1000ml 1,000 ML IV SCH (08:53)
[2021-09-30 10:21] LABS: % IRON SATURATION 11 % (11-46); IRON 53 UG/DL (49-151); TOTAL IRON BINDING CAPACITY 494 UG/DL (259-388)
[2021-09-30] MEDS: oxybutynin 5mg tablet PO SCH ×3 (10:46→20:57)
[2021-09-30] MEDS: CefTRIAXone/D5W-Rocephin 1gm 50 ML IV SCH (10:48)
[2021-09-30 11:00] VITALS: BP 135/58
[2021-09-30] MEDS: azithromycin/NS 500mg/250ml 250 ML IV SCH (11:29)
[2021-09-30] MEDS: HYDROcodone/acetaminophen 10/325mg tab PO PRN ×3 (13:46→23:15)
[2021-09-30 15:42] VITALS: BP 91/40
[2021-09-30 18:00] VITALS: BP 122/52
--- NOTE | 2021-09-30 18:19 | NUR ---
Problems reprioritized. Patient report given, questions answered & plan of care reviewed with MAGALY WASHINGTON.
[2021-09-30] MEDS: montelukast 10mg tablet PO SCH (20:58)
[2021-09-30 22:00] VITALS: BP 126/45
[2021-10-01 02:00] VITALS: BP 102/58
[2021-10-01] MEDS: methylPREDNISolone sod succ 125mg/2ml vial IV SCH ×4 (02:13→19:35)
[2021-10-01] MEDS: ipratropium/albuterol 3ml nebule NEB SCH ×6 (03:12→23:53)
--- NOTE | 2021-10-01 06:31 | NUR ---
Problems reprioritized. Patient report given, questions answered & plan of care reviewed with BELKYS.
[2021-10-01 06:54] VITALS: BP 111/50
[2021-10-01] MEDS: pantoprazole 40MG/NS 100ML BAG 100 ML IV SCH (07:10)
[2021-10-01] MEDS: budesonide 0.5mg/2ml UD nebule IH SCH ×2 (07:37→20:50)
[2021-10-01] MEDS: K and/or MAG REPLACEMENT MC SCH ×2 (08:00→20:00)
[2021-10-01 08:07] LABS: BASOPHILS % (AUTO) 0.2 % (0-1); EOSINOPHILS % (AUTO) 0 % (0-6); HEMATOCRIT 23.2 % (35.0-45.0); HEMOGLOBIN 7.5 g/dl (12.0-16.0); LYMPHOCYTES # (AUTO) 0.1 X10'3 (1.1-4.8); LYMPHOCYTES % (AUTO) 1.1 % (21-51); MEAN CORPUSCULAR HEMOGLOBIN 25.3 PG (27.0-31.0); MEAN CORPUSCULAR HGB CONC 32.2 g/dL (33.0-36.5); MEAN CORPUSCULAR VOLUME 78.8 FL (78-98); MEAN PLATELET VOLUME 7.1 FL (7.4-10.4); MONOCYTES # (AUTO) 0.1 X10'3 (0-0.9); NEUTROPHILS # (AUTO) 5.9 X10'3 (1.8-7.7); NEUTROPHILS % (AUTO) 96.7 % (42-75); PLATELET COUNT 289 X10'3 (140-440); RED BLOOD COUNT 2.95 X10'6 (4.20-5.60); RED CELL DISTRIBUTION WIDTH 17.8 % (11.5-14.5); WHITE BLOOD COUNT 6.1 X10'3 (4.5-11.0)
[2021-10-01] MEDS: furosemide 20 MG/2 ML vial IV SCH (08:09)
[2021-10-01] MEDS: azithromycin/NS 500mg/250ml 250 ML IV SCH (08:09)
[2021-10-01] MEDS: docusate sod 100mg capsule PO SCH ×2 (08:25→20:02)
[2021-10-01] MEDS: gabapentin 100mg capsule PO SCH ×3 (08:25→21:11)
[2021-10-01] MEDS: carvedilol 6.25mg tablet PO SCH ×2 (08:25→20:01)
[2021-10-01] MEDS: potassium chloride 8mEq ER tablet PO SCH ×2 (08:25→20:01)
[2021-10-01] MEDS: sertraline 50mg tablet PO SCH ×2 (08:25→20:01)
[2021-10-01] MEDS: busPIRone 15mg tablet PO SCH ×2 (08:25→20:01)
[2021-10-01] MEDS: aspirin 81mg tab.chew PO SCH (08:25)
[2021-10-01] MEDS: oxybutynin 5mg tablet PO SCH ×3 (08:25→21:11)
[2021-10-01] MEDS: theophylline anhydrous 100mg ER capsule 24-hour PO SCH (08:26)
[2021-10-01 08:31] LABS: ALANINE AMINOTRANSFERASE 10 U/L (12-78); ALBUMIN 3.4 G/DL (3.4-5.0); ALBUMIN/GLOBULIN RATIO 1.3 (1.1-1.5); ALKALINE PHOSPHATASE 70 IU/L (46-116); ANION GAP 3 (8-16); ASPARTATE AMINO TRANSFERASE 7 U/L (10-37); BILIRUBIN,TOTAL 0.2 MG/DL (0.1-1.0); BLOOD UREA NITROGEN 27 MG/DL (7-18); BUN/CREATININE RATIO 30.7 (6.6-38.0); CALCIUM 8.8 MG/DL (8.5-10.1); CHLORIDE 98 MMOL/L (99-107); CREATININE 0.88 MG/DL (0.40-0.90); GLUCOSE 179 MG/DL (70-104); POTASSIUM 4.4 MMOL/L (3.5-5.1); SODIUM 132 MMOL/L (135-145); TOTAL CARBON DIOXIDE 31.1 MMOL/L (24-32); TOTAL PROTEIN 6.1 G/DL (6.4-8.2); eGFR 66 ML/MIN
[2021-10-01] MEDS: furosemide 20MG tablet PO SCH (08:31)
[2021-10-01] MEDS: morphine 4 MG/ML inj SYRINge IV PRN ×2 (08:32→19:32)
[2021-10-01] MEDS: CefTRIAXone/D5W-Rocephin 1gm 50 ML IV SCH (09:38)
[2021-10-01 11:00] VITALS: BP 113/51
[2021-10-01 15:00] VITALS: BP 112/52
--- NOTE | 2021-10-01 15:11 | NUR ---
NOTIFIED DR YUNG RE: PAGER ID: [phone] MESSAGE: JAYME Smith. PT COULD NOT TOLERATE MRI. ATIVAN HAD BEEN GIVEN. BELKYS TELE [phone]
[2021-10-01 18:00] VITALS: BP 99/43
--- NOTE | 2021-10-01 18:30 | NUR ---
Patient in room PCU 3013. I have received report from BELKYS and had the opportunity to ask questions and assume patient care.
--- NOTE | 2021-10-01 18:32 | NUR ---
Problems reprioritized. Patient report given, questions answered & plan of care reviewed with MAGALY WASHINGTON.
[2021-10-01] MEDS: montelukast 10mg tablet PO SCH (21:11)
[2021-10-01 22:00] VITALS: BP 109/43
[2021-10-02] MEDS: morphine 4 MG/ML inj SYRINge IV PRN ×3 (01:48→14:49)
[2021-10-02] MEDS: methylPREDNISolone sod succ 125mg/2ml vial IV SCH ×2 (01:49→09:32)
[2021-10-02 02:00] VITALS: BP 115/47
--- NOTE | 2021-10-02 03:02 | NUR ---
Agree with initial assessment of patient. Complains of pain generalized as 10 of 10. Requests morphine IV, suggested patient try toradol but she adamantly refused. Is anxious and labile.
[2021-10-02] MEDS: ipratropium/albuterol 3ml nebule NEB SCH ×4 (04:03→15:00)
[2021-10-02 06:00] VITALS: BP 111/53
--- NOTE | 2021-10-02 06:20 | NUR ---
Problems reprioritized. Patient report given, questions answered & plan of care reviewed with LESLY.
--- NOTE | 2021-10-02 06:26 | NUR ---
Patient in room PCU 3013. I have received report from Daniel WASHINGTON and had the opportunity to ask questions and assume patient care.
[2021-10-02 07:07] LABS: BASOPHILS % (AUTO) 0.1 % (0-1); EOSINOPHILS % (AUTO) 0 % (0-6); HEMATOCRIT 23.1 % (35.0-45.0); HEMOGLOBIN 7.4 g/dl (12.0-16.0); LYMPHOCYTES # (AUTO) 0.1 X10'3 (1.1-4.8); LYMPHOCYTES % (AUTO) 1.4 % (21-51); MEAN CORPUSCULAR HEMOGLOBIN 25.5 PG (27.0-31.0); MEAN CORPUSCULAR HGB CONC 32.1 g/dL (33.0-36.5); MEAN CORPUSCULAR VOLUME 79.4 FL (78-98); MEAN PLATELET VOLUME 7.2 FL (7.4-10.4); MONOCYTES # (AUTO) 0.2 X10'3 (0-0.9); MONOCYTES % (AUTO) 3.5 % (2-12); NEUTROPHILS # (AUTO) 4.3 X10'3 (1.8-7.7); PLATELET COUNT 293 X10'3 (140-440); RED BLOOD COUNT 2.91 X10'6 (4.20-5.60); RED CELL DISTRIBUTION WIDTH 17.9 % (11.5-14.5); WHITE BLOOD COUNT 4.6 X10'3 (4.5-11.0)
[2021-10-02 07:25] LABS: ALANINE AMINOTRANSFERASE 11 U/L (12-78); ALBUMIN 3.3 G/DL (3.4-5.0); ALBUMIN/GLOBULIN RATIO 1.3 (1.1-1.5); ALKALINE PHOSPHATASE 59 IU/L (46-116); ANION GAP 3 (8-16); ASPARTATE AMINO TRANSFERASE 8 U/L (10-37); BILIRUBIN,TOTAL 0.2 MG/DL (0.1-1.0); BLOOD UREA NITROGEN 22 MG/DL (7-18); BUN/CREATININE RATIO 27.2 (6.6-38.0); CALCIUM 9.1 MG/DL (8.5-10.1); CHLORIDE 99 MMOL/L (99-107); CREATININE 0.81 MG/DL (0.40-0.90); GLUCOSE 168 MG/DL (70-104); MAGNESIUM 1.8 MG/DL (1.5-2.4); POTASSIUM 4.4 MMOL/L (3.5-5.1); SODIUM 135 MMOL/L (135-145); TOTAL CARBON DIOXIDE 33.4 MMOL/L (24-32); TOTAL PROTEIN 5.9 G/DL (6.4-8.2); eGFR 73 ML/MIN
[2021-10-02] MEDS: budesonide 0.5mg/2ml UD nebule IH SCH (07:35)
[2021-10-02] MEDS: K and/or MAG REPLACEMENT MC SCH (08:00)
[2021-10-02] MEDS: pantoprazole 40MG/NS 100ML BAG 100 ML IV SCH (09:28)
[2021-10-02] MEDS: CefTRIAXone/D5W-Rocephin 1gm 50 ML IV SCH (09:28)
[2021-10-02] MEDS: azithromycin/NS 500mg/250ml 250 ML IV SCH (09:30)
[2021-10-02] MEDS: busPIRone 15mg tablet PO SCH (09:35)
[2021-10-02] MEDS: carvedilol 6.25mg tablet PO SCH (09:35)
[2021-10-02] MEDS: gabapentin 100mg capsule PO SCH ×2 (09:35→13:10)
[2021-10-02] MEDS: potassium chloride 8mEq ER tablet PO SCH (09:35)
[2021-10-02] MEDS: theophylline anhydrous 100mg ER capsule 24-hour PO SCH (09:36)
[2021-10-02] MEDS: oxybutynin 5mg tablet PO SCH ×2 (09:36→13:10)
[2021-10-02] MEDS: docusate sod 100mg capsule PO SCH (09:36)
[2021-10-02] MEDS: sertraline 50mg tablet PO SCH (09:36)
[2021-10-02] MEDS: aspirin 81mg tab.chew PO SCH (09:37)
[2021-10-02] MEDS: furosemide 20MG tablet PO SCH (09:37)
[2021-10-02] MEDS ORDERED: LEVO500T90 PO ×2 (10:09)
[2021-10-02] MEDS ORDERED: PRED10TA PO (10:09)
[2021-10-02] MEDS ORDERED: OXYB5TAB16 PO ×2 (10:09)
--- NOTE | 2021-10-02 10:41 | NUR ---
promotional table spacer PAGER ID: [phone] MESSAGE: Danuta [phone] re Berthabenja Simabe in [id number]. Pt is refusing to go home and says she is not ready today.
[2021-10-02 11:00] VITALS: BP 99/51
--- NOTE | 2021-10-02 15:18 | NUR ---
Explained all discharge and medication instructions to pt. Pt verbalized understanding. Removed IV, tip intact. Pt escorted via wheelchair to ride out front. Pt using her portable oxygen.
== END 2021-10-02 15:18 | disposition home health service (06) | DRG 133 ==
LOC: ER 09:39 → ED HOLD 12:31 → CICU 2S 13:48 → PCU 3S 09-29 17:51
PROVIDERS: ADMIT Family Medicine; ATTEND Family Medicine
PROC: 5A09357 Assistance with Respiratory Ventilation, Less than 24 Consecutive Hours, Continuous Positive Airway Pressure (ICD-10-PCS; principal; 2021-09-28)
PROC: 5A09357 Assistance with Respiratory Ventilation, Less than 24 Consecutive Hours, Continuous Positive Airway Pressure (ICD-10-PCS; 2021-09-29)
PROC: 30233N1 Transfusion of Nonautologous Red Blood Cells into Peripheral Vein, Percutaneous Approach (ICD-10-PCS; 2021-09-29)
PROC: 5A09357 Assistance with Respiratory Ventilation, Less than 24 Consecutive Hours, Continuous Positive Airway Pressure (ICD-10-PCS; 2021-09-30)
PROC: 5A09357 Assistance with Respiratory Ventilation, Less than 24 Consecutive Hours, Continuous Positive Airway Pressure (ICD-10-PCS; 2021-10-01)
PROC: 5A09357 Assistance with Respiratory Ventilation, Less than 24 Consecutive Hours, Continuous Positive Airway Pressure (ICD-10-PCS; 2021-10-02)
DX: J96.02 Acute respiratory failure with hypercapnia (principal); N17.0 Acute kidney failure with tubular necrosis; G93.41 Metabolic encephalopathy; I13.0 Hypertensive heart and chronic kidney disease with heart failure and stage 1 through stage 4 chronic kidney disease, or unspecified chronic kidney disease; I27.20 Pulmonary hypertension, unspecified; J18.9 Pneumonia, unspecified organism; I50.9 Heart failure, unspecified; F15.90 Other stimulant use, unspecified, uncomplicated; J96.01 Acute respiratory failure with hypoxia; N18.9 Chronic kidney disease, unspecified; I35.1 Nonrheumatic aortic (valve) insufficiency; J43.9 Emphysema, unspecified; Z20.822 Contact with and (suspected) exposure to COVID-19; F41.9 Anxiety disorder, unspecified; F43.10 Post-traumatic stress disorder, unspecified; G40.909 Epilepsy, unspecified, not intractable, without status epilepticus; G89.4 Chronic pain syndrome; Z85.118 Personal history of other malignant neoplasm of bronchus and lung; Z90.49 Acquired absence of other specified parts of digestive tract; Z95.2 Presence of prosthetic heart valve; Z88.8 Allergy status to other drugs, medicaments and biological substances
CPT/HCPCS: 36415; 36430; 36600; 70551; 71045; 80053; 80305; 82803; 83540; 83550; 83605; 83735; 83880; 84132; 84484; 85018; 85025; 85384; 85610; 86885; 86900; 86901; 86920; 87040; 87081; 87635; 93005; 93306; 94640; 94660; 94760; 97110; 97116; 97161; 97530; 99291; A4615; A6258; A6402; A7015; C9113; C9803; G0378; J0456; J0696; J1170; J1885; J1940; J2060; J2270; J2405; J2930; J3475; J7030; J7120; P9016

== ENCOUNTER 2021-10-05 10:34 | Inpatient (IN) | payer MEDICAID ==
[~2021-10-05] VITALS: Ht 147.3 cm; Wt 41.8 kg
[~2021-10-05 10:34] MED LIST changes: +ACET-1025 PO; +ASPI-611 PO; -BUPR-230 PO; -CARV3.122 PO; +CARV6.253 PO; +CHOL20002 PO; +FURO20TA4 PO; +GABA-530 PO; -GABA300C PO; -HYDR-3686 PO; +LEVO500T90 PO; -LISI2.5T14 PO; -OMEP20CA16 PO; +OMEP40CA21 PO; -ONDA-103 PO; +OXYB5TAB16 PO; +PRED10TA PO; +SERT-433 PO; +TIOT4MIS2 INH; -TORS20TA3 PO
[2021-10-05] MEDS ORDERED: diltiazem 5mg/ml 5ml inj. IV ONE ×2 (10:40→11:50)
--- NOTE | 2021-10-05 11:02 | NUR ---
arrived tachycardic and complaining of weak
--- NOTE | 2021-10-05 11:03 | NUR ---
weakness and some pain to chest. presented with rapid heart rate in ed. iv established and cardizem administered with relief noted post administration
[2021-10-05 11:11] LABS: BASOPHILS % (AUTO) 0.2 % (0-1); EOSINOPHILS # (AUTO) 0.2 X10'3 (0-0.9); EOSINOPHILS % (AUTO) 2.5 % (0-6); HEMATOCRIT 30.4 % (35.0-45.0); HEMOGLOBIN 9.4 g/dl (12.0-16.0); LYMPHOCYTES # (AUTO) 0.4 X10'3 (1.1-4.8); LYMPHOCYTES % (AUTO) 5.3 % (21-51); MEAN CORPUSCULAR HEMOGLOBIN 24.9 PG (27.0-31.0); MEAN CORPUSCULAR VOLUME 80.4 FL (78-98); MEAN PLATELET VOLUME 7.6 FL (7.4-10.4); MONOCYTES # (AUTO) 0.7 X10'3 (0-0.9); MONOCYTES % (AUTO) 8.2 % (2-12); NEUTROPHILS # (AUTO) 7.1 X10'3 (1.8-7.7); NEUTROPHILS % (AUTO) 83.8 % (42-75); PLATELET COUNT 481 X10'3 (140-440); RED BLOOD COUNT 3.78 X10'6 (4.20-5.60); RED CELL DISTRIBUTION WIDTH 18.3 % (11.5-14.5); WHITE BLOOD COUNT 8.4 X10'3 (4.5-11.0)
[2021-10-05 11:36] LABS: ALANINE AMINOTRANSFERASE 18 U/L (12-78); ALBUMIN 3.6 G/DL (3.4-5.0); ALBUMIN/GLOBULIN RATIO 1.3 (1.1-1.5); ALKALINE PHOSPHATASE 72 IU/L (46-116); ANION GAP 5 (8-16); ASPARTATE AMINO TRANSFERASE 13 U/L (10-37); BILIRUBIN,TOTAL 0.4 MG/DL (0.1-1.0); BLOOD UREA NITROGEN 12 MG/DL (7-18); BUN/CREATININE RATIO 15.8 (6.6-38.0); CALCIUM 9.1 MG/DL (8.5-10.1); CHLORIDE 101 MMOL/L (99-107); CREATININE 0.76 MG/DL (0.40-0.90); GLUCOSE 139 MG/DL (70-104); POTASSIUM 3.5 MMOL/L (3.5-5.1); SODIUM 139 MMOL/L (135-145); TOTAL CARBON DIOXIDE 32.6 MMOL/L (24-32); TOTAL PROTEIN 6.3 G/DL (6.4-8.2); eGFR 78 ML/MIN
--- NOTE | 2021-10-05 11:49 | NUR ---
patient reports sob and is symptomatic again at this time. HR back up to 130 range, ER MD advised and ordered additional 20mg cardizem IVP and repeat EKG.
[2021-10-05] MEDS: diltiazem-NS 100mg/100ml 100 ML IV SCH ×2 (12:27→23:21)
[2021-10-05] MEDS ORDERED: metoclopramide 5 mg/ml inj IV ONE (13:20)
[2021-10-05] MEDS ORDERED: magnesium hydroxide 30ml (MOM) UD suspension PO PRN (14:25)
[2021-10-05] MEDS ORDERED: bisacodyl 10mg suppository rectal RC PRN (14:25)
[2021-10-05] MEDS ORDERED: POTASSIUM BICARB 20meq eff tab 20 MEQ TABLET.EFF PO PRN ×2 (14:25)
[2021-10-05] MEDS ORDERED: potassium CL 10mEq/100ml bag 100 ML IV PRN (14:25)
[2021-10-05] MEDS ORDERED: magnesium 2GM in 50ml NS 50 ML IV PRN (14:25)
[2021-10-05] MEDS ORDERED: mag hydrox/Alum hydrox/simeth 30ml oral suspension PO PRN (14:25)
[2021-10-05] MEDS ORDERED: magnesium 4gm in 100ml NS 100 ML IV PRN (14:25)
[2021-10-05] MEDS ORDERED: magnesium Cl slow-release 64mg tablet PO PRN (14:25)
[2021-10-05] MEDS ORDERED: acetaminophen 325mg tablet PO PRN ×2 (14:25)
[2021-10-05] MEDS ORDERED: ondansetron 4mg rapidly disintigrating tab PO PRN (14:25)
[2021-10-05] MEDS ORDERED: diltiazem-D5W 125mg/125ml 125 ML IV SCH (14:25)
--- NOTE | 2021-10-05 14:41 | NUR ---
patient advised she needs a cpap machine to sleep and breathe at this time
[2021-10-05] MEDS ORDERED: LEVO500T90 PO (14:58)
[2021-10-05] MEDS ORDERED: OXYB5TAB16 PO (14:58)
[2021-10-05 15:01] LABS: D-DIMER 0.57 MG/L FEU (0-0.50)
[2021-10-05 15:21] LABS: MAGNESIUM 1.4 MG/DL (1.5-2.4)
--- NOTE | 2021-10-05 16:13 | NUR ---
patient to be placed onto bed stevens at this time
--- NOTE | 2021-10-05 16:49 | NUR ---
hospitalist paged at this time to be advised of tachycardia
--- NOTE | 2021-10-05 17:00 | NUR ---
per hospitalist at bedside, increase rate of cardizem drip from 5ml/hr to 10ml/hr
[2021-10-05] MEDS ORDERED: magnesium 2GM in 50ml NS 50 ML IV ONE (17:25)
[2021-10-05] MEDS ORDERED: ipratropium/albuterol 3ml nebule NEB PRN (17:25)
--- NOTE | 2021-10-05 17:36 | NUR ---
covid swab collected at this time
--- NOTE | 2021-10-05 18:19 | NUR ---
unable to obtain additional iv at this time for magnesium administration. med delay noted
[2021-10-05] MEDS: budesonide 0.5mg/2ml UD nebule IH SCH (19:11)
[2021-10-05] MEDS: ipratropium/albuterol 3ml nebule NEB SCH ×2 (19:11→23:13)
[2021-10-05] MEDS ORDERED: albuterol 2.5 MG/3 ML nebule NEB SCH (20:00)
[2021-10-05] MEDS ORDERED: carvedilol 6.25mg tablet PO SCH (20:00)
[2021-10-05] MEDS: K and/or MAG REPLACEMENT MC SCH (20:00)
[2021-10-05 20:50] VITALS: BP 106/46
[2021-10-05] MEDS ORDERED: temazepam 15mg capsule PO PRN (21:00)
[2021-10-05] MEDS: oxybutynin 5mg tablet PO SCH (21:23)
[2021-10-05] MEDS: montelukast 10mg tablet PO SCH (21:23)
[2021-10-05] MEDS: gabapentin 100mg capsule PO SCH (21:24)
[2021-10-05] MEDS: sertraline 50mg tablet PO SCH (21:24)
[2021-10-05] MEDS: busPIRone 15mg tablet PO SCH (21:25)
[2021-10-05] MEDS: potassium chloride 8mEq ER tablet PO SCH (21:26)
[2021-10-05] MEDS: docusate sod 100mg capsule PO SCH (21:26)
[2021-10-05] MEDS: furosemide 20 MG/2 ML vial IV SCH (21:27)
[2021-10-05] MEDS: enoxaparin 40mg/0.4ml syringe SQ SCH (21:30)
[2021-10-05 22:00] VITALS: BP 99/43
[2021-10-06 02:00] VITALS: BP 113/61
[2021-10-06] MEDS: ipratropium/albuterol 3ml nebule NEB SCH ×6 (03:03→22:56)
[2021-10-06 07:10] VITALS: BP 135/51
[2021-10-06 07:14] LABS: BASOPHILS % (AUTO) 0.3 % (0-1); EOSINOPHILS # (AUTO) 0.3 X10'3 (0-0.9); EOSINOPHILS % (AUTO) 3.6 % (0-6); HEMOGLOBIN 8.4 g/dl (12.0-16.0); LYMPHOCYTES # (AUTO) 0.6 X10'3 (1.1-4.8); LYMPHOCYTES % (AUTO) 8.9 % (21-51); MEAN CORPUSCULAR HEMOGLOBIN 24.8 PG (27.0-31.0); MEAN CORPUSCULAR VOLUME 79.9 FL (78-98); MEAN PLATELET VOLUME 7.1 FL (7.4-10.4); MONOCYTES # (AUTO) 0.6 X10'3 (0-0.9); MONOCYTES % (AUTO) 8.4 % (2-12); NEUTROPHILS # (AUTO) 5.6 X10'3 (1.8-7.7); NEUTROPHILS % (AUTO) 78.8 % (42-75); PLATELET COUNT 388 X10'3 (140-440); RED BLOOD COUNT 3.38 X10'6 (4.20-5.60); RED CELL DISTRIBUTION WIDTH 17.9 % (11.5-14.5); WHITE BLOOD COUNT 7.1 X10'3 (4.5-11.0)
[2021-10-06] MEDS: budesonide 0.5mg/2ml UD nebule IH SCH ×2 (07:17→19:19)
[2021-10-06] MEDS ORDERED: ipratropium 0.5 MG/2.5ML nebule NEB SCH (08:00)
[2021-10-06] MEDS: K and/or MAG REPLACEMENT MC SCH ×2 (08:00→19:54)
[2021-10-06] MEDS ORDERED: THEOPHYLLINE ANHYDROUS PO SCH (08:00)
[2021-10-06] MEDS ORDERED: carVEDilol 3.125mg tablet PO ONE (08:35)
[2021-10-06] MEDS: gabapentin 100mg capsule PO SCH ×3 (08:42→20:41)
[2021-10-06] MEDS: docusate sod 100mg capsule PO SCH ×2 (08:42→19:35)
[2021-10-06] MEDS: sertraline 50mg tablet PO SCH ×2 (08:42→19:36)
[2021-10-06] MEDS: pantoprazole 40mg Tablet.DR PO SCH (08:42)
[2021-10-06] MEDS: potassium chloride 8mEq ER tablet PO SCH ×2 (08:43→19:38)
[2021-10-06] MEDS: enoxaparin 40mg/0.4ml syringe SQ SCH ×2 (08:43→19:47)
[2021-10-06] MEDS: busPIRone 15mg tablet PO SCH ×2 (08:43→19:36)
[2021-10-06] MEDS: furosemide 20 MG/2 ML vial IV SCH (08:43)
[2021-10-06] MEDS: oxybutynin 5mg tablet PO SCH ×3 (08:43→20:41)
[2021-10-06] MEDS: aspirin 81mg, enteric-coated 1 TAB TABLET.DR PO SCH (08:43)
--- NOTE | 2021-10-06 09:37 | NUR ---
Page sent to PICC RN... [id number] Adelaide Smith: could someone take a look at this patient when you get a chance. She just needs US guided PIV, shes on a Cardizem gtt with a 24g in the thumb! thanks, Alice
--- NOTE | 2021-10-06 10:06 | NUR ---
PAGER ID: [phone] MESSAGE: [id number] Adelaide Smith: were you wanting coreg 6.25mg or 12.5mg given this AM? BP 109/52 HR 119. thanks, robbi [phone]
[2021-10-06 10:15] LABS: URINE AMPHETAMINE SCREEN NEGATIVE (Neg); URINE BARBITUATE SCREEN NEGATIVE (Neg); URINE BENZODIAZEPINES SCREEN NEGATIVE (Neg); URINE CANNABINOID SCREEN NEGATIVE (Neg); URINE COCAINE SCREEN NEGATIVE (Neg); URINE METHADONE SCREEN NEGATIVE (Neg); URINE OPIATE SCREEN NEGATIVE (Neg); URINE PHENCYCLIDINE SCREEN NEGATIVE (Neg)
--- NOTE | 2021-10-06 10:58 | NUR ---
Malnutrition consult: Pt admitted w/ Afib and COPD exacerbation per EMR. Wt hx fluctuates on prior visits though pt reports to me that she has not had any recent wt loss, though has had some decrease in appetite but is still trying to eat. Pt did appear thin though this is likely her baseline appearance. No edema noted and pt w/ normal muscle strength. At this time pt does not meet minimum criteria for malnutrition. Pt did report that she has some difficulty w/ chewing and swallowing, recommend BSS w/ NEWSPAPER JOURNALIST. Addendum: 10/06/21 at [address] Amended: Links added.
[2021-10-06 11:29] VITALS: BP 123/81
[2021-10-06] MEDS ORDERED: carvedilol 6.25mg tablet PO ONE (11:35)
[2021-10-06] MEDS: LORazepam 0.5 MG tablet PO PRN (15:41)
[2021-10-06 15:44] VITALS: BP 115/66
--- NOTE | 2021-10-06 18:21 | NUR ---
Problems reprioritized. Patient report given, questions answered & plan of care reviewed with PADMINI Willard.
[2021-10-06] MEDS: diltiazem 30mg tablet PO SCH (19:37)
[2021-10-06] MEDS: carvedilol 6.25mg tablet PO SCH (19:37)
[2021-10-06] MEDS: HYDROcodone/acetaminophen 5mg/325mg tablet PO PRN (20:41)
[2021-10-06] MEDS: montelukast 10mg tablet PO SCH (20:41)
[2021-10-07] VITALS (7 sets, daily range): BP systolic 91–106; BP diastolic 49–72
[2021-10-07] MEDS: diltiazem 30mg tablet PO SCH ×4 (02:00→21:30)
[2021-10-07] MEDS: ipratropium/albuterol 3ml nebule NEB SCH ×6 (03:37→23:25)
[2021-10-07 07:04] LABS: BASOPHILS % (AUTO) 0.1 % (0-1); EOSINOPHILS # (AUTO) 0.3 X10'3 (0-0.9); HEMATOCRIT 23.3 % (35.0-45.0); HEMOGLOBIN 7.2 g/dl (12.0-16.0); LYMPHOCYTES # (AUTO) 0.5 X10'3 (1.1-4.8); LYMPHOCYTES % (AUTO) 9.2 % (21-51); MEAN CORPUSCULAR HGB CONC 30.8 g/dL (33.0-36.5); MEAN PLATELET VOLUME 7.1 FL (7.4-10.4); MONOCYTES # (AUTO) 0.6 X10'3 (0-0.9); MONOCYTES % (AUTO) 11.3 % (2-12); NEUTROPHILS # (AUTO) 3.7 X10'3 (1.8-7.7); NEUTROPHILS % (AUTO) 73.4 % (42-75); PLATELET COUNT 317 X10'3 (140-440); RED BLOOD COUNT 2.87 X10'6 (4.20-5.60)
[2021-10-07 07:23] LABS: ALANINE AMINOTRANSFERASE 13 U/L (12-78); ALBUMIN 2.7 G/DL (3.4-5.0); ALBUMIN/GLOBULIN RATIO 1.2 (1.1-1.5); ANION GAP 4 (8-16); ASPARTATE AMINO TRANSFERASE 7 U/L (10-37); BILIRUBIN,TOTAL 0.3 MG/DL (0.1-1.0); BLOOD UREA NITROGEN 16 MG/DL (7-18); BUN/CREATININE RATIO 24.2 (6.6-38.0); CALCIUM 8.9 MG/DL (8.5-10.1); CHLORIDE 103 MMOL/L (99-107); CREATININE 0.66 MG/DL (0.40-0.90); GLUCOSE 104 MG/DL (70-104); MAGNESIUM 1.6 MG/DL (1.5-2.4); POTASSIUM 4.2 MMOL/L (3.5-5.1); SODIUM 141 MMOL/L (135-145); TOTAL CARBON DIOXIDE 34.2 MMOL/L (24-32); eGFR > 90 ML/MIN
[2021-10-07 07:31] LABS: ALKALINE PHOSPHATASE 52 IU/L (46-116)
[2021-10-07] MEDS: budesonide 0.5mg/2ml UD nebule IH SCH ×2 (07:49→19:34)
[2021-10-07] MEDS: K and/or MAG REPLACEMENT MC SCH ×2 (08:00→20:00)
[2021-10-07] MEDS: gabapentin 100mg capsule PO SCH ×3 (08:00→21:35)
[2021-10-07] MEDS: oxybutynin 5mg tablet PO SCH ×3 (09:39→21:37)
[2021-10-07] MEDS: busPIRone 15mg tablet PO SCH ×2 (09:39→21:37)
[2021-10-07] MEDS: aspirin 81mg, enteric-coated 1 TAB TABLET.DR PO SCH (09:39)
[2021-10-07] MEDS: docusate sod 100mg capsule PO SCH ×2 (09:39→21:35)
[2021-10-07] MEDS: theophylline anhydrous 100mg ER capsule 24-hour PO SCH (09:40)
[2021-10-07] MEDS: potassium chloride 8mEq ER tablet PO SCH ×2 (09:40→21:37)
[2021-10-07] MEDS: sertraline 50mg tablet PO SCH ×2 (09:41→21:37)
[2021-10-07] MEDS: pantoprazole 40mg Tablet.DR PO SCH (09:42)
[2021-10-07] MEDS: HYDROcodone/acetaminophen 5mg/325mg tablet PO PRN ×2 (09:43→21:55)
[2021-10-07] MEDS: furosemide 20 MG/2 ML vial IV SCH (09:44)
[2021-10-07] MEDS: enoxaparin 40mg/0.4ml syringe SQ SCH ×2 (09:45→21:39)
[2021-10-07] MEDS: carvedilol 6.25mg tablet PO SCH (10:06)
--- NOTE | 2021-10-07 11:34 | NUR ---
Met with patient in regards to substance use and to see if patient is interested in resources for treatment options. Patient declined.
[2021-10-07] MEDS: sotalol HCl 40mg (1/2 tablet) PO SCH ×2 (12:30→21:30)
[2021-10-07] MEDS ORDERED: benzocaine/menthol oral lozeng 1 EACH BOX MM PRN (13:50)
[2021-10-07] MEDS: montelukast 10mg tablet PO SCH (21:36)
[2021-10-08] VITALS (7 sets, daily range): BP systolic 100–125; BP diastolic 42–95
[2021-10-08] MEDS: LORazepam 0.5 MG tablet PO PRN ×2 (01:30→09:45)
[2021-10-08] MEDS: diltiazem 30mg tablet PO SCH ×4 (01:35→20:29)
[2021-10-08] MEDS: ondansetron/PF 4mg/2ml inj IV PRN ×2 (02:26→07:49)
[2021-10-08] MEDS: ipratropium/albuterol 3ml nebule NEB SCH ×6 (03:23→23:06)
[2021-10-08 06:40] LABS: BASOPHILS % (AUTO) 0.3 % (0-1); EOSINOPHILS # (AUTO) 0.3 X10'3 (0-0.9); EOSINOPHILS % (AUTO) 5.9 % (0-6); LYMPHOCYTES # (AUTO) 0.5 X10'3 (1.1-4.8); LYMPHOCYTES % (AUTO) 9.7 % (21-51); MEAN CORPUSCULAR HEMOGLOBIN 25.2 PG (27.0-31.0); MEAN CORPUSCULAR HGB CONC 31.5 g/dL (33.0-36.5); MEAN CORPUSCULAR VOLUME 80.1 FL (78-98); MONOCYTES # (AUTO) 0.7 X10'3 (0-0.9); MONOCYTES % (AUTO) 13.3 % (2-12); NEUTROPHILS # (AUTO) 3.5 X10'3 (1.8-7.7); NEUTROPHILS % (AUTO) 70.8 % (42-75); PLATELET COUNT 340 X10'3 (140-440); RED BLOOD COUNT 2.74 X10'6 (4.20-5.60); RED CELL DISTRIBUTION WIDTH 17.5 % (11.5-14.5); WHITE BLOOD COUNT 4.9 X10'3 (4.5-11.0)
[2021-10-08 06:51] LABS: HEMOGLOBIN 6.9 g/dl (12.0-16.0)
[2021-10-08 06:52] LABS: HEMATOCRIT 21.9 % (35.0-45.0)
--- NOTE | 2021-10-08 06:55 | NUR ---
Patient in room PCU 3014. I have received report from Lucy RN and had the opportunity to ask questions and assume patient care.
[2021-10-08 07:09] LABS: ALANINE AMINOTRANSFERASE 17 U/L (12-78); ALBUMIN/GLOBULIN RATIO 1.3 (1.1-1.5); ALKALINE PHOSPHATASE 66 IU/L (46-116); ANION GAP 5 (8-16); ASPARTATE AMINO TRANSFERASE 9 U/L (10-37); BILIRUBIN,TOTAL 0.2 MG/DL (0.1-1.0); BLOOD UREA NITROGEN 21 MG/DL (7-18); BUN/CREATININE RATIO 23.6 (6.6-38.0); CALCIUM 8.7 MG/DL (8.5-10.1); CHLORIDE 100 MMOL/L (99-107); CREATININE 0.89 MG/DL (0.40-0.90); GLUCOSE 100 MG/DL (70-104); MAGNESIUM 1.6 MG/DL (1.5-2.4); POTASSIUM 3.9 MMOL/L (3.5-5.1); SODIUM 138 MMOL/L (135-145); TOTAL CARBON DIOXIDE 33.2 MMOL/L (24-32); TOTAL PROTEIN 5.4 G/DL (6.4-8.2); eGFR 65 ML/MIN
--- NOTE | 2021-10-08 07:35 | NUR ---
Paged provider re critical HGB 6.9 HCT21.9
[2021-10-08] MEDS: potassium chloride 8mEq ER tablet PO SCH ×2 (07:50→20:34)
[2021-10-08] MEDS: gabapentin 100mg capsule PO SCH ×3 (07:50→20:30)
[2021-10-08] MEDS: furosemide 20 MG/2 ML vial IV SCH ×2 (07:50→20:31)
[2021-10-08] MEDS: pantoprazole 40mg Tablet.DR PO SCH (07:50)
[2021-10-08] MEDS: busPIRone 15mg tablet PO SCH ×2 (07:51→20:30)
[2021-10-08] MEDS: aspirin 81mg, enteric-coated 1 TAB TABLET.DR PO SCH (07:52)
[2021-10-08] MEDS: oxybutynin 5mg tablet PO SCH ×3 (07:52→20:30)
[2021-10-08] MEDS: theophylline anhydrous 100mg ER capsule 24-hour PO SCH (07:52)
[2021-10-08] MEDS: sotalol HCl 40mg (1/2 tablet) PO SCH ×2 (07:52→20:29)
[2021-10-08] MEDS: docusate sod 100mg capsule PO SCH ×2 (07:52→20:30)
[2021-10-08] MEDS: sertraline 50mg tablet PO SCH ×2 (07:53→20:30)
[2021-10-08] MEDS: enoxaparin 40mg/0.4ml syringe SQ SCH (07:54)
[2021-10-08] MEDS: budesonide 0.5mg/2ml UD nebule IH SCH ×3 (07:54→19:30)
[2021-10-08] MEDS: K and/or MAG REPLACEMENT MC SCH ×2 (08:00→20:00)
--- NOTE | 2021-10-08 09:36 | NUR ---
First doctor paged was not patients hospitalist. So we paged Dr. KAUFMAN [phone] MESSAGE: [phone] Anusha Smith 3014B has a critical HGB 6.9 HTC 21.9. She also is complains of pain/migraine Ransom 5/325 not working. Please advise Saritha WASHINGTON [phone]
--- NOTE | 2021-10-08 11:14 | NUR ---
Initial: Pt admit for COPD exacerbation and new onset A.fib with RVR. Pt s/p BSS with ST recs mechanical soft food with thin liquids and pt eating well with average 83% PO intake meeting estimated nutrient needs. LBM 10/06, receiving routine bowel care and with PRN bowel care available if needed. No nutrition intervention implemented at this time. Will continue to follow. Recommendations: 1) Continue EC7 heart healthy diet 2) Routine bowel care 3) Scaled weight this admit; subsequent weekly scaled weights Addendum: 10/08/21 at [address] Amended: Links added.
[2021-10-08 11:20] LABS: OCCULT BLOOD STOOL POSITIVE (Neg)
[2021-10-08] MEDS: morphine 2 MG/ML inj. syringe IV PRN ×3 (11:42→20:35)
[2021-10-08 12:08] LABS: BASOPHILS % (AUTO) 0.3 % (0-1); EOSINOPHILS # (AUTO) 0.3 X10'3 (0-0.9); EOSINOPHILS % (AUTO) 4.5 % (0-6); HEMATOCRIT 26.2 % (35.0-45.0); HEMOGLOBIN 8.1 g/dl (12.0-16.0); LYMPHOCYTES # (AUTO) 0.4 X10'3 (1.1-4.8); LYMPHOCYTES % (AUTO) 6.1 % (21-51); MEAN CORPUSCULAR HEMOGLOBIN 25.2 PG (27.0-31.0); MEAN CORPUSCULAR HGB CONC 31.1 g/dL (33.0-36.5); MEAN CORPUSCULAR VOLUME 81.1 FL (78-98); MEAN PLATELET VOLUME 7.4 FL (7.4-10.4); MONOCYTES # (AUTO) 0.9 X10'3 (0-0.9); MONOCYTES % (AUTO) 12.8 % (2-12); NEUTROPHILS # (AUTO) 5.3 X10'3 (1.8-7.7); NEUTROPHILS % (AUTO) 76.3 % (42-75); PLATELET COUNT 413 X10'3 (140-440); RED BLOOD COUNT 3.23 X10'6 (4.20-5.60); RED CELL DISTRIBUTION WIDTH 17.7 % (11.5-14.5); WHITE BLOOD COUNT 6.9 X10'3 (4.5-11.0)
--- NOTE | 2021-10-08 12:14 | NUR ---
[phone] MESSAGE: Anusha Smith [id number] Lab just called her CBC@ 1100 HBG came back 8.1 and HCT 26.1 Do you still want me to give that unit PRBC? Please advise. Saritha WASHINGTON [phone] Thank you
[2021-10-08 12:55] LABS: HEMATOCRIT 22.9 % (35.0-45.0); HEMOGLOBIN 7.2 g/dl (12.0-16.0); MEAN CORPUSCULAR HEMOGLOBIN 25.3 PG (27.0-31.0); MEAN CORPUSCULAR HGB CONC 31.3 g/dL (33.0-36.5); MEAN CORPUSCULAR VOLUME 80.6 FL (78-98); PLATELET COUNT 356 X10'3 (140-440); RED BLOOD COUNT 2.84 X10'6 (4.20-5.60); RED CELL DISTRIBUTION WIDTH 17.8 % (11.5-14.5); WHITE BLOOD COUNT 5.5 X10'3 (4.5-11.0)
--- NOTE | 2021-10-08 18:30 | NUR ---
Patient in room PCU 3014. I have received report from Saritha WASHINGTON and had the opportunity to ask questions and assume patient care.
[2021-10-08] MEDS: pantoprazole 40MG/NS 100ML BAG 100 ML IV SCH (20:23)
[2021-10-08] MEDS: montelukast 10mg tablet PO SCH (20:30)
[2021-10-09] VITALS (7 sets, daily range): BP systolic 108–138; BP diastolic 47–62
[2021-10-09] MEDS: HYDROcodone/acetaminophen 10/325mg tab PO PRN ×2 (00:53→21:42)
[2021-10-09] MEDS: morphine 2 MG/ML inj. syringe IV PRN ×4 (02:56→18:17)
[2021-10-09] MEDS: diltiazem 30mg tablet PO SCH ×4 (02:56→21:42)
[2021-10-09] MEDS: ipratropium/albuterol 3ml nebule NEB SCH ×5 (03:15→19:18)
[2021-10-09 05:40] LABS: BASOPHILS % (AUTO) 0.5 % (0-1); EOSINOPHILS # (AUTO) 0.2 X10'3 (0-0.9); EOSINOPHILS % (AUTO) 3.7 % (0-6); HEMATOCRIT 22.7 % (35.0-45.0); HEMOGLOBIN 7.1 g/dl (12.0-16.0); LYMPHOCYTES # (AUTO) 0.4 X10'3 (1.1-4.8); LYMPHOCYTES % (AUTO) 8.7 % (21-51); MEAN CORPUSCULAR HGB CONC 31.1 g/dL (33.0-36.5); MEAN CORPUSCULAR VOLUME 80.5 FL (78-98); MONOCYTES # (AUTO) 0.8 X10'3 (0-0.9); MONOCYTES % (AUTO) 17.4 % (2-12); NEUTROPHILS # (AUTO) 3.2 X10'3 (1.8-7.7); NEUTROPHILS % (AUTO) 69.7 % (42-75); PLATELET COUNT 347 X10'3 (140-440); RED BLOOD COUNT 2.83 X10'6 (4.20-5.60); RED CELL DISTRIBUTION WIDTH 17.5 % (11.5-14.5); WHITE BLOOD COUNT 4.6 X10'3 (4.5-11.0)
[2021-10-09 05:42] LABS: ALANINE AMINOTRANSFERASE 20 U/L (12-78); ALBUMIN 3.3 G/DL (3.4-5.0); ALBUMIN/GLOBULIN RATIO 1.3 (1.1-1.5); ALKALINE PHOSPHATASE 66 IU/L (46-116); ANION GAP 3 (8-16); ASPARTATE AMINO TRANSFERASE 12 U/L (10-37); BILIRUBIN,TOTAL 0.4 MG/DL (0.1-1.0); BLOOD UREA NITROGEN 17 MG/DL (7-18); BUN/CREATININE RATIO 19.5 (6.6-38.0); CALCIUM 8.4 MG/DL (8.5-10.1); CHLORIDE 101 MMOL/L (99-107); CREATININE 0.87 MG/DL (0.40-0.90); GLUCOSE 117 MG/DL (70-104); MAGNESIUM 1.5 MG/DL (1.5-2.4); POTASSIUM 3.9 MMOL/L (3.5-5.1); SODIUM 137 MMOL/L (135-145); TOTAL CARBON DIOXIDE 33.4 MMOL/L (24-32); TOTAL PROTEIN 5.9 G/DL (6.4-8.2); eGFR 67 ML/MIN
[2021-10-09 06:38] LABS: ANISOCYTOSIS 1+; MICROCYTOSIS 1+; PLATELET ESTIMATE NORMAL
[2021-10-09 06:39] LABS: POIKILOCYTOSIS FEW; POLYCHROMASIA FEW; STOMATOCYTES 1+
--- NOTE | 2021-10-09 06:47 | NUR ---
Problems reprioritized. Patient report given, questions answered & plan of care reviewed with Saritha WASHINGTON.
[2021-10-09] MEDS: ondansetron/PF 4mg/2ml inj IV PRN (07:24)
[2021-10-09] MEDS: budesonide 0.5mg/2ml UD nebule IH SCH ×2 (07:56→19:18)
[2021-10-09] MEDS: potassium chloride 8mEq ER tablet PO SCH ×2 (08:00→21:43)
[2021-10-09] MEDS: oxybutynin 5mg tablet PO SCH ×3 (08:00→21:43)
[2021-10-09] MEDS: K and/or MAG REPLACEMENT MC SCH (08:00)
[2021-10-09] MEDS: furosemide 20 MG/2 ML vial IV SCH (08:00)
[2021-10-09] MEDS: pantoprazole 40mg Tablet.DR PO SCH (08:00)
[2021-10-09] MEDS: sotalol HCl 40mg (1/2 tablet) PO SCH ×2 (08:00→21:44)
[2021-10-09] MEDS: busPIRone 15mg tablet PO SCH ×2 (08:00→21:42)
[2021-10-09] MEDS: docusate sod 100mg capsule PO SCH (08:00)
[2021-10-09] MEDS: gabapentin 100mg capsule PO SCH ×3 (08:00→21:44)
[2021-10-09] MEDS: sertraline 50mg tablet PO SCH ×2 (08:00→21:43)
[2021-10-09] MEDS ORDERED: SOTA80TA73 PO ×2 (09:11)
[2021-10-09] MEDS ORDERED: HYDR-3965 PO ×2 (09:11)
[2021-10-09] MEDS ORDERED: PANT40TA54 PO ×2 (09:11)
[2021-10-09] MEDS: pantoprazole 40MG/NS 100ML BAG 100 ML IV SCH (09:30)
[2021-10-09] MEDS: theophylline anhydrous 100mg ER capsule 24-hour PO SCH (09:31)
[2021-10-09] MEDS: montelukast 10mg tablet PO SCH (21:43)
--- NOTE | 2021-10-09 22:30 | NUR ---
Patient was given discharge instructions. Called the patients to notify him that the patient is being DC. Provided education to the patient about follow up care. Called a taxi and assisted patient in the vehicle.
[2021-10-10] MEDS ORDERED: THEO400T PO (14:18)
[2021-10-10] MEDS ORDERED: HYDR-3686 PO (14:18)
[2021-10-10] MEDS ORDERED: HYDR-3964 PO (14:18)
[2021-10-10] MEDS ORDERED: OMEP40CA21 PO (14:18)
[2021-10-10] MEDS ORDERED: ONDA-103 PO (14:18)
[2021-10-10] MEDS ORDERED: DULO30CA52 PO (14:18)
[2021-10-10] MEDS ORDERED: CARV6.253 PO (14:23)
[2021-10-10] MEDS ORDERED: PRED10TA23 PO (14:25)
== END 2021-10-09 22:20 | disposition home health service (06) | DRG 201 ==
LOC: ER 10:35 → ED HOLD 14:39 → PCU 3S 20:30
PROVIDERS: ADMIT Family Medicine; ATTEND Family Medicine
PROC: 5A09357 Assistance with Respiratory Ventilation, Less than 24 Consecutive Hours, Continuous Positive Airway Pressure (ICD-10-PCS; principal; 2021-10-05)
PROC: 5A09357 Assistance with Respiratory Ventilation, Less than 24 Consecutive Hours, Continuous Positive Airway Pressure (ICD-10-PCS; 2021-10-06)
PROC: 5A09357 Assistance with Respiratory Ventilation, Less than 24 Consecutive Hours, Continuous Positive Airway Pressure (ICD-10-PCS; 2021-10-07)
PROC: 5A09357 Assistance with Respiratory Ventilation, Less than 24 Consecutive Hours, Continuous Positive Airway Pressure (ICD-10-PCS; 2021-10-08)
PROC: 30233N1 Transfusion of Nonautologous Red Blood Cells into Peripheral Vein, Percutaneous Approach (ICD-10-PCS; 2021-10-09)
DX: I48.91 Unspecified atrial fibrillation (principal); N17.0 Acute kidney failure with tubular necrosis; F15.10 Other stimulant abuse, uncomplicated; G40.909 Epilepsy, unspecified, not intractable, without status epilepticus; D64.9 Anemia, unspecified; I50.9 Heart failure, unspecified; F41.9 Anxiety disorder, unspecified; Z20.822 Contact with and (suspected) exposure to COVID-19; I13.0 Hypertensive heart and chronic kidney disease with heart failure and stage 1 through stage 4 chronic kidney disease, or unspecified chronic kidney disease; G89.29 Other chronic pain; R00.0 Tachycardia, unspecified; I35.1 Nonrheumatic aortic (valve) insufficiency; I27.20 Pulmonary hypertension, unspecified; G47.30 Sleep apnea, unspecified; Z96.652 Presence of left artificial knee joint; J43.9 Emphysema, unspecified; N18.9 Chronic kidney disease, unspecified; Z79.899 Other long term (current) drug therapy; Z99.81 Dependence on supplemental oxygen; Z85.118 Personal history of other malignant neoplasm of bronchus and lung; Z87.891 Personal history of nicotine dependence; Z90.49 Acquired absence of other specified parts of digestive tract; Z95.2 Presence of prosthetic heart valve; Z88.0 Allergy status to penicillin; Z88.8 Allergy status to other drugs, medicaments and biological substances
CPT/HCPCS: 36415; 36430; 71045; 80053; 80305; 82272; 83735; 83880; 84484; 85008; 85025; 85027; 85379; 86885; 86900; 86901; 86920; 87081; 87502; 87503; 92508; 92616; 93005; 94640; 94660; 94760; 97116; 97161; 97530; 99285; C1751; C9113; G0378; J1650; J1940; J2270; J2405; J2765; J3475; J3490; J7040; P9016

== ENCOUNTER 2021-10-10 08:53 | Inpatient (IN) | payer MEDICAID ==
[~2021-10-10] VITALS: Ht 147.3 cm; Wt 51.7 kg
[~2021-10-10 08:53] MED LIST changes: -ASPI-611 PO; -CARV6.253 PO; -FURO20TA4 PO; +HYDR-3965 PO; -OMEP40CA21 PO; +PANT40TA54 PO; +SOTA80TA73 PO
[2021-10-10] MEDS ORDERED: albuterol 2.5 MG/3 ML nebule NEB ONE (09:00)
[2021-10-10] MEDS ORDERED: methylPREDNISolone sod succ 125mg/2ml vial IV ONE (09:00)
[2021-10-10] MEDS ORDERED: magnesium 2GM in 50ml NS 50 ML IV ONE (09:00)
[2021-10-10] MEDS ORDERED: diltiazem 5mg/ml 5ml inj. IV ONE (09:10)
[2021-10-10 09:21] LABS: ABG BASE EXCESS 3.7 mmol/L (-2.0-2.0); ABG OXYGEN SATURATION 99.5 % (94-97); ABG PCO2 (T) 53.4 mmHg (32.0-45.0); ABG PO2 (T) 255.6 mmHg (75.0-100.0); ALLEN'S TEST POSITIVE; FMetHb 0.1 % (0.0-1.5); FO2Hb 98.4 % (94-97); TOTAL HEMOGLOBIN 10.8 G/dl (12.0-16.0)
--- NOTE | 2021-10-10 09:24 | NUR ---
patient arrived on cpap, placed on bipap with rt at bedside. currently reports nausea and not tolerating bipap. bipap removed and rt placed patient on nc at this time
[2021-10-10] MEDS ORDERED: famotidine/PF 10 mg/ml inj IV ONE (09:25)
[2021-10-10] MEDS ORDERED: ondansetron/PF 4mg/2ml inj IV ONE (09:25)
[2021-10-10 09:37] LABS: BASOPHILS % (AUTO) 0.5 % (0-1); EOSINOPHILS % (AUTO) 0.2 % (0-6); HEMATOCRIT 31.5 % (35.0-45.0); LYMPHOCYTES # (AUTO) 0.2 X10'3 (1.1-4.8); LYMPHOCYTES % (AUTO) 2.7 % (21-51); MEAN CORPUSCULAR HEMOGLOBIN 26.4 PG (27.0-31.0); MEAN CORPUSCULAR HGB CONC 31.6 g/dL (33.0-36.5); MEAN CORPUSCULAR VOLUME 83.6 FL (78-98); MEAN PLATELET VOLUME 7.2 FL (7.4-10.4); MONOCYTES % (AUTO) 11.5 % (2-12); NEUTROPHILS # (AUTO) 7.4 X10'3 (1.8-7.7); NEUTROPHILS % (AUTO) 85.1 % (42-75); PLATELET COUNT 374 X10'3 (140-440); RED BLOOD COUNT 3.77 X10'6 (4.20-5.60); RED CELL DISTRIBUTION WIDTH 17.9 % (11.5-14.5); WHITE BLOOD COUNT 8.7 X10'3 (4.5-11.0)
[2021-10-10] MEDS ORDERED: diltiazem-NS 100mg/100ml 100 ML IV SCH (09:40)
[2021-10-10 09:48] LABS: ALANINE AMINOTRANSFERASE 52 U/L (12-78); ALBUMIN/GLOBULIN RATIO 1.3 (1.1-1.5); ALKALINE PHOSPHATASE 77 IU/L (46-116); ANION GAP 6 (8-16); ASPARTATE AMINO TRANSFERASE 37 U/L (10-37); BILIRUBIN,TOTAL 0.9 MG/DL (0.1-1.0); BLOOD UREA NITROGEN 17 MG/DL (7-18); BUN/CREATININE RATIO 18.5 (6.6-38.0); CALCIUM 9.3 MG/DL (8.5-10.1); CHLORIDE 96 MMOL/L (99-107); CREATININE 0.92 MG/DL (0.40-0.90); GLUCOSE 124 MG/DL (70-104); POTASSIUM 4.4 MMOL/L (3.5-5.1); SODIUM 135 MMOL/L (135-145); TOTAL CARBON DIOXIDE 32.9 MMOL/L (24-32); eGFR 63 ML/MIN
[2021-10-10] MEDS ORDERED: sotalol 80mg tablet PO STA (10:02)
--- NOTE | 2021-10-10 11:29 | NUR ---
patient states she is short of breath, RT paged
--- NOTE | 2021-10-10 11:30 | NUR ---
patient requesting to be back on bipap, rt paged for reassessment.
[2021-10-10] MEDS ORDERED: morphine 4 MG/ML inj SYRINge IV ONE (11:40)
[2021-10-10] MEDS ORDERED: sotalol HCl 40mg (1/2 tablet) PO SCH (11:45)
[2021-10-10] MEDS ORDERED: HYDROcodone/acetaminophen 10/325mg tab PO PRN (11:45)
[2021-10-10] MEDS ORDERED: magnesium hydroxide 30ml (MOM) UD suspension PO PRN (11:45)
[2021-10-10] MEDS ORDERED: mag hydrox/Alum hydrox/simeth 30ml oral suspension PO PRN (11:45)
[2021-10-10] MEDS: furosemide 20 MG/2 ML vial IV SCH ×2 (11:45→20:00)
[2021-10-10] MEDS ORDERED: acetaminophen 325mg tablet PO PRN ×2 (11:45)
[2021-10-10] MEDS ORDERED: morphine 2 MG/ML inj. syringe IV PRN (11:45)
[2021-10-10] MEDS ORDERED: HYDROcodone/acetaminophen 5mg/325mg tablet PO PRN (11:45)
--- NOTE | 2021-10-10 11:48 | NUR ---
rt at bedside placed patient back on bipap
[2021-10-10] MEDS ORDERED: DULO30CA52 PO (14:18)
[2021-10-10] MEDS ORDERED: HYDR-3686 PO (14:18)
[2021-10-10] MEDS ORDERED: OMEP40CA21 PO (14:18)
[2021-10-10] MEDS ORDERED: THEO400T PO (14:18)
[2021-10-10] MEDS ORDERED: HYDR-3964 PO (14:18)
[2021-10-10] MEDS ORDERED: ONDA-103 PO (14:18)
[2021-10-10] MEDS ORDERED: CARV6.253 PO (14:23)
[2021-10-10] MEDS ORDERED: PRED10TA23 PO (14:25)
[2021-10-10 15:00] VITALS: BP 112/75
--- NOTE | 2021-10-10 15:04 | NUR ---
REPORT GIVEN TO DENA WASHINGTON AT THIS TIME.
--- NOTE | 2021-10-10 15:25 | NUR ---
Page Sent promotional table spacer PAGER ID: [phone] MESSAGE: [id number] Luis. Pt came up on Cardizem gtt. IT looks like there is an order to DC . Do you want her on the Cardizem gtt still or no? Nneka @[id number]
[2021-10-10] MEDS: ondansetron/PF 4mg/2ml inj IV PRN ×2 (15:39→23:39)
[2021-10-10] MEDS ORDERED: hydrOXYzine 25 MG tablet PO PRN (17:30)
[2021-10-10 18:00] VITALS: BP 116/76
--- NOTE | 2021-10-10 18:18 | NUR ---
Problems reprioritized. Patient report given, questions answered & plan of care reviewed with Nirmala WASHINGTON.
--- NOTE | 2021-10-10 18:20 | NUR ---
Patient in room PCU 3024. I have received report from PADMINI Early and had the opportunity to ask questions and assume patient care.
[2021-10-10] MEDS: albuterol 2.5 MG/3 ML nebule NEB PRN (19:41)
[2021-10-10] MEDS: budesonide 0.5mg/2ml UD nebule IH SCH ×2 (19:41→23:42)
[2021-10-10] MEDS: morphine 2 MG/ML inj. syringe IV PRN (20:14)
[2021-10-10] MEDS: sertraline 50mg tablet PO SCH (20:16)
[2021-10-10] MEDS: docusate sod 100mg capsule PO SCH (20:16)
[2021-10-10] MEDS: potassium chloride 8mEq ER tablet PO SCH (20:17)
[2021-10-10] MEDS: busPIRone 15mg tablet PO SCH (20:17)
[2021-10-10] MEDS: carvedilol 6.25mg tablet PO SCH (20:17)
[2021-10-10] MEDS: oxybutynin 5mg tablet PO SCH (20:17)
[2021-10-10] MEDS: enoxaparin 40mg/0.4ml syringe SQ SCH (20:18)
[2021-10-10] MEDS: montelukast 10mg tablet PO SCH (20:19)
[2021-10-10 22:00] VITALS: BP 112/59
[2021-10-11] MEDS: morphine 2 MG/ML inj. syringe IV PRN ×4 (00:40→19:54)
[2021-10-11 02:00] VITALS: BP 125/75
--- NOTE | 2021-10-11 06:07 | NUR ---
Problems reprioritized. Patient report given, questions answered & plan of care reviewed with PADMINI Early.
--- NOTE | 2021-10-11 06:10 | NUR ---
Patient in room PCU 3024. I have received report from Nirmala WASHINGTON and had the opportunity to ask questions and assume patient care.
[2021-10-11 06:23] LABS: BASOPHILS % (AUTO) 0.2 % (0-1); EOSINOPHILS % (AUTO) 0 % (0-6); HEMATOCRIT 30.3 % (35.0-45.0); HEMOGLOBIN 9.6 g/dl (12.0-16.0); LYMPHOCYTES # (AUTO) 0.2 X10'3 (1.1-4.8); LYMPHOCYTES % (AUTO) 2.4 % (21-51); MEAN CORPUSCULAR HEMOGLOBIN 26.2 PG (27.0-31.0); MEAN CORPUSCULAR HGB CONC 31.8 g/dL (33.0-36.5); MEAN CORPUSCULAR VOLUME 82.5 FL (78-98); MEAN PLATELET VOLUME 7.4 FL (7.4-10.4); MONOCYTES # (AUTO) 1.1 X10'3 (0-0.9); MONOCYTES % (AUTO) 11.9 % (2-12); NEUTROPHILS # (AUTO) 7.9 X10'3 (1.8-7.7); NEUTROPHILS % (AUTO) 85.5 % (42-75); PLATELET COUNT 392 X10'3 (140-440); RED BLOOD COUNT 3.67 X10'6 (4.20-5.60); RED CELL DISTRIBUTION WIDTH 18.1 % (11.5-14.5); WHITE BLOOD COUNT 9.3 X10'3 (4.5-11.0)
[2021-10-11] MEDS ORDERED: diltiazem-NS 100mg/100ml 100 ML IV SCH ×2 (06:25→06:29)
--- NOTE | 2021-10-11 06:25 | NUR ---
Patient's heart rate still in 130's-140's after 2000 coreg, per Dr. Roberts restart Akilah per PCU protocol
[2021-10-11 06:32] LABS: ALBUMIN 3.7 G/DL (3.4-5.0); ANION GAP 7 (8-16); BLOOD UREA NITROGEN 20 MG/DL (7-18); BUN/CREATININE RATIO 21.3 (6.6-38.0); CALCIUM 9.3 MG/DL (8.5-10.1); CHLORIDE 96 MMOL/L (99-107); CREATININE 0.94 MG/DL (0.40-0.90); GLUCOSE 108 MG/DL (70-104); POTASSIUM 4.3 MMOL/L (3.5-5.1); SODIUM 135 MMOL/L (135-145); eGFR 61 ML/MIN
[2021-10-11 07:00] VITALS: BP 113/68
[2021-10-11] MEDS: budesonide 0.5mg/2ml UD nebule IH SCH ×2 (07:28→21:23)
[2021-10-11] MEDS: albuterol 2.5 MG/3 ML nebule NEB PRN (07:28)
[2021-10-11] MEDS: carvedilol 6.25mg tablet PO SCH ×2 (07:36→19:53)
[2021-10-11] MEDS: busPIRone 15mg tablet PO SCH ×2 (07:36→19:53)
[2021-10-11] MEDS: cholecalciferol (vitamin D3) 1,000 unit (25mcg) tablet PO SCH (07:36)
[2021-10-11] MEDS: furosemide 20 MG/2 ML vial IV SCH ×2 (07:36→19:54)
[2021-10-11] MEDS: pantoprazole 40mg Tablet.DR PO SCH (07:36)
[2021-10-11] MEDS: potassium chloride 8mEq ER tablet PO SCH ×2 (07:37→19:53)
[2021-10-11] MEDS: sertraline 50mg tablet PO SCH ×2 (07:37→19:52)
[2021-10-11] MEDS: theophylline anhydrous 100mg ER capsule 24-hour PO SCH (07:37)
[2021-10-11] MEDS: oxybutynin 5mg tablet PO SCH ×3 (07:37→21:16)
[2021-10-11] MEDS: duloxetine 30mg CAPSULE.DR PO SCH (07:37)
[2021-10-11] MEDS: diltiazem 30mg tablet PO SCH ×3 (07:38→19:53)
[2021-10-11] MEDS: docusate sod 100mg capsule PO SCH ×2 (07:38→19:54)
[2021-10-11] MEDS: enoxaparin 40mg/0.4ml syringe SUBCUT SCH (07:38)
[2021-10-11] MEDS: ondansetron/PF 4mg/2ml inj IV PRN ×2 (07:40→13:36)
[2021-10-11] MEDS: ipratropium/albuterol 3ml nebule NEB SCH ×4 (08:00→21:23)
[2021-10-11] MEDS: sotalol 80mg tablet PO SCH ×2 (08:25→19:53)
[2021-10-11 11:00] VITALS: BP 120/73
[2021-10-11 15:00] VITALS: BP 109/61
[2021-10-11 18:00] VITALS: BP 119/63
--- NOTE | 2021-10-11 18:17 | NUR ---
Problems reprioritized. Patient report given, questions answered & plan of care reviewed with Charlene WASHINGTON.
[2021-10-11] MEDS ORDERED: sotalol 80mg tablet PO SCH (20:00)
[2021-10-11] MEDS: enoxaparin 40mg/0.4ml syringe SQ SCH (20:05)
[2021-10-11] MEDS: montelukast 10mg tablet PO SCH (21:16)
[2021-10-11 22:00] VITALS: BP 103/55
[2021-10-12] VITALS (7 sets, daily range): BP systolic 94–128; BP diastolic 56–74
[2021-10-12] MEDS: diltiazem 30mg tablet PO SCH ×4 (02:16→19:36)
[2021-10-12] MEDS: morphine 2 MG/ML inj. syringe IV PRN ×5 (02:18→23:51)
[2021-10-12] MEDS: ipratropium/albuterol 3ml nebule NEB SCH ×3 (03:32→16:04)
[2021-10-12 06:09] LABS: BASOPHILS % (AUTO) 0.3 % (0-1); EOSINOPHILS % (AUTO) 0.3 % (0-6); HEMATOCRIT 27.8 % (35.0-45.0); HEMOGLOBIN 8.8 g/dl (12.0-16.0); LYMPHOCYTES # (AUTO) 0.3 X10'3 (1.1-4.8); LYMPHOCYTES % (AUTO) 3.1 % (21-51); MEAN CORPUSCULAR HEMOGLOBIN 26.3 PG (27.0-31.0); MEAN CORPUSCULAR HGB CONC 31.7 g/dL (33.0-36.5); MEAN CORPUSCULAR VOLUME 82.9 FL (78-98); MEAN PLATELET VOLUME 7.2 FL (7.4-10.4); MONOCYTES # (AUTO) 1.1 X10'3 (0-0.9); MONOCYTES % (AUTO) 13.5 % (2-12); NEUTROPHILS % (AUTO) 82.8 % (42-75); PLATELET COUNT 331 X10'3 (140-440); RED BLOOD COUNT 3.35 X10'6 (4.20-5.60); RED CELL DISTRIBUTION WIDTH 18.3 % (11.5-14.5); WHITE BLOOD COUNT 8.4 X10'3 (4.5-11.0)
[2021-10-12 06:16] LABS: ALBUMIN 3.4 G/DL (3.4-5.0); ANION GAP 8 (8-16); BLOOD UREA NITROGEN 18 MG/DL (7-18); BUN/CREATININE RATIO 21.2 (6.6-38.0); CALCIUM 8.6 MG/DL (8.5-10.1); CHLORIDE 96 MMOL/L (99-107); CREATININE 0.85 MG/DL (0.40-0.90); GLUCOSE 104 MG/DL (70-104); POTASSIUM 3.4 MMOL/L (3.5-5.1); SODIUM 137 MMOL/L (135-145); TOTAL CARBON DIOXIDE 33.4 MMOL/L (24-32); eGFR 69 ML/MIN
--- NOTE | 2021-10-12 06:45 | NUR ---
Patient in room PCU 3024. I have received report from Charlene WASHINGTON and had the opportunity to ask questions and assume patient care.
[2021-10-12] MEDS: budesonide 0.5mg/2ml UD nebule IH SCH ×2 (07:23→21:26)
[2021-10-12] MEDS: pantoprazole 40mg Tablet.DR PO SCH (07:46)
[2021-10-12] MEDS: ondansetron 4mg rapidly disintigrating tab PO PRN ×2 (07:46→20:56)
[2021-10-12] MEDS: oxybutynin 5mg tablet PO SCH ×3 (07:46→20:57)
[2021-10-12] MEDS: potassium chloride 8mEq ER tablet PO SCH ×2 (07:46→19:37)
[2021-10-12] MEDS: docusate sod 100mg capsule PO SCH ×2 (07:46→19:34)
[2021-10-12] MEDS: sertraline 50mg tablet PO SCH ×2 (07:47→19:36)
[2021-10-12] MEDS: carvedilol 6.25mg tablet PO SCH ×2 (07:47→19:37)
[2021-10-12] MEDS: cholecalciferol (vitamin D3) 1,000 unit (25mcg) tablet PO SCH (07:47)
[2021-10-12] MEDS: theophylline anhydrous 100mg ER capsule 24-hour PO SCH (07:47)
[2021-10-12] MEDS: sotalol 80mg tablet PO SCH ×2 (07:47→19:36)
[2021-10-12] MEDS: duloxetine 30mg CAPSULE.DR PO SCH (07:47)
[2021-10-12] MEDS: busPIRone 15mg tablet PO SCH ×2 (07:47→19:36)
[2021-10-12] MEDS: enoxaparin 40mg/0.4ml syringe SUBCUT SCH (07:48)
[2021-10-12] MEDS: furosemide 20 MG/2 ML vial IV SCH ×2 (07:48→19:34)
--- NOTE | 2021-10-12 10:29 | NUR ---
Page Sent to Dr. Davis promotional table spacer PAGER ID: [phone] MESSAGE: [id number] Luis. Pt in Afib with HR 130s-150s. HR started to trend up around 0830 and she went into Afib around 0900. Daily meds were given @ 0730. BP 123/74 RR24 .Pt c/o SOB. Early @2731
--- NOTE | 2021-10-12 18:16 | NUR ---
Problems reprioritized. Patient report given, questions answered & plan of care reviewed with Walker WASHINGTON
[2021-10-12] MEDS: enoxaparin 40mg/0.4ml syringe SQ SCH (19:39)
[2021-10-12] MEDS: montelukast 10mg tablet PO SCH (20:57)
[2021-10-12] MEDS: albuterol 2.5 MG/3 ML nebule NEB PRN (21:26)
[2021-10-12] MEDS ORDERED: LORazepam 0.5 MG tablet PO PRN (22:00)
[2021-10-12] MEDS ORDERED: diltiazem-NS 100mg/100ml 100 ML IV SCH ×2 (22:05→23:40)
[2021-10-12 23:33] LABS: ABG BASE EXCESS 8.1 mmol/L (-2.0-2.0); ABG HCO3 35.9 mmol/L (22.0-26.0); ABG OXYGEN SATURATION 99.7 % (94-97); ABG PCO2 (T) 71.3 mmHg (32.0-45.0); ABG PO2 (T) 314.6 mmHg (75.0-100.0); ALLEN'S TEST POSITIVE; FCOHb 0.5 % (0.0-3.9); FMetHb 0.3 % (0.0-1.5); FO2Hb 98.9 % (94-97); PATIENT TEMPERATURE 37.8; TOTAL HEMOGLOBIN 11.1 G/dl (12.0-16.0)
[2021-10-12] MEDS: LORazepam 2 mg/ml vial IV PRN (23:51)
[2021-10-13 02:00] VITALS: BP 92/56
[2021-10-13] MEDS: diltiazem 30mg tablet PO SCH ×4 (02:00→20:00)
[2021-10-13] MEDS: ipratropium/albuterol 3ml nebule NEB SCH ×5 (02:49→20:01)
[2021-10-13 06:00] VITALS: BP 90/60
[2021-10-13 06:11] LABS: BASOPHILS # (AUTO) 0.1 X10'3 (0-0.2); BASOPHILS % (AUTO) 0.3 % (0-1); EOSINOPHILS % (AUTO) 0 % (0-6); HEMATOCRIT 28.7 % (35.0-45.0); HEMOGLOBIN 8.9 g/dl (12.0-16.0); LYMPHOCYTES # (AUTO) 0.1 X10'3 (1.1-4.8); LYMPHOCYTES % (AUTO) 0.2 % (21-51); MEAN CORPUSCULAR HEMOGLOBIN 26.2 PG (27.0-31.0); MEAN CORPUSCULAR HGB CONC 31.1 g/dL (33.0-36.5); MEAN CORPUSCULAR VOLUME 84.3 FL (78-98); MEAN PLATELET VOLUME 7.3 FL (7.4-10.4); MONOCYTES # (AUTO) 0.5 X10'3 (0-0.9); NEUTROPHILS # (AUTO) 22.2 X10'3 (1.8-7.7); NEUTROPHILS % (AUTO) 97.5 % (42-75); PLATELET COUNT 259 X10'3 (140-440); RED BLOOD COUNT 3.41 X10'6 (4.20-5.60); RED CELL DISTRIBUTION WIDTH 18.7 % (11.5-14.5); WHITE BLOOD COUNT 22.8 X10'3 (4.5-11.0)
[2021-10-13 06:22] LABS: ALBUMIN 2.7 G/DL (3.4-5.0); ANION GAP 7 (8-16); BLOOD UREA NITROGEN 18 MG/DL (7-18); BUN/CREATININE RATIO 11.2 (6.6-38.0); CALCIUM 8.1 MG/DL (8.5-10.1); CHLORIDE 97 MMOL/L (99-107); CREATININE 1.61 MG/DL (0.40-0.90); GLUCOSE 96 MG/DL (70-104); SODIUM 138 MMOL/L (135-145); TOTAL CARBON DIOXIDE 33.9 MMOL/L (24-32); eGFR 33 ML/MIN
[2021-10-13 06:25] LABS: POTASSIUM 2.8 MMOL/L (3.5-5.1)
--- NOTE | 2021-10-13 06:44 | NUR ---
Patient in room PCU 3024. I have received report from Tammi and had the opportunity to ask questions and assume patient care.
--- NOTE | 2021-10-13 07:05 | NUR ---
[id number] MESSAGE: Luis in 24A has a critical potassium of 2.8 she also is on a Cardizem gtt and has PO Cardizem. I will hold PO Cardizem unless you want her to have both. Please advise. Thank you Saritha WASHINGTON [phone]
[2021-10-13] MEDS ORDERED: magnesium 4gm in 100ml NS 100 ML IV PRN (07:15)
[2021-10-13] MEDS ORDERED: magnesium 2GM in 50ml NS 50 ML IV PRN (07:15)
[2021-10-13] MEDS ORDERED: potassium CL 10mEq/100ml bag 100 ML IV PRN (07:15)
[2021-10-13] MEDS ORDERED: magnesium Cl slow-release 64mg tablet PO PRN (07:15)
[2021-10-13] MEDS ORDERED: POTASSIUM BICARB 20meq eff tab 20 MEQ TABLET.EFF PO PRN (07:15)
[2021-10-13] MEDS: budesonide 0.5mg/2ml UD nebule IH SCH ×2 (07:21→20:01)
[2021-10-13 07:39] LABS: MAGNESIUM 1.2 MG/DL (1.5-2.4)
[2021-10-13] MEDS: carvedilol 6.25mg tablet PO SCH ×2 (08:00→20:00)
[2021-10-13] MEDS: furosemide 20 MG/2 ML vial IV SCH (08:01)
[2021-10-13] MEDS: K and/or MAG REPLACEMENT MC SCH ×2 (08:01→20:00)
[2021-10-13] MEDS: docusate sod 100mg capsule PO SCH ×2 (08:03→20:16)
[2021-10-13] MEDS: busPIRone 15mg tablet PO SCH ×2 (08:03→20:15)
[2021-10-13] MEDS: oxybutynin 5mg tablet PO SCH ×3 (08:04→20:16)
[2021-10-13] MEDS: duloxetine 30mg CAPSULE.DR PO SCH (08:04)
[2021-10-13] MEDS: POTASSIUM BICARB 20meq eff tab 20 MEQ TABLET.EFF PO PRN ×2 (08:07→18:24)
[2021-10-13] MEDS: cholecalciferol (vitamin D3) 1,000 unit (25mcg) tablet PO SCH (08:07)
[2021-10-13] MEDS: sotalol 80mg tablet PO SCH ×2 (08:44→20:15)
[2021-10-13] MEDS: pantoprazole 40mg Tablet.DR PO SCH (08:45)
[2021-10-13] MEDS: potassium chloride 8mEq ER tablet PO SCH ×2 (08:45→20:15)
[2021-10-13] MEDS: theophylline anhydrous 100mg ER capsule 24-hour PO SCH (08:45)
[2021-10-13] MEDS: enoxaparin 40mg/0.4ml syringe SUBCUT SCH (08:46)
[2021-10-13] MEDS: sertraline 50mg tablet PO SCH ×2 (08:46→20:15)
--- NOTE | 2021-10-13 09:16 | NUR ---
[id number] MESSAGE: 24A Luis BP is /54 (57) Please advise? Thank you Saritha WASHINGTON [phone]
--- NOTE | 2021-10-13 09:45 | NUR ---
Malnutrition consult: Pt unsure of wt loss though with decreased appetite per malnutrition risk screen with RN. Unfortunately poor documentation of wt hx in EMR as it fluctuates from 41.82-68.48 kg though none of those weights are scaled. Most recent scaled wt hx in EMR is 50 kg taken 01/05/2020 which resulted in an appropriate BMI. Pt just seen by RD 10/06 at previous admit where pt denied any recent wt loss and pt appeared thin though is likely her baseline appearance. Pt on a heart healthy diet and eating poorly, documented with mostly 0% PO intake, though notably ate well at previous admits with roughly 75% PO intake 09/30-10/02 and again 10/06-10/09 meeting estimated nutrient needs. Pt s/p BSS previous admit (10/06-10/08) with ST recs mechanical soft food with thin liquids d/t difficulty chewing. D/w dietary to send soft to chew foods this admit. Per EMR pt with nausea, SOB, and on BiPAP, likely impacting appetite/PO intake this admit. Recommend Ensure Enlive TID given poor PO intake of meals. ONS to be sent pending physician approval in EMR. Pt with no documented decrease in muscle strength or edema. Pt currently lacks a minimum of two criteria for malnutrition. Will continue to follow closely. Recommendations: 1) Liberalize to regular diet in view of poor PO intake of meals 2) Soft to chew foods per ST recs at recent admit (10/06-10/08) 3) Ensure Enlive TID, pending physician approval in EMR 4) Routine bowel care 5) Scaled weight this admit; subsequent weekly scaled weights Addendum: 10/13/21 at [address] Amended: Links added.
--- NOTE | 2021-10-13 10:46 | NUR ---
[id number] Luis went into accelerated junctional rhythm. I just wanted to keep you in the loop. Thank you Saritha WASHINGTON [phone]
[2021-10-13 11:00] VITALS: BP 97/54
[2021-10-13] MEDS ORDERED: lactose-reduced food (Ensure Enlive) - 237ml bottle PO SCH (13:00)
[2021-10-13 15:00] VITALS: BP_SYST 153; BP_SYST 85; BP_DIAS 46; BP_DIAS 55
[2021-10-13 17:05] LABS: URINE AMPHETAMINE SCREEN NEGATIVE (Neg); URINE BARBITUATE SCREEN NEGATIVE (Neg); URINE BENZODIAZEPINES SCREEN NEGATIVE (Neg); URINE CANNABINOID SCREEN NEGATIVE (Neg); URINE COCAINE SCREEN NEGATIVE (Neg); URINE METHADONE SCREEN NEGATIVE (Neg); URINE OPIATE SCREEN POSITIVE (Neg); URINE PHENCYCLIDINE SCREEN NEGATIVE (Neg)
--- NOTE | 2021-10-13 18:02 | NUR ---
[facility] called and said the do not have the capacity to take this patient as a transfer.
[2021-10-13] MEDS ORDERED: enoxaparin 30mg/0.3ml syringe SUBCUT SCH (18:05)
--- NOTE | 2021-10-13 18:37 | NUR ---
page sent to dr an regarding patient being very hypotensive
[2021-10-13 19:00] VITALS: BP 77/50
[2021-10-13] MEDS ORDERED: LIDOcaine 2% 10ml TOPICAL JELLY (Urojet) TP ONE (19:00)
[2021-10-13] MEDS ORDERED: normal saline 500ml IV soln 500 ML IV ONE (19:00)
[2021-10-13] MEDS: montelukast 10mg tablet PO SCH (20:15)
[2021-10-13] MEDS: LORazepam 2 mg/ml vial IV PRN (20:16)
[2021-10-13] MEDS: vancomycin/NS 1 GM ADD-VANTAGE 250 ML IV SCH (20:23)
[2021-10-13] MEDS ORDERED: CefTRIAXone/D5W-Rocephin 1gm 50 ML IV ONE (21:20)
[2021-10-13 22:00] VITALS: BP 72/48
[2021-10-13] MEDS ORDERED: normal saline 1000ml 1,000 ML IVB ONE (22:05)
[2021-10-13] MEDS ORDERED: DOBUTamine-DoBUTrex 500mg/D5W 250 ML IV SCH (22:10)
[2021-10-13 22:37] LABS: BASOPHILS # (AUTO) 0.3 X10'3 (0-0.2); BASOPHILS % (AUTO) 0.9 % (0-1); EOSINOPHILS % (AUTO) 0 % (0-6); HEMATOCRIT 29.7 % (35.0-45.0); HEMOGLOBIN 9.4 g/dl (12.0-16.0); LYMPHOCYTES # (AUTO) 0.2 X10'3 (1.1-4.8); LYMPHOCYTES % (AUTO) 0.5 % (21-51); MEAN CORPUSCULAR HEMOGLOBIN 26.1 PG (27.0-31.0); MEAN CORPUSCULAR HGB CONC 31.5 g/dL (33.0-36.5); MEAN CORPUSCULAR VOLUME 82.7 FL (78-98); MEAN PLATELET VOLUME 7.5 FL (7.4-10.4); MONOCYTES # (AUTO) 1.4 X10'3 (0-0.9); MONOCYTES % (AUTO) 4.5 % (2-12); NEUTROPHILS # (AUTO) 29.5 X10'3 (1.8-7.7); NEUTROPHILS % (AUTO) 94.1 % (42-75); PLATELET COUNT 253 X10'3 (140-440); RED BLOOD COUNT 3.59 X10'6 (4.20-5.60); RED CELL DISTRIBUTION WIDTH 19.5 % (11.5-14.5)
[2021-10-13 22:43] LABS: WHITE BLOOD COUNT 31.3 X10'3 (4.5-11.0)
[2021-10-13 22:49] LABS: ABG BASE EXCESS -0.3 mmol/L (-2.0-2.0); ABG HCO3 24.9 mmol/L (22.0-26.0); ABG OXYGEN SATURATION 99.6 % (94-97); ABG PCO2 (T) 42.1 mmHg (32.0-45.0); ABG PO2 (T) 430.7 mmHg (75.0-100.0); ALLEN'S TEST POSITIVE; FCOHb 0.3 % (0.0-3.9); FMetHb 0.3 % (0.0-1.5); PATIENT TEMPERATURE 36.5; RESPIRATORY RATE 10 b/min
[2021-10-13 22:54] LABS: ALANINE AMINOTRANSFERASE 138 U/L (12-78); ALBUMIN 2.7 G/DL (3.4-5.0); ALKALINE PHOSPHATASE 64 IU/L (46-116); ANION GAP 4 (8-16); ASPARTATE AMINO TRANSFERASE 168 U/L (10-37); BILIRUBIN,TOTAL 1.6 MG/DL (0.1-1.0); BLOOD UREA NITROGEN 26 MG/DL (7-18); BUN/CREATININE RATIO 10.1 (6.6-38.0); CALCIUM 7.4 MG/DL (8.5-10.1); CHLORIDE 96 MMOL/L (99-107); CREATININE 2.57 MG/DL (0.40-0.90); GLUCOSE 79 MG/DL (70-104); MAGNESIUM 1.2 MG/DL (1.5-2.4); PHOSPHORUS 3.5 MG/DL (2.3-4.5); SODIUM 132 MMOL/L (135-145); TOTAL CARBON DIOXIDE 31.7 MMOL/L (24-32); TOTAL PROTEIN 5.4 G/DL (6.4-8.2); eGFR 19 ML/MIN
[2021-10-13 22:55] LABS: POTASSIUM 6.5 MMOL/L (3.5-5.1)
[2021-10-13 22:56] LABS: ANISOCYTOSIS 2+; PLATELET ESTIMATE NORMAL; POLYCHROMASIA 1+
[2021-10-13 22:57] LABS: GIANT PLATELET FEW; LARGE PLATELETS FEW
[2021-10-13] MEDS: DOPamine 400mg/D5W 250ml 250 ML IV SCH (23:10)
[2021-10-13] MEDS ORDERED: PERFLUTREN PROTEIN-A MICROSPHR (Optison) 0.22 MG/ML 3ML VIAL IV ONE (23:20)
[2021-10-13 23:37] LABS: ANISOCYTOSIS 2+; GIANT PLATELET FEW; LARGE PLATELETS FEW; PLATELET ESTIMATE NORMAL; POLYCHROMASIA 1+; TOTAL CELLS COUNTED 100
--- NOTE | 2021-10-13 23:39 | NUR ---
At beginning of shift patient was hypotensive with SBP in 70s and MAP <60. I called Dr. Lu and he ordered a 500cc bolus. The patients BP briefly went up and then back down again. Manual BP was 70s SBP. I called Dr. Lu again and he ordered another 500cc bolus. Charge nurse called ICU charge to let her know of situation. Labs were ordered and Central Line was placed by the ED physician. BP still has not improved. Dr. Lu ordered 1L bolus and dobutamine at 5mcg. I started the Dobutamine and BP remained 60/70s SBP with MAP <60. ABG was drawn and was no indicative of acidosis. Dr. Lu consulted with ICU Loader Operator/Ground Leader. The Loader Operator/Ground Leader called me and instructed me to stop dobutamine and start dopamine at 5. Dopamine has been started. Patient has vyas with very little output. I also told Dr. Lu that patient is bleeding slightly from central line and reported all critical labs, which are, wbc 31.3, potassium 6.5, Ca 7.4, procal 146.78, and lactic 3.8. Monitoring patient very closely and waiting for further instructions from either Dr. Lu or the ICU drilling machine operator.
[2021-10-14] VITALS (23 sets, daily range): BP systolic 55–211; BP diastolic 24–179
[2021-10-14] MEDS ORDERED: NORepinephrine 8mg/ 250ml NS 250 ML IV ONE (00:04)
[2021-10-14] MEDS ORDERED: dextrose 50%-water 50ml dispensing syringe IV ONE ×2 (00:05→14:12)
[2021-10-14] MEDS: NORepinephrine 8mg/ 250ml NS 250 ML IV SCH ×3 (00:05→19:21)
[2021-10-14] MEDS ORDERED: sodium bicarbonate (8.4%) 1 mEq/ml syringe IV ONE ×2 (00:05→00:20)
[2021-10-14] MEDS ORDERED: insulin regular, human U-100 3ml vial - multi-dose IV ONE (00:05)
[2021-10-14] MEDS ORDERED: NORepinephrine 8mg/ 250ml NS 250 ML IV SCH (00:10)
[2021-10-14] MEDS: aztreonam inj. 1,000 MG in normal saline 100ml IV soln 100 ML IV SCH ×3 (00:45→16:07)
[2021-10-14] MEDS ORDERED: albuterol 2.5 MG/3 ML nebule CONTNEB ONE (01:15)
[2021-10-14] MEDS: DOPamine 400mg/D5W 250ml 250 ML IV SCH (01:42)
[2021-10-14] MEDS: diltiazem 30mg tablet PO SCH ×3 (02:00→14:00)
--- NOTE | 2021-10-14 02:06 | NUR ---
updated on patient condition
[2021-10-14] MEDS ORDERED: heparin 10,000 units/1 ML INJ IV PRN (02:20)
[2021-10-14] MEDS ORDERED: heparin 10,000 units/1 ML INJ IV ONE (02:20)
[2021-10-14] MEDS: ipratropium/albuterol 3ml nebule NEB SCH ×5 (03:00→20:56)
[2021-10-14 03:44] LABS: APTT 37 SECONDS (22-32)
[2021-10-14 03:45] LABS: ALBUMIN 2.5 G/DL (3.4-5.0); ANION GAP 5 (8-16); BLOOD UREA NITROGEN 28 MG/DL (7-18); BUN/CREATININE RATIO 11.3 (6.6-38.0); CHLORIDE 99 MMOL/L (99-107); CREATININE 2.48 MG/DL (0.40-0.90); GLUCOSE 74 MG/DL (70-104); MAGNESIUM 1.3 MG/DL (1.5-2.4); SODIUM 137 MMOL/L (135-145); TOTAL CARBON DIOXIDE 33.5 MMOL/L (24-32); eGFR 20 ML/MIN
[2021-10-14] MEDS: LORazepam 2 mg/ml vial IV PRN (03:49)
[2021-10-14] MEDS ORDERED: amiodarone 150mg/dext, iso-os 100 ML IV ONE (03:50)
[2021-10-14] MEDS ORDERED: gelatin sponge, absorbable (Gelfoam 100) sponge TP ONE (03:50)
[2021-10-14] MEDS: HEPARIN SOD,PORK IN 0.45% NACL 250 ML IV SCH (04:42)
[2021-10-14] MEDS: amiodarone/D5 360MG/200ML BAG 200 ML IV SCH ×4 (04:48→22:41)
[2021-10-14] MEDS: hydrocortisone sod succ/PF 250mg/2ml inj. IV SCH ×2 (05:26→12:00)
[2021-10-14] MEDS: ondansetron 4mg rapidly disintigrating tab PO PRN (05:50)
--- NOTE | 2021-10-14 06:30 | NUR ---
Patient in room CICU 2010. I have received report from Holli WASHINGTON and had the opportunity to ask questions and assume patient care.
[2021-10-14] MEDS ORDERED: ondansetron/PF 4mg/2ml inj IV PRN (07:10)
[2021-10-14] MEDS: vancomycin/NS 1 GM ADD-VANTAGE 250 ML IV SCH (08:00)
[2021-10-14] MEDS: carvedilol 6.25mg tablet PO SCH (08:00)
[2021-10-14] MEDS ORDERED: CefTRIAXone/D5W-Rocephin 1gm 50 ML IV SCH (08:00)
[2021-10-14] MEDS: busPIRone 15mg tablet PO SCH (08:00)
[2021-10-14] MEDS: docusate sod 100mg capsule PO SCH (08:00)
[2021-10-14] MEDS: K and/or MAG REPLACEMENT MC SCH ×2 (08:00→20:00)
[2021-10-14] MEDS: oxybutynin 5mg tablet PO SCH ×2 (08:00→14:05)
[2021-10-14] MEDS: sertraline 50mg tablet PO SCH (08:00)
[2021-10-14] MEDS: theophylline anhydrous 100mg ER capsule 24-hour PO SCH (08:00)
[2021-10-14] MEDS: duloxetine 30mg CAPSULE.DR PO SCH (08:00)
[2021-10-14] MEDS: potassium chloride 8mEq ER tablet PO SCH ×2 (08:00→20:00)
[2021-10-14] MEDS: cholecalciferol (vitamin D3) 1,000 unit (25mcg) tablet PO SCH (08:00)
[2021-10-14] MEDS: sotalol 80mg tablet PO SCH (08:00)
[2021-10-14 08:23] LABS: ALANINE AMINOTRANSFERASE 220 U/L (12-78); ALBUMIN/GLOBULIN RATIO 0.9 (1.1-1.5); ALKALINE PHOSPHATASE 67 IU/L (46-116); ASPARTATE AMINO TRANSFERASE 305 U/L (10-37); BILIRUBIN,TOTAL 1.2 MG/DL (0.1-1.0); PHOSPHORUS 2.8 MG/DL (2.3-4.5); TOTAL PROTEIN 5.2 G/DL (6.4-8.2)
[2021-10-14] MEDS: dexmedetomidin/NS 400mcg/100ml 100 ML IV SCH ×2 (08:30→23:36)
[2021-10-14 08:52] LABS: BASOPHILS # (AUTO) 0.1 X10'3 (0-0.2); BASOPHILS % (AUTO) 0.2 % (0-1); EOSINOPHILS % (AUTO) 0 % (0-6); HEMATOCRIT 32.9 % (35.0-45.0); HEMOGLOBIN 10.1 g/dl (12.0-16.0); LYMPHOCYTES # (AUTO) 0.3 X10'3 (1.1-4.8); LYMPHOCYTES % (AUTO) 0.8 % (21-51); MEAN CORPUSCULAR HEMOGLOBIN 26.1 PG (27.0-31.0); MEAN CORPUSCULAR HGB CONC 30.8 g/dL (33.0-36.5); MEAN CORPUSCULAR VOLUME 84.7 FL (78-98); MEAN PLATELET VOLUME 7.9 FL (7.4-10.4); MONOCYTES # (AUTO) 1.2 X10'3 (0-0.9); MONOCYTES % (AUTO) 3.4 % (2-12); NEUTROPHILS # (AUTO) 34.7 X10'3 (1.8-7.7); NEUTROPHILS % (AUTO) 95.6 % (42-75); PLATELET COUNT 303 X10'3 (140-440); RED BLOOD COUNT 3.88 X10'6 (4.20-5.60); RED CELL DISTRIBUTION WIDTH 19.9 % (11.5-14.5)
[2021-10-14] MEDS: budesonide 0.5mg/2ml UD nebule IH SCH ×2 (08:52→20:57)
[2021-10-14 09:01] LABS: WHITE BLOOD COUNT 36.3 X10'3 (4.5-11.0)
[2021-10-14] MEDS: metroNIDAZOLE-Flagyl 500mg/NS 100 ML IV SCH ×2 (09:35→16:07)
[2021-10-14 11:09] LABS: TOTAL CELLS COUNTED 100
[2021-10-14 11:10] LABS: ACANTHOCYTES 1+; ANISOCYTOSIS 2+; BURR CELLS 1+; PLATELET ESTIMATE NORMAL; POLYCHROMASIA 1+
[2021-10-14] MEDS: pantoprazole 40mg Tablet.DR PO SCH (14:05)
[2021-10-14 14:32] LABS: ABG BASE EXCESS -8.7 mmol/L (-2.0-2.0); ABG HCO3 19.3 mmol/L (22.0-26.0); ABG OXYGEN SATURATION 96.3 % (94-97); ABG PCO2 (T) 51.5 mmHg (32.0-45.0); ABG PO2 (T) 97.9 mmHg (75.0-100.0); FCOHb 0.3 % (0.0-3.9); FMetHb 0.3 % (0.0-1.5); FO2Hb 95.7 % (94-97); RESPIRATORY RATE 10 b/min; TOTAL HEMOGLOBIN 10.1 G/dl (12.0-16.0)
--- NOTE | 2021-10-14 14:36 | NUR ---
TF Consult: Pt transferred to ICU confused requiring BIPAP since admit DX shock, sepsis, COPD exacerbation, hypotension, and CHAD per EMR. Pt plan transition to HFNC so NG feeds to start since no nutrition intake this admit past 4 days per manager energy at rounds. Pt now on 40L HFNC per EMR; TF recs below using IBW pending scaled wt this admit. LBM 10/14 though only small/smear actually since admit 10/10 receiving routine colace. Will monitor for further nutrition intervention needs this admit. Recommendations: 1) Continuous TF per MD using Vital AF at 45ml/hr goal; to provide 1080ml volume/day, 1296 kcals, 876ml water, and 81g protein. 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
[2021-10-14] MEDS ORDERED: normal saline 500ml IV soln 500 ML IV ONE (14:45)
[2021-10-14] MEDS ORDERED: acetaminophen 325mg/10.15ml oral unit dose solution NG PRN ×2 (15:47)
[2021-10-14] MEDS ORDERED: hydrOXYzine 25 MG tablet NG PRN (15:50)
[2021-10-14] MEDS ORDERED: mag hydrox/Alum hydrox/simeth 30ml oral suspension NG PRN (15:51)
[2021-10-14] MEDS ORDERED: magnesium hydroxide 30ml (MOM) UD suspension NG PRN (15:53)
[2021-10-14] MEDS ORDERED: ondansetron 4mg/5ml UD cup PO PRN (15:56)
[2021-10-14] MEDS ORDERED: ondansetron 4mg/5ml UD cup NG PRN (15:57)
[2021-10-14] MEDS ORDERED: POTASSIUM BICARB 20meq eff tab 20 MEQ TABLET.EFF NG PRN ×2 (15:58)
[2021-10-14] MEDS: hydrocortisone sod succ/PF 100mg/2ml inj. IV SCH (16:08)
[2021-10-14] MEDS ORDERED: bumetanide 0.25mg/ml 4ml vial IV ONE (16:15)
--- NOTE | 2021-10-14 18:07 | NUR ---
Patient confused and moans. Occ verbal but difficult to understand at times. Precedex started d/t increased agitation and restlessness. Betty placed d/t difficulty in obtaining BP. Levo infusing at 0.3 mcg/kg/min. On Amiodarone gtt. Remains in SR. Heparin gtt titrated down per protocol. Patient anuric for several hours. Dr. Camara notified. NS bolus given as well as Bumex. Small increase in UO to 25 mL/hr.
--- NOTE | 2021-10-14 18:38 | NUR ---
Problems reprioritized. Patient report given, questions answered & plan of care reviewed with Nader WASHINGTON.
[2021-10-14] MEDS: busPIRone 15mg tablet NG SCH (20:00)
[2021-10-14] MEDS: diltiazem 30mg tablet NG SCH (20:00)
[2021-10-14] MEDS: sertraline 50mg tablet NG SCH (20:00)
[2021-10-14] MEDS ORDERED: vancomycin inj 500 MG in normal saline 100ml IV soln 100 ML IV SCH (20:00)
[2021-10-14] MEDS: docusate sodium 100mg/10ml UD cup NG SCH (20:00)
[2021-10-14] MEDS: carvedilol 6.25mg tablet NG SCH (20:00)
[2021-10-14] MEDS: sotalol 80mg tablet NG SCH (20:00)
[2021-10-14] MEDS: oxybutynin 5mg tablet NG SCH (21:00)
[2021-10-14] MEDS: montelukast 10mg tablet NG SCH (21:21)
[2021-10-14 21:40] LABS: ABG BASE EXCESS -5.7 mmol/L (-2.0-2.0); ABG HCO3 20.9 mmol/L (22.0-26.0); ABG OXYGEN SATURATION 97.5 % (94-97); ABG PCO2 (T) 43.8 mmHg (32.0-45.0); ABG PO2 (T) 99.1 mmHg (75.0-100.0); FCOHb 0.4 % (0.0-3.9); FMetHb 0.2 % (0.0-1.5); FO2Hb 96.9 % (94-97)
--- NOTE | 2021-10-14 23:48 | NUR ---
new abg taken, ph is improved and in the non critical range at 7.29 but still on the low side. pt urinary output is 20 - 25 ml /hr. Called Dr. Kim she said not to do anything at this time since he is going in the right direction, will recheck abg in am.
[2021-10-15] VITALS (24 sets, daily range): BP systolic 85–137; BP diastolic 44–64
[2021-10-15] MEDS: aztreonam inj. 1,000 MG in normal saline 100ml IV soln 100 ML IV SCH ×3 (00:23→15:53)
[2021-10-15] MEDS: hydrocortisone sod succ/PF 100mg/2ml inj. IV SCH ×3 (00:24→15:52)
[2021-10-15] MEDS: metroNIDAZOLE-Flagyl 500mg/NS 100 ML IV SCH ×3 (01:53→15:53)
[2021-10-15] MEDS: diltiazem 30mg tablet NG SCH ×4 (02:00→20:24)
[2021-10-15] MEDS: NORepinephrine 8mg/ 250ml NS 250 ML IV SCH ×4 (02:51→22:50)
[2021-10-15] MEDS: ipratropium/albuterol 3ml nebule NEB SCH ×4 (03:34→20:12)
[2021-10-15 03:41] LABS: BASOPHILS % (AUTO) 0.1 % (0-1); EOSINOPHILS % (AUTO) 0 % (0-6); HEMATOCRIT 29.9 % (35.0-45.0); LYMPHOCYTES # (AUTO) 0.2 X10'3 (1.1-4.8); LYMPHOCYTES % (AUTO) 0.6 % (21-51); MEAN CORPUSCULAR HGB CONC 30.1 g/dL (33.0-36.5); MEAN CORPUSCULAR VOLUME 86.2 FL (78-98); MEAN PLATELET VOLUME 8.3 FL (7.4-10.4); MONOCYTES # (AUTO) 0.4 X10'3 (0-0.9); MONOCYTES % (AUTO) 1.4 % (2-12); NEUTROPHILS # (AUTO) 29.1 X10'3 (1.8-7.7); NEUTROPHILS % (AUTO) 97.9 % (42-75); PLATELET COUNT 231 X10'3 (140-440); RED BLOOD COUNT 3.46 X10'6 (4.20-5.60); RED CELL DISTRIBUTION WIDTH 20.1 % (11.5-14.5)
[2021-10-15 03:50] LABS: WHITE BLOOD COUNT 29.7 X10'3 (4.5-11.0)
[2021-10-15 03:53] LABS: ALBUMIN 2.9 G/DL (3.4-5.0); ANION GAP 15 (8-16); BLOOD UREA NITROGEN 39 MG/DL (7-18); CALCIUM 6.7 MG/DL (8.5-10.1); CHLORIDE 99 MMOL/L (99-107); CREATININE 2.78 MG/DL (0.40-0.90); GLUCOSE 86 MG/DL (70-104); MAGNESIUM 1.3 MG/DL (1.5-2.4); POTASSIUM 5.4 MMOL/L (3.5-5.1); PREALBUMIN 10.3 MG/DL (19-36); SODIUM 135 MMOL/L (135-145); TOTAL CARBON DIOXIDE 21.3 MMOL/L (24-32); eGFR 18 ML/MIN
[2021-10-15] MEDS: amiodarone/D5 360MG/200ML BAG 200 ML IV SCH ×3 (04:06→16:34)
[2021-10-15 04:45] LABS: ABG BASE EXCESS -5.1 mmol/L (-2.0-2.0); ABG HCO3 21.4 mmol/L (22.0-26.0); ABG OXYGEN SATURATION 97.2 % (94-97); ABG PCO2 (T) 44.4 mmHg (32.0-45.0); ABG PO2 (T) 94.9 mmHg (75.0-100.0); FCOHb 0.3 % (0.0-3.9); FMetHb 0.3 % (0.0-1.5); FO2Hb 96.6 % (94-97); PATIENT TEMPERATURE 36.4; TOTAL HEMOGLOBIN 10.4 G/dl (12.0-16.0)
--- NOTE | 2021-10-15 06:30 | NUR ---
Patient in room CICU 2010. I have received report from Nader WASHINGTON and had the opportunity to ask questions and assume patient care.
[2021-10-15] MEDS: K and/or MAG REPLACEMENT MC SCH ×2 (06:47→08:00)
[2021-10-15] MEDS: docusate sodium 100mg/10ml UD cup NG SCH ×2 (07:25→20:25)
[2021-10-15] MEDS: morphine 2 MG/ML inj. syringe IV PRN (07:25)
[2021-10-15] MEDS: busPIRone 15mg tablet NG SCH ×2 (07:26→20:58)
[2021-10-15] MEDS: cholecalciferol (vitamin D3) 1,000 unit (25mcg) tablet NG SCH (07:26)
[2021-10-15] MEDS: sertraline 50mg tablet NG SCH ×2 (07:27→20:24)
[2021-10-15] MEDS: sotalol 80mg tablet NG SCH ×2 (07:27→20:24)
[2021-10-15] MEDS: oxybutynin 5mg tablet NG SCH ×3 (07:27→20:24)
[2021-10-15] MEDS: lansoprazole 15mg solutab NG SCH (07:27)
[2021-10-15] MEDS: duloxetine 30mg CAPSULE.DR NG SCH (07:28)
[2021-10-15] MEDS: potassium chloride 8mEq ER tablet PO SCH ×2 (07:28→20:00)
[2021-10-15] MEDS: carvedilol 6.25mg tablet NG SCH ×2 (07:28→20:24)
[2021-10-15] MEDS: theophylline anhydrous 100mg ER capsule 24-hour PO SCH (07:29)
[2021-10-15] MEDS ORDERED: amiodarone 150mg/dext, iso-os 100 ML IV ONE (07:45)
[2021-10-15 07:47] LABS: ALBUMIN/GLOBULIN RATIO 1.1 (1.1-1.5); ALKALINE PHOSPHATASE 173 IU/L (46-116); BILIRUBIN,TOTAL 3.1 MG/DL (0.1-1.0); PHOSPHORUS 5.3 MG/DL (2.3-4.5); TOTAL PROTEIN 5.5 G/DL (6.4-8.2)
[2021-10-15] MEDS: budesonide 0.5mg/2ml UD nebule IH SCH ×2 (07:52→20:12)
[2021-10-15 08:01] LABS: ALANINE AMINOTRANSFERASE 2608 U/L (12-78)
[2021-10-15 08:11] LABS: ASPARTATE AMINO TRANSFERASE 5217 U/L (10-37)
[2021-10-15] MEDS: HEPARIN SOD,PORK IN 0.45% NACL 250 ML IV SCH (09:35)
[2021-10-15] MEDS: dexmedetomidin/NS 400mcg/100ml 100 ML IV SCH (09:56)
[2021-10-15 12:43] LABS: MAGNESIUM 3.9 MG/DL (1.5-2.4); POTASSIUM 4.6 MMOL/L (3.5-5.1)
[2021-10-15] MEDS ORDERED: vancomycin/NS 1 GM ADD-VANTAGE 250 ML IV ONE (13:00)
[2021-10-15] MEDS ORDERED: vancomycin/NS 1 GM ADD-VANTAGE 250 ML IV PRN (13:00)
[2021-10-15] MEDS: dexmedetomidine inj. 400 MCG in normal saline 100ml IV soln 96 ML IV SCH ×2 (16:33→23:17)
--- NOTE | 2021-10-15 17:41 | NUR ---
Patient anxious and restless at times. Continues on Precedex. Speach is quiet and difficult to understand. Patient went into atrial fib in the am. Patient reloaded with Amiodarone 150mg then cardioverted with 75 joules. Patient converted to SR, but it only lasted a few hours before patient was again in atrial fib. BP stable on levophed so Dr. Camara stated to leave it for now. Magnesium replaced. K 5.4. Continues on BiPAP on 30% for ventilatory support. Attempted on HFNC x 1 but pt's respiratory effort was poor and sats decreased to 85%. Urine output increased throughout shift. Storm TF well. Afebrile. Nose red but blanchable from BiPAP. Gecko pad in place.
--- NOTE | 2021-10-15 18:23 | NUR ---
Problems reprioritized. Patient report given, questions answered & plan of care reviewed with Nader WASHINGTON.
[2021-10-15] MEDS: montelukast 10mg tablet NG SCH (20:24)
[2021-10-16] VITALS (24 sets, daily range): BP systolic 99–133; BP diastolic 44–67
[2021-10-16] MEDS ORDERED: DEXTROSE 15 GM of carb/4 tabs (each vial/BOTTLE has 4 tablets) PO PRN ×2 (00:05)
[2021-10-16] MEDS ORDERED: glucagon, human recombinant 1mg kit SUBCUT PRN (00:05)
[2021-10-16] MEDS ORDERED: dextrose 50%-water 50ml dispensing syringe IV PRN ×2 (00:05)
[2021-10-16] MEDS: aztreonam inj. 1,000 MG in normal saline 100ml IV soln 100 ML IV SCH ×3 (00:22→15:47)
[2021-10-16] MEDS: hydrocortisone sod succ/PF 100mg/2ml inj. IV SCH ×3 (00:24→15:40)
[2021-10-16] MEDS: metroNIDAZOLE-Flagyl 500mg/NS 100 ML IV SCH ×3 (02:30→15:48)
[2021-10-16] MEDS: insulin regular, human U-100 3ml vial - multi-dose SQ SCH ×3 (02:47→14:07)
[2021-10-16] MEDS: diltiazem 30mg tablet NG SCH ×4 (02:48→20:19)
[2021-10-16] MEDS: VANCOMYCIN LEVEL IV SCH (03:00)
[2021-10-16 03:25] LABS: BASOPHILS % (AUTO) 0.1 % (0-1); HEMATOCRIT 27.2 % (35.0-45.0); MONOCYTES # (AUTO) 0.3 X10'3 (0-0.9); MONOCYTES % (AUTO) 1.3 % (2-12)
[2021-10-16 03:27] LABS: EOSINOPHILS # (AUTO) 0.7 X10'3 (0-0.9); EOSINOPHILS % (AUTO) 2.9 % (0-6); HEMOGLOBIN 8.4 g/dl (12.0-16.0); LYMPHOCYTES % (AUTO) 0.2 % (21-51); MEAN CORPUSCULAR HEMOGLOBIN 25.7 PG (27.0-31.0); MEAN CORPUSCULAR VOLUME 82.8 FL (78-98); NEUTROPHILS # (AUTO) 21.9 X10'3 (1.8-7.7); NEUTROPHILS % (AUTO) 95.5 % (42-75); PLATELET COUNT 180 X10'3 (140-440); RED BLOOD COUNT 3.29 X10'6 (4.20-5.60); RED CELL DISTRIBUTION WIDTH 20.2 % (11.5-14.5); WHITE BLOOD COUNT 22.9 X10'3 (4.5-11.0)
[2021-10-16 03:58] LABS: ANISOCYTOSIS 3+; PLATELET ESTIMATE NORMAL
[2021-10-16 03:59] LABS: ACANTHOCYTES 1+; BURR CELLS 2+; ELLIPTOCYTES 1+
[2021-10-16] MEDS: ipratropium/albuterol 3ml nebule NEB SCH ×4 (04:15→20:31)
[2021-10-16] MEDS: NORepinephrine 8mg/ 250ml NS 250 ML IV SCH ×3 (04:20→15:59)
[2021-10-16 04:22] LABS: ALBUMIN 2.5 G/DL (3.4-5.0); ALKALINE PHOSPHATASE 247 IU/L (46-116); ANION GAP 13 (8-16); BILIRUBIN,TOTAL 2.4 MG/DL (0.1-1.0); BLOOD UREA NITROGEN 46 MG/DL (7-18); BUN/CREATININE RATIO 18.5 (6.6-38.0); CALCIUM 6.5 MG/DL (8.5-10.1); CHLORIDE 100 MMOL/L (99-107); CREATININE 2.49 MG/DL (0.40-0.90); GLUCOSE 234 MG/DL (70-104); MAGNESIUM 2.7 MG/DL (1.5-2.4); PHOSPHORUS 4.6 MG/DL (2.3-4.5); POTASSIUM 3.5 MMOL/L (3.5-5.1); SODIUM 137 MMOL/L (135-145); TOTAL CARBON DIOXIDE 24.2 MMOL/L (24-32); TOTAL PROTEIN 4.9 G/DL (6.4-8.2); eGFR 20 ML/MIN
[2021-10-16 04:40] LABS: ALANINE AMINOTRANSFERASE 2487 U/L (12-78); ASPARTATE AMINO TRANSFERASE 2178 U/L (10-37)
[2021-10-16 04:40] LABS: ABG BASE EXCESS -1.8 mmol/L (-2.0-2.0); ABG HCO3 25.2 mmol/L (22.0-26.0); ABG OXYGEN SATURATION 90.1 % (94-97); ABG PCO2 (T) 53.8 mmHg (32.0-45.0); ABG PO2 (T) 63.3 mmHg (75.0-100.0); ALLEN'S TEST POSITIVE; FCOHb 0.2 % (0.0-3.9); FMetHb 0.3 % (0.0-1.5); FO2Hb 89.6 % (94-97); PATIENT TEMPERATURE 36.6; TOTAL HEMOGLOBIN 9.9 G/dl (12.0-16.0)
[2021-10-16 04:42] LABS: VANCOMYCIN,RANDOM 46.9 UG/ML
--- NOTE | 2021-10-16 06:53 | NUR ---
Patient in room CICU 2010. I have received report from PADMINI Doe and had the opportunity to ask questions and assume patient care.
[2021-10-16] MEDS: K and/or MAG REPLACEMENT MC SCH ×2 (08:00→19:44)
[2021-10-16] MEDS: theophylline anhydrous 100mg ER capsule 24-hour PO SCH (08:00)
[2021-10-16] MEDS: carvedilol 6.25mg tablet NG SCH ×2 (08:00→20:20)
[2021-10-16] MEDS: potassium chloride 8mEq ER tablet PO SCH ×2 (08:00→20:00)
[2021-10-16] MEDS: budesonide 0.5mg/2ml UD nebule IH SCH ×2 (08:00→20:31)
[2021-10-16] MEDS: sotalol 80mg tablet NG SCH ×2 (08:14→20:19)
[2021-10-16] MEDS: lansoprazole 15mg solutab NG SCH (08:15)
[2021-10-16] MEDS: sertraline 50mg tablet NG SCH ×2 (08:16→20:20)
[2021-10-16] MEDS: duloxetine 30mg CAPSULE.DR NG SCH (08:28)
[2021-10-16] MEDS: oxybutynin 5mg tablet NG SCH ×3 (08:30→20:20)
[2021-10-16] MEDS: cholecalciferol (vitamin D3) 1,000 unit (25mcg) tablet NG SCH (08:31)
[2021-10-16] MEDS: busPIRone 15mg tablet NG SCH ×2 (08:33→20:00)
[2021-10-16] MEDS: docusate sodium 100mg/10ml UD cup NG SCH ×2 (08:34→20:21)
--- NOTE | 2021-10-16 10:35 | NUR ---
Reassessment: Pt continues to be A/O x 1 and confused, on BiPAP per EMR. Pt remains NPO and tolerating TF at goal rate with GRV WNL. LBM 10/14, receiving routine bowel care. No changes to nutrition recommendations at this time. Will continue to follow closely. Recommendations: 1) Continuous TF per MD using Vital AF at 45ml/hr goal; to provide 1080ml volume/day, 1296 kcal, 876ml water, and 81g protein. 2) Additional water flush per roofing plant supervisor; prior serum Na 132 7/27 mmol/L 3) PALB q Monday/ 4) scaled wt this admit w/ subsequent daily wts; monitor need to adjust nutrition recommendations once a scaled weight is obtained 5) Routine bowel care 6) BSS with ST prior to PO diet advancement; recommend regular diet in view of poor PO throughout LOS 7) Once PO diet returns; Ensure Enlive TIDWM Addendum: 10/16/21 at [address] Amended: Links added.
[2021-10-16] MEDS: HEPARIN SOD,PORK IN 0.45% NACL 250 ML IV SCH (15:09)
[2021-10-16] MEDS: amiodarone/D5 360MG/200ML BAG 200 ML IV SCH ×2 (16:04→22:34)
[2021-10-16 17:50] LABS: APTT 49 SECONDS (22-32)
--- NOTE | 2021-10-16 18:00 | NUR ---
Shift end note: Preceptor documentation: I have reviewed and agree with all interventions, assessments performed and documented by Marcia WASHINGTON.
[2021-10-16] MEDS ORDERED: VANCOMYCIN LEVEL IV ONE (19:30)
[2021-10-16] MEDS: montelukast 10mg tablet NG SCH (20:20)
[2021-10-16] MEDS: insulin glargine (Lantus) pen - multi-dose SQ SCH (21:00)
[2021-10-16] MEDS: dexmedetomidine inj. 400 MCG in normal saline 100ml IV soln 96 ML IV SCH (21:10)
[2021-10-17] VITALS (24 sets, daily range): BP systolic 91–124; BP diastolic 44–65
[2021-10-17] MEDS: metroNIDAZOLE-Flagyl 500mg/NS 100 ML IV SCH ×4 (00:16→23:58)
[2021-10-17] MEDS: aztreonam inj. 1,000 MG in normal saline 100ml IV soln 100 ML IV SCH ×4 (00:17→23:00)
[2021-10-17] MEDS: diltiazem 30mg tablet NG SCH ×4 (02:00→20:43)
[2021-10-17] MEDS: ipratropium/albuterol 3ml nebule NEB SCH ×4 (02:40→21:15)
[2021-10-17] MEDS: VANCOMYCIN LEVEL IV SCH (03:00)
[2021-10-17] MEDS: amiodarone/D5 360MG/200ML BAG 200 ML IV SCH ×7 (03:35→22:50)
[2021-10-17] MEDS: morphine 2 MG/ML inj. syringe IV PRN ×2 (04:02→20:50)
--- NOTE | 2021-10-17 04:55 | NUR ---
Tube feed residual 650. 300 returned. Pump stopped. Reassessment needed at 0645
[2021-10-17] MEDS: NORepinephrine 8mg/ 250ml NS 250 ML IV SCH (05:30)
--- NOTE | 2021-10-17 06:29 | NUR ---
Patient in room CICU 2010. I have received report from PADMINI Pickett and had the opportunity to ask questions and assume patient care.
[2021-10-17 07:00] LABS: ALANINE AMINOTRANSFERASE 1781 U/L (12-78); ALBUMIN 2.3 G/DL (3.4-5.0); ALKALINE PHOSPHATASE 283 IU/L (46-116); ANION GAP 15 (8-16); ASPARTATE AMINO TRANSFERASE 578 U/L (10-37); BILIRUBIN,TOTAL 2.2 MG/DL (0.1-1.0); BLOOD UREA NITROGEN 49 MG/DL (7-18); BUN/CREATININE RATIO 26.8 (6.6-38.0); CHLORIDE 102 MMOL/L (99-107); CREATININE 1.83 MG/DL (0.40-0.90); GLUCOSE 144 MG/DL (70-104); PHOSPHORUS 4.4 MG/DL (2.3-4.5); SODIUM 146 MMOL/L (135-145); TOTAL CARBON DIOXIDE 29.4 MMOL/L (24-32); TOTAL PROTEIN 4.7 G/DL (6.4-8.2); VANCOMYCIN,RANDOM 28.7 UG/ML; eGFR 28 ML/MIN
[2021-10-17] MEDS ORDERED: POTASSIUM BICARB 20meq eff tab 20 MEQ TABLET.EFF PO PRN ×2 (07:05)
[2021-10-17] MEDS: docusate sodium 100mg/10ml UD cup NG SCH ×2 (07:31→20:42)
[2021-10-17] MEDS: potassium chloride 8mEq ER tablet PO SCH ×2 (07:32→20:43)
[2021-10-17] MEDS: busPIRone 15mg tablet NG SCH ×2 (07:32→20:43)
[2021-10-17] MEDS: lansoprazole 15mg solutab NG SCH (07:35)
[2021-10-17] MEDS: sertraline 50mg tablet NG SCH ×2 (07:35→20:43)
[2021-10-17] MEDS: duloxetine 30mg CAPSULE.DR NG SCH (07:36)
[2021-10-17] MEDS: oxybutynin 5mg tablet NG SCH ×3 (07:36→20:43)
[2021-10-17] MEDS: carvedilol 6.25mg tablet NG SCH ×2 (07:37→20:43)
[2021-10-17] MEDS: hydrocortisone sod succ/PF 100mg/2ml inj. IV SCH ×4 (07:38→23:57)
[2021-10-17] MEDS: cholecalciferol (vitamin D3) 1,000 unit (25mcg) tablet NG SCH (07:38)
[2021-10-17] MEDS: K and/or MAG REPLACEMENT MC SCH ×2 (07:38→20:00)
[2021-10-17] MEDS: sotalol 80mg tablet NG SCH ×2 (07:39→20:43)
[2021-10-17] MEDS: theophylline anhydrous 100mg ER capsule 24-hour PO SCH (07:39)
[2021-10-17] MEDS: insulin regular, human U-100 3ml vial - multi-dose SQ SCH ×3 (07:59→20:13)
[2021-10-17] MEDS: budesonide 0.5mg/2ml UD nebule IH SCH ×2 (09:50→21:14)
[2021-10-17] MEDS ORDERED: POTASSIUM BICARB 20meq eff tab 20 MEQ TABLET.EFF NG ONE ×2 (11:10→11:20)
--- NOTE | 2021-10-17 11:19 | NUR ---
MD VISIT- Dr. Bellamy notified of 2.0K, orders received.
[2021-10-17 11:54] LABS: ABG HCO3 28.5 mmol/L (22.0-26.0); ABG OXYGEN SATURATION 95.8 % (94-97); ABG PCO2 (T) 67.1 mmHg (32.0-45.0); ABG PO2 (T) 85.4 mmHg (75.0-100.0); FCOHb 0.4 % (0.0-3.9); FLOW 30 L/min; FMetHb 0.4 % (0.0-1.5); PATIENT TEMPERATURE 36.4; TOTAL HEMOGLOBIN 10.4 G/dl (12.0-16.0)
--- NOTE | 2021-10-17 11:55 | NUR ---
MD notified of pt's ABG, pt will be placed back on BIPAP.
[2021-10-17 12:19] LABS: BASOPHILS % (AUTO) 0.2 % (0-1); EOSINOPHILS % (AUTO) 0.1 % (0-6); HEMATOCRIT 29.8 % (35.0-45.0); HEMOGLOBIN 9.3 g/dl (12.0-16.0); LYMPHOCYTES # (AUTO) 0.1 X10'3 (1.1-4.8); LYMPHOCYTES % (AUTO) 0.7 % (21-51); MEAN CORPUSCULAR HEMOGLOBIN 25.8 PG (27.0-31.0); MEAN CORPUSCULAR HGB CONC 31.2 g/dL (33.0-36.5); MEAN CORPUSCULAR VOLUME 82.9 FL (78-98); MEAN PLATELET VOLUME 8.3 FL (7.4-10.4); MONOCYTES # (AUTO) 0.9 X10'3 (0-0.9); MONOCYTES % (AUTO) 5.5 % (2-12); NEUTROPHILS # (AUTO) 15.3 X10'3 (1.8-7.7); NEUTROPHILS % (AUTO) 93.5 % (42-75); PLATELET COUNT 116 X10'3 (140-440); RED BLOOD COUNT 3.59 X10'6 (4.20-5.60); RED CELL DISTRIBUTION WIDTH 19.3 % (11.5-14.5); WHITE BLOOD COUNT 16.3 X10'3 (4.5-11.0)
[2021-10-17 12:40] LABS: TOTAL CELLS COUNTED 100
[2021-10-17 12:43] LABS: PLATELET ESTIMATE DECREASED
[2021-10-17 12:44] LABS: ACANTHOCYTES 1+; ANISOCYTOSIS 2+; BURR CELLS 2+; ELLIPTOCYTES 1+; HYPOCHROMASIA 1+; POLYCHROMASIA FEW; TARGET CELLS FEW; TEAR DROP CELLS 1+
[2021-10-17 12:51] LABS: MAGNESIUM 1.8 MG/DL (1.5-2.4); POTASSIUM 3.3 MMOL/L (3.5-5.1)
[2021-10-17] MEDS ORDERED: POTASSIUM BICARB 20meq eff tab 20 MEQ TABLET.EFF PO ONE (13:00)
--- NOTE | 2021-10-17 18:05 | NUR ---
Shift end I have reviewed documentation by Marcia WASHINGTON and agree with noted information.
--- NOTE | 2021-10-17 18:12 | NUR ---
Problems reprioritized. Patient report given, questions answered & plan of care reviewed with PADMINI Silvestre.
--- NOTE | 2021-10-17 18:15 | NUR ---
Patient in room CICU 2010. I have received report from PADMINI Kennedy and had the opportunity to ask questions and assume patient care. Patient sleeping comfortably, BiPap in place.
[2021-10-17] MEDS: insulin glargine (Lantus) pen - multi-dose SQ SCH (20:14)
[2021-10-17] MEDS: montelukast 10mg tablet NG SCH (20:42)
[2021-10-18] VITALS (20 sets, daily range): BP systolic 98–128; BP diastolic 46–62
[2021-10-18] MEDS: HEPARIN SOD,PORK IN 0.45% NACL 250 ML IV SCH (00:05)
[2021-10-18] MEDS: insulin regular, human U-100 3ml vial - multi-dose SQ SCH ×3 (02:28→14:26)
[2021-10-18 02:49] LABS: BASOPHILS % (AUTO) 0.3 % (0-1); EOSINOPHILS % (AUTO) 0 % (0-6); HEMATOCRIT 29.2 % (35.0-45.0); LYMPHOCYTES # (AUTO) 0.1 X10'3 (1.1-4.8); MEAN CORPUSCULAR HEMOGLOBIN 25.5 PG (27.0-31.0); MEAN CORPUSCULAR VOLUME 82.3 FL (78-98); MEAN PLATELET VOLUME 8.4 FL (7.4-10.4); MONOCYTES # (AUTO) 1.3 X10'3 (0-0.9); MONOCYTES % (AUTO) 9.4 % (2-12); NEUTROPHILS # (AUTO) 12.1 X10'3 (1.8-7.7); NEUTROPHILS % (AUTO) 89.3 % (42-75); PLATELET COUNT 100 X10'3 (140-440); RED BLOOD COUNT 3.54 X10'6 (4.20-5.60); RED CELL DISTRIBUTION WIDTH 19.6 % (11.5-14.5); WHITE BLOOD COUNT 13.5 X10'3 (4.5-11.0)
[2021-10-18] MEDS: amiodarone/D5 360MG/200ML BAG 200 ML IV SCH ×2 (02:56→10:58)
[2021-10-18] MEDS: diltiazem 30mg tablet NG SCH ×3 (02:58→14:00)
[2021-10-18] MEDS: VANCOMYCIN LEVEL IV SCH (03:00)
[2021-10-18] MEDS: ipratropium/albuterol 3ml nebule NEB SCH ×3 (03:07→15:00)
[2021-10-18 03:11] LABS: ANISOCYTOSIS 2+; ELLIPTOCYTES 1+; HYPOCHROMASIA 2+; PLATELET ESTIMATE DECREASED; POLYCHROMASIA FEW; TARGET CELLS FEW
[2021-10-18 03:22] LABS: ALBUMIN 2.3 G/DL (3.4-5.0); ALBUMIN/GLOBULIN RATIO 0.9 (1.1-1.5); ALKALINE PHOSPHATASE 233 IU/L (46-116); ANION GAP 10 (8-16); BLOOD UREA NITROGEN 44 MG/DL (7-18); BUN/CREATININE RATIO 32.4 (6.6-38.0); CALCIUM 7.7 MG/DL (8.5-10.1); CHLORIDE 102 MMOL/L (99-107); CREATININE 1.36 MG/DL (0.40-0.90); GLUCOSE 150 MG/DL (70-104); MAGNESIUM 1.6 MG/DL (1.5-2.4); PHOSPHORUS 4.2 MG/DL (2.3-4.5); POTASSIUM 3.4 MMOL/L (3.5-5.1); SODIUM 144 MMOL/L (135-145); TOTAL PROTEIN 4.8 G/DL (6.4-8.2); VANCOMYCIN,RANDOM 20.5 UG/ML; eGFR 40 ML/MIN
[2021-10-18] MEDS: morphine 2 MG/ML inj. syringe IV PRN (03:23)
[2021-10-18 03:49] LABS: ASPARTATE AMINO TRANSFERASE 329 U/L (10-37)
[2021-10-18 03:51] LABS: ALANINE AMINOTRANSFERASE 1444 U/L (12-78)
--- NOTE | 2021-10-18 06:21 | NUR ---
Problems reprioritized. Patient report given, questions answered & plan of care reviewed with PADMINI Arce.
[2021-10-18] MEDS: carvedilol 6.25mg tablet NG SCH (08:00)
[2021-10-18] MEDS ORDERED: DEXTROSE 15 GM of carb/4 tabs (each vial/BOTTLE has 4 tablets) NG PRN ×2 (08:00→08:01)
[2021-10-18] MEDS: sotalol 80mg tablet NG SCH (08:00)
[2021-10-18] MEDS: K and/or MAG REPLACEMENT MC SCH (08:00)
[2021-10-18] MEDS: duloxetine 30mg CAPSULE.DR NG SCH (08:00)
[2021-10-18] MEDS: budesonide 0.5mg/2ml UD nebule IH SCH (08:03)
[2021-10-18] MEDS ORDERED: POTASSIUM BICARB 20meq eff tab 20 MEQ TABLET.EFF OGT PRN (08:06)
[2021-10-18] MEDS: docusate sodium 100mg/10ml UD cup NG SCH (08:11)
[2021-10-18] MEDS: hydrocortisone sod succ/PF 100mg/2ml inj. IV SCH (08:11)
[2021-10-18] MEDS: lansoprazole 15mg solutab NG SCH (08:11)
[2021-10-18] MEDS: POTASSIUM BICARB 20meq eff tab 20 MEQ TABLET.EFF OGT PRN ×2 (08:12→13:14)
[2021-10-18] MEDS: sertraline 50mg tablet NG SCH (08:14)
[2021-10-18] MEDS: cholecalciferol (vitamin D3) 1,000 unit (25mcg) tablet NG SCH (08:14)
[2021-10-18] MEDS: aztreonam inj. 1,000 MG in normal saline 100ml IV soln 100 ML IV SCH (08:14)
[2021-10-18] MEDS: oxybutynin 5mg tablet NG SCH ×2 (08:15→13:13)
[2021-10-18] MEDS: busPIRone 15mg tablet NG SCH (08:15)
[2021-10-18] MEDS: NORepinephrine 8mg/ 250ml NS 250 ML IV SCH (08:32)
[2021-10-18] MEDS ORDERED: cefepime 1GM/NS ADD-VANTAGE 100 ML IV SCH (09:25)
[2021-10-18] MEDS: metroNIDAZOLE-Flagyl 500mg/NS 100 ML IV SCH (09:37)
[2021-10-18 11:53] LABS: ABG BASE EXCESS 1.7 mmol/L (-2.0-2.0); ABG HCO3 30.7 mmol/L (22.0-26.0); ABG PCO2 (T) 72.6 mmHg (32.0-45.0); ABG PO2 (T) 64.3 mmHg (75.0-100.0); FCOHb 0.4 % (0.0-3.9); FLOW 2 L/min; FMetHb 0.5 % (0.0-1.5); FO2Hb 90.2 % (94-97); PATIENT TEMPERATURE 36.3; TOTAL HEMOGLOBIN 10.6 G/dl (12.0-16.0)
--- NOTE | 2021-10-18 14:40 | NUR ---
Dr. Bellamy spoke with patient's about patient's current status and gave an update. Dr. Bellamy expressed his concern with the patient's lungs and advanced COPD and stated that he did not see a good outcome for this patient. stated that the patient normally has an okay quality of life, however does need home O2 and Cpap. Dr. Bellamy stated that he thinks it would be best to allow the patient to be comfortable. Dr. Bellamy further explained that if we were to intubate the patient and/or perform CPR that he feels this is a decision that the patient's would have to make sooner rather than later anyway. stated an understanding and after a bit of deliberation decided to make the patient DNR with comfort care.
[2021-10-18] MEDS: morphine 10mg/ml inj. IV PRN ×3 (15:59→22:26)
--- NOTE | 2021-10-18 18:25 | NUR ---
Problems reprioritized. Patient report given, questions answered & plan of care reviewed with PADMINI Saez.
--- NOTE | 2021-10-18 18:30 | NUR ---
Patient in room CICU 2010. I have received report from PADMINI Arce and had the opportunity to ask questions and assume patient care.
[2021-10-19] MEDS: morphine 10mg/ml inj. IV PRN (04:13)
--- NOTE | 2021-10-19 06:05 | NUR ---
Problems reprioritized. Patient report given, questions answered & plan of care reviewed with PADMINI Arce.
[2021-10-19 07:00] VITALS: BP 41/23
--- NOTE | 2021-10-19 08:37 | NUR ---
RN IS TO DOCUMENT YES TO ALL APPLICABLE AREAS Pronouncement of : 1. Time Physician Notified: Mia 2. Date of : 10/19/2021 3. Time of : 836 4. DNR/Withdraw life support documented: Yes 5. Monitor strip has been placed on chart: Yes 6. Assessment process is of one-minute duration and includes following criteria: a) Patient is unresponsive to all stimuli: Yes b) Pupils fixed and non-reactive: Yes c) Auscultation of precordium reveals absence of heart tones: Yes d) Auscultation of lungs reveals absence of breath sounds: Yes e) Absence of blood pressure / all vital signs: Yes f) QRS complexes are not present on monitor / EKG strip: Yes g) Pacer spikes without capture: Yes 4. Comments:
--- NOTE | 2021-10-19 08:45 | NUR ---
Spoke with Dr. Bellamy and let him know that the patient had passed. , Gonsalo was called and informed of the patient's passing. He stated that he does not have money to cover anything and he doesn't know which home to use. He asked that we select for him. Called Jennifer, welfare case worker and she stated that she would call [employer] and see if she qualifies for indigent burial.
--- NOTE | 2021-10-19 10:00 | NUR ---
Patient left with [employer], stated that he would be able to pepper picker her belongings from the hospital tomorrow.
== END 2021-10-19 10:00 | DRG 720 ==
LOC: ER 08:53 → ED HOLD 11:47 → EDBEDREQ 13:59 → PCU 3S 15:18 → CICU 2S 10-14 01:02
PROVIDERS: ADMIT Internal Medicine; ATTEND Internal Medicine
PROC: 5A09357 Assistance with Respiratory Ventilation, Less than 24 Consecutive Hours, Continuous Positive Airway Pressure (ICD-10-PCS; principal; 2021-10-10)
PROC: 5A09357 Assistance with Respiratory Ventilation, Less than 24 Consecutive Hours, Continuous Positive Airway Pressure (ICD-10-PCS; 2021-10-11)
PROC: 5A09357 Assistance with Respiratory Ventilation, Less than 24 Consecutive Hours, Continuous Positive Airway Pressure (ICD-10-PCS; 2021-10-12)
PROC: 5A09357 Assistance with Respiratory Ventilation, Less than 24 Consecutive Hours, Continuous Positive Airway Pressure (ICD-10-PCS; 2021-10-13)
PROC: 06HY33Z Insertion of Infusion Device into Lower Vein, Percutaneous Approach (ICD-10-PCS; 2021-10-13)
PROC: 5A09457 Assistance with Respiratory Ventilation, 24-96 Consecutive Hours, Continuous Positive Airway Pressure (ICD-10-PCS; 2021-10-14)
PROC: 5A0935A Assistance with Respiratory Ventilation, Less than 24 Consecutive Hours, High Flow/Velocity Cannula (ICD-10-PCS; 2021-10-14)
PROC: 04HY32Z Insertion of Monitoring Device into Lower Artery, Percutaneous Approach (ICD-10-PCS; 2021-10-14)
PROC: 4A133B1 Monitoring of Arterial Pressure, Peripheral, Percutaneous Approach (ICD-10-PCS; 2021-10-14)
PROC: 4A133J1 Monitoring of Arterial Pulse, Peripheral, Percutaneous Approach (ICD-10-PCS; 2021-10-14)
PROC: 5A0935A Assistance with Respiratory Ventilation, Less than 24 Consecutive Hours, High Flow/Velocity Cannula (ICD-10-PCS; 2021-10-15)
PROC: 5A2204Z Restoration of Cardiac Rhythm, Single (ICD-10-PCS; 2021-10-15)
PROC: 5A09357 Assistance with Respiratory Ventilation, Less than 24 Consecutive Hours, Continuous Positive Airway Pressure (ICD-10-PCS; 2021-10-16)
PROC: 5A0935A Assistance with Respiratory Ventilation, Less than 24 Consecutive Hours, High Flow/Velocity Cannula (ICD-10-PCS; 2021-10-16)
PROC: 5A09357 Assistance with Respiratory Ventilation, Less than 24 Consecutive Hours, Continuous Positive Airway Pressure (ICD-10-PCS; 2021-10-17)
PROC: 5A0935A Assistance with Respiratory Ventilation, Less than 24 Consecutive Hours, High Flow/Velocity Cannula (ICD-10-PCS; 2021-10-17)
DX: A41.9 Sepsis, unspecified organism (principal); J96.21 Acute and chronic respiratory failure with hypoxia; K72.00 Acute and subacute hepatic failure without coma; R65.21 Severe sepsis with septic shock; G93.40 Encephalopathy, unspecified; E87.2 Acidosis; D62 Acute posthemorrhagic anemia; I50.43 Acute on chronic combined systolic (congestive) and diastolic (congestive) heart failure; I27.81 Cor pulmonale (chronic); N17.9 Acute kidney failure, unspecified; E87.5 Hyperkalemia; F41.9 Anxiety disorder, unspecified; I11.0 Hypertensive heart disease with heart failure; Z96.652 Presence of left artificial knee joint; E87.6 Hypokalemia; F32.A Depression, unspecified; Z20.822 Contact with and (suspected) exposure to COVID-19; G89.29 Other chronic pain; I48.0 Paroxysmal atrial fibrillation; J43.9 Emphysema, unspecified; J96.22 Acute and chronic respiratory failure with hypercapnia; Z51.5 Encounter for palliative care; Z85.118 Personal history of other malignant neoplasm of bronchus and lung; Z87.891 Personal history of nicotine dependence; Z90.49 Acquired absence of other specified parts of digestive tract; Z91.14 Patient's other noncompliance with medication regimen; Z95.2 Presence of prosthetic heart valve; Z99.81 Dependence on supplemental oxygen; Z79.899 Other long term (current) drug therapy; Z88.0 Allergy status to penicillin; Z88.8 Allergy status to other drugs, medicaments and biological substances
CPT/HCPCS: 36415; 36600; 71045; 80048; 80053; 80202; 80305; 82803; 82948; 83605; 83735; 83880; 84100; 84132; 84134; 84145; 84484; 85007; 85008; 85018; 85025; 85610; 85730; 87040; 87081; 87088; 87811; 93005; 93306; 94640; 94660; 94760; 94799; 96374; 96375; 97116; 97161; 97530; 99291; A4615; A5200; A6213; A6250; A6258; A6449; A7015; C1751; G0378; J0282; J0692; J1265; J1644; J1650; J1720; J1815; J1940; J2060; J2270; J2274; J2405; J2930; J3370; J3475; J3490; J7030; J7040; Q0177